=== PATIENT | female | born 1940 | race Caucasian/White ===

== ENCOUNTER → 2016-11-21 | Outpatient (CLI) | payer BC ==
[~2016-11-21] MED LIST: CALC600T9 PO; CHOL20009 PO; ESTR0.3T PO; GABA-1218 PO; HYDR25TA5 PO; LISI20TA3 PO; MIRT30TA PO; MISCCAP80 PO; SERT-234 PO
--- NOTE | 2016-11-21 12:17 | DIAGNOSTIC IMAGING REPORT ---
RIGHT HIP UNILATERAL 2 VIEWS CLINICAL HISTORY: Right hip pain. COMPARISON: Pelvis radiograph August 08, 2015. FINDINGS: Alignment of the right hip is anatomic. There is no fracture or suspicious lesion. Joint space is preserved. Irregularity of the greater trochanter is due to muscular insertion. IMPRESSION: 1. No acute fracture or dislocation right hip. 2. Minimal arthritis of the right hip. Electronically signed by: Armani Armstrong M.D. 11/21/2016 12:15 PM Dictated Date/Time: 11/21/2016 12:09 PM
== END | disposition home or self-care (01) ==
LOC: C.RAD1850 11:38
PROVIDERS: ATTEND Family Medicine
DX: M25.551 Pain in right hip (principal)

== ENCOUNTER → 2016-11-22 | Outpatient (CLI) | payer BC ==
--- NOTE | 2016-11-23 12:46 | MAMMOGRAPHY REPORT ---
BILATERAL DIGITAL SCREENING MAMMOGRAM WITH CAD: 11/22/2016 CLINICAL HISTORY: Routine screening examination. TECHNIQUE: Bilateral CC and MLO views were obtained. Current study was also evaluated with a Comput er Aided Detection (CAD) system. COMPARISON: Comparison is made to exams dated: 11/06/2015 mammogram, 10/29/2015 mammogram, 10/20/2015 m ammogram, 11/06/2013 mammogram, 06/11/2012 mammogram, and 06/09/2011 mammogram - [facility]. BREAST COMPOSITION: The tissue of both breasts is heterogeneously dense, which may obscure small ma sses. FINDINGS: There has been no reaccumulation of the previously aspirated cyst in the left breast. The re are scattered and grouped stable rounded punctate microcalcifications bilaterally. No new suspic ious mass, architectural distortion or cluster of microcalcifications is seen. IMPRESSION: ACR BI-RADS CATEGORY 1: NEGATIVE There is no mammographic evidence of malignancy. A 1 year screening mammogram is recommended. The p atient will receive written notification of the results. Approximately 10% of breast cancers are not detected with mammography. A negative mammographic repor t should not delay biopsy if a clinically suggestive mass is present. Ariana Rodríguez M.D. ay/:11/22/2016 16:31:01 Business Process Analyst: Sarah PAUL(Kimmie)(M), [facility] letter sent: Normal 1/2 BI-RADS Code: ACR BI-RADS Category 1: Negative
== END | disposition home or self-care (01) ==
LOC: C.MAMM 12:59
PROVIDERS: ATTEND Family Medicine
DX: Z12.31 Encounter for screening mammogram for malignant neoplasm of breast (principal)

== ENCOUNTER → 2016-12-02 | Day surgery (SDC) | payer BC ==
[2016-11-09 12:42] VITALS: BMI 29.0
[~2016-12-02] VITALS: Ht 160 cm; Wt 75.0 kg
[~2016-12-02] MED LIST changes: +ATROPINE SULFATE 0.1 MG/ML 5ML SYR IV PRN; +EpHEDrine SULFATE INJ 50 MG/ML AMP IV PRN; +LIDOCAINE HCL 2% 2 ML VIAL (20MG/ML) ONE; +PROPOFOL IV EMULSION 10 MG/ML 20 ML VIAL IV ONE
[2016-12-02 12:58] VITALS: Ht 160 cm; Wt 75.0 kg
--- NOTE | 2016-12-02 13:13 | Endo History and Physical ---
History & Physical Date of Service: Dec 02, 2016. Chief Complaint: anemia Referring Physician: Lencho History of Present Illness For colonoscopy Past Medical History Arthritis, Gastrointestinal Disorder, Anxiety, Hypertension, Depression Past Surgical History Hx Cardiac Surgery: No Hx Internal Defibrillator: No Hx Pacemaker: No Hx Abdominal Surgery: Yes (DUDLEY, APPY, INGUIAL HERNIA) Hx of Implantable Prosthesis: No Hx Post-Op Nausea and Vomiting: No Hx Cancer Surgery: No Hx Thoracic Surgery: No Hx Orthopedic: Yes (RT SHOULDER RCR) Hx Urinary Tract Surgery: No Family History None Social History Smoking Status: Never Smoker Hx Substance Use: No Hx Alcohol Use: No Allergies Coded Allergies: No Known Allergies (Verified , 11/09/16) Current Medications Reported Home Medications Medications Dose Route/Sig Max Daily Dose Days Date Category Zoloft (Sertraline HCl) 100 Mg Tab 200 Mg PO QPM 11/09/16 Reported Remeron (Mirtazapine) 30 Mg Tab 60 Mg PO HS 11/09/16 Reported Prinivil (Lisinopril) 20 Mg Tab 1.5 Tab PO QAM 11/09/16 Reported Hydrochlorothiazide 25 Mg Tab 1 Tab PO QAM 11/09/16 Reported Premarin (Estrogens Conjugated) 0.3 Mg Tab 0.3 Mg PO QAM 11/09/16 Reported Vitamin D (Cholecalciferol) 2,000 Unit Tab 1 Tab PO QAM 11/09/16 Reported Calcium + D (Calcium Carbonate-Vitamin D) 1 Tab Tab 1 Tab PO QAM 11/09/16 Reported Probiotic (Probiotic Product) 1 Cap Cap 1 Cap PO QAM 11/09/16 Reported Neurontin (Gabapentin) 300 Mg Cap 300 Mg PO QPM 07/31/15 Reported Vital Signs Weight (Kilograms): 75.00 Height (Feet): 5 Height (Inches): 3 Physical Exam General Appearance: + obese Respiratory/Chest: Respiratory effort: no dyspnea Cardiovascular: Heart Auscultation: RRR Abdomen: Inspection & Palpation: soft Assessment and Plan Anemia for colonoscopy
--- NOTE | 2016-12-02 13:47 | Discharge Instructions ---
Endoscopy Patient Instructions Date / Procedure(s) Performed Dec 02, 2016. Colonoscopy Allergy Information Coded Allergies: No Known Allergies (Verified , 11/09/16) Discharge Date / Findings Dec 02, 2016. Diverticulosis Medication Instructions Restart Stopped Medication(s): resume meds Reported Home Medications Medications Dose Route/Sig Max Daily Dose Days Date Category Zoloft (Sertraline HCl) 100 Mg Tab 200 Mg PO QPM 11/09/16 Reported Remeron (Mirtazapine) 30 Mg Tab 60 Mg PO HS 11/09/16 Reported Prinivil (Lisinopril) 20 Mg Tab 1.5 Tab PO QAM 11/09/16 Reported Hydrochlorothiazide 25 Mg Tab 1 Tab PO QAM 11/09/16 Reported Premarin (Estrogens Conjugated) 0.3 Mg Tab 0.3 Mg PO QAM 11/09/16 Reported Vitamin D (Cholecalciferol) 2,000 Unit Tab 1 Tab PO QAM 11/09/16 Reported Calcium + D (Calcium Carbonate-Vitamin D) 1 Tab Tab 1 Tab PO QAM 11/09/16 Reported Probiotic (Probiotic Product) 1 Cap Cap 1 Cap PO QAM 11/09/16 Reported Neurontin (Gabapentin) 300 Mg Cap 300 Mg PO QPM 07/31/15 Reported Provider Instructions Activity Restrictions - No exercising or heavy lifting for 24 hours. - Do not drink alcohol the day of the procedure. - Do not drive a car or operate machinery until the day after the procedure. - Do not make any important decisions or sign important papers in 24 hours after the procedure. Following Day: - Return to full activity which may include returning to work/school. Diet Start your diet with liquids and light foods (jello, soup, juice, toast). Then eat your usual diet if not nauseated. Treatment For Common After Affects For mild abdominal pain, bloating, or excessive gas: - Rest - Eat lightly - Lie on right side Follow-Up Information Follow-up with Dr. De La Torre as scheduled Anesthesia Information What You Should Know You have had a procedure that required some medicine to reduce anxiety and discomfort. This treatment is called moderate sedation. After receiving the treatment, you may be sleepy, but you will be able to breathe on your own. The effects of the treatment may last for several hours. Follow these instructions along with Activity/Diet recommendations noted above: * Do NOT do anything where dizziness or clumsiness would be dangerous. * Rest quietly at home today, then you can be up and about tomorrow. * Have a responsible person stay with you the rest of today. * You may have had an I.V. today. If so, you may take the dressing off later today. Recommendations Call your doctor if: * Trouble breathing * Continuous vomiting for more than 24 hours * Temperature above 101 degrees * Severe abdominal pain or bloating * Pain not relieved by pain medicine ordered * There is increased drainage or redness from any incision * A large amount of rectal bleeding greater than 2-3 tablespoons. (If you had a polyp/s removed or have hemorrhoids, a small amount of blood - from the rectum is to be expected.) * You have any unanswered questions or concerns. IN THE EVENT OF A SERIOUS EMERGENCY, GO TO THE NEAREST EMERGENCY ROOM Your discharge instructions were prepared by provider Oliver Barraza. Patient Instructions Signature Page Amie Vo Patient (or Guardian) Signature/Date: I have read and understand the instructions given to me by my caregivers. Caregiver/RN/Doctor Signature/Date: The above-named patient and/or guardian has received patient instructions on this date. + Original Patient Signature Page (only) stays with chart. Please make copy for patient.
--- NOTE | 2016-12-02 13:50 | GI REPORT ---
Procedure Date: 12/02/2016 1:18 PM Procedure: Colonoscopy Indications: Iron deficiency anemia Medicines: Propofol total dose 200 mg IV, Lidocaine 40 mg IV Complications: No immediate complications. Estimated Blood Loss: Estimated blood loss: none. Procedure: Pre-Anesthesia Assessment: - Prior to the procedure, a History and Physical was performed, and patient medications, allergies and sensitivities were reviewed. The patient's tolerance of previous anesthesia was reviewed. - The risks and benefits of the procedure and the sedation options and risks were discussed with the patient. All questions were answered and informed consent was obtained. After I obtained informed consent, the scope was passed under direct vision. Throughout the procedure, the patient's blood pressure, pulse, and oxygen saturations were monitored continuously. The Scope was introduced through the anus and advanced to the cecum, identified by appendiceal orifice and ileocecal valve. The colonoscopy was somewhat difficult due to poor bowel prep with stool present. Successful completion of the procedure was aided by lavage. The patient tolerated the procedure well. The quality of the bowel preparation was poor. Findings: Multiple diverticula were found in the sigmoid colon. Impression: - Preparation of the colon was poor. - Diverticulosis in the sigmoid colon. - No specimens collected. Recommendation: - Discharge patient to home (ambulatory). - Continue present medications. - Return to referring physician PRN. Oliver Barraza M.D. Oliver Barraza MD 12/02/2016 1:49:05 PM This report has been signed electronically. Note Initiated On: 12/02/2016 1:18 PM I attest to the content of the Intraoperative Record and orders documented therein, exceptions below
--- NOTE | 2016-12-02 13:58 | Anesthesiology Progress Note ---
Anesthesia Post Op Note Date & Time Dec 02, 2016 at 13:57 Vital Signs Pain Intensity: 0 Vital Signs Past 12 Hours Date Time Temp Pulse Resp B/P Pulse Ox O2 Delivery O2 Flow Rate FiO2 12/02/16 13:13 36.5 24 156/100 93 Room Air Notes Mental Status: alert / awake / arousable, participated in evaluation Pt Amnestic to Procedure: Yes Nausea / Vomiting: adequately controlled Pain: adequately controlled Airway Patency, RR, SpO2: stable & adequate BP & HR: stable & adequate Hydration State: stable & adequate Anesthetic Complications: no major complications apparent
[2016-12-02 14:19] VITALS: BP 145/79; PULSE 81; O2SAT 95
== END | disposition home or self-care (01) ==
LOC: C.GI 12:08
PROVIDERS: ATTEND Internal Medicine Gastroenterology
DX: K57.30 Diverticulosis of large intestine without perforation or abscess without bleeding (principal); D50.9 Iron deficiency anemia, unspecified; I10 Essential (primary) hypertension; K21.9 Gastro-esophageal reflux disease without esophagitis; F41.9 Anxiety disorder, unspecified; F32.9 Major depressive disorder, single episode, unspecified; M19.91 Primary osteoarthritis, unspecified site; Z79.899 Other long term (current) drug therapy

== ENCOUNTER → 2016-12-03 | Outpatient (CLI) | payer BC ==
[~2016-12-03] MED LIST changes: -ATROPINE SULFATE 0.1 MG/ML 5ML SYR IV PRN; -EpHEDrine SULFATE INJ 50 MG/ML AMP IV PRN; -LIDOCAINE HCL 2% 2 ML VIAL (20MG/ML) ONE; -PROPOFOL IV EMULSION 10 MG/ML 20 ML VIAL IV ONE
[2016-12-03 12:30] LABS: BASO % 0.1 %; BASO ABS # 0.02 K/uL (0-0.2); COMPLETE YES; EOS % 0.1 %; HEMATOCRIT 35.7 % (37-47); IG% 0.5 %; LYMPH % 7.3 %; LYMPH ABS # 1.07 K/uL (1.2-3.4); MEAN CELL VOLUME 91.8 fL (80-100); MEAN CORPUSCULAR HEMOGLOBIN 28.5 pg (25-34); MEAN CORPUSCULAR HGB CONC 31.1 g/dl (32-36); MEAN PLATELET VOLUME 9.5 fL (7.4-10.4); MONO % 7.5 %; NEUT % 84.5 %; PLATELET COUNT 410 K/uL (130-400); RED BLOOD COUNT 3.89 M/uL (4.2-5.4); WHITE BLOOD COUNT 14.62 K/uL (4.8-10.8)
[2016-12-03 12:57] LABS: ALT/SGPT 20 U/L (12-78)
[2016-12-03 12:59] LABS: ALKALINE PHOSPHATASE 80 U/L (45-117); AST/SGOT 14 U/L (15-37)
== END | disposition home or self-care (01) ==
LOC: C.LAB 11:35
PROVIDERS: ATTEND Internal Medicine Rheumatology
DX: R53.83 Other fatigue (principal); M05.9 Rheumatoid arthritis with rheumatoid factor, unspecified; R77.8 Other specified abnormalities of plasma proteins; M62.81 Muscle weakness (generalized); D47.2 Monoclonal gammopathy; R70.0 Elevated erythrocyte sedimentation rate

== ENCOUNTER → 2016-12-26 | Outpatient (CLI) | payer BC ==
--- NOTE | 2016-12-26 14:22 | DIAGNOSTIC IMAGING REPORT ---
LEFT HIP UNILATERAL MIN 2 VIEWS CLINICAL HISTORY: LEFT HIP PAIN pain COMPARISON: 08/08/2015 DISCUSSION: Mild degenerative change. Components of calcific trochanteric bursitis. No evidence for acetabular protrusion. There is no evidence for soft tissue swelling. IMPRESSION: Mild degenerative change. Calcific trochanteric bursitis. Electronically signed by: Romulo Baugh M.D. 12/26/2016 2:21 PM Dictated Date/Time: 12/26/2016 2:20 PM
== END | disposition home or self-care (01) ==
LOC: C.RDSM 13:35
PROVIDERS: ATTEND Physician Assistant
DX: M25.552 Pain in left hip (principal); M70.62 Trochanteric bursitis, left hip

== ENCOUNTER → 2017-01-13 | Outpatient (CLI) | payer BC ==
[2017-01-13 09:41] LABS: BASO % 0.2 %; BASO ABS # 0.03 K/uL (0-0.2); COMPLETE YES; EOS % 1.2 %; IG% 0.5 %; LYMPH % 12.1 %; LYMPH ABS # 1.73 K/uL (1.2-3.4); MEAN CELL VOLUME 97.3 fL (80-100); MEAN CORPUSCULAR HEMOGLOBIN 28.4 pg (25-34); MEAN CORPUSCULAR HGB CONC 29.2 g/dl (32-36); MEAN PLATELET VOLUME 10.1 fL (7.4-10.4); MONO % 9.1 %; NEUT % 76.9 %; PLATELET COUNT 284 K/uL (130-400); WHITE BLOOD COUNT 14.33 K/uL (4.8-10.8)
[2017-01-13 10:20] LABS: ALT/SGPT 18 U/L (12-78); AST/SGOT 14 U/L (15-37)
[2017-01-13 10:21] LABS: ALKALINE PHOSPHATASE 65 U/L (45-117)
== END | disposition home or self-care (01) ==
LOC: C.LAB1850 08:52
PROVIDERS: ATTEND Internal Medicine Rheumatology
DX: R70.0 Elevated erythrocyte sedimentation rate (principal); M05.9 Rheumatoid arthritis with rheumatoid factor, unspecified; Z79.899 Other long term (current) drug therapy

== ENCOUNTER → 2017-06-06 | Outpatient (CLI) | payer BC ==
[2017-06-06 12:26] LABS: BASO % 0.3 %; BASO ABS # 0.03 K/uL (0-0.2); COMPLETE YES; EOS % 2.4 %; HEMATOCRIT 38.7 % (37-47); IG% 0.5 %; LYMPH % 21.6 %; LYMPH ABS # 1.92 K/uL (1.2-3.4); MEAN CELL VOLUME 98.7 fL (80-100); MEAN CORPUSCULAR HEMOGLOBIN 31.6 pg (25-34); MEAN PLATELET VOLUME 10.6 fL (7.4-10.4); MONO % 7.9 %; NEUT % 67.3 %; PLATELET COUNT 241 K/uL (130-400); RED BLOOD COUNT 3.92 M/uL (4.2-5.4); WHITE BLOOD COUNT 8.87 K/uL (4.8-10.8)
[2017-06-06 13:16] LABS: ALT/SGPT 18 U/L (12-78); AST/SGOT 19 U/L (15-37); CREATININE 1.23 mg/dl (0.60-1.20)
== END | disposition home or self-care (01) ==
LOC: C.LAB1850 09:52
PROVIDERS: ATTEND Internal Medicine Rheumatology
DX: R70.0 Elevated erythrocyte sedimentation rate (principal); Z51.81 Encounter for therapeutic drug level monitoring; Z79.899 Other long term (current) drug therapy; M05.9 Rheumatoid arthritis with rheumatoid factor, unspecified

== ENCOUNTER → 2017-09-08 | Outpatient (CLI) | payer BC ==
[2017-09-08 10:58] LABS: BASO % 0.5 %; BASO ABS # 0.04 K/uL (0-0.2); EOS % 2.4 %; EOS ABS # 0.21 K/uL (0-0.5); HEMATOCRIT 41.5 % (37-47); HEMOGLOBIN 13.4 g/dL (12.0-16.0); IG# 0.04 K/uL (0.00-0.02); LYMPH % 20.6 %; LYMPH ABS # 1.81 K/uL (1.2-3.4); MEAN CORPUSCULAR HEMOGLOBIN 32.3 pg (25-34); MEAN CORPUSCULAR HGB CONC 32.3 g/dl (32-36); MEAN PLATELET VOLUME 10.7 fL (7.4-10.4); MONO % 6.4 %; MONO ABS # 0.56 K/uL (0.11-0.59); NEUT % 69.6 %; NEUT ABS # 6.11 K/uL (1.4-6.5); PLATELET COUNT 230 K/uL (130-400); RED CELL DISTRIBUTION WIDTH CV 14.5 % (11.5-14.5); RED CELL DISTRIBUTION WIDTH SD 52.1 fL (36.4-46.3); WHITE BLOOD COUNT 8.77 K/uL (4.8-10.8)
[2017-09-08 11:19] LABS: ALBUMIN 3.4 gm/dl (3.4-5.0); ALT/SGPT 23 U/L (12-78); CREATININE 1.42 mg/dl (0.60-1.20)
[2017-09-08 11:21] LABS: ALKALINE PHOSPHATASE 71 U/L (45-117); AST/SGOT 20 U/L (15-37); TOTAL PROTEIN 7.1 gm/dl (6.4-8.2)
== END | disposition home or self-care (01) ==
LOC: C.LAB1850 09:20
PROVIDERS: ATTEND Internal Medicine Rheumatology
DX: R70.0 Elevated erythrocyte sedimentation rate (principal); M05.9 Rheumatoid arthritis with rheumatoid factor, unspecified; Z79.899 Other long term (current) drug therapy

== ENCOUNTER → 2017-11-16 | Outpatient (CLI) | payer BC ==
--- NOTE | 2017-11-16 14:30 | DIAGNOSTIC IMAGING REPORT ---
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 FINDINGS: There is no fracture or dislocation. Calcifications at the distal insertion of the gluteus medius tendon. This remains unchanged. Cartilage spaces are maintained for age. There is a bones are intact. No radiopaque foreign bodies. Small marginal osteophytes at the left hip, unchanged. IMPRESSION: 1. No change compared to the prior study. 2. No fracture or dislocation within the left hip. 3. Chronic calcification at the gluteus medius tendon. Electronically signed by: Aden Pappas M.D. 11/16/2017 2:29 PM Dictated Date/Time: 11/16/2017 2:25 PM
== END | disposition home or self-care (01) ==
LOC: C.RAD1850 13:48
PROVIDERS: ATTEND Internal Medicine Rheumatology
DX: Z51.81 Encounter for therapeutic drug level monitoring (principal); M76.02 Gluteal tendinitis, left hip; M19.90 Unspecified osteoarthritis, unspecified site; Z79.52 Long term (current) use of systemic steroids

== ENCOUNTER → 2017-12-21 | Outpatient (CLI) | payer BC ==
[2017-12-21 12:11] LABS: BASO % 0.3 %; BASO ABS # 0.03 K/uL (0-0.2); EOS % 0.7 %; EOS ABS # 0.06 K/uL (0-0.5); HEMOGLOBIN 12.7 g/dL (12.0-16.0); IG# 0.04 K/uL (0.00-0.02); LYMPH % 14.6 %; LYMPH ABS # 1.33 K/uL (1.2-3.4); MEAN CELL VOLUME 100.3 fL (80-100); MEAN CORPUSCULAR HEMOGLOBIN 31.8 pg (25-34); MEAN CORPUSCULAR HGB CONC 31.8 g/dl (32-36); MEAN PLATELET VOLUME 10.3 fL (7.4-10.4); MONO % 6.7 %; MONO ABS # 0.61 K/uL (0.11-0.59); NEUT % 77.3 %; NEUT ABS # 7.03 K/uL (1.4-6.5); PLATELET COUNT 259 K/uL (130-400); RED CELL DISTRIBUTION WIDTH CV 14.4 % (11.5-14.5); RED CELL DISTRIBUTION WIDTH SD 51.7 fL (36.4-46.3)
[2017-12-21 12:19] LABS: ALBUMIN 3.6 gm/dl (3.4-5.0); ALT/SGPT 29 U/L (12-78); AST/SGOT 25 U/L (15-37); CREATININE 1.25 mg/dl (0.60-1.20)
[2017-12-21 12:22] LABS: ALKALINE PHOSPHATASE 56 U/L (45-117); TOTAL PROTEIN 7.1 gm/dl (6.4-8.2)
== END | disposition home or self-care (01) ==
LOC: C.LAB1850 09:31
PROVIDERS: ATTEND Internal Medicine Rheumatology
DX: Z51.81 Encounter for therapeutic drug level monitoring (principal); M05.9 Rheumatoid arthritis with rheumatoid factor, unspecified; Z79.899 Other long term (current) drug therapy; M70.61 Trochanteric bursitis, right hip

== ENCOUNTER → 2018-03-14 | Outpatient (CLI) | payer BC | END | disposition home or self-care (01) | LOC: C.RDSM 13:21 | PROVIDERS: ATTEND Family Medicine Sports Medicine | DX: M54.5 Low back pain (principal); M54.10 Radiculopathy, site unspecified ==

== ENCOUNTER 2019-09-03 18:28 | Observation (INO) ==
[2019-09-03] MEDS ORDERED: SODIUM CHLORIDE 0.9% 1000ML 1,000 ML IV ONE (20:00)
--- NOTE | 2019-09-03 20:21 | XRay Report ---
XR chest 1V portable CLINICAL HISTORY: SEPSIS dyspnea COMPARISON STUDY: 07/22/2019 FINDINGS: Mild cardiac enlargement. Fixed hiatal hernia. Lungs are clear. IMPRESSION: Mild cardiomegaly. The lungs are clear. ACT 112: Negative or not required by law. The above report was generated using voice recognition software. It may contain grammatical, syntax or spelling errors. Electronically signed by: Romulo Baugh M.D. 09/03/2019 8:20 PM
[2019-09-03 20:45] LABS: Basophils # (auto) 0.01 K/uL (0-0.2); Eosinophils # (auto) 0.01 K/uL (0-0.5); Hematocrit (blood only) 44.5 % (37-47); Hemoglobin 13.6 g/dL (12.0-16.0); Immature Granulocytes # (auto) 0.18 K/uL (0.00-0.02); Immature Granulocytes % (auto) 0.8 %; Lymphocytes # (auto) 1.59 K/uL (1.2-3.4); Lymphocytes % (auto) 7.5 %; Mean Corpuscular Hemoglobin 28.3 pg (25-34); Mean Corpuscular Hgb Conc 30.6 g/dL (32-36); Mean Corpuscular Volume 92.5 fL (80-100); Mean Platelet Volume 10.6 fL (7.4-10.4); Monocytes # (auto) 0.28 K/uL (0.11-0.59); Monocytes % (auto) 1.3 %; Neutrophils # (auto) 19.16 K/uL (1.4-6.5); Neutrophils % (auto) 90.4 %; Platelet Count 177 K/uL (130-400); RDW Coefficient of Variation 18.9 % (11.5-14.5); RDW Standard Deviation 64.6 fL (36.4-46.3); Red Blood Count 4.81 M/uL (4.2-5.4); White Blood Count 21.23 K/uL (4.8-10.8)
[2019-09-03 21:04] LABS: Albumin Level 3.4 gm/dl (3.4-5.0); BUN Creatinine Ratio 34.3 (10-20); Creatinine Clr Calc Pharmacy 23.6 ml/min; Est GFR (African American) 28.9; Magnesium 2.6 mg/dl (1.8-2.4); Potassium 4.7 mmol/L (3.5-5.1)
[2019-09-03 21:05] LABS: Partial Thromboplastin Ratio 0.8; Partial Thromboplastin Time 21.6 Seconds (21.0-31.0); Prothrombin Time 10.5 Seconds (9.0-12.0)
[2019-09-03 21:08] LABS: Bilirubin,Total 0.2 mg/dl (0.2-1); Globulin 3.3 gm/dl (2.5-4.0); Total Protein 6.7 gm/dl (6.4-8.2); Troponin I 0.035 ng/ml (0-0.045)
[2019-09-03 21:51] LABS: Influenza A virus by PCR Neg for Influ A (Neg); Influenza B virus by PCR Neg for Influ B (Neg)
[2019-09-03 22:16] LABS: Appearance Urine Clear (Clear); Bacteria Urine Automated Negative (Negative); Bilirubin Urine Negative (Negative); Blood Urine Negative (Negative); Color Urine Yellow; Epithelial Cell Urine Auto >30 /lpf (0-5); Glucose Urine UA Negative (Negative); Ketones Urine Negative (Negative); Leukocyte Esterase Urine Trace (Negative); Nitrite Urine Negative (Negative); Protein Urine Negative (Negative); RBC Urine Automated 0-4 /hpf (0-4); Specific Gravity Urine 1.021 (1.000-1.030); Urobilinogen Urine Negative (Negative)
[2019-09-03 22:32] LABS: POC Urine Bilirubin Negative (Negative); POC Urine Blood Negative (Negative); POC Urine Glucose Normal (Normal); POC Urine Ketones Negative (Negative); POC Urine Leukocytes Negative (Negative); POC Urine Nitrite Negative (Negative); POC Urine Protein Negative (Negative); POC Urine Urobilinogen Normal (Normal); POC Urine pH 7 (4.5-7.5)
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
--- NOTE | 2019-09-03 23:59 | History & Physical Report ---
Date of Service September 03, 2019 Assessment & Plan (1) Acute kidney injury superimposed on chronic kidney disease: Creatinine 1.89 upon admission, with range 1.22-1.42. Continue IV fluid rehydration begun in ED with normal saline at 100 mils per hour. Repeat laboratories in a.m. No suggestion of UTI, but follow urine culture sensitivity results. Present on Admission?: Yes (2) Elevated WBC count: Has been on prednisone for treatment of urticaria. Repeat laboratories in a.m. May be elevated in part also to dehydration. Present on Admission?: Yes (3) Chronic idiopathic urticaria: Being treated in the outpatient setting by allergy immunology. Continue current prednisone taper. Avoid stress dose steroids for now, as patient is anxious, and will titrate hydrate and get home tomorrow. Present on Admission?: Yes (4) Hyperlipidemia: Continue Zetia Present on Admission?: Yes (5) Hypertension: Hold lisinopril. Present on Admission?: Yes (6) Anxiety: Continue sertraline and mirtazapine. Present on Admission?: Yes History of Present Illness Chief Complaint: The patient presents to the emergency department as a referral from the outpatient office of allergy and immunology due to concerns regarding abnormal laboratories including elevated creatinine and elevated white blood cell count. Primary Care Provider: Phoenix Musa The patient is a 78-year-old female with a past medical history including chronic idiopathic urticaria, hypertension, hyperlipidemia, GERD, div erticulosis, and status post successful back surgery. She was sent to the ED after being referred from the outpatient allergy and immunology office due to elevated creatinine and elevated white blood cell count. Patient recently been on prednisone, which was thought to be part of the reason for elevated white cell count, but she had sustained a significant increase in creatinine as well. Allergies Allergy/AdvReac Type Severity Reaction Status Date / Time No Known Allergies Allergy Verified 09/03/19 21:28 Home Medications Home Medications Medication Instructions Recorded Confirmed Type Premarin 0.3 mg PO QAM 11/21/18 09/03/19 History ezetimibe [Zetia] 10 mg PO QAM 11/21/18 09/03/19 History gabapentin 400 mg PO HS 11/21/18 09/03/19 History mirtazapine [Remeron] 60 mg PO HS 11/21/18 09/03/19 History sertraline 200 mg PO QPM 11/21/18 09/03/19 History lisinopril 20 mg PO QAM 07/22/19 09/03/19 History coenzyme Q10 200 mg capsule 200 mg PO DAILY cap 07/29/19 09/03/19 History ferrous gluconate 240 mg (27 mg 240 mg PO DAILY 07/29/19 09/03/19 History iron) tablet ketoconazole 1 % shampoo 1 appln TOP DIRECTED PRN 07/30/19 09/03/19 History triamcinolone acetonide 0.1 % 1 appln TOP DAILY 07/30/19 09/03/19 History topical cream prednisone 20 mg tablet See Rx Instructions PO .COMPLEX 08/19/19 09/03/19 Rx #60 tab calcium carbonate-vitamin D3 1 tab PO DAILY 09/03/19 09/03/19 History [Calcium 600 + D(3)] hydroxyzine pamoate [Vistaril] 25 mg PO Q6H PRN 09/03/19 09/03/19 History Past Med/Surg History Medical History Cardiac murmur HX RF A CHILD Depression GERD (gastroesophageal reflux disease) Hyperlipidemia Hypertension MVP (mitral valve prolapse) HX-NO PREMED WITH DENTAL Rheumatoid arthritis SOB (shortness of breath) on exertion Spinal stenosis PAIN RIGHT LEG Surgical History History of appendectomy History of cataract surgery R/L History of colonoscopy History of herniorrhaphy History of hysterectomy TOTAL S/P epidural steroid injection Family History Mother Family history of diabetes mellitus Social History Preferred Language: Gambian Communication Ability: Effective [place] Required: No Beliefs That Will Affect Care: None Current Living Situation: Spouse Feels Safe at Home: Yes Smoking Status: Never smoker Second Hand Exposure: No ; Hx Alcohol Use: No Hx Substance Use: No Review of Systems Review of Systems: The patient denies chest pain, palpitations, shortness of breath, dyspnea on exertion, cough, lower extremity swelling, sore throat, fevers, chills, sweats, nausea, vomiting, diarrhea , constipation, abdominal pain, pelvic pain, blood in urine or stool, dysuria, urinary frequency or urgency, memory loss, loss of consciousness, abnormal bruising or bleeding, imbalance, focal or generalized weakness, numbness or tingling in arms or legs, generalized arthralgias or myalgias, back or neck pain, or night sweats. The review of systems is otherwise negative other than for that already noted above, and at least 10 systems have been reviewed. Physical Exam Physical Exam: The patient is awake, alert and oriented 3, normocephalic and atraumatic, sitting upright in bed and in no acute distress. HEENT--PERRL, EOMI, mucous membranes and oropharynx dry. Neck--supple. No JVD. No bruits. Thyroid normal, trachea midline, no adenopathy. Heart--normal S1 and S2. No murmurs, rubs or gallops. Lungs--clear bilaterally, no respiratory distress, no accessory muscle use. Abdomen--normal bowel sounds and soft. Nontender. Nondistended. Extremities--no cyanosis or clubbing. No edema. There are good distal pulses b/l. Dermatologic--rash as noted in outpatient setting. Neurologic--cranial nerves II through XII grossly intact. Rheumatologic--normal range of motion. Psychiatric--normal affect. Results & Data Vital Signs (Past 12 Hours) Vital Signs Temp Pulse Pulse Resp BP BP Pulse Ox 09/03/19 23:00 65 67 22 164/88 H 164/88 H 93 09/03/19 22:01 67 28 H 181/86 H 09/03/19 22:00 67 18 09/03/19 21:59 71 33 H 204/101 H 09/03/19 21:21 64 21 92 09/03/19 21:11 66 18 155/92 H 93 09/03/19 21:09 63 17 155/92 H 92 09/03/19 18:44 98.2 F 86 20 131/75 98 Laboratory Results Laboratory Results WBC 21.23 K/uL (4.8-10.8) H 09/03/19 20:33 RBC 4.81 M/uL (4.2-5.4) 09/03/19 20:33 Hgb 13.6 g/dL (12.0-16.0) 09/03/19 20:33 Hct 44.5 % (37-47) 09/03/19: MCV 92.5 fL (80-100) 09/03/19 20: MCH 28.3 pg (25-34) 09/03/19: MCHC 30.6 g/dL (32-36) L 09/03/19: RDW Std Deviation 64.6 fL (36.4-46.3) H 09/03/19: RDW Coeff of Shankar 18.9 % (11.5-14.5) H 09/03/19: Plt Count 177 K/uL (130-400) 09/03/19: MPV 10.6 fL (7.4-10.4) H 09/03/19 20: Immature Gran % (Auto) 0.8 % 09/03/19: Neut % (Auto) 90.4 % 09/03/19: Lymph % (Auto) 7.5 % 09/03/19: Wilkin % (Auto) 1.3 % 09/03/19: Eos % (Auto) 0.0 % 09/03/19: Baso % (Auto) 0.0 % 09/03/19: Immature Gran # (Auto) 0.18 K/uL (0.00-0.02) H 09/03/19 20: Neut # (Auto) 19.16 K/uL (1.4-6.5) H 09/03/19 20: Lymph # (Auto) 1.59 K/uL (1.2-3.4) 09/03/19 20: Wilkin # (Auto) 0.28 K/uL (0.11-0.59) 09/03/19: Eos # (Auto) 0.01 K/uL (0-0.5) 09/03/19: Baso # (Auto) 0.01 K/uL (0-0.2) 09/03/19: PT 10.5 Seconds (9.0-12.0) 09/03/19 20: INR 1.0 (0.9-1.1) 09/03/19: APTT 21.6 Seconds (21.0-31.0) 01/21/20 20:33 PTT Ratio 0.8 09/03/19 20:33 Sodium 141 mmol/L (136-145) 09/03/19 20:33 Potassium 4.7 mmol/L (3.5-5.1) 09/03/19 20:33 Chloride 112 mmol/L (98-107) H 09/03/19 20:33 Carbon Dioxide 23 mmol/L (21-32) 09/03/19 20:33 Anion Gap 7.0 (3-11) 09/03/19 20:33 BUN 65 mg/dl (7-18) H 09/03/19 20:33 Creatinine 1.89 mg/dl (0.6-1.2) H 09/03/19 20:33 Est Cr Clr Drug Dosing 23.6 ml/min 09/03/19 20:33 Est GFR ( Amer) 28.9 09/03/19 20:33 Est GFR (Non-Af Amer) 25.0 09/03/19 20:33 BUN/Creatinine Ratio 34.3 (10-20) H 09/03/19 20:33 Glucose 134 mg/dl (70-99) H 09/03/19 20:33 Lactate 1.2 mmol/L (0.4-2.0) 09/03/19 22:24 Calcium 9.0 mg/dl (8.5-10.1) 09/03/19 20:33 Magnesium 2.6 mg/dl (1.8-2.4) H 09/03/19 20:33 Total Bilirubin 0.2 mg/dl (0.2-1) 09/03/19 20:33 AST 24 U/L (15-37) 09/03/19 20:33 ALT 45 U/L (12-78) 09/03/19 20:33 Alkaline Phosphatase 62 U/L (45-117) 09/03/19 20:33 Troponin I 0.035 ng/ml (0-0.045) 09/03/19 20:33 Total Protein 6.7 gm/dl (6.4-8.2) 09/03/19 20:33 Albumin 3.4 gm/dl (3.4-5.0) 09/03/19 20:33 Globulin 3.3 gm/dl (2.5-4.0) 09/03/19 20:33 Albumin/Globulin Ratio 1.0 (0.9-2) 09/03/19 20:33 Procalcitonin < 0.05 ng/ml (0-0.5) 09/03/19 20:33 Urine Color Yellow 09/03/19 22:00 Urine Appearance Clear (Clear) 09/03/19 22:00 Urine pH 5.0 (4.5-7.5) 09/03/19 22:00 POC Urine pH 7 (4.5-7.5) 09/03/19 Unknown Ur Specific [place] 1.021 (1.000-1.030) 09/03/19 22:00 Urine Protein Negative (Negative) 09/03/19 22:00 POC Urine Protein Negative (Negative) 09/03/19 Unknown Urine Glucose (UA) Negative (Negative) 09/03/19 22:00 POC Ur Glucose (UA) Normal (Normal) 09/03/19 Unknown Urine Ketones Negative (Negative) 09/03/19 22:00 POC Urine Ketones Negative (Negative) 09/03/19 Unknown Urine Blood Negative (Negative) 09/03/19 22:00 POC Urine Blood Negative (Negative) 09/03/19 Unknown Urine Nitrite Negative (Negative) 09/03/19 22:00 POC Urine Nitrite Negative (Negative) 09/03/19 Unknown Urine Bilirubin Negative (Negative) 09/03/19 22:00 POC Urine Bilirubin Negative (Negative) 09/03/19 Unknown Urine Urobilinogen Negative (Negative) 09/03/19 22:00 POC Urine Urobilinogen Normal (Normal) 09/03/19 Unknown Ur Leukocyte Esterase Trace (Negative) H 09/03/19 22:00 POC U Leukocyte Esteras Negative (Negative) 09/03/19 Unknown Urine WBC (Auto) 1-5 /hpf (0-5) 09/03/19 22:00 Urine RBC (Auto) 0-4 /hpf (0-4) 09/03/19 22:00 U Hyaline Cast (Auto) 1-5 /lpf (0-5) 09/03/19 22:00 U Epithel Cells (Auto) >30 /lpf (0-5) H 09/03/19 22:00 Urine Bacteria (Auto) Negative (Negative) 09/03/19 22:00 Influenza Type A (PCR) Neg for Influ A (Neg) 09/03/19 21:06 Influenza Type B (PCR) Neg for Influ B (Neg) 09/03/19 21:06 Diagnostic Findings [facility] [place] [phone] XRay Report Patient: SUMI AQUINO AAdmit Date: 09/03/19 MR#: [id number] [address] Acct ID:[id number]: Date: 1City Zip: [place] [address] Age: 78Location: ED Sex: F Room/Bed: Att Phy:Diagnosis: DEHYDRATED, ABNORMAL LABS Cindi Phy: Phoenix Musa, MDService Date: 09/03/19 Fam Phy:Interpreting Phy: Romulo Baugh MD Admit Phy: Ordering Phy: Rigoberto Mayfield M.D. cc: ~ XR chest 1V portable CLINICAL HISTORY: SEPSIS dyspnea COMPARISON STUDY: 07/22/2019 FINDINGS: Mild cardiac enlargement. Fixed hiatal hernia. Lungs are clear. IMPRESSION: Mild cardiomegaly. The lungs are clear. ACT 112: Negative or not required by law. The above report was generated using voice recognition software. It may contain grammatical, syntax or spelling errors. Electronically signed by: Romulo Baugh M.D. 09/03/2019 8:20 PM Dictated: 09/03/192019 Transcribed: 09/03/192019 Code Status & VTE Plan Code Status Full code VTE Prophylaxis Plan VTE Prophylaxis will be ordered: Yes PG Care Time/CCT Total # of Minutes Spent Total Time Spent with Patient: Total time spent is greater than 50% in coordination of care (as documented) at patient's floor/unit and/or counseling patient: (1) Elevated WBC count Leukocytosis type: unspecified Qualified Code(s): D72.829 - Elevated white blood cell count, unspecified
[2019-09-04] MEDS ORDERED: ONDANSETRON INJ 2 MG/ML 2 ML VIAL IV PRN (01:16)
[2019-09-04] MEDS ORDERED: MAGNESIUM HYDROXIDE SUSP 30 ML UDC PO PRN (01:16)
[2019-09-04] MEDS ORDERED: ALUMINUM/MAGNESIUM SUSP 30 ML UDC PO PRN (01:16)
[2019-09-04] MEDS ORDERED: ACETAMINOPHEN 325 MG TAB PO PRN (01:16)
[2019-09-04] MEDS ORDERED: KETOCONAZOLE~ORDER AWAITING ACTION SCH (08:00)
[2019-09-04] MEDS: EZETIMIBE 10 MG TABLET PO SCH (08:02)
[2019-09-04] MEDS: ESTROGENS, CONJUGATED 0.3 MG TAB PO SCH (08:02)
[2019-09-04] MEDS: predniSONE 20 MG TAB PO SCH (08:03)
[2019-09-04] MEDS: FERROUS GLUCONATE 324 MG TAB PO SCH (08:04)
[2019-09-04] MEDS: CALCIUM 600MG + VIT D 400 IU TAB PO SCH (08:04)
[2019-09-04] MEDS: TRIAMCINOLONE ACET 0.1% CR 15 GM TUBE TOP SCH (08:05)
[2019-09-04] MEDS ORDERED: NON-FORMULARY MEDICATION (Coenzyme Q10 200 MG) PO SCH (09:00)
[2019-09-04] MEDS: SODIUM CHLORIDE 0.9% 1000ML 1,000 ML IV SCH ×2 (09:35→21:00)
[2019-09-04 12:00] LABS: Hematocrit (blood only) 42.6 % (37-47); Hemoglobin 12.9 g/dL (12.0-16.0); Mean Corpuscular Hemoglobin 28.2 pg (25-34); Mean Corpuscular Hgb Conc 30.3 g/dL (32-36); Mean Platelet Volume 9.9 fL (7.4-10.4); Platelet Count 140 K/uL (130-400); RDW Coefficient of Variation 18.9 % (11.5-14.5); Red Blood Count 4.58 M/uL (4.2-5.4); White Blood Count 17.05 K/uL (4.8-10.8)
[2019-09-04 12:48] LABS: BUN Creatinine Ratio 33.2 (10-20); Est GFR (African American) 48.2; Est GFR (Non-African American) 41.6; Potassium 4.7 mmol/L (3.5-5.1)
[2019-09-04] MEDS ORDERED: DOCUSATE SODIUM 100 MG CAP PO ONE (16:23)
--- NOTE | 2019-09-04 20:48 | Hospitalist Progress Note ---
Date of Service September 04, 2019 Assessment & Plan (1) Acute kidney injury superimposed on chronic kidney disease: - Cr at 2+ on initial labs but trending down - currently at baseline at 1.24 (baseline 1.22-1.42) -- Suspect this is prerenal in setting of dehydration - Continue gentle hydration of NSS at 80 mL/hr - reassess with AM labs - Hold Lisinopril - likely can resume on D/C (2) Elevated WBC count: - No identified sources of infection; BCx are pending but remains afebrile - This is likely steroid-induced - is trending down and currently at 17 so possibly a reactive component - Continue to monitor for signs of infection -- CXR unremarkable; UA neg; skin stable; remains afebrile (3) Chronic idiopathic urticaria: - Follows with Dr. Cronin - discussed with him on multiple occasions - Talking with patient and family the biggest concern is insomnia which is likely triggered by steroid use. Per records it looks like she should be taking a daily tapering dose. states she takes steroids twice a day in this tapering dose - may need to F/U as I am not sure if they are just splitting the dose for the day or actually taking the prescribed dose twice? -- Likely taking a steroid dose before bed can likely be contributing to her insomnia - steroids in general may be the underlying cause of her complaints - however her rash is improved - Discussed with allergy - plan to continue Prednisone taper but will reduce dose every 3 days instead of 5 days - BP is stable and no signs of adrenal insufficiency at current time - Given symptoms will check TSH in AM - last draw was in Dec and normal - In regards to insomnia: -- Discussion with patient and reveals she has Klonopin at home and this helped her sleep when dealing with the rash. She has used it before while on Remeron and Zoloft without adverse effect. It appears she may have some underlying anxiety as she has used this for situational circumstances in the past - which could be adding to the whole picture - Given using Klonopin in the past this may ultimately help her - will give a dose tonight as well as Remeron and Zoloft - did explain the hospital is tough to get adequate sleep but will re-assess -- states they have some of this medication at home as she does not use it frequently but her "nerve doctor" prescribes it. No issues in PDMP (4) Hyperlipidemia: - Continue Zetia (5) Hypertension: - Hold lisinopril - will expect higher readings do to situation/anxiety/poor sleep, as well with long standing steroids - would avoid overcorrecting given already unsteadiness from tremors/jitteriness to avoid hypotension or drastic swings in pressure unless symptomatic (6) Anxiety: - Continue sertraline and mirtazapine. (7) Constipation: - Long standing issue - likely worsened with dehydration. Will trial Colace BID and can prescribe/recommend OTC to help with bowel regularity. -- She is hesitant to use laxatives. But is moving her bowels so not necessary at this time -- She does have to sometimes manual disimpact herself - should increase fiber in the diet as well - She also was found to have a hiatal hernia on imaging - will add Protonix 40 mg daily while on Prednisone -- states she does have some issues with dry foods like crackers especially since being on steroids and likely this is all part of dehydration but may benefit from video swallow if ongoing issues Disposition: Will keep patient overnight. She appears rather anxious and mildly distraught due to these symptoms. Hopefully she can rest tonight and can be D/Cd tomorrow Subjective Reports overall she is doing okay. Very anxious and jittery. She reports she cannot sleep well. She denies symptoms to suspect infection. Updated Dr. Cronin on situation and plan Review of Systems Constitutional: + fatigue and + insomnia; no fever and no chills Eyes: no worsening vision Respiratory: no cough and no dyspnea Cardiovascular: no chest pain Gastrointestinal: + constipation; no abdominal pain, no nausea, no vomiting and no diarrhea/loose stools Genitourinary: no dysuria and no urinary frequency Musculoskeletal: no body aches Integumentary: no rash Neurologic: + tremor(s) and + confusion; no tingling and no numbness Psychiatric: + abnormal sleep pattern, + anxiety and + confusion Physical Exam Constitutional: + acute distress (anxiety-driven); not ill appearing Eyes: + anicteric sclerae ENMT: Ears: no hearing impairment Mouth: + dry oral mucous membranes Neck: trachea midline Respiratory: normal respiratory effort, lungs clear to auscultation Cardiovascular: Rate/Rhythm: regular rate and regular rhythm Heart Sounds: no murmur Vessels: no JVD Gastrointestinal (Abdomen): Inspection/Auscultation: normal bowel sounds Percussion/Palpation: abdomen soft; abdomen nontender Musculoskeletal: Head/Neck/Chest: normocephalic and head atraumatic Skin: no rashes, warm and dry Neurologic: moves all extremities Motor/Sensory: + tremor Psychiatric: Orientation: alert and oriented x 3 Eye Contact: good eye contact Motor Behavior: + tremor Affect: + anxious affect Mood: + anxious mood Results & Data Vital Signs (Past 12 Hours) Vital Signs Temp Pulse Resp BP Pulse Ox 09/04/19 15:29 36.7 C 83 20 129/72 94 PG Care Time/CCT Total # of Minutes Spent Total Time Spent with Patient: Total time spent is greater than 50% in coordination of care (as documented) at patient's floor/unit and/or counseling patient: (1) Elevated WBC count Leukocytosis type: unspecified Qualified Code(s): D72.829 - Elevated white blood cell count, unspecified
[2019-09-04] MEDS ORDERED: clonazePAM 0.5 MG TAB PO SCH (21:00)
[2019-09-04] MEDS ORDERED: GABAPENTIN 400 MG CAP PO SCH (21:00)
[2019-09-04] MEDS ORDERED: MIRTAZAPINE TAB 15 MG TAB PO SCH (21:00)
[2019-09-04] MEDS ORDERED: SERTRALINE HCL 100 MG TABLET PO SCH (21:00)
--- NOTE | 2019-09-04 23:05 | Electrocardiogram Report ---
Test Reason : Blood Pressure : / mmHG Vent. Rate : 073 BPM Atrial Rate : 073 BPM P-R Int : 134 ms QRS Dur : 094 ms QT Int : 394 ms P-R-T Axes : 033 015 015 degrees QTc Int : 434 ms Sinus rhythm with occasional Premature ventricular complexes Incomplete right bundle branch block Possible Left atrial enlargement When compared with ECG of 22-JUL-2019 11:24, No significant change was found Confirmed by Nathaniel Cannon ([id number]) on 09/04/2019 11:05:24 PM Referred By: REFERRED SELF Confirmed By:Nathaniel Cannon
[2019-09-05 06:24] LABS: Hematocrit (blood only) 40.2 % (37-47); Mean Corpuscular Hemoglobin 28.1 pg (25-34); Mean Corpuscular Hgb Conc 29.9 g/dL (32-36); Mean Corpuscular Volume 94.1 fL (80-100); Mean Platelet Volume 11.2 fL (7.4-10.4); Platelet Count 134 K/uL (130-400); RDW Coefficient of Variation 18.9 % (11.5-14.5); RDW Standard Deviation 65.3 fL (36.4-46.3); Red Blood Count 4.27 M/uL (4.2-5.4); White Blood Count 12.65 K/uL (4.8-10.8)
[2019-09-05 06:54] LABS: BUN Creatinine Ratio 27.2 (10-20); Calcium 8.2 mg/dl (8.5-10.1); Creatinine Clr Calc Pharmacy 37.5 ml/min; Est GFR (African American) 50.6; Est GFR (Non-African American) 43.7; Potassium 4.3 mmol/L (3.5-5.1)
[2019-09-05 07:04] LABS: Thyroid Stimulating Hormone 2.43 uIu/ml (0.300-4.500)
[2019-09-05] MEDS: FERROUS GLUCONATE 324 MG TAB PO SCH (08:15)
[2019-09-05] MEDS: predniSONE 20 MG TAB PO SCH (08:15)
[2019-09-05] MEDS: EZETIMIBE 10 MG TABLET PO SCH (08:15)
[2019-09-05] MEDS: CALCIUM 600MG + VIT D 400 IU TAB PO SCH (08:16)
[2019-09-05] MEDS: ESTROGENS, CONJUGATED 0.3 MG TAB PO SCH (08:16)
[2019-09-05] MEDS: TRIAMCINOLONE ACET 0.1% CR 15 GM TUBE TOP SCH (08:17)
[2019-09-05] MEDS: SODIUM CHLORIDE 0.9% 1000ML 1,000 ML IV SCH (08:21)
[2019-09-05] MEDS ORDERED: PANTOprazole 40 MG TAB PO SCH (09:00)
[2019-09-05] MEDS ORDERED: DOCUSATE SODIUM 100 MG CAP PO SCH (09:00)
--- NOTE | 2019-09-05 10:23 | Discharge Summary ---
Date of Service September 05, 2019 Admission HPI Per Admitting Provider The patient is a 78-year-old female with a past medical history including chronic idiopathic urticaria, hypertension, hyperlipidemia, GERD, diverticulosis, and status post successful back surgery. She was sent to the ED after being referred from the outpatient allergy and immunology office due to elevated creatinine and elevated white blood cell count. Patient recently been on prednisone, which was thought to be part of the reason for elevated white cell count, but she had sustained a significant increase in creatinine as well. Principal Diagnosis Acute kidney injury Discharge Exam Constitutional WD/WN, vitals as above Eyes PERRL, conjunctivae normal, anicteric sclerae ENMT external ear and nose normal, oropharynx normal Neck trachea midline, no thyromegaly Respiratory normal respiratory effort, lungs clear to auscultation Cardiovascular RRR, no murmur, no edema Gastrointestinal (Abdomen) normal bowel sounds, soft, nontender, no hepatosplenomegaly Musculoskeletal no cyanosis or clubbing, extremities motor strength 5/5 Skin no rashes, warm and dry Neurologic patellar DTR's 2+ bilat, sensation intact and PERRL, EOMI, accommodation nl, no face palsy, no dysarthria Psychiatric A+Ox3, euthymic affect Lymphatic no cervical or axillary lymphadenopathy Discharge Data Allergies Allergy/AdvReac Type Severity Reaction Status Date / Time No Known Allergies Allergy Verified 09/03/19 21:28 Consultations 09/03/19 22:22 ED Decision to Admit Stat Hospital Course (1) Acute kidney injury superimposed on chronic kidney disease: - Cr at 2+ on initial labs but trending down - currently at baseline at 1.24 -- Suspect this is prerenal in setting of dehydration - drinking well, no further IV fluids needed, examines euvolemic - resume Lisinopril on D/C (2) Elevated WBC count: - No identified sources of infection; BCx are negative - This is likely steroid-induced - is trending down -- CXR unremarkable; UA neg; skin stable; remains afebrile (3) Chronic idiopathic urticaria: - Follows with Dr. Cronin - discussed with him on multiple occasions - Talking with patient and family the biggest concern is insomnia which is likely triggered by steroid use. Per records it looks like she should be taking a daily tapering dose. states she takes steroids twice a day advised patient to only take Prednisone in the morning is it is contributing to insomnia - Discussed with allergy - plan to continue Prednisone taper but will reduce dose every 3 days instead of 5 days - BP is stable and no signs of adrenal insufficiency at current time d/c on Prednisone 30mg, taper quickly over next 8 days see discharge plan can follow up with PCP in a week (4) Hyperlipidemia: - Continue Zetia (5) Hypertension: - resume lisinopril (6) Anxiety: - Continue sertraline and mirtazapine use Klonopin as needed for sleep aide while on Prednisone (7) Constipation: - Long standing issue - likely worsened with dehydration recommend Colace and Laxative follow up with PCP Total Time Total Time Spent Total Time Spent (In Minutes): 36 minutes Total Time Includes: Examination of the Patient, Discharge Planning and Medication Reconciliation Discharge Plan Discharge Items Patient Disposition: Home - Self-Care Reason For Visit: LUNA ON CKD, DEHYDRATION Discharge Diagnosis: Acute kidney injury Dehydration Encephalopathy due to prednisone Condition on Discharge: Good Goals: complete taper of Prednisone follow up closely with Dr. Musa stay well hydrated Activity: Resume your previous activity Non-emergency contact: Primary Care Provider Call non-emergency contact if: you have any medication questions, your symptoms worsen and you have a fever Follow-up/Referrals: Phoenix Musa [Primary Care Provider] - 09/11/19 10:10 am (Please, follow up with Dr. Phoenix Musa on MondaySeptember 11 at 10:10 am. *If you need to change this appointment, call the office at [phone].) Diet: Regular Addtl Attending Provider Instructions: Medications: - PREDNISONE: complete rapid taper over next 8 days, see below - CLONAZEPAM: take 0.5mg at bedtime as needed for insomnia Acute kidney injury: completely resolved after IV fluids, likely caused by dehydration you are making adequate urine, electrolytes stable continue to make sure you drink plenty of water and other fluids during the day Agitation, confusion due to Prednisone, likely worsened by acute kidney injury improved/resolved will taper off of the Prednisone as follows... 30mg IN THE MORNING on Wednesday 09/06 and Thursday 09/07 20mg IN THE MORNING on Friday 09/08, Saturday 09/09 and Sunday 09/10 10mg IN THE MORNING on Monday 09/11, 09/12 and Wednesday 09/13 Chronic idiopathic urticaria discussed with rachel Pandya to quicken the taper off of Prednisone, see above recommend that you follow up initially with Dr. Musa if rash returns then you can follow up with Dr. Cronin and he can offer you alternative treatment FOLLOW UP - please call for appt with Dr. Musa in the next 5-7 days for a hospital follow up visit Pending Studies at Discharge: No Stand-Alone Forms: [facility], Smoking Cessation Medications and DC Order Prescriptions: New clonazepam 0.5 mg Tablet 0.5 mg PO HS 30 Days Qty: 30 RF: 0 prednisone 10 mg tablet 10 mg PO UD Qty: 14 RF: 0 Continued coenzyme Q10 200 mg capsule 200 mg PO DAILY RF: 0 ferrous gluconate 240 mg (27 mg iron) tablet 240 mg PO DAILY RF: 0 triamcinolone acetonide 0.1 % cream 1 appln TOP DAILY RF: 0 ketoconazole 1 % shampoo 1 appln TOP DIRECTED PRN (Reason: NEEDED) RF: 0 lisinopril 20 mg tablet 20 mg PO QAM RF: 0 calcium carbonate-vitamin D3 [Calcium 600 + D(3)] 600 mg(1,500mg) -200 unit Tablet 1 tab PO DAILY RF: 0 sertraline 100 mg Tablet 200 mg PO QPM RF: 0 mirtazapine [Remeron] 30 mg Tablet 60 mg PO HS RF: 0 gabapentin 300 mg Capsule 400 mg PO HS RF: 0 Premarin 0.3 mg Tablet 0.3 mg PO QAM RF: 0 ezetimibe [Zetia] 10 mg Tablet 10 mg PO QAM RF: 0 Discontinued prednisone 20 mg tablet See Rx Instructions PO .COMPLEX Qty: 60 RF: 0 hydroxyzine pamoate [Vistaril] 25 mg capsule 25 mg PO Q6H PRN (Reason: Sleep) RF: 0 Discharge Orders: Discharge Order (Routine); Ordered 09/05/19 Ordered By: Walter Angel Admission Data Admit Date/Time: 09/03/19 23:58 Attending Provider: Walter Angel Admit Provider: Hill Vega Primary Care Provider: Phoenix Musa Other Providers: Hill Vgea Other Interventions: Discharge Summary Assessment (RN) Last Done: 09/05/19 10:42 DC Date/Time DO NOT enter until pt leaves facility: 09/05/19 11:58 Coding Level of Care Code D/C Day Management >30 mins Diagnoses Acute kidney injury superimposed on chronic kidney disease N17.9; N18.9 Elevated WBC count D72.829 Leukocytosis type: unspecified Chronic idiopathic urticaria L50.1 Hyperlipidemia E78.5 Hypertension I10 Anxiety F41.9 Constipation K59.00
== END 2019-09-05 11:58 | disposition home or self-care (01) ==
LOC: 4W 18:28 → ED 18:28 → SUATTDRO 23:58 → 4W 09-04 00:57

== ENCOUNTER 2021-04-15 16:46 | Inpatient (IN) ==
[2021-04-15] MEDS ORDERED: SODIUM CHLORIDE 0.9% 1000ML 500 ML IV ONE (18:05)
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
[2021-04-15 18:59] LABS: Basophils # (auto) 0.02 K/uL (0-0.2); Basophils % (auto) 0.2 %; Hemoglobin 13.7 g/dL (12.0-16.0); Immature Granulocytes # (auto) 0.04 K/uL (0.00-0.02); Immature Granulocytes % (auto) 0.4 %; Lymphocytes # (auto) 1.34 K/uL (1.2-3.4); Lymphocytes % (auto) 13.1 %; Mean Corpuscular Hemoglobin 32.2 pg (25-34); Mean Corpuscular Hgb Conc 33.4 g/dL (32-36); Mean Corpuscular Volume 96.5 fL (80-100); Mean Platelet Volume 10.5 fL (7.4-10.4); Monocytes # (auto) 0.76 K/uL (0.11-0.59); Monocytes % (auto) 7.4 %; Neutrophils # (auto) 7.96 K/uL (1.4-6.5); Neutrophils % (auto) 77.9 %; Platelet Count 221 K/uL (130-400); RDW Standard Deviation 45.3 fL (36.4-46.3); Red Blood Count 4.25 M/uL (4.2-5.4); White Blood Count 10.22 K/uL (4.8-10.8)
--- NOTE | 2021-04-15 19:06 | XRay Report ---
XR pelvis 1-2V routine CLINICAL HISTORY: falls COMPARISON: None. DISCUSSION: No definite acute fracture or dislocation seen. Mild diffuse osteopenia limits evaluation. Degenerative changes of bilateral hip joints are seen. Orthopedic hardware is seen projecting to the lower lumbar spine. Few gas-filled loops of bowel are seen within lower abdomen. IMPRESSION: No definite acute fracture dislocation. Limited exam due to osteopenia. ACT 112: Negative or not required by law. The above report was generated using voice recognition software. It may contain grammatical, syntax o r spelling errors. Electronically signed by: Renata Sandhu DO 04/15/2021 7:05 PM
--- NOTE | 2021-04-15 19:08 | XRay Report ---
XR chest 1V portable CLINICAL HISTORY: weakness COMPARISON STUDY: September 03, 2019 FINDINGS: No pneumothorax. Partial silhouetting of the elevated left hemidiaphragm is seen and might represent small left pleura l effusion. Mild atelectasis/infiltrate is seen at the left base. Cardiac silhouette is within upper limits of normal. Aorta is calcified. No significant pulmonary vascular congestion.. Osseous structures: Degenerative changes of the spine and bilateral shoulders. IMPRESSION: 1. Small left pleural effusion associated with atelectasis/infiltrate. 2. Atherosclerosis. ACT 112: Negative or not required by law. The above report was generated using voice recognition software. It may contain grammatical, syntax o r spelling errors. Electronically signed by: Renata Sandhu DO 04/15/2021 7:06 PM
[2021-04-15 19:12] LABS: Prothrombin Time 10.2 Seconds (9.0-12.0)
[2021-04-15 19:39] LABS: Albumin Globulin Ratio 0.8 (0.9-2); BUN Creatinine Ratio 16.8 (10-20); Bilirubin,Total 0.3 mg/dl (0.2-1); Calcium 9.1 mg/dl (8.5-10.1); Creatinine Clr Calc Pharmacy 20.5 ml/min; Est GFR (Non-African American) 23.3 ml/min; Magnesium 2.2 mg/dl (1.8-2.4); Potassium 4.2 mmol/L (3.5-5.1); Thyroid Stimulating Hormone 4.05 uIu/ml (0.300-4.500)
--- NOTE | 2021-04-15 21:31 | CT Scan Report ---
CT head/brain wo con CLINICAL HISTORY: falls COMPARISON STUDY: March 31, 2011 TECHNIQUE: Axial CT of the brain is performed from the vertex to the skull base. IV contrast was not administered for this examination. A dose lowering technique was utilized adhering to the principles of ALARA. CT DOSE: FINDINGS: No intra or extra-axial mass lesions are visualized. There is no CT evidence of acute cortical infarc tion. There is no evidence of midline shift. There is no acute hemorrhage. No acute depressed calvar ial fractures are visualized. There are patchy white matter hypodensities likely on a small vessel basis. Atrophic changes of brain parenchyma are seen and associated with ex vacuo dilatation of ventricles. Above-mentioned findings are worsened since prior study performed 10 years ago. There is no evidence of acute sinusitis IMPRESSION: No acute intracranial findings ACT 112: Negative or not required by law. The above report was generated using voice recognition software. It may contain grammatical, syntax o r spelling errors. Electronically signed by: Renata Sandhu DO 04/15/2021 9:29 PM
--- NOTE | 2021-04-15 21:40 | CT Scan Report ---
CT OF THE CERVICAL SPINE CLINICAL HISTORY: falls COMPARISON STUDY: May 27, 2011 CT DOSE: 2351.45 mGy.cm TECHNIQUE: CT scan of the cervical spine was performed from the skull base to the thoracic inlet. Angela ges are reviewed in the axial, sagittal, and coronal planes. IV contrast was not administered for thi s examination. A dose lowering technique was utilized adhering to the principles of ALARA. FINDINGS: The visualized portions of the lung apices reveal no evidence of pneumothorax. The prevertebral soft tissues are normal. No fractures or subluxations are visualized. There is loss of normal cervical lordosis. Evaluation is limited due to severe diffuse osteopenia. Mu ltilevel intervertebral disc space narrowing with mild subchondral sclerosis and osteophytes are seen . Intervertebral disc space narrowing is seen at the C5-C6, C6-C7 levels. Osteophytes at the facet join ts are seen extending to the right and left neuroforamina within mid-lower cervical region and associ ated with bilateral neural foraminal narrowing. Incidental findings of slightly dilated and patulous proximal esophagus with possible thickening of i ts wall.. Evaluation is suboptimal on this nondedicated exam. IMPRESSION: No acute fracture or traumatic malalignment is seen. Suboptimal evaluation due to diffuse osteopenia Multilevel degenerative changes as detailed above. Slightly dilated proximal esophagus with possible thickening of its wall. Please correlate above-ment ioned findings with prior history.. ACT 112: Negative or not required by law. The above report was generated using voice recognition software. It may contain grammatical, syntax o r spelling errors. Electronically signed by: Renata Sandhu DO 04/15/2021 9:38 PM
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
--- NOTE | 2021-04-15 21:51 | CT Scan Report ---
CT lumbar spine wo con CT DOSE: CLINICAL HISTORY: fall TECHNIQUE: Helical images were acquired in transverse plane. Reformatted sagittal and coronal images were reviewed. A dose lowering technique was utilized adhering to the principles of ALARA. CONTRAST: No contrast was administered COMPARISON STUDY: None. FINDINGS: No acute fracture or traumatic malalignment is seen. Evaluation is limited due to diffuse severe osteopenia. Normal lumbar lordosis is exaggerated. Vertebral body heights are maintained. Intervertebral disc spa ce narrowing are seen at the T12-L1 and L1-L2 level. Laminectomy changes are seen at the L5 level. Transpedicular screws and metallic plates are seen with in L4-S1 level. No significant stenosis of the central canal is seen. Prominent hypertrophic changes of facet joints with osteophytes are seen. Osteophytes are extending to the neural neuroforamina and associated with its narrowing within lower lumbar spine, most severe within right L2-L3 neural foramina. Aortic calcifications are seen. IMPRESSION: No acute fracture or traumatic malalignment. Multilevel degenerative changes and postsurgical state as detailed above. Atherosclerosis. The rest of findings as above. ACT 112: Negative or not required by law. The above report was generated using voice recognition software. It may contain grammatical, syntax o r spelling errors. Electronically signed by: Rentaa Sandhu DO 04/15/2021 9:49 PM
--- NOTE | 2021-04-15 22:01 | CT Scan Report ---
CT thoracic spine wo con CT DOSE: CLINICAL HISTORY: fall TECHNIQUE: A dose lowering technique was utilized adhering to the principles of ALARA. COMPARISON STUDY: None. FINDINGS: Lucent line is seen within anterior inferior aspect of the T8 and could represent nondisplaced fractu re (600/28 and 6/219). No retropulsion is seen. No definite paravertebral hematoma is demonstrated. Decreased height of the T6 and T7 vertebral bodies likely representing compression fracture deformity which is probably chronic. No evidence of traumatic malalignment. Mild exaggeration of the normal thoracic kyphosis is seen. Evaluation is limited due to diffuse sever e osteopenia. Multilevel intervertebral disc space narrowing are seen with few areas of vacuum phenomenon. Multiple anterior osteophytes are seen. There is no definite retropulsion of fractured fragment toward central canal is seen. Hemangioma is seen within T10 vertebral body. No significant central canal stenosis is seen. Neural foraminal narrowing is seen on the right at the T7-T8 and T8-T9 levels. Mildly dilated proximal esophagus is seen. IMPRESSION: Fracture line is seen within the anterior aspect of T8 likely representing compression fracture defor mity. Report will be sent to emergency Department. Chronic/old compression fracture deformity of the T6 and T7 is seen. Osteopenia Multilevel degenerative changes as detailed above. ACT 112: Negative or not required by law. The above report was generated using voice recognition software. It may contain grammatical, syntax o r spelling errors. Electronically signed by: Renata Sandhu DO 04/15/2021 10:00 PM
[2021-04-15] MEDS ORDERED: ONDANSETRON INJ 2 MG/ML 2 ML VIAL IV PRN (22:55)
[2021-04-15] MEDS: MELATONIN 3 MG TAB PO PRN (23:19)
[2021-04-15] MEDS: clonazePAM 0.5 MG TAB PO PRN (23:19)
[2021-04-15] MEDS: LACTATED RINGER'S 1,000 ML IV SCH (23:22)
[2021-04-15] MEDS: FERROUS SULFATE 325 MG TAB PO SCH (23:49)
[2021-04-15] MEDS: busPIRone 5 MG TAB PO SCH (23:49)
[2021-04-15] MEDS: DONEPEZIL HCL 5 MG TAB PO SCH (23:49)
[2021-04-15] MEDS: rOPINIRole HCL 1 MG TABLET PO SCH (23:50)
[2021-04-16 05:27] LABS: Basophils # (auto) 0.01 K/uL (0-0.2); Basophils % (auto) 0.1 %; Eosinophils % (auto) 2.3 %; Hematocrit (blood only) 38.4 % (37-47); Hemoglobin 12.5 g/dL (12.0-16.0); Immature Granulocytes # (auto) 0.05 K/uL (0.00-0.02); Immature Granulocytes % (auto) 0.6 %; Lymphocytes # (auto) 1.42 K/uL (1.2-3.4); Lymphocytes % (auto) 16.5 %; Mean Corpuscular Hemoglobin 32.1 pg (25-34); Mean Corpuscular Hgb Conc 32.6 g/dL (32-36); Mean Corpuscular Volume 98.5 fL (80-100); Mean Platelet Volume 10.2 fL (7.4-10.4); Monocytes # (auto) 0.83 K/uL (0.11-0.59); Monocytes % (auto) 9.6 %; Neutrophils # (auto) 6.11 K/uL (1.4-6.5); Neutrophils % (auto) 70.9 %; Platelet Count 200 K/uL (130-400); RDW Coefficient of Variation 12.9 % (11.5-14.5); RDW Standard Deviation 46.1 fL (36.4-46.3); White Blood Count 8.62 K/uL (4.8-10.8)
[2021-04-16 05:44] LABS: Appearance Urine Cloudy (Clear); Bacteria Urine Automated Negative (Negative); Bilirubin Urine Negative (Negative); Blood Urine Negative (Negative); Color Urine Yellow; Epithelial Cell Urine Auto >30 /lpf (0-5); Glucose Urine UA Negative (Negative); Ketones Urine Negative (Negative); Leukocyte Esterase Urine 1+ (Negative); Nitrite Urine Negative (Negative); Protein Urine Negative (Negative); RBC Urine Automated 0-4 /hpf (0-4); Specific Gravity Urine 1.017 (1.000-1.030); Urobilinogen Urine Negative (Negative)
[2021-04-16 05:57] LABS: Albumin Level 2.7 gm/dl (3.4-5.0); BUN Creatinine Ratio 18.3 (10-20); Calcium 8.9 mg/dl (8.5-10.1); Creatinine Clr Calc Pharmacy 25.6 ml/min; Est GFR (African American) 35.7 ml/min; Est GFR (Non-African American) 30.8 ml/min; Potassium 3.9 mmol/L (3.5-5.1)
[2021-04-16 06:00] LABS: Albumin Globulin Ratio 0.8 (0.9-2); Bilirubin,Total 0.4 mg/dl (0.2-1); Globulin 3.3 gm/dl (2.5-4.0)
--- NOTE | 2021-04-16 06:44 | Hospitalist Progress Note ---
Date of Service April 16, 2021 Assessment & Plan (1) Falls frequently: Plan: 80yo female with MDD, GARIMA, rheumatoid arthritis, GERD, and mitral valve prolapse who presents with worsening LE weakness and falls at home. Severe anxiety, confusion Patient with MDD, GARIMA currently treated with polypharmacy in addition to TMS which was stopped after severe anxiety emerged Patient's symptoms (severe anxiety, clonus, HTN) consistent with mild serotonin syndrome in the setting of recent increase in bupropion dose Patient afebrile, CPK not elevated BP elevated but VSS otherwise stable Psychiatry consulted and recommends the following changes: Decrease bupropion to 300mg Discontinue buspar Halve doses of remeron, zoloft Continue klonopin at 0.25mg tid to prevent withdrawal Avoid additional benzos Address confusion with behavioral redirection Ambulatory dysfunction, fall CT revealed compression fracture of T8, diffuse osteopenic change Ambulatory dysfunction suspected to be secondary to polypharmacy, recent med changes, deconditioning Will be very cautious with benzos, any other sedative or Beers' criteria meds PT/OT ordered LUNA Baseline creatinine 1.0-1.3, creatinine on admission 1.98 Received 500mL bolus in ED Gentle hydration with LR@80mL/hr for a total of 2L, will reassess in AM Hold lisinopril, avoid nephrotoxins Trend daily BMP GARIMA, MDD Doses of remeron and zoloft cut in half Continue klonopin 0.25mg tid to prevent withdrawal Dementia Continue requip, aricept Difficulty swallowing Mentioned by patient on admission Speech evaluated; recommends regular diet, slippery thin liquids, aspiration and reflux precautions GERD Continue omeprazole, pantoprazole HLD Continue ezetimibe HTN BP elevated but anticipate improvement with reduction in serotonergic meds Holding lisinopril as above Dispo: med/surg FEN: LR@80mL/hr x 2 bags, regular diet with slippery thin liquids, aspiration and reflux precautions DVT: SCDs Code: DNR/DNI Admission and Anticipated Discharge Date Admission Date: April 15, 2021 Supervising Physician Co-Signing Physician Notes I personally examined the patient and verified all romano points of history and exam, discussed case, and agree with decision making with Dr Segura Anxious and restless. Would like to get up and walk. Psychiatry input greatly appreciated. Vitals noted, in general she is awake and alert seems overall oriented. Is very anxious and restless moving around in the bed almost nonstop on him in the room. Breathing unlabored no accessory muscle use good effort. No focal neuro deficits. Weakness, anxiety, restlessness, AKIall seems to relate to anxiety, polypharmacy, and dehydration. Work on trying to refine med list, hydrate, PT/OT eval and treat, supportive care. Otherwise as above. Subjective Patient seen and evaluated at bedside this morning. Patient endorses severe anxiety as well as tremulousness. Endorses a fear her anxiety will not improve. Endorses some recent memory issues. Patient denies CP, SOB, abdominal pain, nausea, vomiting, lightheadedness, dizziness, and diarrhea. Review of Systems Review of Systems: See HPI Physical Exam Physical Exam: Constitutional: well-appearing, no acute distress HEENT: NCAT, no conjunctival injection CV: regular rhythm, no murmur appreciated, extremities well-perfused, no LE edema Resp: CTABL, no wheezes/rales/rhonchi appreciated, no increased work of breathing Neuro: AOx4, no focal deficits appreciated, bilateral tremor of upper extremities Appearance: dressed in hospital gown Behavior: fidgety, restless, eye contact good Mood: "anxious" Affect: very anxious, affect congruent with mood Speech: appropriate rate/quantity/volume Thought process: tangential with occasional thought blocking Thought content: appropriate to topic of discussion Cognition: alert, poor focus, short-term memory fair Insight: poor Results & Data Results & Data ([facility]) Vital Signs (Past 12 Hours) Vital Signs Temp Pulse Pulse Resp BP BP Pulse Ox 04/15/21 22:55 37 C 69 20 160/75 H 93 04/15/21 22:14 72 20 163/71 H 94 04/15/21 22:00 22 135/75 94 04/15/21 21:00 18 132/70 94 04/15/21 20:00 72 21 134/62 92 04/15/21 19:00 93 H 17 126/96 94 Resident Activity Tracking Resident Involvement: Resident Care Provided Care Provided: Adult Hospital Medicine
[2021-04-16] MEDS: FOLIC ACID 1 MG TAB PO SCH (08:38)
[2021-04-16] MEDS: PANTOprazole 40 MG TAB PO SCH (08:38)
[2021-04-16] MEDS: busPIRone 5 MG TAB PO SCH (08:38)
[2021-04-16] MEDS: EZETIMIBE 10 MG TABLET PO SCH (08:39)
[2021-04-16] MEDS: FERROUS SULFATE 325 MG TAB PO SCH ×2 (08:39→19:59)
[2021-04-16] MEDS ORDERED: buPROPion XL 300 MG TABCR PO SCH (09:00)
[2021-04-16] MEDS ORDERED: buPROPion XL 150 MG TABCR PO SCH (09:00)
[2021-04-16] MEDS ORDERED: clonazePAM 0.5 MG TAB PO STA (09:43)
[2021-04-16] MEDS: LACTATED RINGER'S 1,000 ML IV SCH (11:55)
[2021-04-16] MEDS: clonazePAM 0.5 MG TAB PO PRN (15:50)
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
[2021-04-16] MEDS: clonazePAM 0.25 MG TAB PO SCH ×2 (16:33→19:57)
[2021-04-16] MEDS: rOPINIRole HCL 1 MG TABLET PO SCH ×2 (16:36→19:58)
--- NOTE | 2021-04-16 17:56 | Billing Data ---
Date of Service April 16, 2021 Coding Level of Care Code 59493 Subseq Obs Care Lvl 3
[2021-04-16] MEDS: DONEPEZIL HCL 5 MG TAB PO SCH (19:58)
[2021-04-16] MEDS: SERTRALINE HCL 100 MG TABLET PO SCH (19:58)
[2021-04-16] MEDS: MIRTAZAPINE TAB 15 MG TAB PO SCH (19:58)
[2021-04-16] MEDS: ACETAMINOPHEN 325 MG TAB PO PRN (20:36)
[2021-04-16] MEDS ORDERED: MIRTAZAPINE TAB 15 MG TAB PO SCH (21:00)
[2021-04-16] MEDS ORDERED: SERTRALINE HCL 100 MG TABLET PO SCH (21:00)
--- NOTE | 2021-04-17 02:44 | Billing Data ---
Date of Service April 17, 2021 Coding Level of Care Code INT OBSERVATION CARE 70M LVL 3
[2021-04-17 05:50] LABS: Basophils # (auto) 0.02 K/uL (0-0.2); Basophils % (auto) 0.3 %; Eosinophils # (auto) 0.19 K/uL (0-0.5); Eosinophils % (auto) 3.1 %; Hematocrit (blood only) 37.1 % (37-47); Hemoglobin 12.2 g/dL (12.0-16.0); Immature Granulocytes # (auto) 0.03 K/uL (0.00-0.02); Immature Granulocytes % (auto) 0.5 %; Lymphocytes # (auto) 1.08 K/uL (1.2-3.4); Lymphocytes % (auto) 17.4 %; Mean Corpuscular Hemoglobin 31.9 pg (25-34); Mean Corpuscular Hgb Conc 32.9 g/dL (32-36); Mean Corpuscular Volume 97.1 fL (80-100); Mean Platelet Volume 9.8 fL (7.4-10.4); Monocytes # (auto) 0.54 K/uL (0.11-0.59); Monocytes % (auto) 8.7 %; Neutrophils # (auto) 4.34 K/uL (1.4-6.5); Platelet Count 197 K/uL (130-400); RDW Coefficient of Variation 12.9 % (11.5-14.5); RDW Standard Deviation 45.5 fL (36.4-46.3); Red Blood Count 3.82 M/uL (4.2-5.4)
[2021-04-17 06:14] LABS: BUN Creatinine Ratio 16.9 (10-20); Calcium 8.6 mg/dl (8.5-10.1); Creatinine Clr Calc Pharmacy 28.7 ml/min; Est GFR (Non-African American) 35.4 ml/min; Potassium 4.1 mmol/L (3.5-5.1)
--- NOTE | 2021-04-17 06:25 | Electrocardiogram Report ---
Test Reason : Blood Pressure : / mmHG Vent. Rate : 076 BPM Atrial Rate : 076 BPM P-R Int : 146 ms QRS Dur : 100 ms QT Int : 400 ms P-R-T Axes : -01 026 006 degrees QTc Int : 450 ms Normal sinus rhythm Normal ECG When compared with ECG of 03-SEP-2019 20:12, Premature ventricular complexes are no longer Present Confirmed by Nathaniel Cannon ([id number]) on 04/17/2021 6:24:59 AM Referred By: REFERRED SELF Confirmed By:Nathaniel Cannon
--- NOTE | 2021-04-17 06:47 | Hospitalist Progress Note ---
Date of Service April 17, 2021 Assessment & Plan (1) Falls frequently: Plan: 80yo female with MDD, GARIMA, rheumatoid arthritis, GERD, and mitral valve prolapse who presents with worsening LE weakness and falls at home. Severe anxiety, confusion Patient with MDD, GARIMA currently treated with polypharmacy in addition to TMS which was stopped after severe anxiety emerged Patient's symptoms (severe anxiety, clonus, HTN) consistent with mild serotonin syndrome in the setting of recent increase in bupropion dose Patient afebrile, CPK not elevated BP elevated but VSS otherwise stable Psychiatry consulted and recommends the following changes: Decrease bupropion to 300mg Discontinue buspar Halve doses of remeron, zoloft Continue klonopin at 0.25mg tid to prevent withdrawal Avoid additional benzos Address confusion with behavioral redirection Ambulatory dysfunction, fall CT revealed compression fracture of T8, diffuse osteopenic change Ambulatory dysfunction suspected to be secondary to polypharmacy, recent med changes, deconditioning Will be very cautious with benzos, any other sedative or Beers' criteria meds PT/OT ordered LUNA Baseline creatinine 1.0-1.3, creatinine on admission 1.98; improved to 1.4 (04/17) Hold lisinopril, avoid nephrotoxins IVF discontinued, encourage PO intake Trend daily BMP GARIMA, MDD Doses of remeron and zoloft cut in half Continue klonopin 0.25mg tid to prevent withdrawal Dementia Continue requip, aricept Difficulty swallowing Mentioned by patient on admission Speech evaluated; recommends regular diet, slippery thin liquids, aspiration and reflux precautions GERD Continue omeprazole, pantoprazole HLD Continue ezetimibe HTN BP elevated but anticipate improvement with reduction in serotonergic meds Holding lisinopril as above Dispo: med/surg FEN: IVF discontinued, regular diet with slippery thin liquids, aspiration and reflux precautions DVT: SCDs Code: DNR/DNI Admission and Anticipated Discharge Date Admission Date: April 15, 2021 Supervising Physician Co-Signing Physician Notes I personally examined the patient and verified all romano points of history and exam, discussed case, and agree with decision making with Dr Segura Less restless when I see her. Main concern is trying to dial her . They helped her dial the phone. Vitals noted, in general she is awake and alert seems overall oriented. Still quite anxious, but less so, and less restless purposeless movement. HEENT normocephalic atraumatic mucous membranes moist. Breathing unlabored no accessory muscle use good effort. No focal neuro deficits. Weakness, anxiety, restlessness, AKIall seems to relate to anxiety, polypharmacy, and dehydration. Meds being reduced, hydrated, PT/OT eval and ronnie at, supportive care. Otherwise as above. Probably physical rehab at discharge, versus home given that she is doing surprisingly well with therapy. Ongoing psychiatric input greatly appreciated. Subjective Patient seen and evaluated at bedside this morning. Patient is feeling quite a bit better than yesterday. Endorses a bit of confusion but notes her anxiety and tremulousness have improved. Has not had a BM in three days and requesting a laxative. Patient denies CP, SOB, abdominal pain, nausea, vomiting, lightheadedness, dizziness, and diarrhea. Review of Systems Review of Systems: See HPI Physical Exam Physical Exam: Constitutional: well-appearing, no acute distress HEENT: NCAT, no conjunctival injection CV: regular rhythm, no murmur appreciated, extremities well-perfused, no LE edema Resp: CTABL, no wheezes/rales/rhonchi appreciated, no increased work of samuel thing Neuro: AOx4, no focal deficits appreciated, bilateral tremor of upper extremities improved since yesterday Appearance: dressed in hospital gown Behavior: slightly fidgety, eye contact good Mood: "okay" Affect: mildly anxious, affect congruent with mood Speech: appropriate rate/quantity/volume Thought process: mostly linear, occasionally tangiential Thought content: appropriate to topic of discussion Cognition: alert, focus fair, short-term memory fair Insight: fair Results & Data Results & Data ([facility]) Vital Signs (Past 12 Hours) Vital Signs Temp Pulse Resp BP Pulse Ox 04/16/21 22:39 36.7 C 72 16 130/75 94 Resident Activity Tracking Resident Involvement: Resident Care Provided Care Provided: Adult Hospital Medicine
[2021-04-17] MEDS: PANTOprazole 40 MG TAB PO SCH (09:13)
[2021-04-17] MEDS: FERROUS SULFATE 325 MG TAB PO SCH ×2 (09:13→20:39)
[2021-04-17] MEDS: FOLIC ACID 1 MG TAB PO SCH (09:13)
[2021-04-17] MEDS: buPROPion XL 300 MG TABCR PO SCH (09:14)
[2021-04-17] MEDS: EZETIMIBE 10 MG TABLET PO SCH (09:14)
[2021-04-17] MEDS: clonazePAM 0.25 MG TAB PO SCH ×3 (09:16→20:38)
[2021-04-17] MEDS: ACETAMINOPHEN 325 MG TAB PO PRN ×2 (11:30→20:38)
[2021-04-17] MEDS ORDERED: POLYETHYLENE (MIRALAX) 17 GM PACK PO PRN (14:19)
--- NOTE | 2021-04-17 16:05 | Communication Note ---
Date of Service: April 17, 2021 Patient evaluated at bedside today. She is less confused and less tremulous than previously. Seems to be benefiting from the proposed psychiatric medi cation changes that were made yesterday. Psychiatry will continue to follow case and make sure patient has resolution of symptoms. Plan: No changes at this time, psychiatry will continue to follow and assess.
--- NOTE | 2021-04-17 16:35 | Billing Data ---
Date of Service April 17, 2021 Coding Level of Care Code 50537 Subseq Obs Care Lvl 2
[2021-04-17] MEDS: rOPINIRole HCL 1 MG TABLET PO SCH ×2 (17:43→20:39)
[2021-04-17] MEDS: SERTRALINE HCL 100 MG TABLET PO SCH (20:39)
[2021-04-17] MEDS: DONEPEZIL HCL 5 MG TAB PO SCH (20:39)
[2021-04-17] MEDS: MIRTAZAPINE TAB 15 MG TAB PO SCH (20:40)
[2021-04-17] MEDS: MELATONIN 3 MG TAB PO PRN (21:33)
[2021-04-18 05:25] LABS: Basophils # (auto) 0.02 K/uL (0-0.2); Basophils % (auto) 0.3 %; Eosinophils # (auto) 0.16 K/uL (0-0.5); Eosinophils % (auto) 2.3 %; Hematocrit (blood only) 37.5 % (37-47); Hemoglobin 12.3 g/dL (12.0-16.0); Immature Granulocytes # (auto) 0.05 K/uL (0.00-0.02); Immature Granulocytes % (auto) 0.7 %; Lymphocytes # (auto) 1.33 K/uL (1.2-3.4); Lymphocytes % (auto) 19.2 %; Mean Corpuscular Hemoglobin 32.1 pg (25-34); Mean Corpuscular Hgb Conc 32.8 g/dL (32-36); Mean Corpuscular Volume 97.9 fL (80-100); Mean Platelet Volume 9.9 fL (7.4-10.4); Monocytes # (auto) 0.74 K/uL (0.11-0.59); Monocytes % (auto) 10.7 %; Neutrophils # (auto) 4.63 K/uL (1.4-6.5); Neutrophils % (auto) 66.8 %; Platelet Count 204 K/uL (130-400); RDW Standard Deviation 46.1 fL (36.4-46.3); Red Blood Count 3.83 M/uL (4.2-5.4); White Blood Count 6.93 K/uL (4.8-10.8)
[2021-04-18 05:49] LABS: BUN Creatinine Ratio 15.9 (10-20); Calcium 8.6 mg/dl (8.5-10.1); Creatinine Clr Calc Pharmacy 32.9 ml/min; Est GFR (African American) 48.5 ml/min; Est GFR (Non-African American) 41.8 ml/min; Potassium 3.8 mmol/L (3.5-5.1)
--- NOTE | 2021-04-18 07:55 | Hospitalist Progress Note ---
Date of Service April 18, 2021 Assessment & Plan (1) Falls frequently: Plan: 80yo female with MDD, GARIMA, rheumatoid arthritis, GERD, and mitral valve prolapse who presents with worsening LE weakness and falls at home. Severe anxiety, confusion Patient with MDD, GARIMA currently treated with polypharmacy in addition to TMS which was stopped after severe anxiety emerged Patient's symptoms (severe anxiety, clonus, HTN) consistent with mild serotonin syndrome in the setting of recent increase in bupropion dose Patient afebrile, CPK not elevated, BP elevated but VSS otherwise stable Psychiatry consulted and recommends the following changes: Decrease bupropion to 300mg Discontinue buspar Halve doses of remeron, zoloft Continue klonopin at 0.25mg tid to prevent withdrawal Avoid additional benzos Address confusion with behavioral redirection Symptoms gradually improving day to day Ambulatory dysfunction, fall CT revealed compression fracture of T8, diffuse osteopenic change Ambulatory dysfunction suspected to be secondary to polypharmacy, recent med changes, deconditioning Will be very cautious with benzos, any other sedative or Beers' criteria meds PT/OT following; dispo plan pending PT/OT assessment LUNA (resolved) Baseline creatinine 1.0-1.3, creatinine on admission 1.98; LUNA resolved as of 04/18 Hold lisinopril, avoid nephrotoxins IVF discontinued, encourage PO intake Trend daily BMP GARIMA, MDD Doses of remeron and zoloft cut in half Continue klonopin 0.25mg tid to prevent withdrawal Excoriation Patient's left middle finger without signs of infection, bandage in place, no need for antibiotics at this time If patient has dermatillomania at baseline, can consider N-acetylcysteine on an outpatient basis Dementia Continue requip, aricept Difficulty swallowing Mentioned by patient on admission Speech evaluated; recommends regular diet, slippery thin liquids, aspiration and reflux precautions GERD Continue omeprazole, pantoprazole HLD Continue ezetimibe HTN BP elevated but anticipate improvement with reduction in serotonergic meds Holding lisinopril as above Dispo: med/surg FEN: IVF discontinued, regular diet with slippery thin liquids, aspiration and reflux precautions DVT: SCDs Code: DNR/DNI Admission and Anticipated Discharge Date Admission Date: April 15, 2021 Supervising Physician Co-Signing Physician Notes I personally examined the patient and verified all romano points of history and exam, discussed case, and agree with decision making with Dr Segura Again today mostly worried about phone numbers. No other new physical complaints. Vitals noted, in general she is awake and alert seems overall oriented. Still quite anxious, may be a little less than yesterday, definitely far better than 2 days agoover the last 2 days really has had a dramatic improvement in her constant movement. HEENT normocephalic atraumatic mucous membranes moist. Breathing unlabored no accessory muscle use good effort. No focal neuro deficits. Weakness, anxiety, restlessness, AKIall seems to relate to anxiety, polypharmacy, and dehydration. Meds being reduced, hydrated, PT/OT eval and treat, supportive care. Otherwise as above. Probably physical rehab at discharge, need to follow until it seems that we are in a new point of stability with her meds, and able to have ongoing titration as an outpatient. Subjective Patient seen and evaluated at bedside this morning. Patient pulled out her left middle fingernail yesterday. Patient's anxiety, restlessness, and tremor continue to improve, though patient endorses continued confusion. Patient gets fixated on her family member's phone numbers, and is re-writing them over and over. Patient's main concern today is "I'm very confused about these (phone) numbers". Patient denies CP, SOB, abdominal pain, nausea, vomiting, lightheadedness, dizziness, and diarrhea. Review of Systems Review of Systems: See HPI Physical Exam Physical Exam: Constitutional: well-appearing, no acute distress HEENT: NCAT, no conjunctival injection CV: regular rhythm, no murmur appreciated, extremities well-perfused, no LE edema Resp: CTABL, no wheezes/rales/rhonchi appreciated, no increased work of breathi ng Skin: patient's left middle fingernail absent, area bandaged, mild tenderness but no surrounding erythema, warmth, or exudate Neuro: AOx4, no focal deficits appreciated, minimal bilateral tremor of upper extremities Appearance: dressed in hospital gown Behavior: mild restlessness Mood: "confused" Affect: mildly anxious Speech: appropriate rate/quantity/volume Thought process: perseverative and tangential Thought content: fixated on family member's phone numbers Cognition: alert but with significant confusion Insight: poor Results & Data Results & Data ([facility]) Vital Signs (Past 12 Hours) Vital Signs Temp Pulse Resp BP Pulse Ox 04/17/21 21:38 36.6 C 74 16 142/72 H 92 Resident Activity Tracking Resident Involvement: Resident Care Provided Care Provided: Adult Hospital Medicine
[2021-04-18] MEDS: EZETIMIBE 10 MG TABLET PO SCH (09:02)
[2021-04-18] MEDS: buPROPion XL 300 MG TABCR PO SCH (09:02)
[2021-04-18] MEDS: FERROUS SULFATE 325 MG TAB PO SCH ×2 (09:02→20:11)
[2021-04-18] MEDS: PANTOprazole 40 MG TAB PO SCH (09:03)
[2021-04-18] MEDS: FOLIC ACID 1 MG TAB PO SCH (09:03)
[2021-04-18] MEDS: clonazePAM 0.25 MG TAB PO SCH ×3 (09:05→20:11)
[2021-04-18] MEDS: rOPINIRole HCL 1 MG TABLET PO SCH ×2 (16:30→20:11)
--- NOTE | 2021-04-18 19:04 | Billing Data ---
Date of Service April 18, 2021 Coding Level of Care Code 69166 Subseq Obs Care Lvl 2
[2021-04-18] MEDS: DONEPEZIL HCL 5 MG TAB PO SCH (20:10)
[2021-04-18] MEDS: MIRTAZAPINE TAB 15 MG TAB PO SCH (20:10)
[2021-04-18] MEDS: SERTRALINE HCL 100 MG TABLET PO SCH (20:11)
[2021-04-18] MEDS: MELATONIN 3 MG TAB PO PRN (20:11)
[2021-04-18] MEDS: ACETAMINOPHEN 325 MG TAB PO PRN (20:12)
[2021-04-19 05:36] LABS: Basophils # (auto) 0.03 K/uL (0-0.2); Basophils % (auto) 0.4 %; Eosinophils # (auto) 0.17 K/uL (0-0.5); Eosinophils % (auto) 2.4 %; Hematocrit (blood only) 39.4 % (37-47); Immature Granulocytes # (auto) 0.05 K/uL (0.00-0.02); Immature Granulocytes % (auto) 0.7 %; Lymphocytes # (auto) 1.42 K/uL (1.2-3.4); Mean Corpuscular Hemoglobin 31.9 pg (25-34); Mean Corpuscular Volume 96.8 fL (80-100); Mean Platelet Volume 9.8 fL (7.4-10.4); Monocytes # (auto) 0.57 K/uL (0.11-0.59); Neutrophils # (auto) 4.87 K/uL (1.4-6.5); Neutrophils % (auto) 68.5 %; Platelet Count 209 K/uL (130-400); RDW Standard Deviation 45.1 fL (36.4-46.3); Red Blood Count 4.07 M/uL (4.2-5.4); White Blood Count 7.11 K/uL (4.8-10.8)
[2021-04-19 06:27] LABS: BUN Creatinine Ratio 13.5 (10-20); Calcium 8.8 mg/dl (8.5-10.1); Creatinine Clr Calc Pharmacy 30.6 ml/min; Est GFR (African American) 44.5 ml/min; Est GFR (Non-African American) 38.4 ml/min; Potassium 3.8 mmol/L (3.5-5.1)
--- NOTE | 2021-04-19 06:28 | Hospitalist Progress Note ---
Date of Service April 19, 2021 Assessment & Plan (1) Falls frequently: Plan: 80yo female with MDD, GARIMA, rheumatoid arthritis, GERD, and mitral valve prolapse who presents with worsening LE weakness and falls at home. Severe anxiety, confusion -- in setting of suspected mild serotonin syndrome Patient with MDD, GARIMA currently treated with polypharmacy in addition to TMS which was stopped after severe anxiety emerged Patient's symptoms (severe anxiety, clonus, HTN) consistent with mild serotonin syndrome in the setting of recent increase in bupropion dose Patient afebrile, CPK not elevated, BP elevated but VSS otherwise stable Psychiatry consulted and recommends the following changes: Decreased bupropion to 300mg Discontinued buspar Halve doses of remeron, zoloft Continue klonopin at 0.25mg tid to prevent withdrawal Avoid additional BZDs Address confusion with behavioral redirection Symptoms gradually improving -- today a little bit of a set-back, but suspect hospital delirium is contributing --> Delirium precautions. Avoid naps. Keep blinds open during day. Simulate sleep/wake cycle as much as possible. --> Moved to room with sunlight. Ambulatory dysfunction, fall CT revealed compression fracture of T8, diffuse osteopenic change Ambulatory dysfunction suspected to be secondary to polypharmacy, recent med changes, deconditioning Will be very cautious with benzos, any other sedative or Beers' criteria meds PT/OT following; dispo plan pending PT/OT assessment Recommend patient be assessed as outpatient to ensure DEXA, screenings are UTD LUNA (resolved) Baseline creatinine 1.0-1.3, creatinine on admission 1.98; LUNA resolved as of 04/18 Hold lisinopril, avoid nephrotoxins IVF discontinued, encourage PO intake Trend daily BMP GARIMA, MDD Doses of remeron and zoloft cut in half Continue klonopin 0.25mg tid to prevent withdrawal Excoriation Patient's left middle finger without signs of infection, bandage in place, no need for antibiotics at this time If patient has dermatillomania at baseline, can consider N-acetylcysteine on an outpatient basis Dementia Continue requip, aricept Difficulty swallowing Mentioned by patient on admission Speech evaluated; recommends regular diet, slippery thin liquids, aspiration and reflux precautions GERD Continue omeprazole, pantoprazole HLD Continue ezetimibe HTN BP elevated but anticipate improvement with reduction in serotonergic meds Holding lisinopril as above Dispo: med/surg FEN: Regular diet with slippery thin liquids, aspiration and reflux precautions DVT: SCDs Code: DNR/DNI Admission and Anticipated Discharge Date Admission Date: April 15, 2021 Supervising Physician Co-Signing Physician Notes I personally examined the patient and verified all romano points of history and exam, discussed case, and agree with decision making with Dr Scott. On examination, the patient is anxious; similar to previous days, she is worried about use of a phone. Her hands are mildly tremulous. Exam 154/76, 80, 16, 36.7, 95% on room air She is alert and oriented to time, date, place, and president. She is fixated on use of the in-house telephone. Heart rate is regular rate and rhythm. Respirations are nonlabored Data CBC unremarkable Creatinine 1.31, BUN 18 Assessment and Plan Depression, recurrent Anxiety with acute delirium Mental status change, suspect secondary to polypharmacy Dementia LUNA, resolved HTN For acute confusion/delirium today could be from a number of factors, including medication withdrawal and acute delirium secondary to underlying dementia Continued reassurance and redirection Could consider increasing Klonopin 0.25 mg to 4 times daily if needed Consider decreasing Wellbutrin, or for reduction of sertraline Appreciate psychiatry consultation. Restart home dose lisinopril Subjective NAEO. Reports feeling very anxious this AM. She is hyperfixated on the phone and calling her relatives - continuously asks what the red button does. She is redirectable and is fully A+O on objective examination. Denies pain. No SOB. Tremor evident. No chest discomfort. Appetite good. No n/v. Review of Systems Review of Systems: as per HPI Physical Exam Physical Exam: General: 80-year-old female who is lying back in her hospital bed, anxious appearing, upon my arrival. She is fully cooperative and A+O, though occasionally moves conversation back to the phone. Mild distress 2/2 anxiety. HEENT: NCAT. Eyes - Sclera are white, anicteric, and without injection. Cardiac: Normal rate and regular rhythm; S1 and S2 present with no murmurs, rubs, or gallops. Pulmonary: Good respiratory effort with symmetric expansion of the chest. No use of accessory muscles. Lungs were clear to auscultation bilaterally with no crackles or wheezes. Abdominal: Normoactive bowel sounds. Abdomen was soft, nondistended, and non- tender to palpation. Extremities: Upper and lower extremities are warm and well perfused. Radial and dorsalis pedis pulses were 2+ b/l. Psych: Mental status exam as follows: - Appearance: Patient is mildly disheveled and tremulous in her hospital bed. - Behavior: Intermittently engaged with our conversation, then goes back to becoming fixated on phone and numbers - Speech: Talkative and speaking spontaneously with variable latency. Voice mildly tremulous. - Mood: Patient describes their mood as " very anxious ". - Affect: Patient's affect is best described as c/w mood, mildly labile - Thought process: Tangential occasionally with variability. - Thought/Speech Content: Fixated on phone, numbers on the phone Results & Data Results & Data ([facility]) Vital Signs (Past 12 Hours) Vital Signs Temp Pulse Resp BP Pulse Ox 04/18/21 22:02 37.1 C 80 16 170/77 H 93 Resident Activity Tracking Resident Involvement: Resident Care Provided Care Provided: Adult Hospital Medicine
[2021-04-19] MEDS: FERROUS SULFATE 325 MG TAB PO SCH ×2 (08:23→20:50)
[2021-04-19] MEDS: FOLIC ACID 1 MG TAB PO SCH (08:23)
[2021-04-19] MEDS: EZETIMIBE 10 MG TABLET PO SCH (08:23)
[2021-04-19] MEDS: buPROPion XL 300 MG TABCR PO SCH (08:23)
[2021-04-19] MEDS: PANTOprazole 40 MG TAB PO SCH (08:24)
[2021-04-19] MEDS: clonazePAM 0.25 MG TAB PO SCH ×3 (08:26→20:51)
[2021-04-19] MEDS: rOPINIRole HCL 1 MG TABLET PO SCH ×2 (17:08→20:51)
[2021-04-19] MEDS: DONEPEZIL HCL 5 MG TAB PO SCH (20:50)
[2021-04-19] MEDS: MELATONIN 3 MG TAB PO PRN (20:50)
[2021-04-19] MEDS: SERTRALINE HCL 100 MG TABLET PO SCH (20:50)
[2021-04-19] MEDS: MIRTAZAPINE TAB 15 MG TAB PO SCH (20:51)
[2021-04-20] MEDS: ACETAMINOPHEN 325 MG TAB PO PRN (03:46)
--- NOTE | 2021-04-20 06:33 | Discharge Summary ---
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 Patient notes that she has recently been undergoing magnetic therapy for her depression and as a result has been reducing her wellbutrin. Unfortunately, although patient has undergone 17 treatments she has not noticed significant improvement and in addition has had worsening anxiety as noted by her increased fidgeting and picking at her skin. The magnetic treatments have been stopped nad patient has been titrating back up to her original dose of Wellbutrin 450mg, however, has required significantly more Klonopin in the meantime to keep her anxiety at bay. Her who is present in the room notes that because of the increased Klonopin they are concerned that this is partially the reason for her weakness and increased falls. They had presented to the patient's PCP to discuss inpatient rehab earlier today .[facility] as called at the PCPs office while the patient was present, and they noted an outpatient PT/OT was required. The family felt unsafe in regards to the patients falls about keeping her at home until those evaluations could be completed and brought the patient to the ED for further evaluation and possible placement after the visit. Med Hx:Anxiety, Depression, LD, GERD, Mitral valve prolapse secondary to rheumatic fever, Rheumatoid arthritis Surg Hx: Appendectomy, Cataract surgery b/l, total hysterectomy Soc Hx: Denies tobacco, alcohol, illicit drug use. Admission Exam Per Admitting Provider Constitutional: well developed, well nourished and cooperative; no acute distress Eyes: PERRL, conjunctivae normal, anicteric sclerae ENMT: external ear and nose normal, oropharynx normal Neck: trachea midline, no thyromegaly Respiratory: normal respiratory effort; no cough Auscultation: lungs clear to auscultation bilaterally; no diminished lung sounds, no crackles, no rales and no wheezes Cardiovascular: Rate/Rhythm: regular rate and regular rhythm Heart Sounds: normal S1, normal S2 and + murmur (3/6 late systolic murmur at the L 5th intercostal space ); no cardiac rub Vessels: no JVD Extremities: no calf tenderness and no edema Gastrointestinal (Abdomen): Inspection/Auscultation: abdomen normal to inspection and normal bowel sounds; abdomen not distended Percussion/Palpation: abdomen soft; abdomen nontender, no guarding and abdomen not rigid Musculoskeletal: no cyanosis or clubbing, extremities motor strength 5/5 Head/Neck/Chest: normocephalic and head atraumatic Skin: Multiple small excoriations noted on patient's hands, arms, and legs. Legs worse on the L mid medial thigh Neurologic: PERRL, EOMI, accommodation nl, no face palsy, no dysarthria Psychiatric: Orientation: alert, oriented to person, oriented to place and cooperative; + not oriented to time Affect: + anxious affect Mood: + anxious mood Thought Content: + preoccupation (concerned about cellulitis and her heart ) Principal Diagnosis Severe Anxiety, Depression Ambulatory Dysfunction T8 Fracture LUNA Dementia Discharge Exam General: 80-year-old female who is lying back in her hospital bed, less agitated and more upbeat than yesterday, upon my arrival. She is fully cooperative and A+O, though occasionally moves conversation back to the phone. HEENT: NCAT. Eyes - Sclera are white, anicteric, and without injection. Cardiac: Normal rate and regular rhythm; S1 and S2 present with no murmurs, rubs, or gallops. Pulmonary: Good respiratory effort with symmetric expansion of the chest. No use of accessory muscles. Lungs were clear to auscultation bilaterally with no crackles or wheezes. Abdominal: Normoactive bowel sounds. Abdomen was soft, nondistended, and non- tender to palpation. Extremities: Upper and lower extremities are warm and well perfused. Radial and dorsalis pedis pulses were 2+ b/l. Psych: Mental status exam as follows: - Appearance: Patient is objective more groomed this AM - Behavior: Intermittently engaged with our conversation, does get stuck on some words - Speech: Talkative and speaking spontaneously with variable latency. Voice mildly tremulous. - Mood: Patient describes their mood as " pretty good ". - Affect: Patient's affect is best described as c/w mood, mildly labile - Thought process: More linear today, still intermittently variable - Thought/Speech Content: Answers questions appropriately, more directable Discharge Data Allergies Allergy/AdvReac Type Severity Reaction Status Date / Time doxepin AdvReac Mental Verified 02/19/21 15:49 status change Consultations 04/15/21 20:50 ED Decision to Admit Stat 04/16/21 09:59 Consult Psychiatry Routine Ordered Studies CT head/brain wo con (04/15) CLINICAL HISTORY: falls COMPARISON STUDY: March 31, 2011 TECHNIQUE: Axial CT of the brain is performed from the vertex to the skull base. IV contrast was not administered for this examination. A dose lowering gerardo hnique was utilized adhering to the principles of ALARA. CT DOSE: FINDINGS: No intra or extra-axial mass lesions are visualized. There is no CT evidence of acute cortical infarction. There is no evidence of midline shift. There is no acute hemorrhage. No acute depressed calvarial fractures are visualized. There are patchy white matter hypodensities likely on a small vessel basis. Atrophic changes of brain parenchyma are seen and associated with ex vacuo dilatation of ventricles. Above-mentioned findings are worsened since prior study performed 10 years ago. There is no evidence of acute sinusitis IMPRESSION: No acute intracranial findings ---- CT lumbar spine wo con (04/15) CT DOSE: CLINICAL HISTORY: fall TECHNIQUE: Helical images were acquired in transverse plane. Reformatted s agittal and coronal images were reviewed. A dose lowering technique was utilized adhering to the principles of ALARA. CONTRAST: No contrast was administered COMPARISON STUDY: None. FINDINGS: No acute fracture or traumatic malalignment is seen. Evaluation is limited due to diffuse severe osteopenia. Normal lumbar lordosis is exaggerated. Vertebral body heights are maintained. Intervertebral disc space narrowing are seen at the T12-L1 and L1-L2 level. Laminectomy changes are seen at the L5 level. Transpedicular screws and metallic plates are seen within L4-S1 level. No significant stenosis of the central canal is seen. Prominent hypertrophic changes of facet joints with osteophytes are seen. Osteophytes are extending to the neural neuroforamina and associated with its narrowing within lower lumbar spine, most severe within right L2-L3 neural foramina. Aortic calcifications are seen. IMPRESSION: No acute fracture or traumatic malalignment. Multilevel degenerative changes and postsurgical state as detailed above. Atherosclerosis. The rest of findings as above. --- XR pelvis 1-2V routine (04/15) CLINICAL HISTORY: falls COMPARISON: None. DISCUSSION: No definite acute fracture or dislocation seen. Mild diffuse osteopenia limits evaluation. Degenerative changes of bilateral hip joints are seen. Orthopedic hardware is seen projecting to the lower lumbar spine. Few gas-filled loops of bowel are seen within lower abdomen. IMPRESSION: No definite acute fracture dislocation. Limited exam due to osteopenia. --- CT thoracic spine wo con (04/15) CT DOSE: CLINICAL HISTORY: fall TECHNIQUE: A dose lowering technique was utilized adhering to the principles of ALARA. COMPARISON STUDY: None. FINDINGS: Lucent line is seen within anterior inferior aspect of the T8 and could represent nondisplaced fracture (600/28 and 6/219). No retropulsion is seen. No definite paravertebral hematoma is demonstrated. Decreased height of the T6 and T7 vertebral bodies likely representing compression fracture deformity which is probably chronic. No evidence of traumatic malalignment. Mild exaggeration of the normal thoracic kyphosis is seen. Evaluation is limited due to diffuse severe osteopenia. Multilevel intervertebral disc space narrowing are seen with few areas of vacuum phenomenon. Multiple anterior osteophytes are seen. There is no definite retropulsion of fractured fragment toward central canal is seen. Hemangioma is seen within T10 vertebral body. No significant central canal stenosis is seen. Neural foraminal narrowing is seen on the right at the T7-T8 and T8-T9 levels. Mildly dilated proximal esophagus is seen. IMPRESSION: Fracture line is seen within the anterior aspect of T8 likely representing compression fracture deformity. Report will be sent to emergency Department. Chronic/old compression fracture deformity of the T6 and T7 is seen. Osteopenia Multilevel degenerative changes as detailed above. Hospital Course (1) Falls frequently: 80yo female with MDD, GARIMA, rheumatoid arthritis, GERD, and mitral valve prolapse who presents with worsening LE weakness and falls at home. Severe anxiety, confusion -- in setting of suspected mild serotonin syndrome Patient with MDD, GARIMA currently treated with polypharmacy in addition to TMS which was stopped after severe anxiety emerged Patient's symptoms (severe anxiety, clonus, HTN) consistent with mild serotonin syndrome in the setting of recent increase in bupropion dose Patient afebrile, CPK not elevated, BP elevated but VSS otherwise stable Psychiatry consulted and recommends the following changes: Decreased bupropion to 300mg Discontinued buspar Halve doses of remeron, zoloft Continue (decreased) Klonapin at 0.25mg tid to prevent withdrawal Avoid additional BZDs Address confusion with behavioral redirection Suspect component of confusion during hospital stay was also secondary to delirium -- engaged delirium precautions, including: avoiding naps, recreating sleep/wake cycle, behavioral redirection, OOB to chair Ambulatory dysfunction, fall -- with T8 compression fracture CT revealed compression fracture of T8, diffuse osteopenic change Ambulatory dysfunction suspected to be secondary to polypharmacy, fracture, recent med changes, deconditioning Will be very cautious with benzos, any other sedative or Beers' criteria meds PT/OT following -- continue on discharge Recommend patient be assessed as outpatient to ensure DEXA, possible need for bisphosphonates screenings are UTD LUNA (resolved) Baseline creatinine 1.0-1.3, creatinine on admission 1.98; LUNA resolved as of 04/18 Encourage PO intake Recommend checking BMP 10-14 days following discharge GARIMA, MDD Doses of Remeron and Zoloft cut in half (as above) Continue Klonopin 0.25mg tid to prevent withdrawal Excoriation Patient's left middle finger without signs of infection, bandage in place, no need for antibiotics at this time If patient has dermatillomania at baseline, can consider N-acetylcysteine on an outpatient basis Dementia Continue Requip, Aricept Difficulty swallowing Mentioned by patient on admission Speech evaluated; recommends regular diet, slippery thin liquids, aspiration and reflux precautions GERD Continue omeprazole, pantoprazole HLD Continue ezetimibe HTN BP elevated but anticipate improvement with reduction in serotonergic meds Code: DNR/DNI Total Time Total Time Spent Total Time Spent (In Minutes): 20 min Discharge Plan Discharge Items Patient Disposition: Transfer Halfway Fac Reason For Visit: LUNA, AMBULATORY DYSFUNCTION Discharge Diagnosis: Severe Anxiety, Depression Ambulatory Dysfunction T8 Fracture LUNA Dementia Condition on Discharge: Fair Activity: Per Instructions section Non-emergency contact: Primary Care Provider and Psychiatrist Call non-emergency contact if: you have any medication questions, your pain is worsening and your temperature is above 101 Follow-up/Referrals: Ger Escalona MD [Primary Care Provider] - Diet: Regular Addtl Attending Provider Instructions: 80yo female with MDD, GARIMA, rheumatoid arthritis, GERD, and mitral valve prolapse who presents with worsening LE weakness and falls at home. Severe anxiety, confusion -- in setting of suspected mild serotonin syndrome Patient with MDD, GARIMA currently treated with polypharmacy in addition to TMS which was stopped after severe anxiety emerged Patient's symptoms (severe anxiety, clonus, HTN) consistent with mild serotonin syndrome in the setting of recent increase in bupropion dose Patient afebrile, CPK not elevated, BP elevated but VSS otherwise stable Psychiatry consulted and recommends the following changes: Decreased bupropion to 300mg Discontinued BuSpar Halve doses of Remeron, Zoloft Continue (decreased) Klonopin at 0.25mg tid to prevent withdrawal Avoid additional BZDs Address confusion with behavioral redirection Suspect component of confusion during hospital stay was also secondary to delirium -- engaged delirium precautions, including: avoiding naps, recreating sleep/wake cycle, behavioral redirection, OOB to chair Ambulatory dysfunction, fall -- with T8 compression fracture CT revealed compression fracture of T8, diffuse osteopenic change Ambulatory dysfunction suspected to be secondary to polypharmacy, fracture, recent med changes, deconditioning Will be very cautious with benzos, any other sedative or Beers' criteria meds PT/OT following -- continue on discharge Recommend patient be assessed as outpatient to ensure DEXA, possible need for bisphosphonates screenings are UTD LUNA (resolved) Baseline creatinine 1.0-1.3, creatinine on admission 1.98; LUNA resolved as of 04/18 Encourage PO intake Recommend checking BMP 10-14 days following discharge GARIMA, MDD Doses of Remeron and Zoloft cut in half (as above) Continue Klonopin 0.25mg tid to prevent withdrawal Excoriation Patient's left middle finger without signs of infection, bandage in place, no need for antibiotics at this time If patient has dermatillomania at baseline, can consider N-acetylcysteine on an outpatient basis Dementia Continue Requip, Aricept Difficulty swallowing Mentioned by patient on admission Speech evaluated; recommends regular diet, slippery thin liquids, aspiration and reflux precautions GERD Continue omeprazole, pantoprazole HLD Continue ezetimibe HTN BP elevated but anticipate improvement with reduction in serotonergic meds Code: DNR/DNI Pending Studies at Discharge: No Stand-Alone Forms: My [facility] Skilled Items Patient informed of condition?: Yes DNR: Yes Discharge Level of Care: Skilled Communicable Disease: No Discharge Prognosis: Stable Lines: None Urinary Catheter: No Medications and DC Order Prescriptions: No Action donepezil 5 mg tablet 5 mg PO HS Qty: 30 RF: 5 lisinopril 20 mg tablet 20 mg PO QAM RF: 0 sertraline 100 mg Tablet 200 mg PO QPM RF: 0 mirtazapine [Remeron] 30 mg Tablet 60 mg PO HS RF: 0 Premarin 0.3 mg Tablet 0.3 mg PO QAM RF: 0 ezetimibe [Zetia] 10 mg Tablet 10 mg PO QAM RF: 0 buspirone 5 mg Tablet 5 mg PO BID RF: 0 ropinirole 1 mg Tablet 3 mg PO BID RF: 0 clonazepam 0.5 mg Tablet 0.5 mg PO QID PRN (Reason: Anxiety) RF: 0 omeprazole 40 mg Capsule,Delayed Release(Dr/Ec) 40 mg PO DAILY RF: 0 triamcinolone acetonide 0.1 % Cream 1 applic TOPICAL BID RF: 0 ferrous sulfate [FeroSul] 325 mg (65 mg iron) Tablet 325 mg PO BID RF: 0 folic acid 1 mg Tablet 1 mg PO DAILY RF: 0 bupropion HCl [Wellbutrin XL] 300 mg Tablet Extended Release 24 Hr 300 mg PO QAM RF: 0 bupropion HCl [Wellbutrin XL] 150 mg Tablet Extended Release 24 Hr 150 mg PO QAM RF: 0 Admission Data Admit Date/Time: 04/15/21 21:58 Attending Provider: David Eli Admit Provider: Stanley Garrido Primary Care Provider: Ger Escalona Other Providers: Hill Vega ; Dr Fermin ; Radha Ulloa ; Mac Allison ; [facility] ; Gregg Holland [facility] Resident Activity Tracking Resident Involvement: Resident Care Provided Care Provided: Adult Hospital Medicine
[2021-04-20] MEDS: FERROUS SULFATE 325 MG TAB PO SCH ×2 (07:43→20:22)
[2021-04-20] MEDS: FOLIC ACID 1 MG TAB PO SCH (07:43)
[2021-04-20] MEDS: PANTOprazole 40 MG TAB PO SCH (07:43)
[2021-04-20] MEDS: lisinopril 20 MG TAB PO SCH (07:43)
[2021-04-20] MEDS: EZETIMIBE 10 MG TABLET PO SCH (07:44)
[2021-04-20] MEDS: clonazePAM 0.25 MG TAB PO SCH ×3 (07:46→20:20)
[2021-04-20] MEDS: buPROPion XL 300 MG TABCR PO SCH (08:02)
--- NOTE | 2021-04-20 10:39 | Hospitalist Progress Note ---
Date of Service April 20, 2021 Assessment & Plan (1) Falls frequently: Plan: 80yo female with MDD, GARIMA, rheumatoid arthritis, GERD, and mitral valve prolapse who presents with worsening LE weakness and falls at home. She has required intensive management of her anxiety while here, and thankfully showed much improvement. There may have been a component of mild serotonin syndrome that contributed to her symptoms Severe anxiety, confusion -- in setting of suspected mild serotonin syndrome Patient with MDD, GARIMA currently treated with polypharmacy in addition to TMS which was stopped after severe anxiety emerged Patient's symptoms (severe anxiety, clonus, HTN) consistent with mild serotonin syndrome in the setting of recent increase in bupropion dose Patient afebrile, CPK not elevated, BP elevated but VSS otherwise stable Psychiatry consulted and recommends the following changes: Decreased bupropion to 300mg Discontinued buspar Halve doses of remeron, zoloft Continue (decreased) Klonapin at 0.25mg tid to prevent withdrawal Avoid additional BZDs Address confusion with behavioral redirection Suspect component of confusion during hospital stay was also secondary to delirium -- engaged delirium precautions, including: avoiding naps, recreating sleep/wake cycle, behavioral redirection, OOB to chair Ambulatory dysfunction, fall -- with T8 compression fracture CT revealed compression fracture of T8, diffuse osteopenic change Ambulatory dysfunction suspected to be secondary to polypharmacy, fracture, recent med changes, deconditioning Will be very cautious with benzos, any other sedative or Beers' criteria meds PT/OT following -- continue on discharge Recommend patient be assessed as outpatient to ensure DEXA, possible need for bisphosphonates screenings are UTD LUNA (resolved) Baseline creatinine 1.0-1.3, creatinine on admission 1.98; LUNA resolved as of 04/18 Encourage PO intake Recommend checking BMP 10-14 days following discharge GARIMA, MDD Doses of Remeron and Zoloft cut in half (as above) Continue Klonopin 0.25mg tid to prevent withdrawal Excoriation Patient's left middle finger without signs of infection, bandage in place, no need for antibiotics at this time If patient has dermatillomania at baseline, can consider N-acetylcysteine on an outpatient basis Dementia Continue Requip, Aricept Difficulty swallowing Mentioned by patient on admission Speech evaluated; recommends regular diet, slippery thin liquids, aspiration and reflux precautions GERD Continue omeprazole, pantoprazole HLD Continue ezetimibe HTN BP elevated but anticipate improvement with reduction in serotonergic meds Dispo: med/surg FEN: Regular diet with slippery thin liquids, aspiration and reflux precautions DVT: SCDs Code: DNR/DNI Admission and Anticipated Discharge Date Admission Date: April 15, 2021 Supervising Physician Co-Signing Physician Notes I personally examined the patient and verified all romano points of history and exa m, discussed case, and agree with decision making with Dr Scott. On examination midmorning, the patient is markedly improved. She is seated in the bedside chair. She is alert and oriented. She does not seem nearly as anxious as she did yesterday. Exam 159/72, 75, 17, 36.9, 94% on room air Heart rate is regular rate and rhythm. Respirations are nonlabored Assessment and Plan Depression, recurrent Anxiety, Improved Mental status change, suspect secondary to polypharmacy, improved Dementia LUNA, resolved HTN She looks much better overall today. We will continue current medications Lisinopril was restarted today for her elevated blood pressure; this should improve over the next few days. Subjective Feeling much better this morning. Does endorse some anxiety, but much improved compared to yesterday. She is eager to leave the hospital and asked frequently when she will be ready. She denies any pain, nausea, vomiting. No chest pain or shortness of breath. Appetite good. Had a bowel movement today. Review of Systems 2 Review of Systems: as per HPI Physical Exam Physical Exam: General: 80-year-old female who is lying back in her hospital bed, less agitated and more upbeat than yesterday, upon my arrival. She is fully cooperative and A+O, though occasionally moves conversation back to the phone. HEENT: NCAT. Eyes - Sclera are white, anicteric, and without injection. Cardiac: Normal rate and regular rhythm; S1 and S2 present with no murmurs, rubs, or gallops. Pulmonary: Good respiratory effort with symmetric expansion of the chest. No use of accessory muscles. Lungs were clear to auscultation bilaterally with no crackles or wheezes. Abdominal: Normoactive bowel sounds. Abdomen was soft, nondistended, and non- tender to palpation. Extremities: Upper and lower extremities are warm and well perfused. Radial and dorsalis pedis pulses were 2+ b/l. Psych: Mental status exam as follows: - Appearance: Patient is objective more groomed this AM - Behavior: Intermittently engaged with our conversation, does get stuck on some words - Speech: Talkative and speaking spontaneously with variable latency. Voice mildly tremulous. - Mood: Patient describes their mood as " pretty good ". - Affect: Patient's affect is best described as c/w mood, mildly labile - Thought process: More linear today, still intermittently variable - Thought/Speech Content: Answers questions appropriately, more directable Results & Data Results & Data ([facility]) Vital Signs (Past 12 Hours) Vital Signs Temp Pulse Resp BP Pulse Ox 04/20/21 07:15 36.5 C 72 17 185/88 H 96 Resident Activity Tracking Resident Involvement: Resident Care Provided Care Provided: Adult [facility]
[2021-04-20] MEDS: rOPINIRole HCL 1 MG TABLET PO SCH ×2 (17:22→20:22)
[2021-04-20] MEDS: MIRTAZAPINE TAB 15 MG TAB PO SCH (20:22)
[2021-04-20] MEDS: DONEPEZIL HCL 5 MG TAB PO SCH (20:22)
[2021-04-20] MEDS: SERTRALINE HCL 100 MG TABLET PO SCH (20:23)
[2021-04-21] MEDS: FERROUS SULFATE 325 MG TAB PO SCH ×2 (08:09→21:21)
[2021-04-21] MEDS: lisinopril 20 MG TAB PO SCH (08:09)
[2021-04-21] MEDS: clonazePAM 0.25 MG TAB PO SCH ×3 (08:09→21:21)
[2021-04-21] MEDS: buPROPion XL 300 MG TABCR PO SCH (08:10)
[2021-04-21] MEDS: PANTOprazole 40 MG TAB PO SCH (08:10)
[2021-04-21] MEDS: EZETIMIBE 10 MG TABLET PO SCH (08:11)
[2021-04-21] MEDS: FOLIC ACID 1 MG TAB PO SCH (08:11)
--- NOTE | 2021-04-21 15:30 | Communication Note ---
Date of Service: April 21, 2021 Stop by to see patient today, who looks much improved from days prior. She is more alert and oriented and is displaying less tremors. She is eager to continue on to physical rehab at this time. Denies issues with mood or anxiety. Her current regimen still consist of serotonergic agents, but it is thought that in best interest of the patient in order to not suffer from severe withdrawal from all of these abrupt medication changes at the same time, that her current regimen is appropriate for treating her psychiatric symptoms and can then be adjusted on an outpatient basis as necessary.
[2021-04-21] MEDS: rOPINIRole HCL 1 MG TABLET PO SCH ×2 (17:27→21:22)
--- NOTE | 2021-04-21 17:31 | Hospitalist Progress Note ---
Date of Service April 21, 2021 Assessment & Plan (1) Falls frequently: Plan: 80yo female with MDD, GARIMA, rheumatoid arthritis, GERD, and mitral valve prolapse who presents with worsening LE weakness and falls at home. She has required intensive management of her anxiety while here, and thankfully showed much improvement. There may have been a component of mild serotonin syndrome that contributed to her symptoms Severe anxiety, confusion -- in setting of suspected mild serotonin syndrome Patient with MDD, GARIMA currently treated with polypharmacy in addition to TMS which was stopped after severe anxiety emerged Patient's symptoms (severe anxiety, clonus, HTN) consistent with mild serotonin syndrome in the setting of recent increase in bupropion dose Patient afebrile, CPK not elevated, BP elevated but VSS otherwise stable Psychiatry consulted and recommends the following changes: Decreased bupropion to 300mg Discontinued buspar Halve doses of remeron, zoloft Continue (decreased) Klonapin at 0.25mg tid to prevent withdrawal Avoid additional BZDs Address confusion with behavioral redirection; continues to wax and wane day to day Suspect component of confusion during hospital stay was also secondary to delirium -- engaged delirium precautions, including: avoiding naps, recreating sleep/wake cycle, behavioral redirection, OOB to chair Ambulatory dysfunction, fall -- with T8 compression fracture CT revealed compression fracture of T8, diffuse osteopenic change Ambulatory dysfunction suspected to be secondary to polypharmacy, fracture, recent med changes, deconditioning Will be very cautious with benzos, any other sedative or Beers' criteria meds PT/OT following -- continue on discharge Recommend patient be assessed as outpatient to ensure DEXA, possible need for bisphosphonates screenings are UTD LUNA (resolved) Baseline creatinine 1.0-1.3, creatinine on admission 1.98; LUNA resolved as of 04/18 Encourage PO intake Recommend checking BMP 10-14 days following discharge GARIMA, MDD Doses of Remeron and Zoloft cut in half (as above) Continue Klonopin 0.25mg tid to prevent withdrawal Excoriation Patient's left middle finger without signs of infection, bandage in place, no need for antibiotics at this time If patient has dermatillomania at baseline, can consider N-acetylcysteine on an outpatient basis Dementia Continue Requip, Aricept Difficulty swallowing Mentioned by patient on admission Speech evaluated; recommends regular diet, slippery thin liquids, aspiration and reflux precautions GERD Continue omeprazole, pantoprazole HLD Continue ezetimibe HTN BP elevated but anticipate improvement with reduction in serotonergic meds Dispo: med/surg, awaiting placement FEN: Regular diet with slippery thin liquids, aspiration and reflux precautions DVT: SCDs Code: DNR/DNI Admission and Anticipated Discharge Date Admission Date: April 20, 2021 Supervising Physician Co-Signing Physician Notes I personally examined the patient and verified all romano points of history and exam, discussed case, and agree with decision making with Dr Leblanc. On examination midmorning, the patient is seated in the bedside chair. She is mildly agitated today, hyper focused on a handwritten note that she made herself about calling home. This is similar to her hyperfocus two days previously on the phone itself. Exam 132/74, 81, 20, 36.6, 95% on room air Heart rate is regular rate and rhythm. Respirations are nonlabored Assessment and Plan Depression, recurrent Anxiety, Improved Mental status change, suspect secondary to polypharmacy, improved Dementia LUNA, resolved HTN I think her presentation today as is the waxing/waning of her underlying dementia. She is slightly more agitated today and is having difficult with conversations due to her thought process; however, she does not have the tremors that she did on Monday. Thus, I think she is doing better from a serotonergic standpoint with her current medications, and they can be further adjusted as an outpatient. Her lisinopril was restarted yesterday and her blood pressure looks improved today. Subjective No acute events overnight. Patient reports feeling confused today - she repetitiously tries to read a sideways hand-written note to communicate a message from her family. Review of Systems Review of Systems: All systems reviewed & are unremarkable except as noted in HPI & below Physical Exam Constitutional: WD/WN, vitals as above cooperative Eyes: PERRL, conjunctivae normal, anicteric sclerae ENMT: external ear and nose normal, oropharynx normal Neck: normal visual inspection and trachea midline Respiratory: normal respiratory effort, lungs clear to auscultation Cardiovascular: RRR, no murmur, no edema Musculoskeletal: Head/Neck/Chest: normocephalic and head atraumatic Skin: no rashes, warm and dry Neurologic: moves all extremities Motor/Sensory: + tremor Psychiatric: Orientation: alert; + not oriented x 3 Results & Data Results & Data ([facility]) Vital Signs (Past 12 Hours) Vital Signs Temp Pulse Resp BP Pulse Ox 04/21/21 15:00 36.6 C 81 20 132/74 04/21/21 07:44 36.6 C 76 18 166/77 H 95 Resident Activity Tracking Resident Involvement: Resident Care Provided Care Provided: Adult Hospital Medicine
[2021-04-21] MEDS: MELATONIN 3 MG TAB PO PRN (21:21)
[2021-04-21] MEDS: DONEPEZIL HCL 5 MG TAB PO SCH (21:21)
[2021-04-21] MEDS: MIRTAZAPINE TAB 15 MG TAB PO SCH (21:22)
[2021-04-21] MEDS: SERTRALINE HCL 100 MG TABLET PO SCH (21:22)
[2021-04-22] MEDS: FERROUS SULFATE 325 MG TAB PO SCH ×2 (08:31→21:08)
[2021-04-22] MEDS: EZETIMIBE 10 MG TABLET PO SCH (08:31)
[2021-04-22] MEDS: buPROPion XL 300 MG TABCR PO SCH (08:32)
[2021-04-22] MEDS: FOLIC ACID 1 MG TAB PO SCH (08:32)
[2021-04-22] MEDS: PANTOprazole 40 MG TAB PO SCH (08:32)
[2021-04-22] MEDS: lisinopril 20 MG TAB PO SCH (08:32)
[2021-04-22] MEDS: clonazePAM 0.25 MG TAB PO SCH ×3 (08:34→21:09)
--- NOTE | 2021-04-22 11:41 | Hospitalist Progress Note ---
Date of Service April 22, 2021 Assessment & Plan (1) Falls frequently: Plan: 80yo female with MDD, GARIMA, rheumatoid arthritis, GERD, and mitral valve prolapse who presents with worsening LE weakness and falls at home. She has required intensive management of her anxiety while here, and thankfully showed much improvement. There may have been a component of mild serotonin syndrome that contributed to her symptoms Severe anxiety, confusion -- in setting of suspected mild serotonin syndrome Patient with MDD, GARIMA currently treated with polypharmacy in addition to TMS which was stopped after severe anxiety emerged Patient's previous symptoms (severe anxiety, clonus, HTN) consistent with mild serotonin syndrome in the setting of recent increase in bupropion dose Patient afebrile, CPK not elevated, BP elevated but VSS otherwise stable Psychiatry consulted and recommends the following changes: Decreased bupropion to 300mg Discontinued BuSpar Halve doses of Remeron, Zoloft Continue (decreased) Klonopin at 0.25mg tid to prevent withdrawal Avoid additional BZDs Address confusion with behavioral redirection; continues to wax and wane day to day Suspect component of confusion during hospital stay was also secondary to delirium -- engaged delirium precautions, including: avoiding naps, recreating sleep/wake cycle, behavioral redirection, OOB to chair Ambulatory dysfunction, fall -- with T8 compression fracture CT revealed compression fracture of T8, diffuse osteopenic change Ambulatory dysfunction suspected to be secondary to polypharmacy, fracture, recent med changes, deconditioning Will be very cautious with benzos, any other sedative or Beers' criteria meds PT/OT following -- continue on discharge Recommend patient be assessed as outpatient to ensure DEXA, possible need for bisphosphonates screenings are UTD LUNA (resolved) Baseline creatinine 1.0-1.3, creatinine on admission 1.98; LUNA resolved as of 04/18 Encourage PO intake Recommend checking BMP 10-14 days following discharge GARIMA, MDD Doses of Remeron and Zoloft cut in half (as above) Continue Klonopin 0.25mg tid to prevent withdrawal Excoriation Patient's left middle finger without signs of infection, bandage in place, no need for antibiotics at this time If patient has dermatillomania at baseline, can consider N-acetylcysteine on an outpatient basis Dementia Continue Requip, Aricept Difficulty swallowing Mentioned by patient on admission Speech evaluated; recommends regular diet, slippery thin liquids, aspiration and reflux precautions GERD Continue omeprazole, pantoprazole HLD Continue ezetimibe HTN BP elevated but anticipate improvement with reduction in serotonergic meds Dispo: med/surg, awaiting placement vs. home w/ therapy. Appreciate CM input. FEN: Regular diet with slippery thin liquids, aspiration and reflux precautions DVT: SCDs Code: DNR/DNI Admission and Anticipated Discharge Date Admission Date: April 20, 2021 Supervising Physician Co-Signing Physician Notes I personally examined the patient and verified all romano points of history and exam, discussed case, and agree with decision making with Dr Scott. On examination midmorning, the patient is seated in the bedside chair. She is more relaxed today when compared to yesterday. She has no complaints. Exam 138/81, 76, 18, 37.1, 95% on room air Heart rate is regular rate and rhythm. Respirations are nonlabored Assessment and Plan Depression, recurrent Anxiety, Improved Mental status change, suspect secondary to polypharmacy, improved Dementia LUNA, resolved HTN She denies a presentation of waxing/waning secondary to underlying dementia. This morning seems slightly better than yesterday. Also seem to be some variability between morning and afternoon. Blood pressure continues to look better back on her lisinopril Awaiting insurance approval for placement. Subjective No acute events overnight. Resting upon my arrival. Awakens easily and is fully alert throughout her discussion. Denies any pain. Appetite is good. Eager for a new day. Says mood is good. Anxiety is better than previous days. No shortness of breath. No chest pain or palpitations. Review of Systems Review of Systems: as per HPI Physical Exam Physical Exam: General: 80-year-old female who is lying back in her hospital bed, less agitated and more upbeat earlier in the week, upon my arrival. She is fully cooperative and A+O. HEENT: NCAT. Eyes - Sclera are white, anicteric, and without injection. Cardiac: Normal rate and regular rhythm; S1 and S2 present with no murmurs, rubs, or gallops. Pulmonary: Good respiratory effort with symmetric expansion of the chest. No use of accessory muscles. Lungs were clear to auscultation bilaterally with no crackles or wheezes. Abdominal: Normoactive bowel sounds. Abdomen was soft, nondistended, and non- tender to palpation. Extremities: Upper and lower extremities are warm and well perfused. Radial and dorsalis pedis pulses were 2+ b/l. Psych: Mental status exam as follows: - Appearance: Appropriate. - Behavior: Intermittently engaged with our conversation, does get stuck on some words - Speech: Talkative and speaking spontaneously with variable latency. Voice mildly tremulous. - Mood: Patient describes their mood as " pretty good ". - Affect: Patient's affect is best described as c/w mood, less anxious - Thought process: More linear than earlier in the week - Thought/Speech Content: Answers questions appropriately, more directable Results & Data Results & Data ([facility]) Vital Signs (Past 12 Hours) Vital Signs Temp Pulse Resp BP Pulse Ox 04/22/21 07:00 36.6 C 63 18 173/71 H 93 Resident Activity Tracking Resident Involvement: Resident Care Provided Care Provided: Adult Hospital Medicine
[2021-04-22] MEDS: rOPINIRole HCL 1 MG TABLET PO SCH ×2 (16:35→21:09)
[2021-04-22] MEDS: MELATONIN 3 MG TAB PO PRN (21:08)
[2021-04-22] MEDS: ACETAMINOPHEN 325 MG TAB PO PRN (21:08)
[2021-04-22] MEDS: SERTRALINE HCL 100 MG TABLET PO SCH (21:08)
[2021-04-22] MEDS: MIRTAZAPINE TAB 15 MG TAB PO SCH (21:09)
[2021-04-22] MEDS: DONEPEZIL HCL 5 MG TAB PO SCH (21:09)
[2021-04-23] MEDS: PANTOprazole 40 MG TAB PO SCH (08:32)
[2021-04-23] MEDS: FOLIC ACID 1 MG TAB PO SCH (08:32)
[2021-04-23] MEDS: lisinopril 20 MG TAB PO SCH (08:32)
[2021-04-23] MEDS: clonazePAM 0.25 MG TAB PO SCH ×3 (08:32→20:35)
[2021-04-23] MEDS: EZETIMIBE 10 MG TABLET PO SCH (08:32)
[2021-04-23] MEDS: FERROUS SULFATE 325 MG TAB PO SCH ×2 (08:49→20:35)
[2021-04-23] MEDS: buPROPion XL 300 MG TABCR PO SCH (08:49)
--- NOTE | 2021-04-23 09:39 | Hospitalist Progress Note ---
Date of Service April 23, 2021 Assessment & Plan (1) Falls frequently: Plan: 80 yo female with depression, anxiety, RA, GERD, and mitral valve prolapse admitted for worsening LE weakness and falls at home, with possible mild serotonin syndrome earlier this admission. Severe anxiety, confusion: Patient with MDD, GARIMA on several medications for such. Patient's previous symptoms (severe anxiety, clonus, HTN) consistent with mild serotonin syndrome in the setting of recent increase in bupropion dose. Patient afebrile, CPK not elevated, BP elevated but VSS otherwise stable. Psychiatry consulted and recommends the following changes: Decreased bupropion to 300mg Discontinued buspirone. Halve doses of Remeron and Zoloft. Continue decreased Klonopin at 0.25mg TID to prevent withdrawal with avoidance of any additional benzodiazepines. Suspect component of confusion during hospital stay was also secondary to delirium -- engaged delirium precautions, including: avoiding naps, recreating sleep/wake cycle, behavioral redirection, OOB to chair. Ambulatory dysfunction, fall -- with T8 compression fracture CT revealed compression fracture of T8, diffuse osteopenic change. Ambulatory dysfunction suspected to be secondary to polypharmacy, fracture, recent medication changes, deconditioning. Will be very cautious with benzos, any other sedative or Beers' criteria meds. PT/OT following -- continue on discharge. Recommend patient be receive DEXA outpatient and likely needs bisphosphonate. LUNA (resolved): Baseline creatinine 1.0-1.3, creatinine on admission 1.98; LUNA resolved as of 04/18. Encourage PO intake. Recommend checking BMP 10-14 days following discharge. GARIMA, MDD: Doses of Remeron and Zoloft cut in half (as above). Continue Klonopin 0.25mg TID to prevent withdrawal. Dementia Continue Requip, Aricept. Difficulty swallowing: Mentioned by patient on admission. Speech evaluated; recommends regular diet, slippery thin liquids, aspiration and reflux precautions. GERD: Continue omeprazole, pantoprazole. HLD: Continue ezetimibe. HTN: BP elevated to 160s systolic, recommend follow up outpatient with medication adjustment. Dispo: Med/Surg, awaiting placement to SNF facility. Appreciate CM input. FEN: Regular diet with slippery thin liquids, aspiration and reflux precautions DVT: SCDs Code: DNR/DNI Admission and Anticipated Discharge Date Admission Date: April 20, 2021 Supervising Physician Co-Signing Physician Notes Patient seen and examined independently of PGY-3 Dr. Lezama. Agree with history, exam findings, assessment and plan of care. In brief, Ms. Vo is an 80 year old female with history of GARIMA, RA, GERD, and MVP admitted with worsening lower extremity weakness and falls. Feels ok. Still shaky and tremulous, but does not feel that this is worse today compared to the past. vital signs and nursing notes reviewed Heart with regular rate and rhythm. Lungs are clear to auscultation. Tremulous hands. Labs and imaging reviewed. 1. anxiety and confusion. Secondary to mild serotonin syndrome. Decreased buproprion to 300mg, decreased zoloft and remeron doses. Decreased klonopin to 0.25mg TID. 2. Delirium secondary to hospital environment. Verbal redirection. Avoiding anticholinergics and benzos. 3. Ambulatory dysfunction, fall. Possibly secondary to polypharmacy. PT/OT. Plans to go to [facility]. 4. T8 compression fracture from fall. Needs repeat DEXA now that she has a new osteoporotic fracture. Can start bisphosphonate as an outpatient, may need secondary osteoporosis work up that can be done as an outpatient. 5. Dementia. COntinue requip and aricept. Medically stable for discharge. Awaiting available bed at [facility]--hopeful for tomorrow. Subjective Patient without somatic complaints this morning, but does admit she feels a little "turned around" and confused. She knows her name and and that she is at a medical facility, but is otherwise disoriented. Can answer yes/no questions. Review of Systems Review of Systems: All systems reviewed & are unremarkable except as noted in HPI & below Constitutional: no fever, no chills and no malaise Respiratory: no cough and no dyspnea Cardiovascular: no chest pain, no palpitations and no edema Gastrointestinal: no abdominal pain, no constipation and no diarrhea/loose stools Genitourinary: no dysuria and no hematuria Physical Exam Physical Exam: General: awake, alert, no acute distress. Cardiac: Normal rate and regular rhythm; No murmurs, rubs, or gallops. Pulmonary: Clear to auscultation bilaterally Abdominal: Normoactive bowel sounds. Abdomen was soft, nondistended, and non- tender to palpation. Neuro: patient is tremulous at baseline without worsening with movement; handwriting is small. Appropriate vocal tone, no focal motor deficits noted. Psych: anxious but redirectable affect. Results & Data Results & Data ([facility]) Vital Signs (Past 12 Hours) Vital Signs Temp Pulse Pulse Resp BP BP Pulse Ox 04/23/21 07:24 36.8 C 74 16 167/80 H 94 04/22/21 22:17 36.8 C 73 14 145/68 H 92 Resident Activity Tracking Resident Involvement: Resident Care Provided Care Provided: Adult Hospital Medicine
[2021-04-23] MEDS: rOPINIRole HCL 1 MG TABLET PO SCH ×2 (18:26→20:35)
[2021-04-23] MEDS: MELATONIN 3 MG TAB PO PRN (20:35)
[2021-04-23] MEDS: MIRTAZAPINE TAB 15 MG TAB PO SCH (20:35)
[2021-04-23] MEDS: SERTRALINE HCL 100 MG TABLET PO SCH (20:36)
[2021-04-23] MEDS: DONEPEZIL HCL 5 MG TAB PO SCH (20:36)
[2021-04-24] MEDS: clonazePAM 0.25 MG TAB PO SCH (07:31)
[2021-04-24] MEDS: EZETIMIBE 10 MG TABLET PO SCH (07:32)
[2021-04-24] MEDS: FERROUS SULFATE 325 MG TAB PO SCH (07:32)
[2021-04-24] MEDS: buPROPion XL 300 MG TABCR PO SCH (07:33)
[2021-04-24] MEDS: lisinopril 20 MG TAB PO SCH (07:33)
[2021-04-24] MEDS: FOLIC ACID 1 MG TAB PO SCH (07:34)
[2021-04-24] MEDS: PANTOprazole 40 MG TAB PO SCH (07:34)
--- NOTE | 2021-04-24 11:28 | Discharge Summary ---
Date of Service April 24, 2021 Admission HPI Per Admitting Provider Patient is an 80 year old female with PMHx Anxiety, Depression, LD, GERD, Mitral valve prolapse secondary to rheumatic fever, and Rheumatoid arthritis who presents with worsening LE weakness and falls at home. Patient notes that she has recently been undergoing magnetic therapy for her depression and as a result has been reducing her wellbutrin. Unfortunately, although patient has undergone 17 treatments she has not noticed significant improvement and in addition has had worsening anxiety as noted by her increased fidgeting and picking at her skin. The magnetic treatments have been stopped nad patient has been titrating back up to her original dose of Wellbutrin 450mg, however, has required significantly more Klonopin in the meantime to keep her anxiety at bay. Her who is present in the room notes that because of the increased Klonopin they are concerned that this is partially the reason for her weakness and increased falls. They had presented to the patient's PCP to discuss inpatient rehab earlier today .[facility] as called at the PCPs office while the patient was present, and they noted an outpatient PT/OT was required. The family felt unsafe in regards to the patients falls about keeping her at home until those evaluations could be completed and brought the patient to the ED for further evaluation and possible placement after the visit. Med Hx:Anxiety, Depression, LD, GERD, Mitral valve prolapse secondary to rheumatic fever, Rheumatoid arthritis Surg Hx: Appendectomy, Cataract surgery b/l, total hysterectomy Soc Hx: Denies tobacco, alcohol, illicit drug use. Principal Diagnosis Severe anxiety, confusion Discharge Exam General: awake, alert, no acute distress. Cardiac: Normal rate and regular rhythm; No murmurs, rubs, or gallops. Pulmonary: Clear to auscultation bilaterally Abdominal: Normoactive bowel sounds. Abdomen was soft, nondistended, and non- tender to palpation. Neuro: patient is tremulous at baseline without worsening with movement. Appropriate vocal tone, no focal motor deficits noted. Psych: anxious but redirectable affect Discharge Data Allergies Allergy/AdvReac Type Severity Reaction Status Date / Time doxepin AdvReac Mental Verified 02/19/21 15:49 status change Consultations 04/15/21 20:50 ED Decision to Admit Stat 04/16/21 09:59 Consult Psychiatry Routine Ordered Studies 04/15/21 18:03 CT cervical spine wo con Stat CT head/brain wo con Stat CT lumbar spine wo con Stat CT thoracic spine wo con Stat Hospital Course (1) Falls frequently: 80yo female with MDD, GARIMA, rheumatoid arthritis, GERD, and mitral valve prolapse who presents with worsening LE weakness and falls at home. Severe anxiety, confusion -- in setting of suspected mild serotonin syndrome Patient with MDD, GARIMA currently treated with polypharmacy in addition to TMS which was stopped after severe anxiety emerged Patient's symptoms (severe anxiety, clonus, HTN) consistent with mild serotonin syndrome in the setting of recent increase in bupropion dose Patient afebrile, CPK not elevated, BP elevated but VSS otherwise stable Psychiatry consulted and recommends the following changes: Decreased bupropion to 300mg Discontinued BuSpar Halve doses of Remeron, Zoloft Continue (decreased) Klonopin at 0.25mg tid to prevent withdrawal -- plan to continue tapering Avoid additional BZDs Address confusion with behavioral redirection Suspect component of confusion during hospital stay was also secondary to delirium -- engaged delirium precautions, including: avoiding naps, recreating sleep/wake cycle, behavioral redirection, OOB to chair Ambulatory dysfunction, fall -- with T8 compression fracture CT revealed compression fracture of T8, diffuse osteopenic change Ambulatory dysfunction suspected to be secondary to polypharmacy, fracture, recent med changes, deconditioning Will be very cautious with benzos, any other sedative or Beers' criteria meds PT/OT following -- continue on discharge Recommend patient be assessed as outpatient to ensure DEXA, possible need for bisphosphonates screenings are UTD LUNA (resolved) Baseline creatinine 1.0-1.3, creatinine on admission 1.98; LUNA resolved as of 04/18 Encourage PO intake Recommend checking BMP 10-14 days following discharge GARIMA, MDD Doses of Remeron and Zoloft cut in half (as above) Continue Klonopin 0.25mg tid to prevent withdrawal Excoriation Patient's left middle finger without signs of infection, bandage in place, no need for antibiotics at this time If patient has dermatillomania at baseline, can consider N-acetylcysteine on an outpatient basis Dementia Continue Requip, Aricept Difficulty swallowing Mentioned by patient on admission Speech evaluated; recommends regular diet, slippery thin liquids, aspiration and reflux precautions GERD Continue omeprazole, pantoprazole HLD Continue ezetimibe HTN BP elevated but anticipate improvement with reduction in serotonergic meds Code: DNR/DNI Diet: Regular diet with slippery thin liquids, aspiration and reflux precautions Total Time Total Time Spent Total Time Spent (In Minutes): see attending attestation Discharge Plan Discharge Items Patient Disposition: Transfer [facility] Reason For Visit: LUNA, AMBULATORY DYSFUNCTION Discharge Diagnosis: Severe Anxiety, Depression Ambulatory Dysfunction T8 Fracture LUNA Dementia Condition on Discharge: Fair Activity: Per Instructions section Non-emergency contact: Primary Care Provider and Psychiatrist Call non-emergency contact if: you have any medication questions, your pain is worsening and your temperature is above 101 Follow-up/Referrals: Ger Escalona MD [Primary Care Provider] - Diet: Regular Diet Comment: Regular diet with slippery thin liquids, aspiration and reflux precautions Addtl Attending Provider Instructions: 80yo female with MDD, GARIMA, rheumatoid arthritis, GERD, and mitral valve prolapse who presents with worsening LE weakness and falls at home. Severe anxiety, confusion -- in setting of suspected mild serotonin syndrome Patient with MDD, GARIMA currently treated with polypharmacy in addition to TMS which was stopped after severe anxiety emerged Patient's symptoms (severe anxiety, clonus, HTN) consistent with mild serotonin syndrome in the setting of recent increase in bupropion dose Patient afebrile, CPK not elevated, BP elevated but VSS otherwise stable Psychiatry consulted and recommends the following changes: Decreased bupropion to 300mg Discontinued BuSpar Halve doses of Remeron, Zoloft Continue (decreased) Klonopin at 0.25mg tid to prevent withdrawal -- plan to continue tapering Avoid additional BZDs Address confusion with behavioral redirection Suspect component of confusion during hospital stay was also secondary to delirium -- engaged delirium precautions, including: avoiding naps, recreating sleep/wake cycle, behavioral redirection, OOB to chair Ambulatory dysfunction, fall -- with T8 compression fracture CT revealed compression fracture of T8, diffuse osteopenic change Ambulatory dysfunction suspected to be secondary to polypharmacy, fracture, recent med changes, deconditioning Will be very cautious with benzos, any other sedative or Beers' criteria meds PT/OT following -- continue on discharge Recommend patient be assessed as outpatient to ensure DEXA, possible need for bisphosphonates screenings are UTD LUNA (resolved) Baseline creatinine 1.0-1.3, creatinine on admission 1.98; LUNA resolved as of 04/18 Encourage PO intake Recommend checking BMP 10-14 days following discharge GARIMA, MDD Doses of Remeron and Zoloft cut in half (as above) Continue Klonopin 0.25mg tid to prevent withdrawal Excoriation Patient's left middle finger without signs of infection, bandage in place, no need for antibiotics at this time If patient has dermatillomania at baseline, can consider N-acetylcysteine on an outpatient basis Dementia Continue Requip, Aricept Difficulty swallowing Mentioned by patient on admission Speech evaluated; recommends regular diet, slippery thin liquids, aspiration and reflux precautions GERD Continue omeprazole, pantoprazole HLD Continue ezetimibe HTN BP elevated but anticipate improvement with reduction in serotonergic meds Code: DNR/DNI Diet: Regular diet with slippery thin liquids, aspiration and reflux precautions Pending Studies at Discharge: No Stand-Alone Forms: My [facility] Skilled Items Patient informed of condition?: Yes DNR: Yes Discharge Level of Care: Skilled Communicable Disease: No Discharge Prognosis: Stable Lines: None Urinary Catheter: No Medications and DC Order Prescriptions: New clonazepam 0.5 mg Tablet 0.25 mg PO TID 30 Days Qty: 45 RF: 0 sertraline 100 mg Tablet 100 mg PO QPM 30 Days Qty: 30 RF: 0 mirtazapine 15 mg Tablet 30 mg PO HS 30 Days Qty: 60 RF: 0 bupropion HCl 300 mg Tablet Extended Release 24 Hr 300 mg PO QAM 30 Days Qty: 30 RF: 0 clonazepam [Klonopin] 0.5 mg tablet 0.25 mg PO TID Qty: 12 RF: 0 Continued donepezil 5 mg tablet 5 mg PO HS Qty: 30 RF: 5 lisinopril 20 mg tablet 20 mg PO QAM RF: 0 Premarin 0.3 mg Tablet 0.3 mg PO QAM RF: 0 ezetimibe [Zetia] 10 mg Tablet 10 mg PO QAM RF: 0 ropinirole 1 mg Tablet 3 mg PO BID RF: 0 omeprazole 40 mg Capsule,Delayed Release(Dr/Ec) 40 mg PO DAILY RF: 0 triamcinolone acetonide 0.1 % Cream 1 applic TOPICAL BID RF: 0 ferrous sulfate [FeroSul] 325 mg (65 mg iron) Tablet 325 mg PO BID RF: 0 folic acid 1 mg Tablet 1 mg PO DAILY RF: 0 bupropion HCl [Wellbutrin XL] 300 mg Tablet Extended Release 24 Hr 300 mg PO QAM RF: 0 Discontinued sertraline 100 mg Tablet 200 mg PO QPM RF: 0 mirtazapine [Remeron] 30 mg Tablet 60 mg PO HS RF: 0 buspirone 5 mg Tablet 5 mg PO BID RF: 0 clonazepam 0.5 mg Tablet 0.5 mg PO QID PRN (Reason: Anxiety) RF: 0 bupropion HCl [Wellbutrin XL] 150 mg Tablet Extended Release 24 Hr 150 mg PO QAM RF: 0 Discharge Orders: Discharge Order (Routine); Ordered 04/24/21 [facility] Data Admit Date/Time: 04/20/21 16:03 Attending Provider: Viry Mcpherson Admit Provider: Stanley Garrido Primary Care Provider: Ger Escalona Other Providers: Hill Vega ; Dr Fermin ; Radha Ulloa ; [facility] ; [facility] ; Obdulia Cardoso Other Interventions: Discharge Summary Assessment (RN) Last Done: 04/24/21 10:18 Supervising Physician Co-Signing Physician Notes Patient seen and examined independently of PGY-2 Dr. Moore. Agree with history, exam findings, assessment and plan of care. In brief, Ms. Vo is an 80 year old female with history of GARIMA, RA, GERD, and MVP admitted with worsening lower extremity weakness and falls. This morning, feeling well. No complaints or issues overnight. vital signs and nursing notes reviewed Heart with regular rate and rhythm. Lungs are clear to auscultation. Tremulous hands. Labs and imaging reviewed. 1. anxiety and confusion. Secondary to mild serotonin syndrome. Decreased buproprion to 300mg, decreased zoloft and remeron doses. Decreased klonopin to 0.25mg TID. Can consider continued taper to decrease polypharmacy. 2. Delirium secondary to hospital environment. Verbal redirection. Avoiding anticholinergics and benzos. 3. Ambulatory dysfunction, fall. Possibly secondary to polypharmacy. PT/OT. Plans to go to [facility]. 4. T8 compression fracture from fall. Needs repeat DEXA now that she has a new osteoporotic fracture. Can start bisphosphonate as an outpatient, may need secondary osteoporosis work up that can be done as an outpatient. 5. Dementia. COntinue requip and aricept. Dispo: to [facility] today at 11am. I personally spent 35 minutes discharge planning for this patient. Resident Activity Tracking Resident Involvement: Resident Care Provided Care Provided: Adult [facility]
== END 2021-04-24 11:28 | DRG 57 ==
LOC: ED 16:46 → 3E 16:46 → SUATTDRO 21:58 → 3E 22:25 → SUATTDRO 04-20 16:03

== ENCOUNTER 2021-07-14 11:01 | Inpatient (IN) ==
[2021-07-14] MEDS ORDERED: ONDANSETRON INJ 2 MG/ML 2 ML VIAL IV STA (11:22)
[2021-07-14] MEDS ORDERED: ACETAMINOPHEN 1,000 MG/100 ML VIAL IV STA (11:22)
[2021-07-14] MEDS ORDERED: SODIUM CHLORIDE 0.9% 1000ML 1,000 ML IV ONE (11:22)
[2021-07-14] MEDS ORDERED: FAMOTIDINE 20MG IV PUSH 20 MG/5 ML SYR IV STA (11:22)
[2021-07-14 11:58] LABS: Basophils # (auto) 0.01 K/uL (0-0.2); Basophils % (auto) 0.1 %; Hematocrit (blood only) 43.5 % (37-47); Hemoglobin 14.4 g/dL (12.0-16.0); Immature Granulocytes # (auto) 0.03 K/uL (0.00-0.02); Immature Granulocytes % (auto) 0.2 %; Lymphocytes # (auto) 0.41 K/uL (1.2-3.4); Lymphocytes % (auto) 3.3 %; Mean Corpuscular Hemoglobin 31.6 pg (25-34); Mean Corpuscular Hgb Conc 33.1 g/dL (32-36); Mean Corpuscular Volume 95.4 fL (80-100); Mean Platelet Volume 10.3 fL (7.4-10.4); Monocytes # (auto) 1.07 K/uL (0.11-0.59); Monocytes % (auto) 8.6 %; Neutrophils # (auto) 10.89 K/uL (1.4-6.5); Neutrophils % (auto) 87.8 %; Platelet Count 180 K/uL (130-400); RDW Coefficient of Variation 12.7 % (11.5-14.5); RDW Standard Deviation 44.1 fL (36.4-46.3); Red Blood Count 4.56 M/uL (4.2-5.4); White Blood Count 12.41 K/uL (4.8-10.8)
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
--- NOTE | 2021-07-14 12:22 | XRay Report ---
XR chest 1V portable HISTORY: Generalized abdominal pain. COMPARISON: Chest 04/15/2021. FINDINGS: Elevated left hemidiaphragm. Left basilar linear densities favor subsegmental atelectasis. The heart is normal in size. No pleural fusions. No pneumothorax. There are low lung volumes. No evid ence for pulmonary edema. Calcifications within the aortic knob. IMPRESSION: 1. Elevated left hemidiaphragm with left basilar densities suggesting subsegmental atelectasis. 2. Left subdiaphragmatic lucency favors the gas-filled stomach or colon. ACT 112: Negative or not required by law. Electronically signed by: Aden Pappas M.D. 07/14/2021 12:21 PM
[2021-07-14 12:42] LABS: Alanine Aminotransferase 1551 U/L (12-78); Albumin Globulin Ratio 0.7 (0.9-2); Albumin Level 3.3 gm/dl (3.4-5.0); Alkaline Phosphatase 177 U/L (45-117); Aspartate Aminotransferase 2078 U/L (15-37); BUN Creatinine Ratio 22.3 (10-20); Bilirubin,Total 2.7 mg/dl (0.2-1); Blood Urea Nitrogen 28 mg/dl (7-18); Calcium 9.5 mg/dl (8.5-10.1); Carbon Dioxide 26 mmol/L (21-32); Chloride 107 mmol/L (98-107); Creatinine Clr Calc Pharmacy 29.5 ml/min; Est GFR (African American) 46.6 ml/min; Est GFR (Non-African American) 40.2 ml/min; Globulin 4.4 gm/dl (2.5-4.0); Glucose 161 mg/dl (70-99); Lipase 3159 U/L (73-393); Potassium 4.4 mmol/L (3.5-5.1); Sodium 137 mmol/L (136-145); Total Protein 7.7 gm/dl (6.4-8.2); Troponin I < 0.015 ng/ml (0-0.045)
[2021-07-14] MEDS ORDERED: OPTIRAY 320 100ml IV ONE (13:20)
--- NOTE | 2021-07-14 13:57 | CT Scan Report ---
CT abd pelvis IV con only CLINICAL HISTORY: Abd pain, diarrhea COMPARISON STUDY: No previous studies for comparison. CT DOSE: 346.57 mGy.cm TECHNIQUE: Standard CT of the Abdomen and Pelvis was performed with IV contrast. A dose lowering gerardo hnique was utilized adhering to the principles of ALARA. Contrast Volume: Optiray 320, 94 ml. The patient did not receive oral contrast. FINDINGS: Lung base: There is a left diaphragmatic hernia with a large paraesophageal hernia of the majority of the stomach and also herniation of colonic loops into the lower chest. There is edematous enhancemen t of the wall of the stomach and the loop of transverse colon and splenic flexure. No mucosal thumbpr inting is present with no definite evidence for ischemic bowel. However if the patient's pain is more localized left upper quadrant, this hernia could be the etiology. There is associated crowding of the bronchovascular markings at the left lung base. There is also lef t basilar atelectasis. The heart is mildly enlarged with coronary artery calcification. The right zachary g base is clear. Abdominal cavity: There is no evidence for abdominal mass, adenopathy or ascites. Liver: There is homogeneous attenuation of the liver parenchyma. There is no evidence for enhancing m ass lesion. Spleen: There is homogeneous attenuation of the splenic parenchyma. There is no enhancing mass lesion . Pancreas: There is homogeneous attenuation of the pancreatic parenchyma. There is no evidence for mas s lesion or peripancreatic fluid collection. Gall Bladder: The gallbladder is grossly distended with no evidence for intraluminal calculi, wall th ickening or pericholecystic edema. There is also dilatation of the common bile duct which is most lik иван physiologic related to the patient's age. Correlation with bilirubin is recommended. Adrenal glands: The adrenal glands are normal in size and attenuation. There is no evidence for enhan cing mass lesion. Kidneys: There is homogeneous attenuation of the renal parenchyma bilaterally. There is no evidence f or renal calculus or hydronephrosis. There is no evidence for enhancing mass. Sharply defined simple cysts are present bilaterally with no further follow-up necessary. There are also bilateral extrarena l pelvises. Bowel: The remaining bowel loops are normally placed within the abdomen and pelvis without evidence f or dilatation or obstruction. There is diverticulosis of the descending and sigmoid colon without flavia dence for diverticulitis. There is fluid seen within the ascending and transverse colon which correla kym with the patient's additional history of diarrhea. There are no inflammatory changes present. The re is no evidence for free air. The appendix is absent. Bladder: The bladder is distended with no evidence for focal mass, calculus or diverticulum. : There is no evidence for pelvic mass or adenopathy. There is evidence for small amount of free fl uid within the cul-de-sac. The patient is status post hysterectomy. Vasculature: There is no evidence for aneurysmal dilatation of the abdominal aorta. Atherosclerotic c alcification is present. Osseous structures: There is no acute osseous pathology. Previous internal fixation with extensive de generative changes are seen within the spine. IMPRESSION: 1. Left diaphragmatic hernia with large paraesophageal hiatal hernia and herniation of distal transve rse colon and splenic flexure into the left chest. There is enhancement and edema of the wall of the stomach and colon within the hernia. However, there is no thumbprinting or evidence for ischemia. Cor relation to the exact site of patient's pain is necessary. 2. Associated atelectasis at the left lung base. 3. Gross distention of the gallbladder and dilatation of the common bile duct. No mass is seen in the head of the pancreas. Correlation with bilirubin is recommended. 4. Diverticulosis without evidence of diverticulitis. 5. Distention of urinary bladder. 6. Additional nonacute findings are delineated above. ACT 112: Negative or not required by law. Electronically signed by: Jean-Paul Barreto M.D. 07/14/2021 1:55 PM
--- NOTE | 2021-07-14 14:19 | Electrocardiogram Report ---
Test Reason : Blood Pressure : / mmHG Vent. Rate : 076 BPM Atrial Rate : 076 BPM P-R Int : 170 ms QRS Dur : 106 ms QT Int : 404 ms P-R-T Axes : 048 020 000 degrees QTc Int : 454 ms Poor data quality, interpretation may be adversely affected Sinus rhythm with frequent Premature ventricular complexes Possible Left atrial enlargement Nonspecific ST abnormality Abnormal ECG When compared with ECG of 15-APR-2021 18:36, Premature ventricular complexes are now Present Confirmed by Nakul Orozco ([id number]) on 07/14/2021 2:19:05 PM Referred By: REFERRED SELF Confirmed By:Lonnie Orozco
[2021-07-14] MEDS ORDERED: PIPERACILL/TAZOBAC CONSULT ACTIVE PRN ×2 (14:29→18:01)
[2021-07-14] MEDS ORDERED: PIPERACILLIN/TAZOBACTAM 4.5 GM/120 ML BAG IV ONE (14:29)
[2021-07-14] MEDS ORDERED: LACTATED RINGER'S 1,000 ML IV SCH (14:30)
[2021-07-14] MEDS ORDERED: MoRPHine SULFATE 2 MG/ML CARP IV PRN (14:31)
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
[2021-07-14] MEDS ORDERED: ONDANSETRON INJ 2 MG/ML 2 ML VIAL IV PRN (18:01)
[2021-07-14 18:06] LABS: Hepatitis B Surf Ag Rflx Conf Neg (Neg); Hepatitis C IgG 13Yrs+Old_Rflx Neg (Neg)
--- NOTE | 2021-07-14 18:10 | Magnetic Resonance Report ---
MR MRCP CLINICAL HISTORY: elevated LFTs, abdominal pain. Dilated gallbladder on CT. Evaluate for CBD stones TECHNIQUE: Multiplanar multisequence MR images of the abdomen were obtained, as per MRCP protocol. is protocol consists of 3 plane localizer images, axial T1, axial T2, axial T2 fat saturated, coronal T2, MRCP single and MRCP volume sequences of the abdomen were obtained, without intravenous contrast .. COMPARISON: CT of the abdomen and pelvis from 07/14/2021 FINDINGS: Liver: There is homogeneous signal intensity seen within the liver. No mass lesions are seen. There i s no evidence for intrahepatic or duct dilatation. Gallbladder: The gallbladder is distended with small intraluminal calculi present. There is no eviden ce for wall thickening. However, there is breathing motion artifact giving the appearance of perichol ecystic edema. Gallbladder ultrasound could be obtained for further evaluation. Spleen: There is homogeneous signal throughout the splenic parenchyma. No mass lesions are seen. Pancreas: The pancreas is homogeneous in signal There is no evidence for a mass lesion. Kidneys: There is homogeneous signal throughout the renal parenchyma bilaterally. The right kidney is rotated in its axis. Adrenal glands: There is homogeneous signal demonstrated with no gross mass seen. Abdominal cavity: There is again evidence for a left diaphragmatic hernia. There is no gross bowel di latation. There is no evidence for ascites or adenopathy. The aorta is normal in caliber. The visualized osseous structures, demonstrate no evidence of abnormal signal intensity. MRCP: The common bile duct is normal in course and caliber. There is no evidence for dilatation. Ther e is no intraluminal filling defects or evidence for choledocholithiasis. There is no intrahepatic or duct dilatation. IMPRESSION: 1. Negative MRCP with no evidence of biliary obstruction. 2. However, MR demonstrates cholelithiasis and suspicion of pericholecystic edema as described above. Follow-up gallbladder ultrasound is recommended for further evaluation. ACT 112: Negative or not required by law. Electronically signed by: Jean-Paul Barreto M.D. 07/14/2021 6:08 PM
[2021-07-14] MEDS: LACTATED RINGER'S 1,000 ML IV SCH (19:15)
--- NOTE | 2021-07-14 21:07 | Ultrasound Report ---
US gallbladder CLINICAL HISTORY: Abnormal MRCP. Evaluate for cholecystitis.. COMPARISON: MRCP from 07/14/[address] abdomen and pelvis from 07/14/2021 TECHNIQUE: Multiple grayscale and color images of the right upper quadrant of the abdomen. FINDINGS: The study is limited by overlying bowel gas. Pancreas: The pancreas cannot be visualized but was well seen on CT. Liver: The liver is homogeneous in echogenicity There is no evidence for a focal mass. There is no in trahepatic biliary duct dilatation. Gallbladder: The gallbladder is again distended with cholelithiasis. There is thickening of the gall bladder wall with pericholecystic fluid and edema. While there was reportedly a negative sonographic Reyes's sign, the findings are still characteristic of early acute cholecystitis. Common Bile Duct: (CBD): It is normal in size measuring 4 mm Inferior Vena Cava (IVC): The imaged IVC is patent. Right kidney: There is no evidence for hydronephrosis, calculus or gross renal mass. The kidney is n ormal in size. IMPRESSION: Ultrasound confirms cholelithiasis with thick-walled gallbladder with pericholecystic ed lonnie and fluid. While there was reportedly a negative sonographic Reyes's sign, the findings are stil l characteristic of early cholecystitis. ACT 112: Negative or not required by law. Electronically signed by: Jean-Paul Barreto M.D. 07/14/2021 9:06 PM
[2021-07-14] MEDS: DONEPEZIL HCL 5 MG TAB PO SCH (21:57)
[2021-07-14] MEDS: rOPINIRole HCL 1 MG TABLET PO SCH (21:58)
[2021-07-14] MEDS: PIPERACILLIN/TAZOBACTAM 3.375 GM in DEXTROSE 5% 100 ML IV SCH (22:00)
[2021-07-14] MEDS: clonazePAM 0.25 MG TAB PO SCH (22:00)
[2021-07-14] MEDS: FERROUS SULFATE 325 MG TAB PO SCH (22:01)
[2021-07-15] MEDS: LACTATED RINGER'S 1,000 ML IV SCH ×2 (06:03→17:40)
[2021-07-15] MEDS: PIPERACILLIN/TAZOBACTAM 3.375 GM in DEXTROSE 5% 100 ML IV SCH ×3 (06:04→22:18)
[2021-07-15 06:37] LABS: Appearance Urine Clear (Clear); Bacteria Urine Automated Negative (Negative); Blood Urine Negative (Negative); Color Urine Dark Yellow; Epithelial Cell Urine Auto >30 /lpf (0-5); Glucose Urine UA Negative (Negative); Ketones Urine Negative (Negative); Leukocyte Esterase Urine Negative (Negative); Nitrite Urine Negative (Negative); Protein Urine Trace (Negative); Specific Gravity Urine 1.041 (1.000-1.030); Urobilinogen Urine Negative (Negative); pH Urine 5.5 (4.5-7.5)
[2021-07-15 06:59] LABS: Basophils # (auto) 0.02 K/uL (0-0.2); Basophils % (auto) 0.2 %; Eosinophils # (auto) 0.09 K/uL (0-0.5); Eosinophils % (auto) 1.1 %; Hematocrit (blood only) 38.3 % (37-47); Hemoglobin 12.3 g/dL (12.0-16.0); Immature Granulocytes # (auto) 0.02 K/uL (0.00-0.02); Immature Granulocytes % (auto) 0.2 %; Lymphocytes # (auto) 0.95 K/uL (1.2-3.4); Lymphocytes % (auto) 11.8 %; Mean Corpuscular Hemoglobin 31.2 pg (25-34); Mean Corpuscular Hgb Conc 32.1 g/dL (32-36); Mean Corpuscular Volume 97.2 fL (80-100); Mean Platelet Volume 10.3 fL (7.4-10.4); Monocytes # (auto) 0.62 K/uL (0.11-0.59); Monocytes % (auto) 7.7 %; Neutrophils # (auto) 6.32 K/uL (1.4-6.5); Platelet Count 170 K/uL (130-400); RDW Coefficient of Variation 12.9 % (11.5-14.5); RDW Standard Deviation 46.2 fL (36.4-46.3); Red Blood Count 3.94 M/uL (4.2-5.4); White Blood Count 8.02 K/uL (4.8-10.8)
[2021-07-15 07:01] LABS: Bilirubin Urine 1+ (Negative)
[2021-07-15 08:13] LABS: Albumin Level 2.6 gm/dl (3.4-5.0); BUN Creatinine Ratio 15.5 (10-20); Bilirubin Direct 1.2 mg/dl (0-0.2); Bilirubin,Total 1.9 mg/dl (0.2-1); Est GFR (African American) 51.5 ml/min; Est GFR (Non-African American) 44.4 ml/min; Potassium 3.5 mmol/L (3.5-5.1); Total Protein 6.1 gm/dl (6.4-8.2)
[2021-07-15] MEDS: lisinopril 20 MG TAB PO SCH (09:40)
[2021-07-15] MEDS: PANTOprazole 40 MG TAB PO SCH (09:40)
[2021-07-15] MEDS: EZETIMIBE 10 MG TABLET PO SCH (09:40)
[2021-07-15] MEDS: clonazePAM 0.25 MG TAB PO SCH ×3 (09:40→21:04)
[2021-07-15] MEDS: HEPARIN SOD 5,000 UNIT/0.5 ML VIAL SQ SCH ×2 (09:41→21:02)
[2021-07-15] MEDS: buPROPion XL 300 MG TABCR PO SCH (09:41)
[2021-07-15] MEDS: FERROUS SULFATE 325 MG TAB PO SCH ×2 (09:41→21:02)
[2021-07-15] MEDS: ESTROGENS, CONJUGATED 0.3 MG TAB PO SCH (09:41)
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
[2021-07-15] MEDS: FOLIC ACID 1 MG TAB PO SCH (10:01)
--- NOTE | 2021-07-15 10:33 | Surgery Consultation ---
Date of Consultation July 15, 2021 Assessment & Plan (1) Gallstone pancreatitis: This is an 80y F with a PMH of anxiety, MGUS, HTN, GERD who presented to the [facility] on 07/14/21 with complaints of abdominal pain. Patient reports pain started about 2 nights ago after eating some spoonfuls of peanut butter. Workup in the ER revealed findings concerning for acute pancreatitis and acute cholecystitis with + gallstones. MRCP revealed no evidence of ductal dilation. GI consulted and not planning on performing ERCP based on negative MRI. It is possible she has passed a stone. Today LFTs are elevated but downtrending, Tb: 1.9 (2.7), Db: 1.2(2.3), AST: 633 (2077), ALT: 933(1551), Lipase: 152 (3159). She presently feels better than admission and is denying abdominal pain. She has been NPO since midnight. Based on history, imaging, and examination we will plan to take patient to the OR for laparoscopic cholecystectomy with intraop cholangiogram. Will discuss with OR scheduling of surgery, possibly as early as today. Patient is covid -. Pt discussed with Dr. Garcia. Supervising Physician Co-Signing Physician Notes As per Tila Osei physician shipping and receiving assistant Patient apparently ate some peanut butter the mid before she started playing some pain bilaterally subcostally She normally has no trouble eating at but she states sometimes cabbage or sauerkraut to give her some diarrhea I talk with her Luis and she said lately that have been some trouble for her moving her bowels She has had colonoscopy within the last 5 years Presently her abdomen is benign she does have a small umbilical hernia A CAT scan was reviewed which showed large paraesophageal hernia with part of the colon and the chest Evidence of acute cholecystitis likely secondary to choledocholithiasis that she passed the stone At this point will proceed with laparoscopic cholecystectomy cholangiogram possible open risk and complication were explained to the patient including bleeding infection injury to other organs I did mention to her that I would not do anything with the paraesophageal hernia at this time unless we saw something that needed immediate attention most likely she will need better repaired in the future and certainly with the colon in the area she may need to be in preoperative bowel prep All question answered SCD ordered Permit signed History of Present Illness Attending Physician: Brenda Fitzgerald MD History of Present Illness This is an 80y F with a PMH of anxiety, MGUS, HTN, GERD who presented to the [facility] on 07/14/21 with complaints of abdominal pain. Patient reports pain started about 2 nights ago after eating some spoonfuls of peanut butter. The pain progressively worsened rating it a 10/10 and she presented to the ER for further evaluation. In the ER patient found to have elevated lipase and LFTs. She underwent a CT scan showing distention of the gallbladder and dilation of the CBD. RUQ showed + stones, edema, pericholecystic fluid and a thickened GB wall. MRCP thereafter revealed + cholelithiasis without evidence of biliary ductal dilation. Patient denies any history of pain like this before. She denies any history of pain/issues with fatty/greasy foods. Denies fevers/chills, nausea/vomiting. Reports a history of diarrhea that has been present for years and not new for her. No borwn colored stool or tea colored urine. No history of alcohol or tobacco use. History of appendectomy, R inguinal hernia repair, and hysterectomy. She does have a known hiatal hernia that she reports is not bothersome to her. Allergies Allergy/AdvReac Type Severity Reaction Status Date / Time doxepin AdvReac Mental Verified 07/14/21 12:29 status change Home Medications Medication Instructions Recorded Confirmed Type conjugated estrogens 0.3 mg tablet 0.3 mg PO QAM 11/21/18 07/14/21 History (Premarin) ezetimibe 10 mg tablet (Zetia) 10 mg PO QAM 11/21/18 07/14/21 History lisinopril 20 mg tablet 20 mg PO QAM 07/22/19 07/14/21 History bupropion HCl 300 mg 24 hr tablet, 300 mg PO QAM 04/15/21 07/14/21 History extended release (Wellbutrin XL) ferrous sulfate 325 mg (65 mg 325 mg PO BID 04/15/21 07/14/21 History iron) tablet (FeroSul) folic acid 1 mg tablet 1 mg PO DAILY 04/15/21 07/14/21 History omeprazole 40 mg capsule,delayed 40 mg PO DAILY 04/15/21 07/14/21 History release ropinirole 1 mg tablet 3 mg PO BID 04/15/21 07/14/21 History clonazepam 0.5 mg tablet (Klonopin) 0.25 mg PO TID #12 tab 04/24/21 07/14/21 Rx donepezil 5 mg tablet 5 mg PO HS #30 tab 04/26/21 07/14/21 Rx Patient History Medical History Anxiety Cardiac murmur HX RF A CHILD Depression Diaphragmatic hernia GERD (gastroesophageal reflux disease) Hyperlipidemia Hypertension MVP (mitral valve prolapse) HX-NO PREMED WITH DENTAL Rheumatoid arthritis SOB (shortness of breath) on exertion Spinal stenosis PAIN RIGHT LEG Surgical History History of appendectomy History of cataract surgery R/L History of colonoscopy History of herniorrhaphy History of hysterectomy TOTAL S/P epidural steroid injection Family History Mother Family history of diabetes mellitus Dementia Hypertension Father Stroke Coronary heart disease Family/Other Hyperlipidemia Brother Parkinson disease Social History Smoking Status: Never smoker Second Hand Exposure: No; Do You Dip or Chew Tobacco: No; Tobacco Cessation Education Requested by Patient: No Hx Alcohol Use: No Hx Substance Use: No Preferred Language: Slovak Communication Ability: Effective Ict Managers Required: No Beliefs That Will Affect Care: None marital status: Current Living Situation: Spouse Other Information That Helps Us Care for You: No Feels Safe at Home: Yes Safety Concerns: Feels Safe At This Time Assistive Devices: None Review of Systems Constitutional: no fever and no chills Respiratory: no dyspnea Cardiovascular: no chest pain Gastrointestinal: + abdominal pain (upper abdominal pain), + diarrhea/loose stools and + problem reported (no brown colored stools); no nausea and no vomiting Genitourinary: no tea colored urine Musculoskeletal: no back pain Physical Exam Physical Exam: awake/alert, tearful Respiratory: normal respiratory effort Gastrointestinal (Abdomen): Inspection/Auscultation: + abdominal surgical scar (open appy and r inguinal hernia) Percussion/Palpation: + abdomen tender (minimal discomfort in RUQ) and abdomen soft Results & Data ([facility]) Vital Signs (Past 12 Hours) Vital Signs Temp Pulse Resp BP Pulse Ox 07/15/21 07:40 36.7 C 54 L 16 158/71 H 93 Diagnostic Findings US gallbladder CLINICAL HISTORY: Abnormal MRCP. Evaluate for cholecystitis.. COMPARISON: MRCP from 07/14/[address] abdomen and pelvis from 07/14/2021 TECHNIQUE: Multiple grayscale and color images of the right upper quadrant of the abdomen. FINDINGS: The study is limited by overlying bowel gas. Pancreas: The pancreas cannot be visualized but was well seen on CT. Liver: The liver is homogeneous in echogenicity There is no evidence for a focal mass. There is no intrahepatic biliary duct dilatation. Gallbladder: The gallbladder is again distended with cholelithiasis. There is thickening of the gallbladder wall with pericholecystic fluid and edema. While there was reportedly a negative sonographic Reyes's sign, the findings are still characteristic of early acute cholecystitis. Common Bile Duct: (CBD): It is normal in size measuring 4 mm Inferior Vena Cava (IVC): The imaged IVC is patent. Right kidney: There is no evidence for hydronephrosis, calculus or gross renal mass. The kidney is normal in size. IMPRESSION: Ultrasound confirms cholelithiasis with thick-walled gallbladder with pericholecystic edema and fluid. While there was reportedly a negative sonographic Reyes's sign, the findings are still characteristic of early cholecystitis. MR MRCP CLINICAL HISTORY: elevated LFTs, abdominal pain. Dilated gallbladder on CT. Evaluate for CBD stones TECHNIQUE: Multiplanar multisequence MR images of the abdomen were obtained, as per MRCP protocol. This protocol consists of 3 plane localizer images, axial T1, axial T2, axial T2 fat saturated, coronal T2, MRCP single and MRCP volume sequences of the abdomen were obtained, without intravenous contrast.. COMPARISON: CT of the abdomen and pelvis from 07/14/2021 FINDINGS: Liver: There is homogeneous signal intensity seen within the liver. No mass lesions are seen. There is no evidence for intrahepatic or duct dilatation. Gallbladder: The gallbladder is distended with small intraluminal calculi present. There is no evidence for wall thickening. However, there is breathing motion artifact giving the appearance of pericholecystic edema. Gallbladder ultrasound could be obtained for further evaluation. Spleen: There is homogeneous signal throughout the splenic parenchyma. No mass lesions are seen. Pancreas: The pancreas is homogeneous in signal There is no evidence for a mass lesion. Kidneys: There is homogeneous signal throughout the renal parenchyma bilaterally. The right kidney is rotated in its axis. Adrenal glands: There is homogeneous signal demonstrated with no gross mass seen. Abdominal cavity: There is again evidence for a left diaphragmatic hernia. There is no gross bowel dilatation. There is no evidence for ascites or adenopathy. The aorta is normal in caliber. The visualized osseous structures, demonstrate no evidence of abnormal signal intensity. MRCP: The common bile duct is normal in course and caliber. There is no evidence for dilatation. There is no intraluminal filling defects or evidence for choledocholithiasis. There is no intrahepatic or duct dilatation. IMPRESSION: 1. Negative MRCP with no evidence of biliary obstruction. 2. However, MR demonstrates cholelithiasis and suspicion of pericholecystic edema as described above. Follow-up gallbladder ultrasound is recommended for further evaluation. CT abd pelvis IV con only CLINICAL HISTORY: Abd pain, diarrhea COMPARISON STUDY: No previous studies for comparison. CT DOSE: 346.57 mGy.cm TECHNIQUE: Standard CT of the Abdomen and Pelvis was performed with IV contrast. A dose lowering technique was utilized adhering to the principles of ALARA. Contrast Volume: Optiray 320, 94 ml. The patient did not receive oral contrast. FINDINGS: Lung base: There is a left diaphragmatic hernia with a large paraesophageal hernia of the majority of the stomach and also herniation of colonic loops into the lower chest. There is edematous enhancement of the wall of the stomach and the loop of transverse colon and splenic flexure. No mucosal thumbprinting is present with no definite evidence for ischemic bowel. However if the patient's pain is more localized left upper quadrant, this hernia could be the etiology. There is associated crowding of the bronchovascular markings at the left lung base. There is also left basilar atelectasis. The heart is mildly enlarged with coronary artery calcification. The right lung base is clear. Abdominal cavity: There is no evidence for abdominal mass, adenopathy or ascites. Liver: There is homogeneous attenuation of the liver parenchyma. There is no evidence for enhancing mass lesion. Spleen: There is homogeneous attenuation of the splenic parenchyma. There is no enhancing mass lesion. Pancreas: There is homogeneous attenuation of the pancreatic parenchyma. There is no evidence for mass lesion or peripancreatic fluid collection. Gall Bladder: The gallbladder is grossly distended with no evidence for intraluminal calculi, wall thickening or pericholecystic edema. There is also dilatation of the common bile duct which is most likely physiologic related to the patient's age. Correlation with bilirubin is recommended. Adrenal glands: The adrenal glands are normal in size and attenuation. There is no evidence for enhancing mass lesion. Kidneys: There is homogeneous attenuation of the renal parenchyma bilaterally. There is no evidence for renal calculus or hydronephrosis. There is no evidence for enhancing mass. Sharply defined simple cysts are present bilaterally with no further follow-up necessary. There are also bilateral extrarenal pelvises. Bowel: The remaining bowel loops are normally placed within the abdomen and pelvis without evidence for dilatation or obstruction. There is diverticulosis of the descending and sigmoid colon without evidence for diverticulitis. There is fluid seen within the ascending and transverse colon which correlates with the patient's additional history of diarrhea. There are no inflammatory changes present. There is no evidence for free air. The appendix is absent. Bladder: The bladder is distended with no evidence for focal mass, calculus or diverticulum. : There is no evidence for pelvic mass or adenopathy. There is evidence for small amount of free fluid within the cul-de-sac. The patient is status post hysterectomy. Vasculature: There is no evidence for aneurysmal dilatation of the abdominal aorta. Atherosclerotic calcification is present. Osseous structures: There is no acute osseous pathology. Previous internal fix ation with extensive degenerative changes are seen within the spine. IMPRESSION: 1. Left diaphragmatic hernia with large paraesophageal hiatal hernia and herniation of distal transverse colon and splenic flexure into the left chest. There is enhancement and edema of the wall of the stomach and colon within the hernia. However, there is no thumbprinting or evidence for ischemia. Correlation to the exact site of patient's pain is necessary. 2. Associated atelectasis at the left lung base. 3. Gross distention of the gallbladder and dilatation of the common bile duct. No mass is seen in the head of the pancreas. Correlation with bilirubin is recommended. 4. Diverticulosis without evidence of diverticulitis. 5. Distention of urinary bladder. 6. Additional nonacute findings are delineated above. PG Care Time/CCT Total # of Minutes Spent Total Time Spent with Patient: Total time spent is greater than 50% in coordination of care (as documented) at patient's floor/unit and/or counseling patient: Coding Level of Care Code 83294 Initial Inpt Care Lvl 1 Diagnoses Gallstone pancreatitis K85.10
[2021-07-15] MEDS ORDERED: fentaNYL citrate 100 MCG/2 ML VIAL ONE (13:08)
[2021-07-15] MEDS ORDERED: LIDOCAINE/EPINEPHRINE 1% 20 ML VIAL ONE (13:11)
--- NOTE | 2021-07-15 13:18 | Anesthesiology Consultation ---
Date of Service July 15, 2021 Assessment & Plan Chart Review Chart Review: Acceptable Risk for Surgery (necessary surgery) and Patient NOT seen in Pre Admission Testing Consults Requested none History Surgery Operation Date: 07/15/21 09:00 Proposed Procedures p Laparoscopic Cholecystectomy with interoperative Cholangiogram - Augusto Garcia MD, FACS Height/Weight Height: 5 ft 3 in Weight: 61.2 kg Allergies Allergy/AdvReac Type Severity Reaction Status Date / Time doxepin AdvReac Mental Verified 07/14/21 12:29 status change Medications Home Medications Medication Instructions Recorded Confirmed Last Taken conjugated estrogens 0.3 mg tablet 0.3 mg PO QAM 11/21/18 07/14/21 07/14/21 (Premarin) ezetimibe 10 mg tablet (Zetia) 10 mg PO QAM 11/21/18 07/14/21 07/14/21 lisinopril 20 mg tablet 20 mg PO QAM 07/22/19 07/14/21 07/14/21 bupropion HCl 300 mg 24 hr tablet, 300 mg PO QAM 04/15/21 07/14/21 07/14/21 extended release (Wellbutrin XL) ferrous sulfate 325 mg (65 mg 325 mg PO BID 04/15/21 07/14/21 07/14/21 08:00 iron) tablet (FeroSul) folic acid 1 mg tablet 1 mg PO DAILY 04/15/21 07/14/21 07/14/21 omeprazole 40 mg capsule,delayed 40 mg PO DAILY 04/15/21 07/14/21 07/14/21 release ropinirole 1 mg tablet 3 mg PO BID 04/15/21 07/14/21 07/13/21 clonazepam 0.5 mg tablet (Klonopin) 0.25 mg PO TID #12 tab 04/24/21 07/14/21 07/14/21 08:00 donepezil 5 mg tablet 5 mg PO HS #30 tab 04/26/21 07/14/21 07/13/21 Active Medications Generic Name Dose Route Start Last Admin Trade Name Freq PRN Reason Stop Dose Admin Bupropion HCl 300 mg 07/15/21 09:00 07/15/21 09:41 Bupropion Xl 300 Mg Tabcr PO 08/14/21 08:59 300 mg QAM ELDER Administration Clonazepam 0.25 mg 07/14/21 21:00 07/15/21 09:40 Clonazepam 0.25 Mg Tab PO 08/13/21 20:59 0.25 mg TID ELDER Administration Donepezil HCl 5 mg 07/14/21 21:00 07/14/21 21:57 Donepezil Hcl 5 Mg Tab PO 08/13/21 20:59 5 mg HS ELDER Administration Ezetimibe 10 mg 07/15/21 09:00 07/15/21 09:40 Ezetimibe 10 Mg Tablet PO 08/14/21 08:59 10 mg QAM ELDER Administration Estrogens Conjugated 0.3 mg 07/15/21 09:00 07/15/21 09:41 Estrogens, Conjugated 0.3 Mg Tab PO 08/14/21 08:59 0.3 mg QAM ELDER Administration Ferrous Sulfate 325 mg 07/14/21 21:00 07/15/21 09:41 Ferrous Sulfate 325 Mg Tab PO 08/13/21 20:59 325 mg BID ELDER Administration Folic Acid 1 mg 07/15/21 09:00 07/15/21 10:01 Folic Acid 1 Mg Tab PO 08/14/21 08:59 1 mg DAILY ELDER Administration Heparin Sodium (Porcine) 5,000 units 07/15/21 09:00 07/15/21 09:41 Heparin Sod 5,000 Unit/0.5 Ml Vial SQ 08/14/21 08:59 5,000 units Q12 ELDER Administration Piperacillin Sod/Tazobactam 115 mls @ 28.75 mls/hr 07/14/21 22:00 07/15/21 10:01 Sod 3.375 gm/ Dextrose IV 07/24/21 18:00 Infused Q8H ELDER Infusion Protocol Lactated Ringer's 1,000 mls @ 80 mls/hr 07/14/21 18:01 07/15/21 06:03 Lr IV 08/13/21 18:00 80 mls/hr .[id number] ELDER Administration Lisinopril 20 mg 07/15/21 09:00 07/15/21 09:40 Lisinopril 20 Mg Tab PO 08/14/21 08:59 20 mg QAM ELDER Administration Pantoprazole Sodium 40 mg 07/15/21 09:00 07/15/21 09:40 Pantoprazole 40 Mg Tab PO 08/14/21 08:59 40 mg DAILY ELDER Administration Ropinirole HCl 2 mg 07/14/21 21:00 07/14/21 21:58 Ropinirole Hcl 1 Mg Tablet PO 08/13/21 20:59 2 mg HS ELDER Administration Past Medical History Medical History (Updated 07/15/21 @ 13:23 by dAen Orellana MD) Anxiety Cardiac murmur HX RF A CHILD Depression Diaphragmatic hernia GERD (gastroesophageal reflux disease) Hiatal hernia Hyperlipidemia Hypertension MGUS (monoclonal gammopathy of unknown significance) MVP (mitral valve prolapse) HX-NO PREMED WITH DENTAL Rheumatoid arthritis SOB (shortness of breath) on exertion Spinal stenosis PAIN RIGHT LEG Past Family History Family History Mother Family history of diabetes mellitus Dementia Hypertension Father Stroke Coronary heart disease Family/Other Hyperlipidemia Brother Parkinson disease Past Surgical History Surgical History History of appendectomy History of cataract surgery R/L History of colonoscopy History of herniorrhaphy History of hysterectomy TOTAL S/P epidural steroid injection Social History Smoking Status: Never smoker Do You Dip or Chew Tobacco: No Hx Alcohol Use: No Hx Substance Use: No Physical Exam Vital Signs Last Vital Signs Temp 36.7 C 07/15/21 07:40 Pulse 54 L 07/15/21 07:40 Resp 16 07/15/21 07:40 BP 158/71 H 07/15/21 07:40 Pulse Ox 93 07/15/21 07:40 Testing Laboratory Results 07/15/21 06:10 07/15/21 06:10 Urine Color Dark Yellow 07/15/21 06:10 Urine Appearance Clear (Clear) 07/15/21 06:10 Urine pH 5.5 (4.5-7.5) 07/15/21 06:10 Ur Specific [place] 1.041 (1.000-1.030) H 07/15/21 06:10 Urine Protein Trace (Negative) H 07/15/21 06:10 Urine Glucose (UA) Negative (Negative) 07/15/21 06:10 Urine Ketones Negative (Negative) 07/15/21 06:10 Urine Nitrite Negative (Negative) 07/15/21 06:10 Ur Leukocyte Esterase Negative (Negative) 07/15/21 06:10 Urine WBC (Auto) 1-5 /hpf (0-5) 07/15/21 06:10 Urine RBC (Auto) 5-10 /hpf (0-4) H 07/15/21 06:10 U Hyaline Cast (Auto) 1-5 /lpf (0-5) 07/15/21 06:10 U Epithel Cells (Auto) >30 /lpf (0-5) H 07/15/21 06:10 Urine Bacteria (Auto) Negative (Negative) 07/15/21 06:10 Electrocardiogram Date: 07/14/21 Findings: + NSST changes SR with PVCs, rate 76, possible left atrial enlargement Chest X-Ray Date: 07/14/21 XR chest 1V portable HISTORY: Generalized abdominal pain. COMPARISON: Chest 04/15/2021. FINDINGS: Elevated left hemidiaphragm. Left basilar linear densities favor subsegmental atelectasis. The heart is normal in size. No pleural fusions. No pneumothorax. There are low lung volumes. No evidence for pulmonary edema. Calcifications within the aortic knob. IMPRESSION: 1. Elevated left hemidiaphragm with left basilar densities suggesting subsegmental atelectasis. 2. Left subdiaphragmatic lucency favors the gas-filled stomach or colon. ACT 112: Negative or not required by law. Electronically signed by: Aden Pappas M.D. 07/14/2021 12:21 PM
[2021-07-15] MEDS ORDERED: LABETALOL HCL IV 5 MG/ML 20ML IV PRN (13:31)
[2021-07-15] MEDS ORDERED: PHENYLEPHRINE 100MCG/ML 5ML SYR IV PRN (13:31)
[2021-07-15] MEDS ORDERED: ONDANSETRON INJ 2 MG/ML 2 ML VIAL IV PRN (13:31)
[2021-07-15] MEDS ORDERED: HYDROmorphone INJ 1 MG/ML SYRINGE IV PRN (13:31)
[2021-07-15] MEDS ORDERED: ePHEDrine sulfate 50 MG/ML AMP IV PRN (13:31)
[2021-07-15] MEDS ORDERED: ATROPINE SULFATE 0.1 MG/ML 10ML SYR IV PRN (13:31)
[2021-07-15] MEDS ORDERED: LABETALOL HCL IV 5 MG/ML 20ML IV ONE (14:04)
[2021-07-15] MEDS ORDERED: hydrALAZINE HCL 20 MG/ML VIAL ONE ×2 (14:04→14:58)
[2021-07-15] MEDS ORDERED: ONDANSETRON INJ 2 MG/ML 2 ML VIAL ONE (14:23)
[2021-07-15] MEDS ORDERED: PHENYLEPHRINE HCL 10 MG/ML VIAL ONE (14:23)
[2021-07-15] MEDS ORDERED: PROPOFOL IV EMULSION 10 MG/ML 20 ML VIAL IV ONE (14:23)
[2021-07-15] MEDS ORDERED: SUCCINYLCHOLINE CHLORIDE 20 MG/ML 10 ML VIAL IV ONE (14:23)
[2021-07-15] MEDS ORDERED: LARYING-O-JET KIT (LTA) ONE (14:23)
[2021-07-15] MEDS ORDERED: ROCURONIUM BROMIDE 10 MG/ML 5 ML VIAL IV ONE (14:23)
[2021-07-15] MEDS ORDERED: LIDOCAINE 2% 2 ML VIAL/AMP(20MG/ML) INFIL ONE (14:23)
--- NOTE | 2021-07-15 14:44 | Post Operative Brief Note ---
PG Immediate Post Op with CF Date of Surgery July 15, 2021 Pre & Post Diagnosis Operation Date: 07/15/21 09:00 Pre-Op Diagnosis: Gallstone pancreatitis Post-Op Diagnosis: Gallstone pancreatitis I identified the patient and participated in the time-out.: Yes Procedure Operation Date: 07/15/21 09:00 Actual Procedures p Laparoscopic Cholecystectomy with Intraoperative Cholangiogram(Not Applicable) - Augusto Garcia MD, FACS Surgeon Augusto Garcia MD, FACS Real Estate Broker Associate b [email or web address] Estimated Blood Loss 100 Findings Consistent with Post-Op Diagnosis Specimens Specimen Description: A. Gallbladder
[2021-07-15] MEDS ORDERED: OPTIRAY 300 INJ PRN (14:46)
--- NOTE | 2021-07-15 14:58 | Operative Report ---
Post Operative Report Pre & Post Diagnosis Operation Date: 07/15/21 09:00 Pre-Op Diagnosis: Gallstone pancreatitis Post-Op Diagnosis: Gallstone pancreatitis I identified the patient and participated in the time-out.: Yes Procedure Operation Date: 07/15/21 09:00 Actual Procedures p Laparoscopic Cholecystectomy with Intraoperative Cholangiogram(Not Applicable) - Augusto Garcia MD, FACS The patient was brought into the operating theater supine position general endotracheal anesthesia systemic antibiotics on board the abdomen was prepped Betadine solution properly draped timeout was had patient identified made a small incision supraumbilically above the small umbilical hernia that she has had using Veress needle into the abdomen at a pressure of 9 actually kept intra- abdominal pressure about 12 throughout the whole case once he establish enough pneumoperitoneum with place a 5 mm trocar followed by a scope point of entry spectrin no injury identified increasingly appreciated there is really abnormal liver with evidence of chronic failure the edges were sharp edge did not see any significant macro nodularity some micronodularity the left lobe of the liver was actually encompassing and closing over the gallbladder fossa we at this point place a 5 mm epigastric port with preemptive local analgesic and 2 5 mm subcostal ports exposure was little bit difficult because left lobe of the liver and the falciform ligament were made a difficulty elevate the left lobe to expose the area but we will see the gallbladder and appear to be edematous and distended just grabbing a hold of the gallbladder and its base was very friable with some bowel easily drained we at this point we choked on her gallbladder try to elevate the left lobe of the liver out of the way but it was very hard to get a plane of dissection from this aspect therefore I actually went to the right side of the table and were able then to dissect out the towards the neck of the gallbladder where we can see and dissected bluntly the takeoff of the cystic duct we will then circumferentially get around that with a right angle clamp small able to clip at its takeoff with a 5 mm clip we followed the cystic down actually was going towards the common bile duct which was not that far away probably 3 cm we made a small opening in the cystic duct #4 ureteral catheter tr ansversing abdominal wall and Angiocath was placed in the cystic duct we took serial x-rays and identified a very distended common bile duct throughout its course going to the duodenum very easily but I did not see any filling defect we took about 3 different pictures. At this point the Cholangiocath was then removed the cystic duct was doubly secured with 5 mm clips the artery similarly identified doubly clipped proximally once distally and divided the gallbladder was taken out in antegrade fashion using electrocautery we did have some bleeding from this generalized pathological liver right in the gallbladder fossa but nothing significant once the gallbladder was removed we placed in an Endopouch and took it out intact through the epigastric port cultures will be taken when he initially went in the gallbladder was very friable we 3 stones are dropped into were reasonably retrievable the other 1 possibly could have fallen down into the Morison's pouch but it was not retrievable. Our initial entry to the abdomen with the umbilical trocar lie it looked at the left upper quadrant did not see anything abnormal we note the patient has an intrathoracic stomach along with it: The left chest cavity there was no evidence of proximal small bowel or colonic obstruction which grossly. We kept the intra-abdominal pressures low as stated and then 1 to put extra pressure on this latest. I elected to drain the subhepatic area and suprahepatic area after suctioning out with a 19 round Rosendo drain which was brought out through the epigastric port taken out lateral subcostal port attaching skin edges with 2-0 silk suture the area was again checked hemostasis appear satisfactory place prior to put the drain in we placed the camera right upper trocar right upper quadrant trocar site to visualize the umbilical opening as we went in we can see the small umbilical hernia no trocar was about 2 cm above it. Individual trochars were taken out on the requisition last umbilical trocar wounds was closed with 4-0 Monocryl Steri-Strips applied procedure was tolerated well by the patient blood loss 100 cc Addendumb Bernabe shipley was present throughout the procedure and helped the retraction exposure and wound closure Addendum called the Luis at [phone] and left word on recorder Surgeon Augusto Garcia MD, FACS Loom Operator georgina shipley Estimated Blood Loss 100 Findings Consistent with Post-Op Diagnosis Acute and chronic cholecystitis cholelithiasis Specimens gall bladder and contents Drains 19 round Rosendo subhepatic Indications Pancreatitis cholecystitis Description of Procedure merda I attest to the content of the Intraoperative Record and any orders documented therein. Any exceptions are noted below.
--- NOTE | 2021-07-15 15:04 | Fluoroscopy Report ---
[place] cholangiogram OR CLINICAL HISTORY: Intraoperative cholangiogram. COMPARISON STUDY: CT of the abdomen and pelvis, MRCP and right upper quadrant ultrasound July 14, 2021. FLUOROSCOPY TIME: 4.4 seconds. FLUOROSCOPIC IMAGES: 2 FINDINGS: No intraluminal filling defects within the common bile duct are identified. Contrast within the duodenum is noted. No aberrant biliary anatomy is identified. Intrahepatic bile ducts are partia lly opacified. IMPRESSION: No evidence for choledocholithiasis. ACT 112: Negative or not required by law. Electronically signed by: Armani Armstrong M.D. 07/15/2021 3:02 PM
[2021-07-15] MEDS: fentaNYL citrate 100 MCG/2 ML VIAL IV PRN ×6 (15:23→16:41)
[2021-07-15] MEDS ORDERED: ALBUT/IPRATROP 3MG/0.5MG NEB 3 ML VIAL INH PRN (15:37)
[2021-07-15] MEDS ORDERED: ALBUT/IPRATROP 3MG/0.5MG NEB 3 ML VIAL ONE (15:38)
[2021-07-15] MEDS ORDERED: LORazepam 2 MG/4 ML VIAL ONE (15:44)
[2021-07-15] MEDS ORDERED: LORazepam 0.5 MG/1 ML VIAL IV STA (15:55)
[2021-07-15] MEDS ORDERED: MoRPHine SULFATE 4 MG/ML 1 ML CARP\\VIAL IV PRN (17:13)
--- NOTE | 2021-07-15 17:55 | Hospitalist Progress Note ---
Date of Service July 15, 2021 Assessment & Plan (1) Abdominal pain: Plan: With epigastric abd pain, and elevated TBili with mostly direct bilirubin, and significantly elevated AST and ALT, mildly elevated alkaline phosphatase as well as lipase With distended gallbladder on CT abdomen/pelvis as well as dilated CBD, pancreas appears normal She is afebrile, but with leukocytosis. Initially suspected choledocholithiasis and acute gallstone pancreatitis, however subsequent MRCP negative for CBD stones. GI recommended no ERCP RUQ US confirmed acute cholecystitis, intraop cholangiogram showed dilated CBD but no filling defect Consulted SUrgery-now s/p cholecystectomy 07/15, with ALEX drain in place Having LUQ post-op pain--> discussed with Dr. Garcia-suspects from pneumoperitoneum from surgery. -Continue maintenance IV fluids -cont IV Zosyn -Follow blood cultures -Follow LFTs and lipase in the morning-trending downward -IV morphine as needed for pain -Zofran as needed for nausea -check KUB abdomen but would expect pneumoperitoneum, check for obstruction -if develops nausea or vomiting or tachycardia, would contact Surgery (2) Elevated LFTs: Plan: As above (3) Pancreatitis: Plan: As above (4) Hypertension: Plan: Hypertensive on arrival secondary to pain, now improved Continue home lisinopril Follow blood pressures -Pain control (5) Diaphragmatic hernia: Plan: Margin contains transverse colon as well as majority of stomach Doubtful that this is contributing to her acute presentation Should have consultation with thoracic surgery as an outpatient (6) Hyperlipidemia: Plan: Continue Zetia (7) GERD (gastroesophageal reflux disease): Plan: Continue Protonix (8) Anxiety: Plan: Continue bupropion Continue clonazepam 3 times daily (9) Dementia: Plan: Mild cognitive impairment Continue donepezil, ropinirole Plan: SCDs for prophylaxis for DVT Disposition-continued stay on medical/surgical floor Admission and Anticipated Discharge Date Admission Date: July 14, 2021 Subjective Pt see aftr return from the PACU from cholecystectomy. She was c/o severe left upper abdominal pain.She apparently has had this pain since post-op recovery and received ativan and fentanyl in PACU, ECG was done and was reportedly normal although I do not see it in the chart. She denies CP to me, denies nausea. Received 2 mg of IV morphine before I saw her and does drift off to sleep but when I ask her if pain is improving, she tells me "no." Review of Systems Review of Systems: All systems reviewed & are unremarkable except as noted in HPI & below Physical Exam Constitutional: WD/WN, vitals as above Eyes: + anicteric sclerae ENMT: external ear and nose normal, oropharynx normal Neck: trachea midline, no thyromegaly Respiratory: normal respiratory effort, lungs clear to auscultation Cardiovascular: RRR, no murmur, no edema Chest (Breasts): Chest: normal inspection of chest Gastrointestinal (Abdomen): Inspection/Auscultation: + hypoactive bowel sounds; + abdomen abnormal to inspection (ALEX drain coming from right side,incisions c/d/i) and abdomen not distended Percussion/Palpation: + abdomen tender (LUQ with voluntary guarding) and abdomen soft Musculoskeletal: Extremities: extremities normal to inspection; no cyanosis and no clubbing Skin: no rashes, warm and dry Neurologic: moves all extremities and awake; no focal motor deficits Psychiatric: Orientation: alert, oriented to person, oriented to place and cooperative Lymphatic: no lymphedema Results & Data Results & Data ([facility]) Vital Signs (Past 12 Hours) Vital Signs Temp Pulse Pulse Resp BP Pulse Ox 07/15/21 17:35 67 18 127/61 95 07/15/21 16:50 68 26 H 138/64 92 07/15/21 16:35 69 24 141/66 H 92 07/15/21 16:25 79 20 144/100 H 92 07/15/21 16:15 36.5 C 69 20 138/67 92 07/15/21 16:05 67 14 137/65 93 07/15/21 15:55 69 27 H 146/69 H 94 07/15/21 15:45 68 26 H 157/82 H 96 07/15/21 15:35 66 28 H 167/81 H 95 07/15/21 15:25 69 30 H 141/118 H 96 07/15/21 15:15 64 22 132/86 95 07/15/21 15:05 64 19 135/55 L 95 07/15/21 14:58 36.3 C L 64 20 127/83 95 07/15/21 12:59 36.9 C 56 L 20 172/80 H 96 07/15/21 07:40 36.7 C 54 L 16 158/71 H 93 Laboratory Results 07/15/21 07/15/21 07/15/21 Range/Units 06:10 06:10 06:10 WBC 8.02 (4.8-10.8) K/uL RBC 3.94 L (4.2-5.4) M/uL Hgb 12.3 (12.0-16.0) g/dL Hct 38.3 (37-47) % MCV 97.2 (80-100) fL MCH 31.2 (25-34) pg MCHC 32.1 (32-36) g/dL RDW Std Deviation 46.2 (36.4-46.3) fL RDW Coeff of Shankar 12.9 (11.5-14.5) % Plt Count 170 (130-400) K/uL MPV 10.3 (7.4-10.4) fL Immature Gran % (Auto) 0.2 % Neut % (Auto) 79.0 % Lymph % (Auto) 11.8 % [place] % (Auto) 7.7 % Eos % (Auto) 1.1 % Baso % (Auto) 0.2 % Neut # (Auto) 6.32 (1.4-6.5) K/uL Lymph # (Auto) 0.95 L (1.2-3.4) K/uL [place] # (Auto) 0.62 H (0.11-0.59) K/uL Eos # (Auto) 0.09 (0-0.5) K/uL Baso # (Auto) 0.02 (0-0.2) K/uL Immature Gran # (Auto) 0.02 (0.00-0.02) K/uL Sodium 141 (136-145) mmol/L Potassium 3.5 D (3.5-5.1) mmol/L Chloride 111 H (98-107) mmol/L Carbon Dioxide 24 (21-32) mmol/L Anion Gap 6.0 (3-11) BUN 18 (7-18) mg/dl Creatinine 1.16 (0.6-1.2) mg/dl Est Cr Clr Drug Dosing 32.0 ml/min Est GFR ( Amer) 51.5 ml/min Est GFR (Non-Af Amer) 44.4 ml/min BUN/Creatinine Ratio 15.5 (10-20) Glucose 90 (70-99) mg/dl Calcium 9.0 (8.5-10.1) mg/dl Total Bilirubin 1.9 H (0.2-1) mg/dl Direct Bilirubin 1.2 H (0-0.2) mg/dl AST 633 H (15-37) U/L ALT 933 H (12-78) U/L Alkaline Phosphatase 182 H (45-117) U/L Total Protein 6.1 L D (6.4-8.2) gm/dl Albumin 2.6 L (3.4-5.0) gm/dl Lipase 152 (73-393) U/L Urine Color Dark Yellow Urine Appearance Clear (Clear) Urine pH 5.5 (4.5-7.5) Ur Specific [place] 1.041 H (1.000-1.030) Urine Protein Trace H (Negative) Urine Glucose (UA) Negative (Negative) Urine Ketones Negative (Negative) Urine Blood Negative (Negative) Urine Nitrite Negative (Negative) Urine Bilirubin 1+ H (Negative) Urine Urobilinogen Negative (Negative) Ur Leukocyte Esterase Negative (Negative) Urine WBC (Auto) 1-5 (0-5) /hpf Urine RBC (Auto) 5-10 H (0-4) /hpf U Hyaline Cast (Auto) 1-5 (0-5) /lpf U Epithel Cells (Auto) >30 H (0-5) /lpf Urine Bacteria (Auto) Negative (Negative) PG Care Time/CCT Total # of Minutes Spent Total Time Spent with Patient: Total time spent is greater than 50% in coordination of care (as documented) at patient's floor/unit and/or counseling patient: Coding Level of Care Code 52627 Subseq Hosp Care Lvl 3 Diagnoses Abdominal pain R10.13 Abdominal location: epigastric Elevated LFTs R79.89 Pancreatitis K85.90 Acute pancreatitis complication: unspecified Chronicity: acute Pancreatitis type: unspecified pancreatitis type Hypertension I10 Diaphragmatic hernia K44.9 Hyperlipidemia E78.5 GERD (gastroesophageal reflux disease) K21.9 Anxiety F41.9 Dementia F03.90 (1) Abdominal pain Abdominal location: epigastric Qualified Code(s): R10.13 - Epigastric pain (2) Pancreatitis Acute pancreatitis complication: unspecified Chronicity: acute Pancreatitis type: unspecified pancreatitis type Qualified Code(s): K85.90 - Acute pancreatitis without necrosis or infection, unspecified
[2021-07-15] MEDS: MoRPHine SULFATE 4 MG/ML 1 ML CARP\\VIAL IV PRN (17:58)
[2021-07-15] MEDS ORDERED: MoRPHine SULFATE 2 MG/ML CARP IV STA (18:06)
[2021-07-15] MEDS: rOPINIRole HCL 1 MG TABLET PO SCH ×2 (18:24→21:02)
--- NOTE | 2021-07-15 19:27 | Anesthesiology Progress Note ---
Date of Service July 15, 2021 Anesthesia Post Procedure Vital Signs Vital Signs: Temp Pulse Pulse Resp BP Pulse Ox 07/15/21 18:09 72 18 133/60 93 07/15/21 17:35 67 18 127/61 95 07/15/21 17:05 36.5 C 70 22 144/61 H 93 07/15/21 16:50 68 26 H 138/64 92 07/15/21 16:35 69 24 141/66 H 92 07/15/21 16:25 79 20 144/100 H 92 07/15/21 16:15 36.5 C 69 20 138/67 92 07/15/21 16:05 67 14 137/65 93 07/15/21 15:55 69 27 H 146/69 H 94 07/15/21 15:45 68 26 H 157/82 H 96 07/15/21 15:35 66 28 H 167/81 H 95 07/15/21 15:25 69 30 H 141/118 H 96 07/15/21 15:15 64 22 132/86 95 07/15/21 15:05 64 19 135/55 L 95 07/15/21 14:58 36.3 C L 64 20 127/83 95 07/15/21 12:59 36.9 C 56 L 20 172/80 H 96 07/15/21 07:40 36.7 C 54 L 16 158/71 H 93 07/14/21 22:01 36.7 C 65 16 145/65 H 94 Pain Intensity Upper Abdomen: Pain Intensity: 10 Transfer of Care Handoff Completed per policy Notes Mental Status: alert / awake / arousable and participated in evaluation Patient Amnestic to Procedure: Yes Nausea / Vomiting: adequately controlled Pain: adequately controlled Airway Patency, RR, SpO2: stable & adequate BP & HR: stable & adequate Hydration State: stable & adequate Anesthetic Complications: no major complications apparent and Pt Satisfied with anesthetic care Notes: Patient c/o left upper abdominal pain post surgery. 12 lead ECG showed NSR without any evidence of ischemia. She has a known elevated left hemidiaphragm and hiatal hernia. She was treated for pain and also received a duoneb as she stated she had trouble taking a deep breath. Gradually improved throughout PACU stay and she was transferred back to her room with continuous pulse oximetry.
[2021-07-15] MEDS: oxyCODONE/ACETAMINOPHEN 5mg/325mg TAB PO PRN (19:59)
--- NOTE | 2021-07-15 20:34 | XRay Report ---
KUB CLINICAL HISTORY: Abdominal pain. COMPARISON STUDY: CT of the abdomen and pelvis July 14, 2021. FINDINGS: Postoperative findings within the lumbosacral spine are incidentally noted. There are tatyana cystectomy clips. Contrast within the cecum is from recent intraoperative cholangiogram. There may al so be a small amount of contrast within a small bowel loop within the right lower quadrant. The bowel gas pattern is normal. Hiatal hernia is incidentally noted. IMPRESSION: 1. No evidence for a bowel obstruction. 2. Contrast within the cecum from recent intraoperative cholangiogram. ACT 112: Negative or not required by law. Electronically signed by: Armani Armstrong M.D. 07/15/2021 8:33 PM
[2021-07-15] MEDS: DONEPEZIL HCL 5 MG TAB PO SCH (21:03)
[2021-07-16] MEDS: oxyCODONE/ACETAMINOPHEN 5mg/325mg TAB PO PRN ×4 (00:07→13:41)
[2021-07-16 01:41] LABS: Hepatitis A Antibody IgM NON-REACTIVE (NON-REACTIVE); Hepatitis B Core Antibody IgM NON-REACTIVE (NON-REACTIVE)
[2021-07-16] MEDS: PIPERACILLIN/TAZOBACTAM 3.375 GM in DEXTROSE 5% 100 ML IV SCH ×3 (05:22→21:20)
[2021-07-16 07:08] LABS: Basophils # (auto) 0.01 K/uL (0-0.2); Basophils % (auto) 0.1 %; Eosinophils # (auto) 0.02 K/uL (0-0.5); Eosinophils % (auto) 0.2 %; Hematocrit (blood only) 35.1 % (37-47); Hemoglobin 11.2 g/dL (12.0-16.0); Immature Granulocytes # (auto) 0.02 K/uL (0.00-0.02); Immature Granulocytes % (auto) 0.2 %; Lymphocytes # (auto) 0.98 K/uL (1.2-3.4); Lymphocytes % (auto) 11.7 %; Mean Corpuscular Hemoglobin 31.3 pg (25-34); Mean Corpuscular Hgb Conc 31.9 g/dL (32-36); Mean Platelet Volume 10.2 fL (7.4-10.4); Monocytes # (auto) 0.63 K/uL (0.11-0.59); Monocytes % (auto) 7.5 %; Neutrophils # (auto) 6.74 K/uL (1.4-6.5); Neutrophils % (auto) 80.3 %; Platelet Count 149 K/uL (130-400); RDW Standard Deviation 46.6 fL (36.4-46.3); Red Blood Count 3.58 M/uL (4.2-5.4)
--- NOTE | 2021-07-16 07:14 | Surgery Progress Note ---
Date of Service July 16, 2021 Assessment & Plan (1) Gallstone pancreatitis: Plan: POd #1 operative findings were discussed with the patient This point the patient could be discharged once okay with the medical service We will remove the drain prior to her discharge Follow-up with our office in approximately a week or so She may shower No restriction or diet or activities Tylenol should be sufficient for postoperative pain This is an 80y F with a PMH of anxiety, MGUS, HTN, GERD who presented to the [facility] ED on 07/14/21 with complaints of abdominal pain. Patient reports pain started about 2 nights ago after eating some spoonfuls of peanut butter. Workup in the ER revealed findings concerning for acute pancreatitis and acute cholecystitis with + gallstones. MRCP revealed no evidence of ductal dilation. GI consulted and not planning on performing ERCP based on negative MRI. It is possible she has passed a stone. Today LFTs are elevated but downtrending, Tb: 1.9 (2.7), Db: 1.2(2.3), AST: 633 (2077), ALT: 933(1551), Lipase: 152 (3159). She presently feels better than admission and is denying abdominal pain. She has been NPO since midnight. Based on history, imaging, and examination we will plan to take patient to the OR for laparoscopic cholecystectomy with intraop cholangiogram. Will discuss with OR scheduling of surgery, possibly as early as today. Patient is covid -. Pt discussed with Dr. Garcia. Admission and Anticipated Discharge Date Admission Date: July 15, 2021 Subjective Sleeping when I first walked in but easily awoken she appeared a little confused She denied any abdominal pain Physical Exam Physical Exam: Abdomen completely benign Rosendo drainage serous slightly sanguinous moderate amount of drainage on the dressing that has not been changed since surgery Results & Data ([facility]) Vital Signs (Past 12 Hours) Vital Signs Temp Pulse Resp BP Pulse Ox 07/16/21 03:38 36.7 C 73 16 146/74 H 95 07/15/21 23:00 36.6 C 67 16 107/51 L 96 07/15/21 20:40 36.6 C 78 16 123/68 93 PG Care Time/CCT Total # of Minutes Spent Total Time Spent with Patient: Total time spent is greater than 50% in coordination of care (as documented) at patient's floor/unit and/or counseling patient: Coding Level of Care Code None Diagnoses Gallstone pancreatitis K85.10
[2021-07-16 07:42] LABS: Albumin Level 2.3 gm/dl (3.4-5.0); Bilirubin Direct 0.4 mg/dl (0-0.2); Bilirubin,Total 0.8 mg/dl (0.2-1); Calcium 8.4 mg/dl (8.5-10.1); Creatinine Clr Calc Pharmacy 35.3 ml/min; Est GFR (African American) 58.1 ml/min; Est GFR (Non-African American) 50.1 ml/min; Potassium 3.3 mmol/L (3.5-5.1); Total Protein 5.5 gm/dl (6.4-8.2)
[2021-07-16] MEDS: LACTATED RINGER'S 1,000 ML IV SCH ×2 (08:12→16:14)
[2021-07-16] MEDS: clonazePAM 0.25 MG TAB PO SCH ×3 (08:34→21:16)
[2021-07-16] MEDS: buPROPion XL 300 MG TABCR PO SCH (08:34)
[2021-07-16] MEDS: lisinopril 20 MG TAB PO SCH (08:34)
[2021-07-16] MEDS: ESTROGENS, CONJUGATED 0.3 MG TAB PO SCH (08:34)
[2021-07-16] MEDS: FERROUS SULFATE 325 MG TAB PO SCH ×2 (08:34→21:16)
[2021-07-16] MEDS: EZETIMIBE 10 MG TABLET PO SCH (08:34)
[2021-07-16] MEDS: FOLIC ACID 1 MG TAB PO SCH (08:34)
[2021-07-16] MEDS: PANTOprazole 40 MG TAB PO SCH (08:34)
[2021-07-16] MEDS: HEPARIN SOD 5,000 UNIT/0.5 ML VIAL SQ SCH ×2 (08:44→21:17)
--- NOTE | 2021-07-16 10:28 | Electrocardiogram Report ---
Test Reason : Blood Pressure : / mmHG Vent. Rate : 071 BPM Atrial Rate : 071 BPM P-R Int : 170 ms QRS Dur : 080 ms QT Int : 408 ms P-R-T Axes : 044 006 021 degrees QTc Int : 443 ms Normal sinus rhythm Possible Left atrial enlargement Borderline ECG When compared with ECG of 14-JUL-2021 11:34, Premature ventricular complexes are no longer Present QRS duration has decreased ST elevation now present in Inferior leads Confirmed by Nakul Orozco ([id number]) on 07/16/2021 10:28:00 AM Referred By: REFERRED SELF Confirmed By:Lonnie Orozco
[2021-07-16] MEDS ORDERED: OPTIRAY 320 100ml IV ONE (13:03)
--- NOTE | 2021-07-16 13:35 | CT Scan Report ---
CT SCAN OF THE CHEST WITH IV CONTRAST CLINICAL HISTORY: Atypical chest pain. Diaphragmatic hernia. COMPARISON STUDY: Chest CT dated 04/02/2016. Chest x-ray dated 07/14/2021. Abdominal CT dated . TECHNIQUE: Following the IV administration of 95 cc of Optiray 320, CT scan of the thorax was perform ed from the thoracic inlet to the upper abdomen. Images are reviewed in the axial, sagittal, and aurelia nal planes. IV contrast was administered without complication. A dose lowering technique was utilize d adhering to the principles of ALARA. CT DOSE: 429.89 mGy.cm FINDINGS: Thyroid: Imaged portions of the thyroid gland are normal in size and attenuation. Thoracic aorta: There is atherosclerotic calcification of the thoracic aorta, which is normal in michael serina and demonstrates standard 3-vessel arch anatomy. No dissection is seen. Pulmonary vasculature: The pulmonary trunk is dilated, measuring 3.4 cm in transverse diameter. This suggests pulmonary artery hypertension. There are no filling defects identified in the central pulmon ila vessels to indicate pulmonary embolus. Note that this examination was not protocoled for evaluati on of the pulmonary arteries. Heart: The heart is enlarged and without pericardial effusion. The coronary arteries are densely calc ified. Lungs and pleural spaces: Emphysematous change is noted. The trachea and central airways are clear Th ere are small pleural effusions with dependent consolidation. This likely represents atelectasis. Ate lectasis is also seen along both major fissures. There is significant atelectasis of the left lower l obe. Mediastinum: There is no mediastinal lymphadenopathy. Precious: Clear. Axillae: There is no axillary lymphadenopathy. Upper abdomen: An indeterminant catheter is noted in the upper abdomen. There is a large hiatal herni a, with the majority of the stomach located in the thoracic cavity. The gastroesophageal junction is located above the diaphragm. The left hemidiaphragm is indistinct, and a concordant diaphragmatic her cody is not excluded. No additional abdominal viscera are located within the thoracic cavity. Skeletal structures: The skeletal structures are osteopenic. There are chronic appearing compression deformities of T6, T7, and T8. Degenerative change and hyperkyphosis are noted throughout the thoraci c spine. No lytic or blastic bony lesions are seen. IMPRESSION: 1. There is a large hiatal hernia, with the majority of the stomach located in the left hemithorax. T he gastroesophageal junction is located above the diaphragm and there is no paraesophageal hernia. 2. The left hemidiaphragm is elevated and not well-visualized, with associated atelectasis of the lef t lower lobe. A concordant diaphragmatic hernia is not excluded. No additional abdominal viscera are located within the thorax. 3. Cardiomegaly. 4. There are small pleural effusions with significant dependent consolidation. This likely represents atelectasis and clinical correlation will be required. 5. An indeterminant catheter in the upper abdomen is new from previous. Clinical correlation will be required. 6. Additional findings as above. ACT 112: Negative or not required by law. Electronically signed by: Nick Mason M.D. 07/16/2021 1:34 PM
[2021-07-16] MEDS: rOPINIRole HCL 1 MG TABLET PO SCH ×2 (16:16→21:17)
[2021-07-16] MEDS ORDERED: POTASSIUM CHLORIDE CRTAB 20 MEQ TABCR PO STA (17:33)
--- NOTE | 2021-07-16 17:35 | Hospitalist Progress Note ---
Date of Service July 16, 2021 Assessment & Plan (1) Abdominal pain: Plan: With epigastric abd pain, and elevated TBili with mostly direct bilirubin, and significantly elevated AST and ALT, mildly elevated alkaline phosphatase as well as lipase With distended gallbladder on CT abdomen/pelvis as well as dilated CBD, pancreas appears normal She is afebrile, but with leukocytosis. Initially suspected choledocholithiasis and acute gallstone pancreatitis, however subsequent MRCP negative for CBD stones. GI recommended no ERCP RUQ US confirmed acute cholecystitis, intraop cholangiogram showed dilated CBD but no filling defect Consulted SUrgery-now s/p cholecystectomy 07/15, with ALEX drain now removed Having ongoing intermittent LUQ post-op pain as below From surgery standpoint, she is stable for discharge to home with follow-up as an outpatient -Continue maintenance IV fluids and she is not really taking much by mouth -cont IV Zosyn more for bacteremia as below -Follow blood cultures-with gram-positive cocci in chains -Follow LFTs in the morning-continue to be trending downward -IV morphine and oxycodone as needed for pain -Zofran as needed for nausea -Follow-up with general surgery in the outpatient office as directed (2) Elevated LFTs: Plan: As above, improving Hepatitis panel negative (3) Left upper quadrant abdominal pain: Plan: Had this both immediately postoperatively and again after eating on the evening of 07/16 Pain was completely resolved between meals Initially thought to be secondary to pneumoperitoneum from laparoscopic surgery, however that should be resolved at this point and she is still having intermittent pain especially after eating CT chest negative for acute issues except large hernia with intrathoracic stomach and associated left lower lobe atelectasis LUQ pain is most likely secondary to intrathoracic stomach -Give Maalox now Continue Protonix IV morphine and oxycodone as needed for pain No need for further imaging at this time Reduce diet back to full for now (4) Pancreatitis: Plan: As above (5) Hypokalemia: Plan: Mild, secondary to poor p.o. intake Replaced with 20 mEq potassium chloride Follow BMP in the morning (6) Hypertension: Plan: Hypertensive on arrival secondary to pain, now improved Continue home lisinopril Follow blood pressures -Pain control (7) Diaphragmatic hernia: Plan: Margin contains transverse colon as well as majority of stomach Doubtful that this is contributing to her acute presentation Should have consultation with thoracic surgery as an outpatient With some LUQ pain as above (8) Hyperlipidemia: Plan: Continue Zetia (9) GERD (gastroesophageal reflux disease): Plan: Continue Protonix (10) Anxiety: Plan: Continue bupropion Continue clonazepam 3 times daily (11) Dementia: Plan: Mild cognitive impairment Continue donepezil, ropinirole Plan: SCDs for prophylaxis for DVT Disposition-continued stay on medical/surgical floor Admission and Anticipated Discharge Date Admission Date: July 15, 2021 Subjective Patient apparently was having the same left upper quadrant abdominal pain this morning and had a CT of the chest ordered by the surgeon which did not show anything acute. She received several doses of oxycodone and morphine today. I saw her in the evening and she reported feeling much improved and had almost no pain in the abdomen at that time. She still does not have much of an appetite and is only eating liquids. She denies chest pains or shortness of breath. Later after I left the floor, the nurse reported that the patient ate some dinner and again had severe left upper quadrant pain and I ordered an extra dose of IV morphine. Review of Systems Review of Systems: All systems reviewed & are unremarkable except as noted in HPI & below Physical Exam Constitutional: WD/WN, vitals as above Eyes: + anicteric sclerae Neck: trachea midline, no thyromegaly Respiratory: normal respiratory effort, lungs clear to auscultation Cardiovascular: RRR, no murmur, no edema Chest (Breasts): Chest: normal inspection of chest Gastrointestinal (Abdomen): Inspection/Auscultation: normal bowel sounds; + abdomen abnormal to inspection (incisions c/d/i) and abdomen not distended Percussion/Palpation: abdomen soft; abdomen nontender Musculoskeletal: Extremities: extremities normal to inspection; no cyanosis and no clubbing Skin: no rashes, warm and dry Neurologic: moves all extremities and awake; no focal motor deficits Psychiatric: Orientation: alert, oriented to person, oriented to place and cooperative Lymphatic: no lymphedema Results & Data Results & Data ([facility]) Vital Signs (Past 12 Hours) Vital Signs Temp Pulse Resp BP Pulse Ox 07/16/21 14:45 36.6 C 66 17 138/74 93 07/16/21 13:42 99 07/16/21 07:20 36.6 C 68 18 179/78 H 100 Laboratory Results 07/16/21 07/16/21 07/14/21 Range/Units 06:36 06:36 11:44 WBC 8.40 (4.8-10.8) K/uL RBC 3.58 L (4.2-5.4) M/uL Hgb 11.2 L (12.0-16.0) g/dL Hct 35.1 L (37-47) % MCV 98.0 (80-100) fL MCH 31.3 (25-34) pg MCHC 31.9 L (32-36) g/dL RDW Std Deviation 46.6 H (36.4-46.3) fL RDW Coeff of Shankar 13.0 (11.5-14.5) % Plt Count 149 (130-400) K/uL MPV 10.2 (7.4-10.4) fL Immature Gran % (Auto) 0.2 % Neut % (Auto) 80.3 % Lymph % (Auto) 11.7 % [place] % (Auto) 7.5 % Eos % (Auto) 0.2 % Baso % (Auto) 0.1 % Neut # (Auto) 6.74 H (1.4-6.5) K/uL Lymph # (Auto) 0.98 L (1.2-3.4) K/uL [place] # (Auto) 0.63 H (0.11-0.59) K/uL Eos # (Auto) 0.02 (0-0.5) K/uL Baso # (Auto) 0.01 (0-0.2) K/uL Immature Gran # (Auto) 0.02 (0.00-0.02) K/uL Sodium 138 (136-145) mmol/L Potassium 3.3 L (3.5-5.1) mmol/L Chloride 108 H (98-107) mmol/L Carbon Dioxide 25 (21-32) mmol/L Anion Gap 5.0 (3-11) BUN 16 (7-18) mg/dl Creatinine 1.05 (0.6-1.2) mg/dl Est Cr Clr Drug Dosing 35.3 ml/min Est GFR ( Amer) 58.1 ml/min Est GFR (Non-Af Amer) 50.1 ml/min BUN/Creatinine Ratio 15.0 (10-20) Glucose 99 (70-99) mg/dl Calcium 8.4 L (8.5-10.1) mg/dl Total Bilirubin 0.8 D (0.2-1) mg/dl Direct Bilirubin 0.4 H D (0-0.2) mg/dl AST 205 H (15-37) U/L ALT 508 H (12-78) U/L Alkaline Phosphatase 127 H (45-117) U/L Total Protein 5.5 L (6.4-8.2) gm/dl Albumin 2.3 L (3.4-5.0) gm/dl Hepatitis A IgM Ab NON-REACTIVE (NON-REACTIVE) Hep B Core IgM Ab NON-REACTIVE (NON-REACTIVE) Diagnostic Findings Chest CT 07/16/21 11:56 CT SCAN OF THE CHEST WITH IV CONTRAST CLINICAL HISTORY: Atypical chest pain. Diaphragmatic hernia. COMPARISON STUDY: Chest CT dated 04/02/2016. Chest x-ray dated 07/14/2021. Abdominal CT dated 07/14/2021. TECHNIQUE: Following the IV administration of 95 cc of Optiray 320, CT scan of the thorax was performed from the thoracic inlet to the upper abdomen. Images are reviewed in the axial, sagittal, and coronal planes. IV contrast was administered without complication. A dose lowering technique was utilized adhering to the principles of ALARA. CT DOSE: 429.89 mGy.cm FINDINGS: Thyroid: Imaged portions of the thyroid gland are normal in size and attenuation. Thoracic aorta: There is atherosclerotic calcification of the thoracic aorta, which is normal in caliber and demonstrates standard 3-vessel arch anatomy. No dissection is seen. Pulmonary vasculature: The pulmonary trunk is dilated, measuring 3.4 cm in transverse diameter. This suggests pulmonary artery hypertension. There are no filling defects identified in the central pulmonary vessels to indicate pulmonary embolus. Note that this examination was not protocoled for evaluation of the pulmonary arteries. Heart: The heart is enlarged and without pericardial effusion. The coronary arteries are densely calcified. Lungs and pleural spaces: Emphysematous change is noted. The trachea and central airways are clear There are small pleural effusions with dependent consolidation. This likely represents atelectasis. Atelectasis is also seen along both major fissures. There is significant atelectasis of the left lower lobe. Mediastinum: There is no mediastinal lymphadenopathy. Precious: Clear. Axillae: There is no axillary lymphadenopathy. Upper abdomen: An indeterminant catheter is noted in the upper abdomen. There is a large hiatal hernia, with the majority of the stomach located in the thoracic cavity. The gastroesophageal junction is located above the diaphragm. The left hemidiaphragm is indistinct, and a concordant diaphragmatic hernia is not excluded. No additional abdominal viscera are located within the thoracic cavity. Skeletal structures: The skeletal structures are osteopenic. There are chronic appearing compression deformities of T6, T7, and T8. Degenerative change and hyperkyphosis are noted throughout the thoracic spine. No lytic or blastic bony lesions are seen. IMPRESSION: 1. There is a large hiatal hernia, with the majority of the stomach located in the left hemithorax. The gastroesophageal junction is located above the diaphragm and there is no paraesophageal hernia. 2. The left hemidiaphragm is elevated and not well-visualized, with associated atelectasis of the left lower lobe. A concordant diaphragmatic hernia is not excluded. No additional abdominal viscera are located within the thorax. 3. Cardiomegaly. 4. There are small pleural effusions with significant dependent consolidation. This likely represents atelectasis and clinical correlation will be required. 5. An indeterminant catheter in the upper abdomen is new from previous. Clinical correlation will be required. 6. Additional findings as above. ACT 112: Negative or not required by law. Electronically signed by: Nick Mason M.D. 07/16/2021 1:34 PM PG Care Time/CCT Total # of Minutes Spent Total Time Spent with Patient: Total time spent is greater than 50% in coordination of care (as documented) at patient's floor/unit and/or counseling patient: Coding Level of Care Code 98213 Subseq Hosp Care Lvl 3 Diagnoses Abdominal pain R10.13 Abdominal location: epigastric Elevated LFTs R79.89 Pancreatitis K85.90 Acute pancreatitis complication: unspecified Chronicity: acute Pancreatitis type: unspecified pancreatitis type Hypertension I10 Diaphragmatic hernia K44.9 Hyperlipidemia E78.5 GERD (gastroesophageal reflux disease) K21.9 Anxiety F41.9 Dementia F03.90 Hypokalemia E87.6 Left upper quadrant abdominal pain R10.12 (1) Pancreatitis Acute pancreatitis complication: unspecified Chronicity: acute Pancreatitis type: unspecified pancreatitis type Qualified Code(s): K85.90 - Acute pancreatitis without necrosis or infection, unspecified (2) Abdominal pain Abdominal location: epigastric Qualified Code(s): R10.13 - Epigastric pain
[2021-07-16] MEDS: MoRPHine SULFATE 4 MG/ML 1 ML CARP\\VIAL IV PRN (18:16)
[2021-07-16] MEDS ORDERED: ALUMINUM/MAGNESIUM SUSP 30 ML UDC PO STA (18:26)
[2021-07-16] MEDS ORDERED: Nursing to Pharmacy Communication SCH (18:30)
[2021-07-16] MEDS ORDERED: MoRPHine SULFATE 2 MG/ML CARP IV STA (18:55)
[2021-07-16] MEDS: DONEPEZIL HCL 5 MG TAB PO SCH (21:17)
[2021-07-17] MEDS: oxyCODONE/ACETAMINOPHEN 5mg/325mg TAB PO PRN (02:57)
[2021-07-17] MEDS: LACTATED RINGER'S 1,000 ML IV SCH ×2 (05:26→19:45)
[2021-07-17] MEDS: PIPERACILLIN/TAZOBACTAM 3.375 GM in DEXTROSE 5% 100 ML IV SCH ×3 (05:26→21:36)
[2021-07-17 06:39] LABS: Basophils # (auto) 0.03 K/uL (0-0.2); Basophils % (auto) 0.4 %; Eosinophils # (auto) 0.23 K/uL (0-0.5); Hematocrit (blood only) 34.6 % (37-47); Hemoglobin 10.8 g/dL (12.0-16.0); Immature Granulocytes # (auto) 0.03 K/uL (0.00-0.02); Immature Granulocytes % (auto) 0.4 %; Lymphocytes # (auto) 0.96 K/uL (1.2-3.4); Lymphocytes % (auto) 12.7 %; Mean Corpuscular Hemoglobin 30.9 pg (25-34); Mean Corpuscular Hgb Conc 31.2 g/dL (32-36); Mean Corpuscular Volume 98.9 fL (80-100); Mean Platelet Volume 10.2 fL (7.4-10.4); Monocytes % (auto) 7.9 %; Neutrophils # (auto) 5.73 K/uL (1.4-6.5); Neutrophils % (auto) 75.6 %; Platelet Count 151 K/uL (130-400); RDW Standard Deviation 46.6 fL (36.4-46.3); White Blood Count 7.58 K/uL (4.8-10.8)
[2021-07-17 07:23] LABS: Albumin Globulin Ratio 0.7 (0.9-2); Albumin Level 2.2 gm/dl (3.4-5.0); BUN Creatinine Ratio 11.4 (10-20); Bilirubin,Total 0.6 mg/dl (0.2-1); Calcium 8.5 mg/dl (8.5-10.1); Creatinine Clr Calc Pharmacy 35.7 ml/min; Est GFR (African American) 58.8 ml/min; Est GFR (Non-African American) 50.7 ml/min; Globulin 3.2 gm/dl (2.5-4.0); Potassium 4.1 mmol/L (3.5-5.1); Total Protein 5.4 gm/dl (6.4-8.2)
[2021-07-17] MEDS: FERROUS SULFATE 325 MG TAB PO SCH ×2 (09:25→21:36)
[2021-07-17] MEDS: FOLIC ACID 1 MG TAB PO SCH (09:25)
[2021-07-17] MEDS: EZETIMIBE 10 MG TABLET PO SCH (09:25)
[2021-07-17] MEDS: ESTROGENS, CONJUGATED 0.3 MG TAB PO SCH (09:25)
[2021-07-17] MEDS: PANTOprazole 40 MG TAB PO SCH (09:25)
[2021-07-17] MEDS: lisinopril 20 MG TAB PO SCH (09:26)
[2021-07-17] MEDS: buPROPion XL 300 MG TABCR PO SCH (09:26)
[2021-07-17] MEDS: HEPARIN SOD 5,000 UNIT/0.5 ML VIAL SQ SCH ×2 (09:27→21:35)
[2021-07-17] MEDS: clonazePAM 0.25 MG TAB PO SCH ×3 (09:27→21:35)
--- NOTE | 2021-07-17 10:02 | XCELERA ---
[id number]
[2021-07-17] MEDS ORDERED: bisacodyL 10 MG SUPP PR STA (10:11)
--- NOTE | 2021-07-17 10:14 | Hospitalist Progress Note ---
Date of Service July 17, 2021 Assessment & Plan (1) Abdominal pain: Plan: - Multifactorial, s/p lap tatyana, additional pain with thoracic hernia as noted below and postop constipation - With epigastric abd pain, and elevated TBili with mostly direct bilirubin, and significantly elevated AST and ALT, mildly elevated alkaline phosphatase as well as lipase - With distended gallbladder on CT abdomen/pelvis as well as dilated CBD, pancreas appears normal She is afebrile, but with leukocytosis. - Initially suspected choledocholithiasis and acute gallstone pancreatitis, however subsequent MRCP negative for CBD stones. GI recommended no ERCP. RUQ US confirmed acute cholecystitis, intraop cholangiogram showed dilated CBD but no filling defect -s/p cholecystectomy 07/15, with ALEX drain now removed -Having ongoing intermittent LUQ post-op pain -Continue maintenance IV fluids and she is not really taking much by mouth -cont IV Zosyn for bacteremia as below -Follow blood cultures-with gram-positive cocci in chains -Follow LFTs in the morning. Downtrending -IV morphine and oxycodone as needed for pain -Zofran as needed for nausea -Follow-up with general surgery in the outpatient office as directed (2) Elevated LFTs: Plan: As above, improving Hepatitis panel negative (3) Left upper quadrant abdominal pain: Plan: - Had this both immediately postoperatively and again after eating on the evening of 07/16 - Pain was completely resolved between meals - Initially thought to be secondary to pneumoperitoneum from laparoscopic surgery - CT chest negative for acute issues except large hernia with intrathoracic stomach and associated left lower lobe atelectasis - LUQ pain is most likely secondary to intrathoracic stomach versus constipation -Seen by GI. Recommend + UT bisacodyl,+ p.o. MiraLAX. Patient counseled MiraLAX may make some of gaseous distention worse -No need for further imaging at this time - Reduce diet back to full for now (4) Pancreatitis: Plan: As above (5) Hypokalemia: Plan: Mild, secondary to poor p.o. intake Normalized following oral repletion BMP daily (6) Hypertension: Plan: -Intermittently hypertensive with pain Normotensive when pain adequately controlled Continue lisinopril Continue pain control, management as above (7) Diaphragmatic hernia: Plan: - Margin contains transverse colon as well as majority of stomach - Doubtful that this is contributing to her acute presentation - Should have consultation with thoracic surgery as an outpatient - With some LUQ pain as above (8) Hyperlipidemia: Plan: Continue Zetia (9) GERD (gastroesophageal reflux disease): Plan: Continue Protonix (10) Anxiety: Plan: Continue bupropion Continue clonazepam 3 times daily (11) Dementia: Plan: Mild cognitive impairment Continue donepezil, ropinirole Plan: SCDs for prophylaxis for DVT Disposition-continued stay on medical/surgical floor Admission and Anticipated Discharge Date Admission Date: July 15, 2021 Subjective + gas pain and epigastric/RUQ bloating and pain with pressure that gives her some shortness of breath. No BM today. OK with suppository. Got meat stuck in her teeth yesterday, tolerating clears today OK but with +gas and RUQ discomfort. No emesis Review of Systems Review of Systems: 6 10 point review systems negative except as previously noted and as noted in subjective Physical Exam Physical Exam: General: A&Ox3. NAD. Cooperative. HEENT: Atraumatic, normocephalic. Hearing and vision grossly intact. Pulm: CTAB A&P. -wheezes, -rales, -rhonchi. Symmetrical chest rise. No increase work of breathing. No respiratory distress. Cardiac: RRR, -mrg. Radial pulses intact and symmetrical. Abdominal: Softly distended, no rebound, nonrigid/no guarding. Mildly tender to palpation. Extremities: Warm, dry. Results & Data Results & Data ([facility]) Vital Signs (Past 12 Hours) Vital Signs Temp Pulse Resp BP Pulse Ox 07/17/21 08:00 36.7 C 74 22 168/79 H 94 07/16/21 23:22 36.8 C 60 18 164/72 H 97 PG Care Time/CCT Total # of Minutes Spent Total Time Spent with Patient: Total time spent is greater than 50% in coordination of care (as documented) at patient's floor/unit and/or counseling patient: Coding Level of Care Code 31895 Subseq Hosp Care Lvl 2 Diagnoses Abdominal pain R10.13 Abdominal location: epigastric Elevated LFTs R79.89 Left upper quadrant abdominal pain R10.12 Pancreatitis K85.90 Acute pancreatitis complication: unspecified Chronicity: acute Pancreatitis type: unspecified pancreatitis type Hypokalemia E87.6 Hypertension I10 Diaphragmatic hernia K44.9 Hyperlipidemia E78.5 GERD (gastroesophageal reflux disease) K21.9 Anxiety F41.9 Dementia F03.90 (1) Pancreatitis Acute pancreatitis complication: unspecified Chronicity: acute Pancreatitis type: unspecified pancreatitis type Qualified Code(s): K85.90 - Acute pancreatitis without necrosis or infection, unspecified (2) Abdominal pain Abdominal location: epigastric Qualified Code(s): R10.13 - Epigastric pain
--- NOTE | 2021-07-17 10:26 | Surgery Progress Note ---
Date of Service July 17, 2021 Assessment & Plan (1) Gallstone pancreatitis: Plan: s/p lap tatyana - POD#2. Overall doing well but is constipated with gas cramps. Miralax has worked for her in the past. Will try dulcolax supp and miralax today. On full liquids and tolerating well. Will increase activity and wean oxygen as tolerated. Admission and Anticipated Discharge Date Admission Date: July 15, 2021 Subjective Pt complaining of crampy abdominal pain. No nausea. Pain is in the left upper abdomen. No bowel movement. Got some meat stuck in her teeth yesterday but was able to tolerate mashed potatoes. Feels short of breath at times. Review of Systems Respiratory: short of breath, no pain with deep breathing Cardiovascular: no problem reported Physical Exam Constitutional: frail, vitals as above Respiratory: on NC oxygen, no use of accessory muscle, clear bilaterally Gastrointestinal (Abdomen): soft, distended, pos bowel tones, incisions clean, dressing at prior ALEX site, appropriately tender at incisions Musculoskeletal: no edema LE Neurologic: awake, alert, slow cognition (no confusion but somewhat repetitive and takes a long time to answer questions) Results & Data ([facility]) Vital Signs (Past 12 Hours) Vital Signs Temp Pulse Resp BP Pulse Ox 07/17/21 08:00 36.7 C 74 22 168/79 H 94 07/16/21 23:22 36.8 C 60 18 164/72 H 97 Laboratory Results Abnormal lab results 07/17/21 07/17/21 Range/Units 06:15 06:15 RBC 3.50 L (4.2-5.4) M/uL Hgb 10.8 L (12.0-16.0) g/dL Hct 34.6 L (37-47) % MCHC 31.2 L (32-36) g/dL RDW Std Deviation 46.6 H (36.4-46.3) fL Lymph # (Auto) 0.96 L (1.2-3.4) K/uL [place] # (Auto) 0.60 H (0.11-0.59) K/uL Immature Gran # (Auto) 0.03 H (0.00-0.02) K/uL Chloride 108 H (98-107) mmol/L Glucose 103 H (70-99) mg/dl AST 87 H (15-37) U/L ALT 333 H (12-78) Total Protein 5.4 L (6.4-8.2) gm/dl Albumin 2.2 L (3.4-5.0) gm/dl Albumin/Globulin Ratio 0.7 L (0.9-2)
[2021-07-17] MEDS: POLYETHYLENE (MIRALAX) 17 GM PACK PO SCH (10:53)
--- NOTE | 2021-07-17 12:32 | Electrocardiogram Report ---
Test Reason : Blood Pressure : / mmHG Vent. Rate : 068 BPM Atrial Rate : 068 BPM P-R Int : 158 ms QRS Dur : 092 ms QT Int : 424 ms P-R-T Axes : 037 015 018 degrees QTc Int : 450 ms Normal sinus rhythm Low voltage QRS Borderline ECG When compared with ECG of 15-JUL-2021 16:40, Nonspecific T wave abnormality no longer evident in Anterior leads Confirmed by Eugenio Banks ([id number]) on 07/17/2021 12:31:47 PM Referred By: REFERRED SELF Confirmed By:Eugenio Banks
[2021-07-17] MEDS: MoRPHine SULFATE 2 MG/ML CARP IV PRN ×2 (12:57→21:44)
[2021-07-17] MEDS: rOPINIRole HCL 1 MG TABLET PO SCH ×2 (16:45→21:35)
[2021-07-17] MEDS: DONEPEZIL HCL 5 MG TAB PO SCH (21:36)
[2021-07-18] MEDS: PIPERACILLIN/TAZOBACTAM 3.375 GM in DEXTROSE 5% 100 ML IV SCH (05:29)
--- NOTE | 2021-07-18 08:05 | Hospitalist Progress Note ---
Date of Service July 18, 2021 Assessment & Plan (1) Abdominal pain: Plan: - Multifactorial, s/p lap tatyana, additional pain with thoracic hernia as noted below and postop constipation - On admit With epigastric abd pain, and elevated TBili with mostly direct bilirubin, and significantly elevated AST and ALT, mildly elevated alkaline phosphatase as well as lipase - With distended gallbladder on CT abdomen/pelvis as well as dilated CBD, pancreas appears normal - She is afebrile, leukocytosis resolved - Initially suspected choledocholithiasis and acute gallstone pancreatitis, however subsequent MRCP negative for CBD stones. GI recommended no ERCP. RUQ US confirmed acute cholecystitis, intraop cholangiogram showed dilated CBD but no filling defect -s/p cholecystectomy 07/15, with ALEX drain now removed -Having ongoing intermittent LUQ post-op pain -Continue maintenance IV fluids and she is not really taking much by mouth -cont IV Zosyn for bacteremia as below -Follow blood cultures-with gram-positive cocci in chains -Follow LFTs in the morning. Continue to downtrend -IV morphine and oxycodone as needed for pain -Zofran as needed for nausea -Follow-up with general surgery in the outpatient office as directed - Increased bloating/discomfort today, slightly worse with meals. KUB pending - Disposition-continued stay on medical/surgical floor. PT/OT recommend SNF vs 24 hour care (2) Elevated LFTs: Plan: As above, improving Hepatitis panel negative (3) Left upper quadrant abdominal pain: Plan: - Had this both immediately postoperatively and again after eating on the evening of 07/16 - Pain was completely resolved between meals - Initially thought to be secondary to pneumoperitoneum from laparoscopic surgery - CT chest negative for acute issues except large hernia with intrathoracic stomach and associated left lower lobe atelectasis - LUQ pain is most likely secondary to intrathoracic stomach versus constipation -Seen by GI. Recommend + [place] bisacodyl,+ p.o. MiraLAX. Patient counseled MiraLAX may make some of gaseous distention worse. Clinically improved yesterday with BMs -No need for further imaging at this time - Reduce diet back to full for now (4) Pancreatitis: Plan: As above (5) Bacteremia: Plan: - 1/2 BC+ for non-enterococcus strep - Pt at increased risk 2/2 hx of rheumatic fever w/ valve prolapse - No veg on TTE - Zosyn narrowed to rocephin. PCN also highly active, but multiple dosing - ? Contaminant vs real. Given increased risk ID consulted for additional recommendations, consult pending (6) Hypokalemia: Plan: Mild, secondary to poor p.o. intake Normalized following oral repletion BMP daily (7) Hypertension: Plan: -Intermittently hypertensive with pain Normotensive when pain adequately controlled Continue lisinopril Continue pain control, management as above (8) Diaphragmatic hernia: Plan: - Margin contains transverse colon as well as majority of stomach - Doubtful that this is contributing to her acute presentation - Should have consultation with thoracic surgery as an outpatient - With some LUQ pain as above (9) Hyperlipidemia: Plan: Continue Zetia (10) GERD (gastroesophageal reflux disease): Plan: Continue Protonix (11) Anxiety: Plan: Continue bupropion Continue clonazepam 3 times daily (12) Dementia: Plan: Mild cognitive impairment Continue donepezil, ropinirole Plan: SCDs for prophylaxis for DVT Disposition-continued stay on medical/surgical floor. PT/OT recommend SNF vs 24 hour care Admission and Anticipated Discharge Date Admission Date: July 15, 2021 Subjective Continues to have some gaseous distention, felt initially better yesterday following suppository but with increased bloating again today which sometimes makes her breathing feel a little bit more difficult/with pressure. Mildly tender at right upper quadrant without rebound. Small bowel movement yesterday, none yet this morning. Otherwise no change, continues to feel very fatigued and weak. Denies fever/chills/sweats. Review of Systems Review of Systems: Endorses abdominal distention, bloating, constipation, and some right upper quadrant discomfort as previously noted. 10 point review systems otherwise negative except as previously noted and in subjective. Physical Exam Physical Exam: General: A&Ox3. NAD. Cooperative. HEENT: Atraumatic, normocephalic. Hearing and vision grossly intact. Pulm: CTAB A&P. -wheezes, -rales, -rhonchi. Symmetrical chest rise. No increase work of breathing. No respiratory distress. Cardiac: RRR, -mrg. Radial pulses intact and symmetrical. Abdominal: Softly distended, no rebound, nonrigid/no guarding. Mildly tympanic on percussion. Mildly tender to palpation. Extremities: Warm, dry. Results & Data Results & Data ([facility]) Vital Signs (Past 12 Hours) Vital Signs Temp Pulse Resp BP BP Pulse Ox 07/18/21 07:00 36.3 C L 57 L 18 175/76 H 96 07/17/21 22:26 36.4 C L 66 20 157/81 H 96 PG Care Time/CCT Total # of Minutes Spent Total Time Spent with Patient: Total time spent is greater than 50% in coordination of care (as documented) at patient's floor/unit and/or counseling patient: Coding Level of Care Code 89863 Subseq Hosp Care Lvl 2 Diagnoses Abdominal pain R10.13 Abdominal location: epigastric Elevated LFTs R79.89 Left upper quadrant abdominal pain R10.12 Pancreatitis K85.90 Acute pancreatitis complication: unspecified Chronicity: acute Pancreatitis type: unspecified pancreatitis type Hypokalemia E87.6 Hypertension I10 Diaphragmatic hernia K44.9 Hyperlipidemia E78.5 GERD (gastroesophageal reflux disease) K21.9 Anxiety F41.9 Dementia F03.90 Bacteremia R78.81 (1) Pancreatitis Acute pancreatitis complication: unspecified Chronicity: acute Pancreatitis type: unspecified pancreatitis type Qualified Code(s): K85.90 - Acute pancreatitis without necrosis or infection, unspecified (2) Abdominal pain Abdominal location: epigastric Qualified Code(s): R10.13 - Epigastric pain
[2021-07-18] MEDS: FERROUS SULFATE 325 MG TAB PO SCH ×2 (09:02→20:14)
[2021-07-18] MEDS: ESTROGENS, CONJUGATED 0.3 MG TAB PO SCH (09:02)
[2021-07-18] MEDS: buPROPion XL 300 MG TABCR PO SCH (09:02)
[2021-07-18] MEDS: HEPARIN SOD 5,000 UNIT/0.5 ML VIAL SQ SCH ×2 (09:03→20:15)
[2021-07-18] MEDS: FOLIC ACID 1 MG TAB PO SCH (09:03)
[2021-07-18] MEDS: POLYETHYLENE (MIRALAX) 17 GM PACK PO SCH (09:04)
[2021-07-18] MEDS: EZETIMIBE 10 MG TABLET PO SCH (09:04)
[2021-07-18] MEDS: PANTOprazole 40 MG TAB PO SCH (09:04)
[2021-07-18] MEDS: lisinopril 20 MG TAB PO SCH (09:04)
[2021-07-18] MEDS: clonazePAM 0.25 MG TAB PO SCH ×3 (09:07→20:16)
[2021-07-18] MEDS: cefTRIAXone SODIUM 2,000 MG in DEXTROSE 5% 50 ML IV SCH (10:08)
[2021-07-18] MEDS ORDERED: bisacodyL 10 MG SUPP PR PRN (10:11)
[2021-07-18 10:50] LABS: Basophils # (auto) 0.02 K/uL (0-0.2); Basophils % (auto) 0.3 %; Eosinophils # (auto) 0.17 K/uL (0-0.5); Eosinophils % (auto) 2.4 %; Hematocrit (blood only) 36.8 % (37-47); Hemoglobin 11.7 g/dL (12.0-16.0); Immature Granulocytes # (auto) 0.04 K/uL (0.00-0.02); Immature Granulocytes % (auto) 0.6 %; Lymphocytes % (auto) 11.2 %; Mean Corpuscular Hemoglobin 31.3 pg (25-34); Mean Corpuscular Hgb Conc 31.8 g/dL (32-36); Mean Corpuscular Volume 98.4 fL (80-100); Monocytes # (auto) 0.53 K/uL (0.11-0.59); Monocytes % (auto) 7.4 %; Neutrophils # (auto) 5.57 K/uL (1.4-6.5); Neutrophils % (auto) 78.1 %; Platelet Count 174 K/uL (130-400); RDW Coefficient of Variation 12.8 % (11.5-14.5); Red Blood Count 3.74 M/uL (4.2-5.4); White Blood Count 7.13 K/uL (4.8-10.8)
[2021-07-18] MEDS: oxyCODONE/ACETAMINOPHEN 5mg/325mg TAB PO PRN (11:07)
--- NOTE | 2021-07-18 11:15 | Surgery Progress Note ---
Date of Service July 18, 2021 Assessment & Plan (1) Gallstone pancreatitis: Plan: s/p lap tatyana - POD#3. Overall doing well, bowels are now functioning. OK to advance diet as tolerated. Increase activity as tolerated. No new recommendations. Admission and Anticipated Discharge Date Admission Date: July 15, 2021 Subjective Sitting in chair. Had two bowel movements. Tolerating diet. Still feels pain in the abdomen, more so on the right upper quadrant today. Still feels weak. No nausea. Results & Data ([facility]) Vital Signs (Past 12 Hours) Vital Signs Temp Pulse Resp BP Pulse Ox 07/18/21 07:00 36.3 C L 57 L 18 175/76 H 96 Laboratory Results Abnormal lab results 07/18/21 Range/Units 10:38 RBC 3.74 L (4.2-5.4) M/uL Hgb 11.7 L (12.0-16.0) g/dL Hct 36.8 L (37-47) % MCHC 31.8 L (32-36) g/dL Lymph # (Auto) 0.80 L (1.2-3.4) K/uL Immature Gran # (Auto) 0.04 H (0.00-0.02) K/uL
[2021-07-18 11:27] LABS: Albumin Level 2.3 gm/dl (3.4-5.0); BUN Creatinine Ratio 9.7 (10-20); Calcium 8.8 mg/dl (8.5-10.1); Creatinine Clr Calc Pharmacy 39.1 ml/min; Est GFR (African American) 65.6 ml/min; Est GFR (Non-African American) 56.6 ml/min; Potassium 3.7 mmol/L (3.5-5.1)
[2021-07-18 11:30] LABS: Albumin Globulin Ratio 0.6 (0.9-2); Bilirubin,Total 0.5 mg/dl (0.2-1); Globulin 3.7 gm/dl (2.5-4.0)
--- NOTE | 2021-07-18 15:43 | XRay Report ---
KUB HISTORY: Abdominal distention. COMPARISON: KUB 07/15/2021. FINDINGS: There is residual contrast seen within the distal colon. No dilated loops of bowel to sugge st an obstruction. Moderate well-formed stool within the colon. Colonic diverticulosis. L4-S1 posteri or fusion hardware is again noted. No renal calculi. No ureteral calculi. Calcifications in the deep pelvis likely represent phleboliths. Dextroscoliosis of the lumbar spine. Prior cholecystectomy. No pneumoperitoneum or pneumatosis. IMPRESSION: 1. No evidence for bowel obstruction. 2. Moderate well-formed stool within the colon. 3. Colonic diverticulosis. 4. Cholecystectomy. ACT 112: Negative or not required by law. Electronically signed by: Aden Pappas M.D. 07/18/2021 3:42 PM
[2021-07-18] MEDS: rOPINIRole HCL 1 MG TABLET PO SCH ×2 (16:22→20:15)
[2021-07-18] MEDS: DONEPEZIL HCL 5 MG TAB PO SCH (20:14)
[2021-07-19] MEDS: MoRPHine SULFATE 2 MG/ML CARP IV PRN (03:54)
[2021-07-19] MEDS: oxyCODONE/ACETAMINOPHEN 5mg/325mg TAB PO PRN ×2 (07:34→20:37)
--- NOTE | 2021-07-19 07:52 | Surgery Progress Note ---
Date of Service July 19, 2021 Assessment & Plan (1) Gallstone pancreatitis: Plan: POD#4 lap tatyana LFT's downtrending as of yesterday continue diet as tolerates. + bowel function wounds look good, c/d/i. ALEX was removed on Monday pt can be discharged from our standpoint when cleared by medicine f/u in clinic with us in 1 wk Pt seen/examined with Dr. Garcia Admission and Anticipated Discharge Date Admission Date: July 15, 2021 Supervising Physician Co-Signing Physician Notes As per Tila Osei physician ambulance assistant The patient is coherent complaining of some discomfort in left lower abdomen The abdomen is benign trocar sites are healed well I discussed the patient that from surgical point of view she would probably do better leaving the hospital and being at home especially given the present Covid situation in the hospital She understands Subjective Patient seen. Complaints of some mild lower abdominal discomfort. She otherwise is tolerating a diet and says she is having + bowel function. Eager for discharge. Physical Exam Physical Exam: awake Respiratory: normal respiratory effort Gastrointestinal (Abdomen): Inspection/Auscultation: + abdominal surgical incision (c/d/i steri-strips over top. some mild ecchymosis of mid abdominal incision) Percussion/Palpation: abdomen soft Results & Data ([facility]) Vital Signs (Past 12 Hours) Vital Signs Temp Pulse Resp BP Pulse Ox 07/19/21 07:21 36.5 C 64 17 169/76 H 93 07/18/21 22:47 36.6 C 60 18 147/70 H 92 PG Care Time/CCT Total # of Minutes Spent Total Time Spent with Patient: Total time spent is greater than 50% in coordination of care (as documented) at patient's floor/unit and/or counseling patient: Coding Level of Care Code None Diagnoses Gallstone pancreatitis K85.10
[2021-07-19] MEDS: EZETIMIBE 10 MG TABLET PO SCH (07:57)
[2021-07-19] MEDS: ESTROGENS, CONJUGATED 0.3 MG TAB PO SCH (07:57)
[2021-07-19] MEDS: PANTOprazole 40 MG TAB PO SCH (07:58)
[2021-07-19] MEDS: buPROPion XL 300 MG TABCR PO SCH (07:58)
[2021-07-19] MEDS: HEPARIN SOD 5,000 UNIT/0.5 ML VIAL SQ SCH ×2 (07:58→20:34)
[2021-07-19] MEDS: POLYETHYLENE (MIRALAX) 17 GM PACK PO SCH (07:58)
[2021-07-19] MEDS: clonazePAM 0.25 MG TAB PO SCH ×3 (07:58→20:37)
[2021-07-19] MEDS: FOLIC ACID 1 MG TAB PO SCH (07:58)
[2021-07-19] MEDS: FERROUS SULFATE 325 MG TAB PO SCH ×2 (07:58→20:34)
[2021-07-19] MEDS: lisinopril 20 MG TAB PO SCH (07:58)
[2021-07-19] MEDS: cefTRIAXone SODIUM 2,000 MG in DEXTROSE 5% 50 ML IV SCH (07:59)
[2021-07-19 08:09] LABS: Basophils # (auto) 0.02 K/uL (0-0.2); Basophils % (auto) 0.3 %; Eosinophils # (auto) 0.16 K/uL (0-0.5); Eosinophils % (auto) 2.7 %; Hematocrit (blood only) 35.7 % (37-47); Hemoglobin 11.1 g/dL (12.0-16.0); Immature Granulocytes # (auto) 0.05 K/uL (0.00-0.02); Immature Granulocytes % (auto) 0.8 %; Lymphocytes # (auto) 0.85 K/uL (1.2-3.4); Lymphocytes % (auto) 14.2 %; Mean Corpuscular Hemoglobin 30.5 pg (25-34); Mean Corpuscular Hgb Conc 31.1 g/dL (32-36); Mean Corpuscular Volume 98.1 fL (80-100); Mean Platelet Volume 10.1 fL (7.4-10.4); Monocytes # (auto) 0.56 K/uL (0.11-0.59); Monocytes % (auto) 9.4 %; Neutrophils # (auto) 4.33 K/uL (1.4-6.5); Neutrophils % (auto) 72.6 %; Platelet Count 174 K/uL (130-400); RDW Coefficient of Variation 12.9 % (11.5-14.5); RDW Standard Deviation 46.2 fL (36.4-46.3); Red Blood Count 3.64 M/uL (4.2-5.4); White Blood Count 5.97 K/uL (4.8-10.8)
[2021-07-19 08:52] LABS: BUN Creatinine Ratio 10.5 (10-20); Calcium 8.5 mg/dl (8.5-10.1); Creatinine Clr Calc Pharmacy 50.2 ml/min; Est GFR (African American) 88.7 ml/min; Est GFR (Non-African American) 76.5 ml/min; Potassium 3.7 mmol/L (3.5-5.1)
[2021-07-19 08:55] LABS: Albumin Globulin Ratio 0.6 (0.9-2); Bilirubin,Total 0.9 mg/dl (0.2-1); Globulin 3.2 gm/dl (2.5-4.0); Total Protein 5.2 gm/dl (6.4-8.2)
--- NOTE | 2021-07-19 14:06 | Hospitalist Progress Note ---
Date of Service July 19, 2021 Assessment & Plan (1) Abdominal pain: Plan: - Multifactorial, s/p lap tatayna, additional pain with thoracic hernia as noted below and postop constipation - On admit With epigastric abd pain, and elevated TBili with mostly direct bilirubin, and significantly elevated AST and ALT, mildly elevated alkaline phosphatase as well as lipase - With distended gallbladder on CT abdomen/pelvis as well as dilated CBD, pancreas appears normal - She is afebrile, leukocytosis resolved - Initially suspected choledocholithiasis and acute gallstone pancreatitis, however subsequent MRCP negative for CBD stones. GI recommended no ERCP. RUQ US confirmed acute cholecystitis, intraop cholangiogram showed dilated CBD but no filling defect -s/p cholecystectomy 07/15, with ALEX drain now removed -Having ongoing intermittent LUQ post-op pain -Continue maintenance IV fluids and she is not really taking much by mouth -cont IV Zosyn for bacteremia as below -Follow blood cultures-with gram-positive cocci in chains -Follow LFTs in the morning. Continue to downtrend -IV morphine and oxycodone as needed for pain -Zofran as needed for nausea -Follow-up with general surgery in the outpatient office in 1 week -Bloating/carlos discomfort improved with bowel regimen and BMs. KUB with moderate stool burden, no free air. Patient stable for discharge from a surgical perspective. Medically she is doing well, and stable for discharge but requires a definitive plan for her bacteremia as noted below. Recommended based on her presentation to have 2 weeks of IV antibiotics from surveillance cultures 07/16 () for gram- positive bacteremia in the setting of history of rheumatic fever with mitral data/prolapse. This is only present on 2 blood culture bottles, ID was consulted for recommendations of whether this could be considered contaminant however since that time gallbladder cultures have speciated for the same organism and suggest that she likely experienced true bacteremia in the setting of acute cholecystitis. Will proceed with 14 days of IV antibiotic treatment. While penicillin every 4 hours is typically recommended, third-generation cephalosporins also highly active and Rocephin 2 g IV every 24 hours is reasonable alternative with the benefit of daily dosing. Ultrasound-guided IV ordered. Disposition to home with 24-hour care/home health versus SNF discussed with patient. PT recommending 24-hour care/SNF. Per patient and have had a good experience with [facility], and would prefer discharge to SNF if possible with goal to return home. Discussed with case management. (2) Elevated LFTs: Plan: As above, improving Hepatitis panel negative (3) Left upper quadrant abdominal pain: Plan: - Had this both immediately postoperatively and again after eating on the evening of 07/16 - Pain was completely resolved between meals - Initially thought to be secondary to pneumoperitoneum from laparoscopic surgery - CT chest negative for acute issues except large hernia with intrathoracic stomach and associated left lower lobe atelectasis - LUQ pain is most likely secondary to intrathoracic stomach versus constipation -Seen by GI. Recommend + [place] bisacodyl,+ p.o. MiraLAX. Patient counseled MiraLAX may make some of gaseous distention worse. Clinically improved yesterday with BMs -No need for further imaging at this time - Reduce diet back to full for now (4) Pancreatitis: Plan: As above (5) Bacteremia: Plan: - 1/2 BC+ for non-enterococcus strep - Pt at increased risk 2/2 hx of rheumatic fever w/ valve prolapse - No veg on TTE - Zosyn narrowed to rocephin. PCN also highly active, but multiple dosing -Suspect real bacteremia, see above (6) Hypokalemia: Plan: Mild, secondary to poor p.o. intake Normalized following oral repletion BMP daily (7) Hypertension: Plan: -Intermittently hypertensive with pain Normotensive when pain adequately controlled Continue lisinopril Continue pain control, management as above (8) Diaphragmatic hernia: Plan: - Margin contains transverse colon as well as majority of stomach - Doubtful that this is contributing to her acute presentation - Should have consultation with thoracic surgery as an outpatient - With some LUQ pain as above (9) Hyperlipidemia: Plan: Continue Zetia (10) GERD (gastroesophageal reflux disease): Plan: Continue Protonix (11) Anxiety: Plan: Continue bupropion Continue clonazepam 3 times daily (12) Dementia: Plan: Mild cognitive impairment Continue donepezil, ropinirole Plan: SCDs for prophylaxis for DVT Disposition-continued stay on medical/surgical floor. PT/OT recommend SNF vs 24 hour care Admission and Anticipated Discharge Date Admission Date: July 15, 2021 Subjective Pain improved. Bowel regimen helping, patient with minimal discomfort today. Tolerating meals okay. Some postsurgical site tenderness, improved from prior. No fever/chills/sweats/diarrhea overnight. No chest pain, shortness of breath Review of Systems Review of Systems: Endorses abdominal distention, bloating, constipation, and some right upper quadrant discomfort as previously noted. 10 point review systems otherwise negative except as previously noted and in subjective. Physical Exam Physical Exam: General: A&Ox3. NAD. Cooperative. HEENT: Atraumatic, normocephalic. Hearing and vision grossly intact. Pulm: CTAB A&P. -wheezes, -rales, -rhonchi. Symmetrical chest rise. No increase work of breathing. No respiratory distress. Cardiac: RRR, -mrg. Radial pulses intact and symmetrical. Abdominal: Softly distended, no rebound, nonrigid/no guarding. Mildly tympanic on percussion. Mildly tender to palpation. Extremities: Warm, dry. Results & Data Results & Data ([facility]) Vital Signs (Past 12 Hours) Vital Signs Temp Pulse Resp BP Pulse Ox 07/19/21 07:21 36.5 C 64 17 169/76 H 93 PG Care Time/CCT Total # of Minutes Spent Total Time Spent with Patient: Total time spent is greater than 50% in coordination of care (as documented) at patient's floor/unit and/or counseling patient: Coding Level of Care Code 61463 Subseq Hosp Care Lvl 3 Diagnoses Abdominal pain R10.13 Abdominal location: epigastric Elevated LFTs R79.89 Left upper quadrant abdominal pain R10.12 Pancreatitis K85.90 Acute pancreatitis complication: unspecified Chronicity: acute Pancreatitis type: unspecified pancreatitis type Bacteremia R78.81 Hypokalemia E87.6 Hypertension I10 Diaphragmatic hernia K44.9 Hyperlipidemia E78.5 GERD (gastroesophageal reflux disease) K21.9 Anxiety F41.9 Dementia F03.90 (1) Abdominal pain Abdominal location: epigastric Qualified Code(s): R10.13 - Epigastric pain (2) Pancreatitis Acute pancreatitis complication: unspecified Chronicity: acute Pancreatitis type: unspecified pancreatitis type Qualified Code(s): K85.90 - Acute pancreatitis without necrosis or infection, unspecified
[2021-07-19] MEDS: rOPINIRole HCL 1 MG TABLET PO SCH ×2 (15:37→20:34)
[2021-07-19] MEDS: DONEPEZIL HCL 5 MG TAB PO SCH (20:33)
--- NOTE | 2021-07-20 07:38 | Surgery Progress Note ---
Date of Service July 20, 2021 Assessment & Plan (1) Gallstone pancreatitis: Plan: POD#5 lap tatyana Pain controlled. Tolerating diet. + bowel function On IV abx for + blood cultures, ID consulted & recommending a total course of 14 days abx & transition to IV Rocephin upon dispo Okay for dispo from our standpoint. F/U with Dr. Garcia in 1 week Admission and Anticipated Discharge Date Admission Date: July 15, 2021 Subjective Patient seen resting in bed. Says her pain is controlled. She is tolerating a diet. Having + bowel function. Offers no complaints this AM. Physical Exam Physical Exam: awake in bed Respiratory: normal respiratory effort Gastrointestinal (Abdomen): Inspection/Auscultation: + abdominal surgical incision (c/d/i with steri-strips over top) Percussion/Palpation: abdomen soft; abdomen nontender Results & Data ([facility]) Vital Signs (Past 12 Hours) Vital Signs Temp Pulse Resp BP Pulse Ox 07/20/21 03:57 36.4 C L 62 20 179/79 H 91 07/19/21 22:39 36.6 C 56 L 16 159/62 H 91 07/19/21 22:15 36.4 C L 70 18 186/79 H 94 PG Care Time/CCT Total # of Minutes Spent Total Time Spent with Patient: Total time spent is greater than 50% in coordination of care (as documented) at patient's floor/unit and/or counseling patient: Coding Level of Care Code None Diagnoses Gallstone pancreatitis K85.10
[2021-07-20] MEDS: POLYETHYLENE (MIRALAX) 17 GM PACK PO SCH (09:42)
[2021-07-20] MEDS: clonazePAM 0.25 MG TAB PO SCH ×3 (09:46→21:47)
[2021-07-20] MEDS: buPROPion XL 300 MG TABCR PO SCH (09:46)
[2021-07-20] MEDS: ESTROGENS, CONJUGATED 0.3 MG TAB PO SCH (09:47)
[2021-07-20] MEDS: EZETIMIBE 10 MG TABLET PO SCH (09:47)
[2021-07-20] MEDS: lisinopril 20 MG TAB PO SCH (09:48)
[2021-07-20] MEDS: FERROUS SULFATE 325 MG TAB PO SCH ×2 (09:48→21:43)
[2021-07-20] MEDS: FOLIC ACID 1 MG TAB PO SCH (09:48)
[2021-07-20] MEDS: HEPARIN SOD 5,000 UNIT/0.5 ML VIAL SQ SCH ×2 (09:49→21:42)
[2021-07-20] MEDS: PANTOprazole 40 MG TAB PO SCH (09:49)
[2021-07-20] MEDS: cefTRIAXone SODIUM 2,000 MG in DEXTROSE 5% 50 ML IV SCH (09:57)
[2021-07-20] MEDS: rOPINIRole HCL 1 MG TABLET PO SCH ×2 (17:54→21:43)
--- NOTE | 2021-07-20 18:32 | Hospitalist Progress Note ---
Date of Service July 20, 2021 Assessment & Plan (1) Abdominal pain: Plan: - Multifactorial, s/p lap tatyana, additional pain with thoracic hernia as noted below and postop constipation - On admit With epigastric abd pain, and elevated TBili with mostly direct bilirubin, and significantly elevated AST and ALT, mildly elevated alkaline phosphatase as well as lipase - With distended gallbladder on CT abdomen/pelvis as well as dilated CBD, pancreas appears normal - She is afebrile, leukocytosis resolved - Initially suspected choledocholithiasis and acute gallstone pancreatitis, however subsequent MRCP negative for CBD stones. GI recommended no ERCP. RUQ US confirmed acute cholecystitis, intraop cholangiogram showed dilated CBD but no filling defect -s/p cholecystectomy 07/15, with ALEX drain now removed -Having ongoing intermittent LUQ post-op pain -Continue maintenance IV fluids and she is not really taking much by mouth -cont IV Zosyn for bacteremia as below -Follow blood cultures-with gram-positive cocci in chains -IV morphine and oxycodone as needed for pain -Zofran as needed for nausea -Follow-up with general surgery in the outpatient office in 1 week -Prior bloating and abdominal discomfort improved with BMs bowel regimen Patient stable for discharge from a surgical perspective. Medically she is doing well, and stable for discharge but requires a definitive plan for her bacteremia as noted below. Recommended based on her presentation to have 2 weeks of IV antibiotics from surveillance cultures 07/16 () for gram- positive bacteremia in the setting of history of rheumatic fever with mitral data/prolapse. This is only present on 08/15 blood culture bottles, ID was consulted for recommendations of whether this could be considered contaminant however since that time gallbladder cultures have speciated for the same orga nism and suggest that she likely experienced true bacteremia in the setting of acute cholecystitis. Will proceed with 14 days of IV antibiotic treatment. While penicillin every 4 hours is typically recommended, third-generation cephalosporins also highly active and Rocephin 2 g IV every 24 hours is reasonable alternative with the benefit of daily dosing. Ultrasound-guided IV placed 07/20: Referral to [facility], pending placement. Following with case management. Medically stable for discharge at this time. (2) Elevated LFTs: Plan: As above, improving Hepatitis panel negative (3) Left upper quadrant abdominal pain: Plan: - Had this both immediately postoperatively and again after eating on the evening of 07/16 - Pain was completely resolved between meals - Initially thought to be secondary to pneumoperitoneum from laparoscopic reddy rgery - CT chest negative for acute issues except large hernia with intrathoracic stomach and associated left lower lobe atelectasis - LUQ pain is most likely secondary to intrathoracic stomach versus constipation -Seen by GI. Recommend + [place] bisacodyl,+ p.o. MiraLAX. Patient counseled MiraLAX may make some of gaseous distention worse. Clinically improved with BMs -No need for further imaging at this time (4) Pancreatitis: Plan: As above (5) Bacteremia: Plan: - 1/2 BC+ for non-enterococcus strep - Pt at increased risk 2/2 hx of rheumatic fever w/ valve prolapse - No veg on TTE - Zosyn narrowed to rocephin. PCN also highly active, but multiple dosing -Suspect real bacteremia, see above (6) Hypokalemia: Plan: Mild, secondary to poor p.o. intake Normalized following oral repletion BMP daily (7) Hypertension: Plan: -Intermittently hypertensive with pain Normotensive when pain adequately controlled Continue lisinopril Continue pain control, management as above (8) Diaphragmatic hernia: Plan: - Margin contains transverse colon as well as majority of stomach - Doubtful that this is contributing to her acute presentation - Should have consultation with thoracic surgery as an outpatient (9) Hyperlipidemia: Plan: Continue Zetia (10) GERD (gastroesophageal reflux disease): Plan: Continue Protonix (11) Anxiety: Plan: Continue bupropion Continue clonazepam 3 times daily (12) Dementia: Plan: Mild cognitive impairment Continue donepezil, ropinirole Plan: SCDs for prophylaxis for DVT Disposition-continued stay on medical/surgical floor. PT/OT recommend SNF vs 24 hour care. Referrals placed, pending placement Admission and Anticipated Discharge Date Admission Date: July 15, 2021 Subjective No clinical change today, feels well. No fevers or chills. Having bowel movements. Aware waiting placement Review of Systems Review of Systems: All systems reviewed & are unremarkable except as noted in Subjective Physical Exam Physical Exam: General: A&Ox3. NAD. Cooperative. HEENT: Atraumatic, normocephalic. Hearing and vision grossly intact. Pulm: CTAB A&P. -wheezes, -rales, -rhonchi. Symmetrical chest rise. No increase work of breathing. No respiratory distress. Cardiac: RRR, -mrg. Radial pulses intact and symmetrical. Abdominal: Softly distended, no rebound, nonrigid/no guarding. Mildly tympanic on percussion. Mildly tender to palpation. Extremities: Warm, dry. Results & Data Results & Data ([facility]) Vital Signs (Past 12 Hours) Vital Signs Temp Pulse Resp BP Pulse Ox 07/20/21 15:56 36.5 C 72 18 157/82 H 92 07/20/21 09:45 163/80 H 07/20/21 08:35 36.3 C L 61 18 183/84 H 91 PG Care Time/CCT Total # of Minutes Spent Total Time Spent with Patient: Total time spent is greater than 50% in coordination of care (as documented) at patient's floor/unit and/or counseling patient: Coding Level of Care Code 38357 Subseq Hosp Care Lvl 1 Diagnoses Abdominal pain R10.13 Abdominal location: epigastric Elevated LFTs R79.89 Left upper quadrant abdominal pain R10.12 Pancreatitis K85.90 Acute pancreatitis complication: unspecified Chronicity: acute Pancreatitis type: unspecified pancreatitis type Bacteremia R78.81 Hypokalemia E87.6 Hypertension I10 Diaphragmatic hernia K44.9 Hyperlipidemia E78.5 GERD (gastroesophageal reflux disease) K21.9 Anxiety F41.9 Dementia F03.90 (1) Abdominal pain Abdominal location: epigastric Qualified Code(s): R10.13 - Epigastric pain (2) Pancreatitis Acute pancreatitis complication: unspecified Chronicity: acute Pancreatitis type: unspecified pancreatitis type Qualified Code(s): K85.90 - Acute pancreatitis without necrosis or infection, unspecified
[2021-07-20] MEDS: DONEPEZIL HCL 5 MG TAB PO SCH (21:43)
[2021-07-21] MEDS: cefTRIAXone SODIUM 2,000 MG in DEXTROSE 5% 50 ML IV SCH (08:04)
[2021-07-21] MEDS: EZETIMIBE 10 MG TABLET PO SCH (08:07)
[2021-07-21] MEDS: clonazePAM 0.25 MG TAB PO SCH ×3 (08:07→20:06)
[2021-07-21] MEDS: FOLIC ACID 1 MG TAB PO SCH (08:07)
[2021-07-21] MEDS: ESTROGENS, CONJUGATED 0.3 MG TAB PO SCH (08:07)
[2021-07-21] MEDS: lisinopril 20 MG TAB PO SCH (08:07)
[2021-07-21] MEDS: PANTOprazole 40 MG TAB PO SCH (08:07)
[2021-07-21] MEDS: FERROUS SULFATE 325 MG TAB PO SCH ×2 (08:07→20:08)
[2021-07-21] MEDS: buPROPion XL 300 MG TABCR PO SCH (08:07)
[2021-07-21] MEDS: POLYETHYLENE (MIRALAX) 17 GM PACK PO SCH (08:08)
[2021-07-21] MEDS: HEPARIN SOD 5,000 UNIT/0.5 ML VIAL SQ SCH ×2 (08:08→20:07)
--- NOTE | 2021-07-21 14:01 | Hospitalist Progress Note ---
Date of Service July 21, 2021 Assessment & Plan (1) Abdominal pain: Plan: - Multifactorial, s/p lap tatyana, additional pain with thoracic hernia as noted below and postop constipation - On admit With epigastric abd pain, and elevated TBili with mostly direct bilirubin, and significantly elevated AST and ALT, mildly elevated alkaline phosphatase as well as lipase - With distended gallbladder on CT abdomen/pelvis as well as dilated CBD, pancreas appears normal - She is afebrile, leukocytosis resolved - Initially suspected choledocholithiasis and acute gallstone pancreatitis, however subsequent MRCP negative for CBD stones. GI recommended no ERCP. RUQ US confirmed acute cholecystitis, intraop cholangiogram showed dilated CBD but no filling defect -s/p cholecystectomy 07/15, with ALEX drain now removed -Having ongoing intermittent LUQ post-op pain -Continue maintenance IV fluids and she is not really taking much by mouth -cont IV Zosyn for bacteremia as below -Follow blood cultures-with gram-positive cocci in chains -IV morphine and oxycodone as needed for pain -Zofran as needed for nausea -Follow-up with general surgery in the outpatient office in 1 week -Prior bloating and abdominal discomfort improved with BMs bowel regimen Patient stable for discharge. Medically she is doing well, Recommended based on her presentation to have 2 weeks of IV antibiotics from surveillance cultures 07/16 () for gram-positive bacteremia in the setting of history of rheumatic fever with mitral data/prolapse. This was only present on 08/15 blood culture bottles, ID was consulted for recommendations of whether this could be considered contaminant however since that time gallbladder cultures have speciated for the same organism and suggest that she likely experienced true bacteremia in the setting of acute cholecystitis. Will proceed with 14 days of IV antibiotic treatment. While penicillin every 4 hours is typically recommended, third-generation cephalosporins also highly active and Rocephin 2 g IV every 24 hours is reasonable alternative with the benefit of daily dosing. Ultrasound-guided IV placed 07/20: Referral to [facility], pending placement. Following with case management. Medically stable for discharge at this time. - 07/21: [facility] available 07/22, auth placed. Pending placement. BP elevated today, recheck with AM meds pending. Patient somewhat distressed as her is unable to visit today and upset, but review of blood pressure she has has been consistently above 160s including prior. Will trial low-dose of HCTZ. (2) Elevated LFTs: Plan: As above, improving Hepatitis panel negative (3) Left upper quadrant abdominal pain: Plan: - Had this both immediately postoperatively and again after eating on the evening of 07/16 - Pain was completely resolved between meals - Initially thought to be secondary to pneumoperitoneum from laparoscopic reddy rgery - CT chest negative for acute issues except large hernia with intrathoracic stomach and associated left lower lobe atelectasis - LUQ pain is most likely secondary to intrathoracic stomach versus constipation -Seen by GI. Recommend + [place] bisacodyl,+ p.o. MiraLAX. Patient counseled MiraLAX may make some of gaseous distention worse. Clinically improved with BMs -No need for further imaging at this time (4) Pancreatitis: Plan: As above (5) Bacteremia: Plan: - 1/2 BC+ for non-enterococcus strep - Pt at increased risk 2/2 hx of rheumatic fever w/ valve prolapse - No veg on TTE - Zosyn narrowed to rocephin. PCN also highly active, but multiple dosing -Suspect real bacteremia, see above (6) Hypokalemia: Plan: Mild, secondary to poor p.o. intake Normalized following oral repletion BMP daily (7) Hypertension: Plan: -Was normotensive with pain control, gradually up trended. Pressure somewhat elevated 07/21 as patient was upset after a phone argument with her but has also been consistently slightly high around this. HCTZ added. Continue lisinopril Continue pain control, management as above (8) Diaphragmatic hernia: Plan: - Margin contains transverse colon as well as majority of stomach - Doubtful that this is contributing to her acute presentation - Should have consultation with thoracic surgery as an outpatient (9) Hyperlipidemia: Plan: Continue Zetia (10) GERD (gastroesophageal reflux disease): Plan: Continue Protonix (11) Anxiety: Plan: Continue bupropion Continue clonazepam 3 times daily (12) Dementia: Plan: Mild cognitive impairment Continue donepezil, ropinirole Plan: SCDs for prophylaxis for DVT Disposition-continued stay on medical/surgical floor. PT/OT recommend SNF vs 24 hour care. Referrals placed, pending placement as above Admission and Anticipated Discharge Date Admission Date: July 15, 2021 Subjective Patient is upset and somewhat distressed on visit this morning. Patient is crying on initial exam. Reports she is upset because her has vertigo and is unable to visit her in the hospital today. She denies pain, abdominal discomfort, or other change in symptoms. Reports her blood pressure is high, denies headache or other symptoms at this time. Review of Systems Review of Systems: All systems reviewed & are unremarkable except as noted in Subjective Physical Exam Physical Exam: General: A&Ox3. NAD. Cooperative. Tearful on exam initially as noted above HEENT: Atraumatic, normocephalic. Hearing and vision grossly intact. Pulm: CTAB A&P. -wheezes, -rales, -rhonchi. Symmetrical chest rise. No increased work of breathing. No respiratory distress. Cardiac: RRR, -mrg. Radial pulses intact and symmetrical. Abdominal: Softly distended, nontender, no rebound, nonrigid/no guarding. Extremities: Warm, dry. Results & Data Results & Data ([facility]) Vital Signs (Past 12 Hours) Vital Signs Temp Pulse Resp BP Pulse Ox 07/21/21 07:58 192/72 H 07/21/21 07:55 36.5 C 73 18 93 PG Care Time/CCT Total # of Minutes Spent Total Time Spent with Patient: Total time spent is greater than 50% in coordination of care (as documented) at patient's floor/unit and/or counseling patient: Coding Level of Care Code 91954 Subseq Hosp Care Lvl 1 Diagnoses Abdominal pain R10.13 Abdominal location: epigastric Elevated LFTs R79.89 Left upper quadrant abdominal pain R10.12 Pancreatitis K85.90 Acute pancreatitis complication: unspecified Chronicity: acute Pancreatitis type: unspecified pancreatitis type Bacteremia R78.81 Hypokalemia E87.6 Hypertension I10 Diaphragmatic hernia K44.9 Hyperlipidemia E78.5 GERD (gastroesophageal reflux disease) K21.9 Anxiety F41.9 Dementia F03.90 (1) Pancreatitis Acute pancreatitis complication: unspecified Chronicity: acute Pancreatitis type: unspecified pancreatitis type Qualified Code(s): K85.90 - Acute pancreatitis without necrosis or infection, unspecified (2) Abdominal pain Abdominal location: epigastric Qualified Code(s): R10.13 - Epigastric pain
[2021-07-21] MEDS ORDERED: hydroCHLOROthiazide 25 MG TAB PO STA (14:12)
[2021-07-21] MEDS: rOPINIRole HCL 1 MG TABLET PO SCH ×2 (17:29→20:07)
[2021-07-21] MEDS: DONEPEZIL HCL 5 MG TAB PO SCH (20:08)
[2021-07-22] MEDS: oxyCODONE/ACETAMINOPHEN 5mg/325mg TAB PO PRN ×2 (01:13→13:16)
[2021-07-22 07:14] LABS: Basophils # (auto) 0.02 K/uL (0-0.2); Basophils % (auto) 0.3 %; Hematocrit (blood only) 36.4 % (37-47); Hemoglobin 11.5 g/dL (12.0-16.0); Immature Granulocytes % (auto) 1.5 %; Lymphocytes # (auto) 1.49 K/uL (1.2-3.4); Lymphocytes % (auto) 22.5 %; Mean Corpuscular Hemoglobin 31.4 pg (25-34); Mean Corpuscular Hgb Conc 31.6 g/dL (32-36); Mean Corpuscular Volume 99.5 fL (80-100); Mean Platelet Volume 9.9 fL (7.4-10.4); Monocytes % (auto) 9.1 %; Neutrophils % (auto) 63.6 %; Platelet Count 223 K/uL (130-400); RDW Coefficient of Variation 13.3 % (11.5-14.5); RDW Standard Deviation 47.2 fL (36.4-46.3); Red Blood Count 3.66 M/uL (4.2-5.4); White Blood Count 6.61 K/uL (4.8-10.8)
[2021-07-22] MEDS: HEPARIN SOD 5,000 UNIT/0.5 ML VIAL SQ SCH (07:35)
[2021-07-22] MEDS: EZETIMIBE 10 MG TABLET PO SCH (07:35)
[2021-07-22] MEDS: FERROUS SULFATE 325 MG TAB PO SCH (07:35)
[2021-07-22] MEDS: ESTROGENS, CONJUGATED 0.3 MG TAB PO SCH (07:36)
[2021-07-22] MEDS: PANTOprazole 40 MG TAB PO SCH (07:36)
[2021-07-22] MEDS: lisinopril 20 MG TAB PO SCH (07:36)
[2021-07-22] MEDS: POLYETHYLENE (MIRALAX) 17 GM PACK PO SCH (07:36)
[2021-07-22] MEDS: buPROPion XL 300 MG TABCR PO SCH (07:36)
[2021-07-22] MEDS: FOLIC ACID 1 MG TAB PO SCH (07:37)
[2021-07-22] MEDS: cefTRIAXone SODIUM 2,000 MG in DEXTROSE 5% 50 ML IV SCH (07:45)
[2021-07-22] MEDS: clonazePAM 0.25 MG TAB PO SCH ×2 (07:45→13:16)
[2021-07-22 07:55] LABS: BUN Creatinine Ratio 7.3 (10-20); Calcium 9.2 mg/dl (8.5-10.1); Creatinine Clr Calc Pharmacy 41.7 ml/min; Est GFR (African American) 70.9 ml/min; Est GFR (Non-African American) 61.2 ml/min; Potassium 3.7 mmol/L (3.5-5.1)
[2021-07-22] MEDS ORDERED: hydroCHLOROthiazide 25 MG TAB PO SCH (09:00)
[2021-07-22] MEDS: rOPINIRole HCL 1 MG TABLET PO SCH (16:45)
--- NOTE | 2021-07-22 18:32 | Discharge Summary ---
Date of Service July 22, 2021 Admission HPI Per Admitting Provider This patient is an 80-year-old female with a history of anxiety disorder, GERD, HTN, hyperlipidemia, chronic idiopathic urticaria, acquired hypogammaglobulinemia, MGUS, dementia who presents to the ER with abdominal pain and diarrhea that began last night and continued to today. The abdominal pain is located in the epigastric region and radiates up the center of her chest and to her right shoulder. She denies any fever/chills. In the ER, she was found to have significantly elevated LFTs and an obstructive pattern with elevated total bilirubin that is mostly of direct bilirubin, and AST 2000s and ALT in the 1500 range. Troponin was negative, lipase was also elevated at 3159. A CT of the abdomen/pelvis did show a distended gallbladder and dilated CBD, but also a very large paraesophageal hiatal hernia that contained distal transverse colon and splenic flexure into the left chest as well as the majority of the stomach, but no evidence for ischemia. She was hypertensive but otherwise was afebrile and had normal vital signs. In the ER, she was given IV Tylenol, IV Pepcid, IV fluids, IV morphine, and IV Zofran. She will be admitted for abdominal pain and elevated LFTs most likely secondary to choledocholithiasis with associated acute gallstone pancreatitis. Admission Exam Per Admitting Provider Constitutional: WD/WN, vitals as above Eyes: PERRL, conjunctivae normal, anicteric sclerae ENMT: external ear and nose normal, oropharynx normal Neck: trachea midline, no thyromegaly Respiratory: normal respiratory effort, lungs clear to auscultation Cardiovascular: RRR, no murmur, no edema Chest (Breasts): Chest: normal inspection of chest Gastrointestinal (Abdomen): Inspection/Auscultation: abdomen normal to inspection and normal bowel sounds Percussion/Palpation: + abdomen tender (in RUQ and epigastric region without guarding or rebound) and abdomen soft B Musculoskeletal: Extremities: extremities normal to inspection; no cyanosis and no clubbing Skin: no rashes, warm and dry Neurologic: moves all extremities and awake; no focal motor deficits Psychiatric: A+Ox3, euthymic affect Lymphatic: no lymphedema Principal Diagnosis Acute cholecystitis Discharge Exam General: A&Ox3. NAD. Cooperative. Tearful on exam initially as noted above HEENT: Atraumatic, normocephalic. Hearing and vision grossly intact. Pulm: CTAB A&P. -wheezes, -rales, -rhonchi. Symmetrical chest rise. No increased work of breathing. No respiratory distress. Cardiac: RRR, -mrg. Radial pulses intact and symmetrical. Abdominal: Softly distended, nontender, no rebound, nonrigid/no guarding. Extremities: Warm, dry. Discharge Data Allergies Allergy/AdvReac Type Severity Reaction Status Date / Time doxepin AdvReac Mental Verified 07/14/21 12:29 status change Consultations 07/14/21 13:52 ED Decision to Admit Stat 07/14/21 18:01 Consult Gastroenterology Routine 07/15/21 10:21 Consult General Surgery Routine Procedures Performed Operation Date: 07/15/21 09:00 Actual Procedures p Laparoscopic Cholecystectomy with Intraoperative Cholangiogram(Not Applicable) - Augusto Garcia MD, FACS Ordered Studies 07/14/21 11:24 CT abd pelvis IV con only Stat 07/14/21 15:26 MR MRCP Urgent 07/14/21 20:00 US gallbladder Urgent 07/15/21 [place] cholangiogram OR Routine 07/16/21 11:56 CT chest with contrast [CT chest diagnostic w con] Urgent Hospital Course (1) Abdominal pain: Amie Esquivel is an 80-year-old female who was admitted with abdominal pain and who underwent laparoscopic cholecystectomy, and who was found to be bacteremic during admission. To do as outpatient: 1. Complete 2 weeks of IV antibiotics with Rocephin 2 g daily for nonenterococcal strep bacteremia. Patient at increased risk due to mitral valve 2. Routine follow-up with surgery post cholecystectomy 3. Routine PCP follow-up 4. Patient with increased anxiety/stress during hospitalization, labile blood pressure which worsened when anxious but improved after medications and when calm. Given prior pressures in 120s/130s concern for overtreatment once out of hospital setting, but will require close follow-up 5. Follow-up with thoracic surgery for diaphragmatic hernia, margin contains stomach and transverse colon, no surgical intervention was recommended at time of admission. - Multifactorial, s/p lap tatyana, additional pain with thoracic hernia as noted below and postop constipation - On admit With epigastric abd pain, and elevated TBili with mostly direct bilirubin, and significantly elevated AST and ALT, mildly elevated alkaline phosphatase as well as lipase - With distended gallbladder on CT abdomen/pelvis as well as dilated CBD, pancreas appears normal - She is afebrile, leukocytosis resolved - Initially suspected choledocholithiasis and acute gallstone pancreatitis, however subsequent MRCP negative for CBD stones. GI recommended no ERCP. RUQ US confirmed acute cholecystitis, intraop cholangiogram showed dilated CBD but no filling defect -s/p cholecystectomy 07/15, with ALEX drain now removed -Having ongoing intermittent LUQ post-op pain -Continue maintenance IV fluids and she is not really taking much by mouth -cont IV Zosyn for bacteremia as below -Follow blood cultures-with gram-positive cocci in chains -IV morphine and oxycodone as needed for pain -Zofran as needed for nausea -Follow-up with general surgery in the outpatient office in 1 week -Prior bloating and abdominal discomfort improved with BMs bowel regimen Patient stable for discharge. Medically she is doing well, Recommended based on her presentation to have 2 weeks of IV antibiotics from surveillance cultures 07/16 () for gram-positive bacteremia in the setting of history of rheumatic fever with mitral data/prolapse. This was only present on 08/15 blood culture bottles, ID was consulted for recommendations of whether this could be considered contaminant however since that time gallbladder cultures have speciated for the same organism and suggest that she likely experienced true bacteremia in the setting of acute cholecystitis. Will proceed with 14 days of IV antibiotic treatment. While penicillin every 4 hours is typically recommended, third-generation cephalosporins also highly active and Rocephin 2 g IV every 24 hours is reasonable alternative with the benefit of daily dosing. Ultrasound-guided IV placed (2) Elevated LFTs: As above, improving Hepatitis panel negative (3) Left upper quadrant abdominal pain: - Had this both immediately postoperatively and again after eating on the evening of 07/16 - Pain was completely resolved between meals - Initially thought to be secondary to pneumoperitoneum from laparoscopic surgery - CT chest negative for acute issues except large hernia with intrathoracic s tomach and associated left lower lobe atelectasis - LUQ pain is most likely secondary to intrathoracic stomach versus constipation -Seen by GI. Recommend + NE bisacodyl,+ p.o. MiraLAX. Patient counseled MiraLAX may make some of gaseous distention worse. Clinically improved with BMs on discharge -No need for further imaging at this time (4) Pancreatitis: As above (5) Bacteremia: - 1/2 BC+ for non-enterococcus strep - Pt at increased risk 2/2 hx of rheumatic fever w/ valve prolapse - No veg on TTE - Zosyn narrowed to rocephin. PCN also highly active, but multiple dosing -Suspect real bacteremia, see above (6) Hypokalemia: Mild, secondary to poor p.o. intake Normalized following oral repletion BMP daily (7) Hypertension: -Was normotensive with pain control, gradually up trended. Pressure somewhat elevated 07/21 as patient was upset after a phone argument with her but has also been consistently slightly high around this. HCTZ added. Continue lisinopril Continue pain control, management as above (8) Diaphragmatic hernia: - Margin contains transverse colon as well as majority of stomach - Doubtful that this is contributing to her acute presentation - Should have consultation with thoracic surgery as an outpatient (9) Hyperlipidemia: Continue Zetia (10) GERD (gastroesophageal reflux disease): Continue Protonix (11) Anxiety: Continue bupropion Continue clonazepam 3 times daily (12) Dementia: Mild cognitive impairment Continue donepezil, ropinirole SCDs for prophylaxis for DVT Disposition-continued stay on medical/surgical floor. PT/OT recommend SNF vs 24 hour care. Referrals placed, pending placement as above Total Time Total Time Spent Total Time Spent (In Minutes): Total time spent day of discharge 35 minutes including direct patient care, coordination of care, review of labs and images, and discussion with family. Discharge Plan Discharge Items Patient Disposition: Transfer Alf Fac Reason For Visit: CHOLEDOCHOLITHIASIS, ABDOMINAL PAIN Discharge Diagnosis: laparoscopic cholecystectomy Activity: Per Instructions section Lifting: No more than 10 pounds Bathing Comment: may shower; no soaking in tubs/pools Exercise/Sports: Wait until after follow-up appointment Driving/Machine Use: Resume 3 days after discharge Non-emergency contact: Primary Care Provider and Surgeon Call non-emergency contact if: you have any medication questions, your symptoms worsen, your pain is not controlled, your pain is worsening, you have a fever, your temperature is above 101.5, your wound has increased redness, your wound has increased drainage and your wound pain has increased Follow-up/Referrals: Augusto Garcia MD, FACS [Surgeon] - (Please call to schedule follow up in clinic within 1 week) Ger Escalona MD [Primary Care Provider] - Diet: Other - See Diet Comment Diet Comment: SLIPPERY DIET, heart healthy Valerie Attending Provider Instructions: You were admitted to the hospital and required removal of your gallbladder. This was successfully performed, and he received antibiotics during admission. You had positive blood cultures for the same bacteria that were cultured from your gallbladder, because of this you have been discharged on an extended course of antibiotics. You will require 2 weeks of IV antibiotics. An ultrasound-guided IV which can remain in place for up to a month has been placed to that you may receive these antibiotics after discharge from the hospital. Please take ceftriaxone 2000 mg by IV once daily until 07/30/2021 to complete 2 weeks of treatment. You will require additional follow-up blood work while on the antibiotics above. In addition some blood levels including liver enzymes, and bilirubin were elevated due to your gallbladder and while these were improving they were not yet normal at time of discharge. Please have a complete metabolic panel (CMP) and complete blood count (CBC) performed weekly by your outpatient provider. Your pain improved following removal of your gallbladder. You continue to have some constipation. Please continue to take MiraLAX daily as needed, and follow-up with your primary care doctor if you experience constipation symptoms in the future. You were noted to have a diaphragmatic hernia. Intervention for this was not recommended at time of admission, however you should have outpatient consultation for management of this. Please have a thoracic surgery outpatient referral placed by your PCP at your follow-up appointment. Follow-up appointment with your primary care provider is being scheduled as above. A follow-up appointment with the general surgeon who removed your gallbladder is being scheduled as above. If you develop any new or worsening symptoms including fever, chills, sweats, chest pain, chest pressure, difficulty breathing, uncontrolled nausea/vomiting, rash, wheezing, passing out or nearly passing out, bleeding, black/bloody bowel movements, or other new or concerning symptoms please call your primary care physician, or call 911 for re-evaluation in the emergency department if you are very concerned. Valerie Reinsurance Clerk Provider Instructions: You have small white bandages over your incisions called steri-strips. You may shower with these on. They will tend to fall off on their own within 7-10 days. You may change the dressing where your drain was daily and as needed until healed with dry 4x4 gauze and medical tape. Pending Studies at Discharge: Yes Studies:: surgical pathology Stand-Alone Forms: My [facility] Skilled Items Patient informed of condition?: Yes DNR: No Discharge Level of Care: Skilled Communicable Disease: No Discharge Prognosis: Stable Lines: US Guided Peripheral IV Urinary Catheter: No Medications and DC Order Prescriptions: New polyethylene glycol 3350 [Miralax] 17 gram Powder In Packet 17 g PO DAILY 30 Days Qty: 30 RF: 0 ceftriaxone 2 gram recon soln 2 g IV DAILY Qty: 8 RF: 0 Continued donepezil 5 mg tablet 5 mg PO HS Qty: 30 RF: 5 lisinopril 20 mg tablet 20 mg PO QAM RF: 0 Premarin 0.3 mg Tablet 0.3 mg PO QAM RF: 0 ezetimibe [Zetia] 10 mg Tablet 10 mg PO QAM RF: 0 ropinirole 1 mg Tablet 3 mg PO BID RF: 0 omeprazole 40 mg Capsule,Delayed Release(Dr/Ec) 40 mg PO DAILY RF: 0 ferrous sulfate [FeroSul] 325 mg (65 mg iron) Tablet 325 mg PO BID RF: 0 folic acid 1 mg Tablet 1 mg PO DAILY RF: 0 bupropion HCl [Wellbutrin XL] 300 mg Tablet Extended Release 24 Hr 300 mg PO QAM RF: 0 clonazepam [Klonopin] 0.5 mg tablet 0.25 mg PO TID Qty: 12 RF: 0 Discharge Orders: Discharge Order (Routine); Ordered 07/22/21 Ordered By: Mac Hernandez Admission Data Admit Date/Time: 07/15/21 18:16 Attending Provider: Mac Hernandez Admit Provider: Brenda Fitzgerald Primary Care Provider: Ger Escalona Other Providers: Brenda Fitzgerald ; Iban Vergara ; Augusto Garcia ; Gregg Holland [facility] ; [place] Other Interventions: Discharge Summary Assessment (RN) Last Done: 07/22/21 17:26 Coding Level of Care Code D/C DAY MANAGEMENT >30 MINS Diagnoses Abdominal pain R10.13 Abdominal location: epigastric Elevated LFTs R79.89 Left upper quadrant abdominal pain R10.12 Pancreatitis K85.90 Acute pancreatitis complication: unspecified Chronicity: acute Pancreatitis type: unspecified pancreatitis type Bacteremia R78.81 Hypokalemia E87.6 Hypertension I10 Diaphragmatic hernia K44.9 Hyperlipidemia E78.5 GERD (gastroesophageal reflux disease) K21.9 Anxiety F41.9 Dementia F03.90
--- NOTE | 2021-07-23 14:50 | Electrocardiogram Report ---
Test Reason : Blood Pressure : / mmHG Vent. Rate : 074 BPM Atrial Rate : 074 BPM P-R Int : 146 ms QRS Dur : 084 ms QT Int : 416 ms P-R-T Axes : 016 013 015 degrees QTc Int : 461 ms Normal sinus rhythm Left atrial enlargement RSR' or QR pattern in V1 suggests right ventricular conduction delay Nonspecific ST abnormality Abnormal ECG When compared with ECG of 17-JUL-2021 10:48, No significant change was found Confirmed by Eugenio Banks ([id number]) on 07/23/2021 2:50:29 PM Referred By: REFERRED SELF Confirmed By:Eugenio Banks
== END 2021-07-22 18:29 | DRG 418 ==
LOC: ED 11:01 → 3N 11:01 → SUATTDRO 07-15 18:16

== ENCOUNTER 2023-06-05 20:50 | Inpatient (IN) ==
[2023-06-05 22:16] LABS: Basophils # (auto) 0.06 K/uL (0.00-0.20); Basophils % (auto) 0.6 %; Eosinophils # (auto) 0.28 K/uL (0.00-0.50); Hemoglobin 12.6 g/dl (12.0-16.0); Immature Granulocytes # (auto) 0.11 K/uL (0.01-0.20); Immature Granulocytes % (auto) 1.2 %; Lymphocytes # (auto) 1.48 K/uL (1.20-3.40); Lymphocytes % (auto) 15.7 %; Mean Corpuscular Hemoglobin 31.7 pg (25.0-34.0); Mean Corpuscular Hgb Conc 33.2 g/dL (32.0-36.0); Mean Corpuscular Volume 95.7 fL (80.0-100.0); Mean Platelet Volume 9.8 fL (9.4-12.4); Monocytes # (auto) 0.68 K/uL (0.11-0.59); Monocytes % (auto) 7.2 %; Neutrophils # (auto) 6.82 K/uL (1.40-6.50); Neutrophils % (auto) 72.3 %; Platelet Count 218 K/uL (130-400); RDW Coefficient of Variation 13.1 % (11.5-14.5); RDW Standard Deviation 46.1 fL (36.4-46.3); Red Blood Count 3.97 M/uL (4.20-5.40); White Blood Count 9.43 K/ul (4.8-10.8)
[2023-06-05 22:41] LABS: Alanine Aminotransferase 22 U/L (7-52); Albumin Globulin Ratio 1.2 (0.9-2); Albumin Level 3.9 gm/dl (3.4-5.0); Alkaline Phosphatase 81 U/L (34-104); Anion Gap 7 (3-11); BUN Creatinine Ratio 22.9 (10-20); Bilirubin,Total 0.4 mg/dl (0.2-1.0); Blood Urea Nitrogen 24 mg/dl (6-23); Calcium 9.5 mg/dl (8.6-10.3); Carbon Dioxide 23 mmol/L (21-32); Chloride 111 mmol/L (98-107); Est GFR (African American) 57.3 ml/min; Est GFR (Non-African American) 49.4 ml/min; Globulin 3.3 gm/dl (2.5-4.0); Glucose 94 mg/dl (70-99(Fasting)); Sodium 141 mmol/L (136-145); Total Protein 7.2 gm/dl (6.0-8.3); Troponin I High Sensitivity 18.9 pg/ml (0-14)
[2023-06-06 00:11] LABS: Influenza A virus by PCR Negative (Neg); Influenza B virus by PCR Negative (Neg); RSV by PCR Negative (Neg); SARS CoV2 RNA(COVID-19) Ceph NEGATIVE (Negative)
[2023-06-06 00:57] LABS: Potassium 3.4 mmol/L (3.5-5.1)
[2023-06-06] MEDS ORDERED: OPTIRAY 320 500ml IV ONE (01:40)
[2023-06-06] MEDS ORDERED: CEFEPIME 2,000 MG/20 ML VIAL IV STA (01:48)
[2023-06-06] MEDS ORDERED: DOXYCYCLINE HYCLATE 100 MG in DEXTROSE 5% MINI-B 100 ML IV STA (01:48)
[2023-06-06] MEDS ORDERED: ACETAMINOPHEN 500 MG TAB PO STA (02:05)
--- NOTE | 2023-06-06 02:33 | Emergency Department Note ---
Impression & Plan Multifocal pneumonia, Pleural effusion, Acute right flank pain ED Provider Note NAME: SUMI AQUINO AGE: 82 SEX: Female INFORMANT: Patient and ED PROVIDER(S): Leodan Laughlin MD CHIEF COMPLAINT: Flank pain, possible pneumonia PLAN: Disposition: Admitted Outpatient prescription management: none Referral: None MEDICAL DECISION MAKING: patient presented from urgent care due to concerns about possible pneumonia. Patient was also noting right-sided back and flank pain. Patient had blood work obtained. Blood cultures obtained as well. Patient's chest x-ray was concerning for right upper lobe infiltrate. She had inferior T wave inversions on ECG but these were old. Patient had a normal white blood cell count but left shift on differential. Her chemistry panel was unremarkable. Cardiac troponin was mildly elevated but record review indicates that she has had this before. COVID testing was negative but bio fire testing was added. She had a productive cough. CT imaging was ordered. Patient does have multifocal infiltrate present. I did note that she had bilateral pleural effusions and it appeared that she had some ascites/fluid in the left upper quadrant. CT imaging of the abdomen pelvis was ordered. Patient was given Tylenol. She was ordered IV cefepime and doxycycline for empiric coverage. Patient will need further evaluation and management in the hospital. Consultation was made with Dr. Hill Vega of the [facility] service. Case discussed and diagnostics were reviewed. Patient was evaluated in the ER for further management. Care/management discussed with: Discussed with manager proposal Level of care consideration(s): After review of the information above and other included data, I feel the patient requires further management in the hospital Triage Nursing notes: reviewed and agree them. Vital Signs: reviewed and remarkable for hypertension Additional History obtained from: Patient's . He did note that she has had increased work of breathing recently. Chronic Medical/Social Conditions affecting care: Hypertension, CAD Prior/ Outside/ External records reviewed: none Differential Diagnosis: Reactive airway disease, pneumonia, pneumothorax, COPD, CHF, infections, cardiac ischemia, pulmonary embolism, musculoskeletal, gastrointestinal, kidney stone, UTI, as well as other pathologies. Diagnostics, independently interpreted by me: ECG: Twelve-lead ECG reveals normal sinus rhythm at 63 bpm inferior T wave inversions present. Incomplete right bundle branch block. When compared to May 05, 2023 there is no significant change Cardiac Monitoring: Cardiac monitoring ordered by me: The patient was placed on continuous cardiac monitoring and observed. It revealed a normal sinus rhythm at 60 beats per minute without ectopy or evidence of dysrhythmia. Medical decision rules: none Imaging studies: CT scan of the chest and chest x-ray as above. Multifocal pneumonia. I refer you to the EMR for further details. HPI: 82 year old Female arrives for evaluation of right flank pain and concerns for pneumonia. Patient was seen at urgent care due to complaints of pain in the right side. is present and helps with history. He states that they were concerned about pneumonia and referred her to the emergency department. Patient has had a productive cough in the morning. She denies any fever or chills. Patient also notes some right flank pain and some mild epigastric pain. Patient states she has been having problems with constipation but after seeing her chiropractor has been moving her bowels regularly. She does use Metamucil for that. Patient rates her flank pain as an 8/10. She did not take anything for the pain today. Pt denies LOC, headache, fevers, chills, diaphoresis, visual changes, neck pain,nausea, vomiting, left abdominal pain, left back pain, melena, hematochezia, urinary symptoms, numbness, weakness, lymphadenopathy, rash, or other complaints. PAST MEDICAL HISTORY: See Below, hypertension PAST SURGICAL HISTORY: See Below, SOCIAL HISTORY: See Below, HOME MEDICATIONS: See Below ALLERGIES: See Below VITALS: See Below PHYSICAL EXAMINATION: GENERAL: Awake, alert, mildly uncomfortable-appearing, in no distress HENT: Normocephalic, atraumatic. Oropharynx unremarkable. EYES: Normal conjunctiva. Sclera non-icteric. NECK: Inspection normal. Non-tender. Supple. No nuchal rigidity. FROM. No masses. RESPIRATORY: Right upper lobe and left lower lobe rales. Mildly increased respiratory effort. CARDIAC: Normal rate. Normal rhythm. No murmurs. No rubs. Extremities warm and well perfused. Pulses equal. No JVD. GI: Soft, non-distended. Right upper quadrant and epigastric tenderness to palpation. No rebound or guarding. No masses. RECTAL: Deferred. MUSCULOSKELETAL: Atraumatic. Chest examination reveals no tenderness. The back is symmetrical on inspection without obvious abnormality. There is right CVA tenderness to palpation. No joint edema. LOWER EXTREMITIES: Calves are equal size bilaterally and non-tender. No edema. No discoloration. NEURO: Normal sensorium. No sensory or motor deficits noted. SKIN: No rash or jaundice noted. PROCEDURES: none CRITICAL CARE: none OBSERVATION NOTE: none Past Med/Surg History Medical History Anxiety and depression Arthritis Cardiac murmur Dysphagia Hiatal hernia History of COVID-19 Hyperlipidemia Hypertension Memory problem MVP (mitral valve prolapse) Restless leg syndrome SOB (shortness of breath) on exertion Spinal stenosis Urinary frequency Surgical History History of appendectomy History of cataract surgery History of colonoscopy History of herniorrhaphy History of hysterectomy History of tooth extraction Hx laparoscopic cholecystectomy (07/15/21) S/P epidural steroid injection Family History Mother Family history of diabetes mellitus Dementia Hypertension Father Coronary heart disease Stroke Family/Other Hyperlipidemia Brother Parkinson disease Other No family history of adverse response to anesthesia Social History Smoking Status: Never smoker Second Hand Exposure: No; Do You Dip or Chew Tobacco: No; Hx Alcohol Use: No Hx Substance Use: No Preferred Language: Mohawk Communication Ability: Effective Map Compiler Required: No Beliefs That Will Affect Care: None marital status: Current Living Situation: Spouse Feels Safe at Home: Yes Assistive Devices: Walker Allergies Allergies Allergy/AdvReac Type Severity Reaction Status Date / Time No Known Allergies Allergy Verified 05/05/23 18:21 Home Meds Home Medications Medication Instructions Recorded Confirmed ezetimibe 10 mg tablet (Zetia) 10 mg PO QAM 11/21/18 05/23/23 ferrous sulfate 325 mg (65 mg 325 mg PO QAM 04/15/21 05/23/23 iron) tablet (FeroSul) clonazepam 0.5 mg tablet 0.5 mg PO 09/02/21 05/23/23 folic acid 800 mcg tablet 0.8 mg PO QAM 09/02/21 05/23/23 mirtazapine 30 mg tablet 30 mg PO 09/02/21 05/23/23 sertraline 100 mg tablet 100 mg PO 09/02/21 05/23/23 melatonin 10 mg tablet 10 mg PO HS 06/16/22 05/23/23 aspirin 81 mg tablet,delayed 81 mg PO QAM 12/14/22 05/23/23 release bupropion HCl 150 mg 24 hr tablet, 150 mg PO QAM 12/14/22 05/23/23 extended release vitamin B complex 1 cap PO QAM 12/14/22 05/23/23 esomeprazole magnesium 20 mg 20 mg PO DAILY 05/05/23 05/23/23 capsule,delayed release gabapentin 100 mg capsule 100 mg PO TID 05/05/23 05/23/23 ropinirole 2 mg tablet See Rx Instructions .Route .COMPLEX 05/05/23 05/23/23 Previous Rx's Medication Instructions Recorded donepezil 10 mg tablet (Aricept) 10 mg PO HS 90 days #90 tabs 05/09/23 memantine 10 mg tablet 10 mg PO BID 90 days #180 tabs 05/09/23 amlodipine 5 mg tablet (Norvasc) 5 mg PO QAM #30 tabs 05/12/23 Results & Data (ED) Vital Signs Vital Signs - 24 hr 06/05/23 20:55 06/06/23 00:46 06/06/23 01:00 Temperature 36.6 C Temperature Source Temporal Artery Scan Pulse Rate 68 66 59 L Pulse Rate from SpO2 Sensor 59 L Pulse Rhythm Regular Pulse Strength Normal Respiratory Rate 20 21 Respiratory Effort / Characteristics Non-Labored Spontaneous Respiratory Depth Normal Respiratory Pattern Regular Blood Pressure 204/73 H 181/86 H Blood Pressure Mean 116 117 Blood Pressure Position Sitting Pulse Oximetry 93 95 Oxygen Delivery Method Room Air Sepsis Recent Fever Within 48 Hours No Sepsis New/Unexplained Change in Mental Status N/A Sepsis Action Taken by Nursing No Action Required Laboratory Data 06/05/23 21:52 06/06/23 00:10 Lab Results 06/05/23 06/05/23 06/05/23 Range/Units 21:52 21:52 21:55 WBC 9.43 (4.8-10.8) K/ul RBC 3.97 L (4.20-5.40) M/uL Hgb 12.6 (12.0-16.0) g/dl Hct 38.0 (37.0-47.0) % MCV 95.7 (80.0-100.0) fL MCH 31.7 (25.0-34.0) pg MCHC 33.2 (32.0-36.0) g/dL RDW Std Deviation 46.1 (36.4-46.3) fL RDW Coeff of Shankar 13.1 (11.5-14.5) % Plt Count 218 (130-400) K/uL MPV 9.8 (9.4-12.4) fL Immature Gran % (Auto) 1.2 % Neut % (Auto) 72.3 % Lymph % (Auto) 15.7 % Upton % (Auto) 7.2 % Eos % (Auto) 3.0 % Baso % (Auto) 0.6 % Neut # (Auto) 6.82 H (1.40-6.50) K/uL Lymph # (Auto) 1.48 (1.20-3.40) K/uL Upton # (Auto) 0.68 H (0.11-0.59) K/uL Eos # (Auto) 0.28 (0.00-0.50) K/uL Baso # (Auto) 0.06 (0.00-0.20) K/uL Immature Gran # (Auto) 0.11 (0.01-0.20) K/uL Sodium 141 (136-145) mmol/L Potassium TNP Chloride 111 H (98-107) mmol/L Carbon Dioxide 23 (21-32) mmol/L Anion Gap 7 (3-11) BUN 24 H (6-23) mg/dl Creatinine 1.05 (0.6-1.2) mg/dl Est Cr Clr Drug Dosing Not Reportable Est GFR ( Amer) 57.3 ml/min Est GFR (Non-Af Amer) 49.4 ml/min BUN/Creatinine Ratio 22.9 H (10-20) Glucose 94 (70-99(Fasting)) mg/dl Calcium 9.5 (8.6-10.3) mg/dl Total Bilirubin 0.4 (0.2-1.0) mg/dl AST TNP ALT 22 (7-52) U/L Alkaline Phosphatase 81 (34-104) U/L Troponin I High Sens 18.9 H (0-14) pg/ml Total Protein 7.2 (6.0-8.3) gm/dl Albumin 3.9 (3.4-5.0) gm/dl Globulin 3.3 (2.5-4.0) gm/dl Albumin/Globulin Ratio 1.2 (0.9-2) Adenovirus (PCR) (NotDetected) B. pertussis DNA (PCR) (NotDetected) B.parapertussis DNA PCR (NotDetected) C. pneumoniae DNA (PCR) (NotDetected) Coronavirus OC43 (PCR) (NotDetected) Coronavirus HKU1 (PCR) (NotDetected) Coronavirus 229E (PCR) (NotDetected) SARS-CoV-2 (PCR) NEGATIVE (Negative) Coronavirus NL63 (PCR) (NotDetected) Human Metapneumovir PCR (NotDetected) Influenza Type A (PCR) Negative (Neg) Influenza Type B (PCR) Negative (Neg) M. pneumoniae (PCR) (NotDetected) Parainfluenza 1 (PCR) (NotDetected) Parainfluenza 2 (PCR) (NotDetected) Parainfluenza 3 (PCR) (NotDetected) Parainfluenza 4 (PCR) (NotDetected) RSV (RT-PCR) Negative (Neg) RSV (PCR) (NotDetected) Entero/Rhino (PCR) (NotDetected) 06/06/23 06/06/23 Range/Units 00:10 02:02 WBC (4.8-10.8) K/ul RBC (4.20-5.40) M/uL Hgb (12.0-16.0) g/dl Hct (37.0-47.0) % MCV (80.0-100.0) fL MCH (25.0-34.0) pg MCHC (32.0-36.0) g/dL RDW Std Deviation (36.4-46.3) fL RDW Coeff of Shankar (11.5-14.5) % Plt Count (130-400) K/uL MPV (9.4-12.4) fL Immature Gran % (Auto) % Neut % (Auto) % Lymph % (Auto) % Upton % (Auto) % Eos % (Auto) % Baso % (Auto) % Neut # (Auto) (1.40-6.50) K/uL Lymph # (Auto) (1.20-3.40) K/uL Upton # (Auto) (0.11-0.59) K/uL Eos # (Auto) (0.00-0.50) K/uL Baso # (Auto) (0.00-0.20) K/uL Immature Gran # (Auto) (0.01-0.20) K/uL Sodium (136-145) mmol/L Potassium 3.4 L Chloride (98-107) mmol/L Carbon Dioxide (21-32) mmol/L Anion Gap (3-11) BUN (6-23) mg/dl Creatinine (0.6-1.2) mg/dl Est Cr Clr Drug Dosing Est GFR ( Amer) ml/min Est GFR (Non-Af Amer) ml/min BUN/Creatinine Ratio (10-20) Glucose (70-99(Fasting)) mg/dl Calcium (8.6-10.3) mg/dl Total Bilirubin (0.2-1.0) mg/dl AST 25 ALT (7-52) U/L Alkaline Phosphatase (34-104) U/L Troponin I High Sens (0-14) pg/ml Total Protein (6.0-8.3) gm/dl Albumin (3.4-5.0) gm/dl Globulin (2.5-4.0) gm/dl Albumin/Globulin Ratio (0.9-2) Adenovirus (PCR) Not Detected (NotDetected) B. pertussis DNA (PCR) Not Detected (NotDetected) B.parapertussis DNA PCR Not Detected (NotDetected) C. pneumoniae DNA (PCR) Not Detected (NotDetected) Coronavirus OC43 (PCR) Not Detected (NotDetected) Coronavirus HKU1 (PCR) Not Detected (NotDetected) Coronavirus 229E (PCR) Not Detected (NotDetected) SARS-CoV-2 (PCR) Not Detected (Negative) Coronavirus NL63 (PCR) Not Detected (NotDetected) Human Metapneumovir PCR Not Detected (NotDetected) Influenza Type A (PCR) Not Detected (Neg) Influenza Type B (PCR) Not Detected (Neg) M. pneumoniae (PCR) Not Detected (NotDetected) Parainfluenza 1 (PCR) Not Detected (NotDetected) Parainfluenza 2 (PCR) Not Detected (NotDetected) Parainfluenza 3 (PCR) Not Detected (NotDetected) Parainfluenza 4 (PCR) Not Detected (NotDetected) RSV (RT-PCR) (Neg) RSV (PCR) Not Detected (NotDetected) Entero/Rhino (PCR) Not Detected (NotDetected) Administered Medications Discontinued Medications Acetaminophen (Acetaminophen 500 Mg Tab) 1,000 mg PO NOW STA Stop: 06/06/23 02:06 Last Admin: 06/06/23 03:10 Dose: 1,000 mg Documented By: ALON Cefepime HCl (Maxipime) 2,000 mg in 20 mls @ 5 mls/min IV NOW STA; Protocol Stop: 06/06/23 01:51 Last Admin: 06/06/23 03:10 Dose: 5 mls/min Documented By: ALON Ioversol (Optiray 320 500ml) 125 ml IV ONCE ONE Stop: 06/06/23 01:41 Last Admin: 06/06/23 01:41 Dose: 109 ml Documented By: JASON Imaging Data Radiologist's Impression: Chest CTA 06/06/23 00:59 Exam(s): CTA CHEST IV Amt: 109 ML OPTIRAY 320 EXAM: CT Angiography Chest With Intravenous Contrast CLINICAL HISTORY: right chest pain, infiltrate on CXR. TECHNIQUE: Axial computed tomographic angiography images of the chest with intravenous contrast. CTDI is 16.62 mGy and DLP is 464.83 mGy-cm. Automated exposure control was utilized for the study. A dose lowering technique was utilized adhering to the principles of ALARA. MIP reconstructed images were created and reviewed. COMPARISON: No relevant prior studies available. FINDINGS: Pulmonary arteries: There is no evidence for pulmonary embolism. Aorta: The thoracic aorta is normal in caliber with mild atherosclerotic calcification. No thoracic aortic aneurysm. Lungs: Patchy areas of ground-glass opacity noted most prominently in the right upper lobe, but also identified in the posterior medial right lower lobe, posterior right middle lobe and left lower lobe. Pleural space: Small volume right pleural effusion layering posteriorly, measuring approximately 1.5 cm in thickness. No loculation. No pneumothorax. Heart: The cardiac chambers are enlarged. Trace pericardial effusion noted in the superior pericardial recess. There is minimal reflux of contrast into the intrahepatic IVC. Mediastinum: A hiatal hernia is identified containing the stomach in the posterior mediastinum. No evidence for esophageal obstruction. Bones/joints: No acute fracture. No dislocation. Soft tissues: Unremarkable. Lymph nodes: Pericarinal lymph nodes measuring up to 7 mm. Subcarinal lymph node measuring up to 10 mm in short axis diameter. IMPRESSION: 1. There is no evidence for pulmonary embolism. 2. Patchy areas of ground-glass opacity noted most prominently in the right upper lobe, but also identified in the posterior medial right lower lobe, posterior right middle lobe and left lower lobe. Findings are most consistent with multifocal pneumonia, to include atypical bacterial and viral processes. 3. A hiatal hernia is identified containing the stomach in the posterior mediastinum. No evidence for esophageal obstruction. Electronically signed by: Ty Verdin MD 06/06/23 03:15 AM Discharge Plan Visit Data Chief Complaint: Infection Stated Complaint: INFECTION ED Provider: Leodan Laughlin Discharge Problem: Multifocal pneumonia, Pleural effusion, Acute right flank pain Forms Stand Alone Forms: My [facility] Prescriptions Prescriptions: No Action donepezil [Aricept] 10 mg tablet 10 mg PO HS 90 Days Qty: 90 1RF memantine 10 mg tablet 10 mg PO BID 90 Days Qty: 180 3RF clonazepam 0.5 mg tablet 0.5 mg PO HS sertraline 100 mg tablet 100 mg PO HS mirtazapine 30 mg tablet 30 mg PO HS folic acid 800 mcg tablet 0.8 mg PO QAM ezetimibe [Zetia] 10 mg Tablet 10 mg PO QAM Patient Comments: Patient did not know her meds/ daughter was in the room, said her had the list in the waiting room, got the list from [employer], List is from [employer]. ferrous sulfate [FeroSul] 325 mg (65 mg iron) Tablet 325 mg PO QAM Patient Comments: Patient did not know her meds/ daughter was in the room, said her had the list in the waiting room, got the list from [employer], List is from [employer]. melatonin 10 mg Tablet 10 mg PO HS aspirin 81 mg Tablet,Delayed Release (Dr/Ec) 81 mg PO QAM vitamin B complex Capsule 1 cap PO QAM bupropion HCl 150 mg Tablet Extended Release 24 Hr 150 mg PO QAM ropinirole 2 mg tablet See Rx Instructions .ROUTE .COMPLEX Rx Instructions: TAKE 2MG BY MOUTH AT DINNER AND 2MG AT BEDTIME gabapentin 100 mg capsule 100 mg PO TID esomeprazole magnesium 20 mg capsule,delayed release(DR/EC) 20 mg PO DAILY amlodipine [Norvasc] 5 mg Tablet 5 mg PO QAM Qty: 30 2RF Referrals Referrals: aKri Mendez MD [Primary Care Provider] -
[2023-06-06 03:07] LABS: Adenovirus PCR Not Detected (NotDetected); Bordetella parapertussis PCR Not Detected (NotDetected); Bordetella pertussis PCR Not Detected (NotDetected); Chlamydia pneumoniae PCR Not Detected (NotDetected); Coronavirus 229E PCR Not Detected (NotDetected); Coronavirus CoV-2 (COVID19)PCR Not Detected (NotDetected); Coronavirus HKU1 PCR Not Detected (NotDetected); Coronavirus NL63 PCR Not Detected (NotDetected); Coronavirus OC43PCR Not Detected (NotDetected); Human Metapneumovirus PCR Not Detected (NotDetected); Influenza A PCR Not Detected (NotDetected); Influenza B PCR Not Detected (NotDetected); Mycoplasma pneumoniae PCR Not Detected (NotDetected); Parainfluenza Virus 1 PCR Not Detected (NotDetected); Parainfluenza Virus 2 PCR Not Detected (NotDetected); Parainfluenza Virus 3 PCR Not Detected (NotDetected); Parainfluenza Virus 4 PCR Not Detected (NotDetected); Respiratory Syncytial VirusPCR Not Detected (NotDetected); Rhinovirus/Enterovirus PCR Not Detected (NotDetected)
--- NOTE | 2023-06-06 03:16 | CT Scan Report ---
Exam(s): CTA CHEST IV Amt: 109 ML OPTIRAY 320 EXAM: CT Angiography Chest With Intravenous Contrast CLINICAL HISTORY: right chest pain, infiltrate on CXR. TECHNIQUE: Axial computed tomographic angiography images of the chest with intravenous contrast. CTDI is 16.62 mGy and DLP is 464.83 mGy-cm. Automated exposure control was utilized for the study. A dose lowering technique was utilized adhering to the principles of ALARA. MIP reconstructed images were created and reviewed. COMPARISON: No relevant prior studies available. FINDINGS: Pulmonary arteries: There is no evidence for pulmonary embolism. Aorta: The thoracic aorta is normal in caliber with mild atherosclerotic calcification. No thoracic aortic aneurysm. Lungs: Patchy areas of ground-glass opacity noted most prominently in the right upper lobe, but also identified in the posterior medial right lower lobe, posterior right middle lobe and left lower lobe. Pleural space: Small volume right pleural effusion layering posteriorly, measuring approximately 1.5 cm in thickness. No loculation. No pneumothorax. Heart: The cardiac chambers are enlarged. Trace pericardial effusion noted in the superior pericardial recess. There is minimal reflux of contrast into the intrahepatic IVC. Mediastinum: A hiatal hernia is identified containing the stomach in the posterior mediastinum. No evidence for esophageal obstruction. Bones/joints: No acute fracture. No dislocation. Soft tissues: Unremarkable. Lymph nodes: Pericarinal lymph nodes measuring up to 7 mm. Subcarinal lymph node measuring up to 10 mm in short axis diameter. IMPRESSION: 1. There is no evidence for pulmonary embolism. 2. Patchy areas of ground-glass opacity noted most prominently in the right upper lobe, but also identified in the posterior medial right lower lobe, posterior right middle lobe and left lower lobe. Findings are most consistent with multifocal pneumonia, to include atypical bacterial and viral processes. 3. A hiatal hernia is identified containing the stomach in the posterior mediastinum. No evidence for esophageal obstruction. Electronically signed by: Ty Verdin MD 06/06/23 03:15 AM
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
--- NOTE | 2023-06-06 04:52 | CT Scan Report ---
Exam(s): CT ABDOMEN + PELVIS Without Contrast EXAM: CT Abdomen and Pelvis Without Intravenous Contrast CLINICAL HISTORY: epigastric and right flank pain, eff. and infilt. TECHNIQUE: Axial computed tomography images of the abdomen and pelvis without intravenous contrast. CTDI is 22.98 mGy and DLP is 1154.57 mGy-cm. Automated exposure control was utilized for the study. A dose lowering technique was utilized adhering to the principles of ALARA. COMPARISON: CT abdomen and pelvis with contrast dated 12/09/2022 FINDINGS: Lung bases: Scattered nodular subcentimeter opacities at the lung bases, left greater than right, new from the previous examination. Mediastinum: A hiatal hernia is noted containing the majority of the stomach in the posterior mediastinum, stable. No gastric obstruction. ABDOMEN: Liver: Unremarkable. Gallbladder and bile ducts: Cholecystectomy. No biliary dilatation. Pancreas: Unremarkable. No ductal dilation. Spleen: Unremarkable. No splenomegaly. Adrenals: Unremarkable. No mass. Kidneys and ureters: There is excreted contrast in the renal collecting systems and ureters. The unenhanced kidneys demonstrate stable contours with a similar cortical cyst involving the posterior aspect of the right kidney, not appreciably altered in size measuring 2.4 cm. No hydronephrosis or obstructing nephrolithiasis suspected. Stomach and bowel: No evidence for bowel obstruction. Nonspecific fluid and gas distended, but nondilated small bowel loops in the inferior abdomen and pelvis. Scattered diverticulosis without obvious diverticulitis. PELVIS: Appendix: Not clearly delineated. No secondary findings to suggest acute appendicitis. Bladder: Contrast is noted in the bladder. Small diverticula are identified. No bladder wall thickening or obvious bladder stones. Reproductive: Unremarkable as visualized. ABDOMEN and PELVIS: Intraperitoneal space: Unremarkable. No free air. No significant fluid collection. Bones/joints: Posterior fusion from L4-S1 levels. Multilevel degenerative changes of the lumbar spine. No acute osseous abnormality. No dislocation. Soft tissues: Unremarkable. Vasculature: Atherosclerotic calcification of the normal caliber aorta. No abdominal aortic aneurysm. Lymph nodes: Unremarkable. No enlarged lymph nodes. IMPRESSION: 1. Cholecystectomy. No biliary dilatation. 2. No evidence for bowel obstruction. Nonspecific fluid and gas distended, but nondilated small bowel loops in the inferior abdomen and pelvis and represent normal variation or enteritis. Scattered diverticulosis without obvious diverticulitis. No free intraperitoneal fluid or pneumoperitoneum. 3. Scattered nodular subcentimeter opacities at the lung bases, left greater than right, new from the previous examination. Suspect bibasilar infection. 4. Excreted contrast in the renal collecting systems and ureters. No hydronephrosis or acute perinephric abnormality. Contrast in the bladder with incidental diverticula. Electronically signed by: Ty Verdin MD 06/06/23 04:51 AM
[2023-06-06] MEDS ORDERED: ONDANSETRON INJ 2 MG/ML 2 ML VIAL IV PRN (05:43)
[2023-06-06] MEDS ORDERED: ACETAMINOPHEN 325 MG TAB PO PRN (05:43)
[2023-06-06] MEDS ORDERED: ALBUT/IPRATROP 3MG/0.5MG NEB 3 ML VIAL NEB PRN (05:43)
[2023-06-06] MEDS: NSS + 20MEQ KCL 20 MEQ/1,000 ML BAG IV SCH ×2 (07:25→20:33)
--- NOTE | 2023-06-06 07:28 | XRay Report ---
XR chest 1V not portable CLINICAL HISTORY: Right rib pain. COMPARISON STUDY: Chest CT July 16, 2021. Chest radiograph May 05, 2023. FINDINGS: There is no pneumothorax. There is a trace right pleural effusion. Cardiomegaly is unchange d. No evidence for pulmonary edema. Moderate right upper lobe airspace opacity is present. IMPRESSION: 1. Moderate upper lobe airspace opacity suggestive of pneumonia. Asymmetric alveolar pulmonary edema could appear similar although is considered less likely. Radiographic follow-up to ensure resolution is recommended. 2. Trace right pleural effusion. 3. Cardiomegaly. ACT 112: Negative or not required by law. Electronically signed by: Armani Armstrong M.D. 06/06/2023 7:26 AM
[2023-06-06] MEDS ORDERED: VITAMIN B COMPLEX TAB PO SCH (09:00)
[2023-06-06] MEDS ORDERED: FOLIC ACID 400 MCG TAB PO SCH (09:00)
[2023-06-06] MEDS: ASPIRIN 81 MG ECTAB PO SCH (10:07)
[2023-06-06] MEDS: amLODIPine BESYLATE 5 MG TAB PO SCH (10:07)
[2023-06-06] MEDS: GABAPENTIN 100 MG CAP PO SCH ×3 (10:08→21:44)
[2023-06-06] MEDS: EZETIMIBE 10 MG TAB PO SCH (10:08)
[2023-06-06] MEDS: PANTOprazole 40 MG TAB PO SCH (10:08)
[2023-06-06] MEDS: MEMANTINE HCL 10 MG TAB PO SCH ×2 (10:08→21:43)
[2023-06-06] MEDS: buPROPion XL 150 MG TABCR PO SCH (10:08)
[2023-06-06] MEDS: rOPINIRole HCL 2 MG TABLET PO SCH ×2 (10:09→21:43)
[2023-06-06] MEDS ORDERED: CEFEPIME 2,000 MG in SYRINGE 0 ML IV SCH (11:00)
[2023-06-06 13:33] LABS: Appearance Urine Clear (Clear); Bilirubin Urine Negative (Negative); Blood Urine Negative (Negative); Color Urine Yellow; Glucose Urine UA Negative (Negative); Ketones Urine Negative (Negative); Leukocyte Esterase Urine Negative (Negative); Nitrite Urine Negative (Negative); Protein Urine Negative (Negative); Specific Gravity Urine 1.021 (1.000-1.030); Urobilinogen Urine Negative (Negative); pH Urine 5.5 (4.5-7.5)
[2023-06-06] MEDS: Patient's HEIGHT &/or WEIGHT Needed SCH ×2 (13:52→16:26)
--- NOTE | 2023-06-06 15:58 | Gastrointestinal Consultation ---
Date of Consultation June 06, 2023 Assessment & Plan (1) Dysphagia: Her dysphagia is likely a motility issue with her esophageal tortuousity contributing to the problem. Another possible contributing factor could be the large hiatal hernia with most of her stomach being in her chest. This can give the feeling of food being stuck as well as contribute to regurgitation because of loss of the diaphragmatic input into the EG junction. I don't really get the idea that dilatation helped her much the last time I did her procedure as they aren't certain. is interested in trying repeat EGD if there is a "slight chance it will help" but the patient herself isn't too enthusiastic about it. I certainly would wait until her pneumonia isn't an issue and she gets stronger since I am not enthusiastic dilatation will help. In the interim would stick with pureed diet using gravity and water to help things go down. History of Present Illness Reason for Consultation: dysphagia, aspiration Attending Physician: Brenda Fitzgerald MD History of Present Illness 82 year old female who is admitted with aspiration pneumonia. I saw her in the past and did EGD and found she had a "tortuous esophagus". I did empiric dilatation with a 54 Fr dilator to see if it would help. She does not remember the procedure or if she got benefit from it. says she may have gotten a little benefit but it didn't last long. She has episodes where food will get stuck and she will vomit it out. Allergies Allergy/AdvReac Type Severity Reaction Status Date / Time No Known Allergies Allergy Verified 06/06/23 08:18 Home Medications Medication Instructions Recorded Confirmed Type ezetimibe 10 mg tablet (Zetia) 10 mg PO [facility] 11/21/18 06/06/23 History ferrous sulfate 325 mg (65 mg 325 mg PO QA 04/15/21 06/06/23 History iron) tablet (FeroSul) clonazepam 0.5 mg tablet 0.5 mg PO HS 09/02/21 06/06/23 History folic acid 800 mcg tablet 0.8 mg PO QAM 09/02/21 06/06/23 History mirtazapine 30 mg tablet 30 mg PO HS 09/02/21 06/06/23 History sertraline 100 mg tablet 100 mg PO HS 09/02/21 06/06/23 History melatonin 10 mg tablet 5 mg PO HS 06/16/22 06/06/23 History aspirin 81 mg tablet,delayed 81 mg PO QAM 12/14/22 06/06/23 History release bupropion HCl 150 mg 24 hr tablet, 150 mg PO QAM 12/14/22 06/06/23 History extended release vitamin B complex 1 cap PO QAM 12/14/22 06/06/23 History esomeprazole magnesium 20 mg 20 mg PO QAM 05/05/23 06/06/23 History capsule,delayed release gabapentin 100 mg capsule 100 mg PO TID 05/05/23 06/06/23 History ropinirole 2 mg tablet See Rx Instructions .Route .COMPLEX 05/05/23 06/06/23 History donepezil 10 mg tablet (Aricept) 10 mg PO HS 90 days #90 tabs 05/09/23 06/06/23 Rx memantine 10 mg tablet 10 mg PO BID 90 days #180 tabs 05/09/23 06/06/23 Rx amlodipine 5 mg tablet (Norvasc) 5 mg PO QAM #30 tabs 05/12/23 06/06/23 Rx cephalexin 500 mg capsule 500 mg PO TID PRN INFECTION 06/06/23 06/06/23 History lisinopril 20 mg tablet 20 mg PO QAM 06/06/23 06/06/23 History sertraline 50 mg tablet See Rx Instructions .Route .COMPLEX 06/06/23 06/06/23 History Patient History Medical History (Updated 06/06/23 @ 15:55 by Rubens Montgomery Jr, MD) Anxiety and depression Arthritis Cardiac murmur FOLLOWED BY DR. PERSAUD Dysphagia SWALLOWING PROBLEMS Hiatal hernia History of COVID-2020>RESOLVED Hyperlipidemia Hypertension Memory problem MVP (mitral valve prolapse) FOLLOWED BY DR. PERSAUD Restless leg syndrome SOB (shortness of breath) on exertion Spinal stenosis Urinary frequency Surgical History History of appendectomy History of cataract surgery RT/LEFT History of colonoscopy History of herniorrhaphy History of hysterectomy TOTAL History of tooth extraction Hx laparoscopic cholecystectomy (07/15/21) Laparoscopic Cholecystectomy with Intraoperative Cholangiogram Dr. 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 Beliefs That Will Affect Care: None marital status: Current Living Situation: Spouse Feels Safe at Home: Yes Assistive Devices: Walker Review of Systems Review of Systems: All systems reviewed & are unremarkable except as noted in HPI & below Physical Exam Constitutional: well nourished and + ill appearing Neck: trachea midline, no thyromegaly Respiratory: normal respiratory effort, lungs clear to auscultation Cardiovascular: RRR, no murmur, no edema Gastrointestinal (Abdomen): normal bowel sounds, soft, nontender, no hepatosplenomegaly Results & Data Vital Signs (Past 12 Hours) Vital Signs Pulse Pulse Resp BP BP Pulse Ox Pulse Ox 06/06/23 15:09 68 06/06/23 07:30 96 06/06/23 07:00 94 06/06/23 07:00 68 22 135/89 95 06/06/23 05:30 60 28 H 95 06/06/23 05:30 181/82 H 06/06/23 05:00 60 23 93 06/06/23 05:00 164/93 H 06/06/23 04:30 62 26 H 93 06/06/23 04:30 166/89 H 06/06/23 04:00 63 26 H 92 06/06/23 04:00 170/80 H 06/06/23 04:46 62 O2 Del Method O2 Del Method 06/06/23 15:09 06/06/23 07:30 Room Air 06/06/23 07:00 Room Air 06/06/23 07:00 Room Air 06/06/23 05:30 06/06/23 05:30 06/06/23 05:00 06/06/23 05:00 06/06/23 04:30 06/06/23 04:30 06/06/23 04:00 06/06/23 04:00 06/06/23 04:46 Laboratory Results 06/06/23 06/06/23 06/06/23 Range/Units Unknown 09:54 06:05 WBC (4.8-10.8) K/ul RBC (4.20-5.40) M/uL Hgb (12.0-16.0) g/dl Hct (37.0-47.0) % MCV (80.0-100.0) fL MCH (25.0-34.0) pg MCHC (32.0-36.0) g/dL RDW Std Deviation (36.4-46.3) fL RDW Coeff of Shankar (11.5-14.5) % Plt Count (130-400) K/uL MPV (9.4-12.4) fL Immature Gran % (Auto) % Neut % (Auto) % Lymph % (Auto) % [place] % (Auto) % Eos % (Auto) % Baso % (Auto) % Neut # (Auto) (1.40-6.50) K/uL Lymph # (Auto) (1.20-3.40) K/uL [place] # (Auto) (0.11-0.59) K/uL Eos # (Auto) (0.00-0.50) K/uL Baso # (Auto) (0.00-0.20) K/uL Immature Gran # (Auto) (0.01-0.20) K/uL Sodium (136-145) mmol/L Potassium Chloride (98-107) mmol/L Carbon Dioxide (21-32) mmol/L Anion Gap (3-11) BUN (6-23) mg/dl Creatinine (0.6-1.2) mg/dl Est Cr Clr Drug Dosing Est GFR ( Amer) ml/min Est GFR (Non-Af Amer) ml/min BUN/Creatinine Ratio (10-20) Glucose (70-99(Fasting)) mg/dl Calcium (8.6-10.3) mg/dl Total Bilirubin (0.2-1.0) mg/dl AST ALT (7-52) U/L Alkaline Phosphatase (34-104) U/L Troponin I High Sens 16.4 H 16.9 H (0-14) pg/ml Total Protein (6.0-8.3) gm/dl Albumin (3.4-5.0) gm/dl Globulin (2.5-4.0) gm/dl Albumin/Globulin Ratio (0.9-2) Urine Color Yellow Urine Appearance Clear (Clear) Urine pH 5.5 (4.5-7.5) Ur Specific [place] 1.021 (1.000-1.030) Urine Protein Negative (Negative) Urine Glucose (UA) Negative (Negative) Urine Ketones Negative (Negative) Urine Blood Negative (Negative) Urine Nitrite Negative (Negative) Urine Bilirubin Negative (Negative) Urine Urobilinogen Negative (Negative) Ur Leukocyte Esterase Negative (Negative) Adenovirus (PCR) (NotDetected) B. pertussis DNA (PCR) (NotDetected) B.parapertussis DNA PCR (NotDetected) C. pneumoniae DNA (PCR) (NotDetected) Coronavirus OC43 (PCR) (NotDetected) Coronavirus HKU1 (PCR) (NotDetected) Coronavirus 229E (PCR) (NotDetected) SARS-CoV-2 (PCR) (Negative) Coronavirus NL63 (PCR) (NotDetected) Human Metapneumovir PCR (NotDetected) Influenza Type A (PCR) (Neg) Influenza Type B (PCR) (Neg) M. pneumoniae (PCR) (NotDetected) Parainfluenza 1 (PCR) (NotDetected) Parainfluenza 2 (PCR) (NotDetected) Parainfluenza 3 (PCR) (NotDetected) Parainfluenza 4 (PCR) (NotDetected) RSV (RT-PCR) (Neg) RSV (PCR) (NotDetected) Entero/Rhino (PCR) (NotDetected) 06/06/23 06/06/23 06/05/23 Range/Units 02:02 00:10 21:55 WBC (4.8-10.8) K/ul RBC (4.20-5.40) M/uL Hgb (12.0-16.0) g/dl Hct (37.0-47.0) % MCV (80.0-100.0) fL MCH (25.0-34.0) pg MCHC (32.0-36.0) g/dL RDW Std Deviation (36.4-46.3) fL RDW Coeff of Shankar (11.5-14.5) % Plt Count (130-400) K/uL MPV (9.4-12.4) fL Immature Gran % (Auto) % Neut % (Auto) % Lymph % (Auto) % [place] % (Auto) % Eos % (Auto) % Baso % (Auto) % Neut # (Auto) (1.40-6.50) K/uL Lymph # (Auto) (1.20-3.40) K/uL [place] # (Auto) (0.11-0.59) K/uL Eos # (Auto) (0.00-0.50) K/uL Baso # (Auto) (0.00-0.20) K/uL Immature Gran # (Auto) (0.01-0.20) K/uL Sodium (136-145) mmol/L Potassium 3.4 L Chloride (98-107) mmol/L Carbon Dioxide (21-32) mmol/L Anion Gap (3-11) BUN (6-23) mg/dl Creatinine (0.6-1.2) mg/dl Est Cr Clr Drug Dosing Est GFR ( Amer) ml/min Est GFR (Non-Af Amer) ml/min BUN/Creatinine Ratio (10-20) Glucose (70-99(Fasting)) mg/dl Calcium (8.6-10.3) mg/dl Total Bilirubin (0.2-1.0) mg/dl AST 25 ALT (7-52) U/L Alkaline Phosphatase (34-104) U/L Troponin I High Sens (0-14) pg/ml Total Protein (6.0-8.3) gm/dl Albumin (3.4-5.0) gm/dl Globulin (2.5-4.0) gm/dl Albumin/Globulin Ratio (0.9-2) Urine Color Urine Appearance (Clear) Urine pH (4.5-7.5) Ur Specific [place] (1.000-1.030) Urine Protein (Negative) Urine Glucose (UA) (Negative) Urine Ketones (Negative) Urine Blood (Negative) Urine Nitrite (Negative) Urine Bilirubin (Negative) Urine Urobilinogen (Negative) Ur Leukocyte Esterase (Negative) Adenovirus (PCR) Not Detected (NotDetected) B. pertussis DNA (PCR) Not Detected (NotDetected) B.parapertussis DNA PCR Not Detected (NotDetected) C. pneumoniae DNA (PCR) Not Detected (NotDetected) Coronavirus OC43 (PCR) Not Detected (NotDetected) Coronavirus HKU1 (PCR) Not Detected (NotDetected) Coronavirus 229E (PCR) Not Detected (NotDetected) SARS-CoV-2 (PCR) Not Detected NEGATIVE (Negative) Coronavirus NL63 (PCR) Not Detected (NotDetected) Human Metapneumovir PCR Not Detected (NotDetected) Influenza Type A (PCR) Not Detected Negative (Neg) Influenza Type B (PCR) Not Detected Negative (Neg) M. pneumoniae (PCR) Not Detected (NotDetected) Parainfluenza 1 (PCR) Not Detected (NotDetected) Parainfluenza 2 (PCR) Not Detected (NotDetected) Parainfluenza 3 (PCR) Not Detected (NotDetected) Parainfluenza 4 (PCR) Not Detected (NotDetected) RSV (RT-PCR) Negative (Neg) RSV (PCR) Not Detected (NotDetected) Entero/Rhino (PCR) Not Detected (NotDetected) 06/05/23 06/05/23 Range/Units 21:52 21:52 WBC 9.43 (4.8-10.8) K/ul RBC 3.97 L (4.20-5.40) M/uL Hgb 12.6 (12.0-16.0) g/dl Hct 38.0 (37.0-47.0) % MCV 95.7 (80.0-100.0) fL MCH 31.7 (25.0-34.0) pg MCHC 33.2 (32.0-36.0) g/dL RDW Std Deviation 46.1 (36.4-46.3) fL RDW Coeff of Shankar 13.1 (11.5-14.5) % Plt Count 218 (130-400) K/uL MPV 9.8 (9.4-12.4) fL Immature Gran % (Auto) 1.2 % Neut % (Auto) 72.3 % Lymph % (Auto) 15.7 % [place] % (Auto) 7.2 % Eos % (Auto) 3.0 % Baso % (Auto) 0.6 % Neut # (Auto) 6.82 H (1.40-6.50) K/uL Lymph # (Auto) 1.48 (1.20-3.40) K/uL [place] # (Auto) 0.68 H (0.11-0.59) K/uL Eos # (Auto) 0.28 (0.00-0.50) K/uL Baso # (Auto) 0.06 (0.00-0.20) K/uL Immature Gran # (Auto) 0.11 (0.01-0.20) K/uL Sodium 141 (136-145) mmol/L Potassium TNP Chloride 111 H (98-107) mmol/L Carbon Dioxide 23 (21-32) mmol/L Anion Gap 7 (3-11) BUN 24 H (6-23) mg/dl Creatinine 1.05 (0.6-1.2) mg/dl Est Cr Clr Drug Dosing Not Reportable Est GFR ( Amer) 57.3 ml/min Est GFR (Non-Af Amer) 49.4 ml/min BUN/Creatinine Ratio 22.9 H (10-20) Glucose 94 (70-99(Fasting)) mg/dl Calcium 9.5 (8.6-10.3) mg/dl Total Bilirubin 0.4 (0.2-1.0) mg/dl AST TNP ALT 22 (7-52) U/L Alkaline Phosphatase 81 (34-104) U/L Troponin I High Sens 18.9 H (0-14) pg/ml Total Protein 7.2 (6.0-8.3) gm/dl Albumin 3.9 (3.4-5.0) gm/dl Globulin 3.3 (2.5-4.0) gm/dl Albumin/Globulin Ratio 1.2 (0.9-2) Urine Color Urine Appearance (Clear) Urine pH (4.5-7.5) Ur Specific [place] (1.000-1.030) Urine Protein (Negative) Urine Glucose (UA) (Negative) Urine Ketones (Negative) Urine Blood (Negative) Urine Nitrite (Negative) Urine Bilirubin (Negative) Urine Urobilinogen (Negative) Ur Leukocyte Esterase (Negative) Adenovirus (PCR) (NotDetected) B. pertussis DNA (PCR) (NotDetected) B.parapertussis DNA PCR (NotDetected) C. pneumoniae DNA (PCR) (NotDetected) Coronavirus OC43 (PCR) (NotDetected) Coronavirus HKU1 (PCR) (NotDetected) Coronavirus 229E (PCR) (NotDetected) SARS-CoV-2 (PCR) (Negative) Coronavirus NL63 (PCR) (NotDetected) Human Metapneumovir PCR (NotDetected) Influenza Type A (PCR) (Neg) Influenza Type B (PCR) (Neg) M. pneumoniae (PCR) (NotDetected) Parainfluenza 1 (PCR) (NotDetected) Parainfluenza 2 (PCR) (NotDetected) Parainfluenza 3 (PCR) (NotDetected) Parainfluenza 4 (PCR) (NotDetected) RSV (RT-PCR) (Neg) RSV (PCR) (NotDetected) Entero/Rhino (PCR) (NotDetected) Diagnostic Findings Chest X-Ray 06/05/23 20:58 XR chest 1V not portable CLINICAL HISTORY: Right rib pain. COMPARISON STUDY: Chest CT July 16, 2021. Chest radiograph May 05, 2023. FINDINGS: There is no pneumothorax. There is a trace right pleural effusion. Cardiomegaly is unchanged. No evidence for pulmonary edema. Moderate right upper lobe airspace opacity is present. IMPRESSION: 1. Moderate upper lobe airspace opacity suggestive of pneumonia. Asymmetric alveolar pulmonary edema could appear similar although is considered less likely. Radiographic follow-up to ensure resolution is recommended. 2. Trace right pleural effusion. 3. Cardiomegaly. ACT 112: Negative or not required by law. Electronically signed by: Armani Armstrong M.D. 06/06/2023 7:26 AM Chest CTA 06/06/23 00:59 Exam(s): CTA CHEST IV Amt: 109 ML OPTIRAY 320 EXAM: CT Angiography Chest With Intravenous Contrast CLINICAL HISTORY: right chest pain, infiltrate on CXR. TECHNIQUE: Axial computed tomographic angiography images of the chest with intravenous contrast. CTDI is 16.62 mGy and DLP is 464.83 mGy-cm. Automated exposure control was utilized for the study. A dose lowering technique was utilized adhering to the principles of ALARA. MIP reconstructed images were created and reviewed. COMPARISON: No relevant prior studies available. FINDINGS: Pulmonary arteries: There is no evidence for pulmonary embolism. Aorta: The thoracic aorta is normal in caliber with mild atherosclerotic calcification. No thoracic aortic aneurysm. Lungs: Patchy areas of ground-glass opacity noted most prominently in the right upper lobe, but also identified in the posterior medial right lower lobe, posterior right middle lobe and left lower lobe. Pleural space: Small volume right pleural effusion layering posteriorly, measuring approximately 1.5 cm in thickness. No loculation. No pneumothorax. Heart: The cardiac chambers are enlarged. Trace pericardial effusion noted in the superior pericardial recess. There is minimal reflux of contrast into the intrahepatic IVC. Mediastinum: A hiatal hernia is identified containing the stomach in the posterior mediastinum. No evidence for esophageal obstruction. Bones/joints: No acute fracture. No dislocation. Soft tissues: Unremarkable. Lymph nodes: Pericarinal lymph nodes measuring up to 7 mm. Subcarinal lymph node measuring up to 10 mm in short axis diameter. IMPRESSION: 1. There is no evidence for pulmonary embolism. 2. Patchy areas of ground-glass opacity noted most prominently in the right upper lobe, but also identified in the posterior medial right lower lobe, posterior right middle lobe and left lower lobe. Findings are most consistent with multifocal pneumonia, to include atypical bacterial and viral processes. 3. A hiatal hernia is identified containing the stomach in the posterior mediastinum. No evidence for esophageal obstruction. Electronically signed by: Ty Verdin MD 06/06/23 03:15 AM Abdomen/Pelvis CT 06/06/23 01:59 Exam(s): CT ABDOMEN + PELVIS Without Contrast EXAM: CT Abdomen and Pelvis Without Intravenous Contrast CLINICAL HISTORY: epigastric and right flank pain, eff. and infilt. TECHNIQUE: Axial computed tomography images of the abdomen and pelvis without intravenous contrast. CTDI is 22.98 mGy and DLP is 1154.57 mGy-cm. Automated exposure control was utilized for the study. A dose lowering technique was utilized adhering to the principles of ALARA. COMPARISON: CT abdomen and pelvis with contrast dated 12/09/2022 FINDINGS: Lung bases: Scattered nodular subcentimeter opacities at the lung bases, left greater than right, new from the previous examination. Mediastinum: A hiatal hernia is noted containing the majority of the stomach in the posterior mediastinum, stable. No gastric obstruction. ABDOMEN: Liver: Unremarkable. Gallbladder and bile ducts: Cholecystectomy. No biliary dilatation. Pancreas: Unremarkable. No ductal dilation. Spleen: Unremarkable. No splenomegaly. Adrenals: Unremarkable. No mass. Kidneys and ureters: There is excreted contrast in the renal collecting systems and ureters. The unenhanced kidneys demonstrate stable contours with a similar cortical cyst involving the posterior aspect of the right kidney, not appreciably altered in size measuring 2.4 cm. No hydronephrosis or obstructing nephrolithiasis suspected. Stomach and bowel: No evidence for bowel obstruction. Nonspecific fluid and gas distended, but nondilated small bowel loops in the inferior abdomen and pelvis. Scattered diverticulosis without obvious diverticulitis. PELVIS: Appendix: Not clearly delineated. No secondary findings to suggest acute appendicitis. Bladder: Contrast is noted in the bladder. Small diverticula are identified. No bladder wall thickening or obvious bladder stones. Reproductive: Unremarkable as visualized. ABDOMEN and PELVIS: Intraperitoneal space: Unremarkable. No free air. No significant fluid collection. Bones/joints: Posterior fusion from L4-S1 levels. Multilevel degenerative changes of the lumbar spine. No acute osseous abnormality. No dislocation. Soft tissues: Unremarkable. Vasculature: Atherosclerotic calcification of the normal caliber aorta. No abdominal aortic aneurysm. Lymph nodes: Unremarkable. No enlarged lymph nodes. IMPRESSION: 1. Cholecystectomy. No biliary dilatation. 2. No evidence for bowel obstruction. Nonspecific fluid and gas distended, but nondilated small bowel loops in the inferior abdomen and pelvis and represent normal variation or enteritis. Scattered diverticulosis without obvious diverticulitis. No free intraperitoneal fluid or pneumoperitoneum. 3. Scattered nodular subcentimeter opacities at the lung bases, left greater than right, new from the previous examination. Suspect bibasilar infection. 4. Excreted contrast in the renal collecting systems and ureters. No hydronephrosis or acute perinephric abnormality. Contrast in the bladder with incidental diverticula. Electronically signed by: Ty Verdin MD 06/06/23 04:51 AM
[2023-06-06] MEDS: CEFEPIME 2,000 MG in SYRINGE 0 ML IV SCH (16:58)
[2023-06-06] MEDS: ENOXAPARIN INJ 40 MG/0.4 ML SYR SQ SCH (16:59)
[2023-06-06] MEDS: DOXYCYCLINE HYCLATE 100 MG in DEXTROSE 5% MINI-B 100 ML IV SCH (17:00)
--- NOTE | 2023-06-06 19:42 | History & Physical Bridge Note ---
Date of Service June 06, 2023 History & Physical Bridge Note I have examined the patient, reviewed the History & Physical and in the interval since the performance of the History & Physical I have noted the following changes of clinical significance: Pt had issues taking pills with pudding with cough and spitting up. Seen by Speech and recommended GI eval. Discussed care with GI. No EGD for now given PNA and can remain on pureed diet with water and gravity for HH and esophageal tortuosity. Continue current meds and add lisinopril for HTN. Pt's biggest concern is sensation of choking with anything she tries to eat, feels like it gets stuck in her throat or chest. Very anxious about this. Discussed getting Thoracic Surgery eval for gastroplexy. WIll d/w her tomorrow at her request Add lidocaine patch to right flank at site of MSK pain, TTP on exam, no masses or ecchymosis, no fractures on imaging-likely muscular strain
[2023-06-06] MEDS ORDERED: BENZONATATE 100 MG CAPSULE PO PRN (19:43)
[2023-06-06] MEDS ORDERED: LIDOCAINE 5% 1 PATCH TD STA (20:08)
[2023-06-06] MEDS ORDERED: LORazepam 2 MG/1 ML VIAL IV PRN (20:13)
[2023-06-06] MEDS: lisinopril 20 MG TAB PO SCH (20:35)
[2023-06-06] MEDS ORDERED: clonazePAM 0.5 MG TAB PO SCH (21:00)
[2023-06-06] MEDS ORDERED: SERTRALINE HCL 100 MG TABLET PO SCH (21:00)
[2023-06-06] MEDS: MIRTAZAPINE TAB 15 MG TAB PO SCH (21:43)
[2023-06-06] MEDS: MELATONIN 3 MG TAB PO SCH (21:43)
[2023-06-06] MEDS: DONEPEZIL HCL 10 MG TAB PO SCH (21:44)
[2023-06-06] MEDS: SERTRALINE HCL 100 MG TABLET PO SCH (23:11)
[2023-06-07] MEDS: DOXYCYCLINE HYCLATE 100 MG in DEXTROSE 5% MINI-B 100 ML IV SCH ×2 (03:02→15:25)
[2023-06-07] MEDS: CEFEPIME 2,000 MG in SYRINGE 0 ML IV SCH ×2 (03:02→15:25)
[2023-06-07] MEDS: NSS + 20MEQ KCL 20 MEQ/1,000 ML BAG IV SCH ×2 (07:02→22:03)
[2023-06-07 07:05] LABS: Basophils # (auto) 0.05 K/uL (0.00-0.20); Basophils % (auto) 0.7 %; Eosinophils # (auto) 0.23 K/uL (0.00-0.50); Eosinophils % (auto) 3.2 %; Hematocrit (blood only) 35.3 % (37.0-47.0); Hemoglobin 11.4 g/dl (12.0-16.0); Immature Granulocytes # (auto) 0.05 K/uL (0.01-0.20); Immature Granulocytes % (auto) 0.7 %; Lymphocytes # (auto) 1.17 K/uL (1.20-3.40); Mean Corpuscular Hemoglobin 31.4 pg (25.0-34.0); Mean Corpuscular Hgb Conc 32.3 g/dL (32.0-36.0); Mean Corpuscular Volume 97.2 fL (80.0-100.0); Monocytes # (auto) 0.69 K/uL (0.11-0.59); Monocytes % (auto) 9.5 %; Neutrophils % (auto) 69.9 %; Platelet Count 206 K/uL (130-400); RDW Coefficient of Variation 13.1 % (11.5-14.5); RDW Standard Deviation 46.6 fL (36.4-46.3); Red Blood Count 3.63 M/uL (4.20-5.40); White Blood Count 7.29 K/ul (4.8-10.8)
[2023-06-07 07:24] LABS: Albumin Level 3.2 gm/dl (3.4-5.0); BUN Creatinine Ratio 17.8 (10-20); Creatinine Clr Calc Pharmacy 37.5 ml/min; Est GFR (Non-African American) 48.3 ml/min; Magnesium 1.6 mg/dl (1.7-2.4); Phosphorus 3.4 mg/dl (2.5-4.9); Potassium 4.3 mmol/L (3.5-5.1)
[2023-06-07] MEDS: MEMANTINE HCL 10 MG TAB PO SCH ×2 (08:15→20:07)
[2023-06-07] MEDS: amLODIPine BESYLATE 5 MG TAB PO SCH (08:15)
[2023-06-07] MEDS: lisinopril 20 MG TAB PO SCH (08:15)
[2023-06-07] MEDS: EZETIMIBE 10 MG TAB PO SCH (08:16)
[2023-06-07] MEDS: rOPINIRole HCL 2 MG TABLET PO SCH ×2 (08:16→20:07)
[2023-06-07] MEDS: buPROPion XL 150 MG TABCR PO SCH (08:16)
[2023-06-07] MEDS: PANTOprazole 40 MG TAB PO SCH (08:16)
[2023-06-07] MEDS: ASPIRIN 81 MG ECTAB PO SCH (08:16)
[2023-06-07] MEDS: GABAPENTIN 100 MG CAP PO SCH ×3 (08:17→20:07)
[2023-06-07] MEDS: MAGNESIUM SULFATE / D5W 1 GM/100 ML BAG IV SCH ×2 (10:20→10:56)
[2023-06-07] MEDS: ENOXAPARIN INJ 40 MG/0.4 ML SYR SQ SCH (10:57)
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
--- NOTE | 2023-06-07 15:03 | Gastroenterology Progress Note ---
Date of Service June 07, 2023 Assessment & Plan (1) Dysphagia: Plan: I do agree that gastropexy will be the best solution for her. Not much else for me to do. Will sign off but follow with interest Admission and Anticipated Discharge Date Admission Date: June 06, 2023 Subjective Getting therapy. Complains of back pain. Seems short of breath. Had discussion with surgeon about gastropexy Physical Exam Physical Exam: She looks short of breath Constitutional: WD/WN, vitals as above Results & Data Vital Signs (Past 12 Hours) Vital Signs Temp Pulse Pulse Resp BP Pulse Ox O2 Del Method 06/07/23 11:15 36.7 C 69 18 179/78 H 95 Room Air 06/07/23 07:22 36.7 C 63 17 172/82 H 94 Room Air 06/07/23 07:28 66 06/07/23 03:24 36.9 C 60 18 144/73 H 90 Room Air
[2023-06-07] MEDS ORDERED: traMADol HCL 50 MG TABLET PO PRN (17:04)
[2023-06-07] MEDS ORDERED: traMADol HCL 50 MG TABLET PO STA (17:04)
--- NOTE | 2023-06-07 17:08 | Hospitalist Progress Note ---
Date of Service June 07, 2023 Assessment & Plan (1) Aspiration pneumonia: Plan: Multifocal aspiration pneumonia/hiatal hernia- Patient per her own report and had of her frequently chokes when swallowing food-ongoing for 6 months at least Has known large hiatal hernia with majority of stomach in posterior mediastinum on CT here CT Chest with multifocal PNA, mostly right sided. No fevers or leukocytosis, no cough. WIth small pleural effusion right side Continue Cefepime 2 g IV every 12 hours and Doxycycline 100 mg IV every 12 hours Consult speech [id number] primarily an esophageal issue and recommends consult to GI Hiatal hernia/tortuous esophagus- EGD was performed on 12/20/2022 which revealed a esophagus that was moderately tortuous. The stomach itself was normal. There were a few nonbleeding superficial duodenal ulcers found in the second portion of the duodenum with the largest lesion being 8 mm in diameter Recommendation was to continue Nexium [address] patient describes symptoms of abdominal and epigastric and subdiaphragmatic pain, her symptoms may be due to the hiatal hernia itself, or the hiatal hernia causing reflux and dysphagia COnsult Surgery for consideration of gastropexy appreciated-plan to f/u as outpt once discharged and pneumonia resolved Continue pureed diet with thin liquids (2) Hiatal hernia: Plan: as above, large (3) Acute right flank pain: Plan: +TTP and no rib fractures or kidney stones noted on CT Likely muscular strain. COuld be some pleuritic pain from pleural effusion or PNA but would not be TTP Lidocaine patch did not help, APAP does not help -start low dose tramadol 25mg po q4h prn, add Voltaren gel -monitor for improvement (4) Pleural effusion: Plan: as above, likely small parapneumonic effusion follow CXR until resolved in 4 weeks (5) Idiopathic peripheral neuropathy: Plan: sees Neuro continue gabapentin (6) Hypertension: Plan: BPs have been elevated here possibly due to pain or clonazepam withdrawal- actually takes clonazepam bid scheduled at home and only getting once daily here the last 2 days -increase clonazepam to 0.5mg po bid -continue amlodipine, lisinopril (7) GERD (gastroesophageal reflux disease): Plan: with h/u PUD continue PPI (8) MGUS (monoclonal gammopathy of unknown significance): Plan: noted in chart but unclear history on this (9) Dementia: Plan: follows with Neuro-Alzheimer's type vs vascular dementia continue Namenda, Aricept (10) Depression: Plan: follows with Geriatric Psych, Dr. Zelaya continue clonazepam, bupropion, mirtazapine, and sertraline (11) Demand ischemia of myocardium: Plan: trop very minimally elevated at 16 x 3 no chest pain, likely from pneumonia Plan DVT proph-SQ Lovenox Dispo-continued stay, improving. Will need outpt Surgery f/u and Surgery requesting Cardiology clearance prior to gastropexy Admission and Anticipated Discharge Date Admission Date: June 06, 2023 Subjective able to eat some pureed food today but having trouble with pudding. is drinking fluids Still having significant pain in right flank region and makes it difficult to work with PT or walk not coughing is moving bowels discussed her care with Surgery at bedside manages her pills-he reports she has been taking clonazepam twice a day for a long time-changed home med and inpatient orders to reflect this Tele with NSR, PACs, rates 60-70s Physical Exam Constitutional: WD/WN, vitals as above Neck: trachea midline, no thyromegaly Respiratory: normal respiratory effort, lungs clear to auscultation Cardiovascular: RRR, no murmur, no edema Chest (Breasts): Chest: normal inspection of chest Additional Comments: +TTP exquisitely over lateral right lower ribs, no masses or ecchymosis present Gastrointestinal (Abdomen): Inspection/Auscultation: abdomen normal to inspection and normal bowel sounds; abdomen not distended Percussion/Palpation: + abdomen tender (mild in epigastric region without guarding or rebound) and abdomen soft Musculoskeletal: Extremities: extremities normal to inspection; no cyanosis and no clubbing Skin: no rashes, warm and dry Neurologic: moves all extremities and awake; no focal motor deficits Psychiatric: Orientation: alert, oriented to person, oriented to place and cooperative Affect: + anxious affect Lymphatic: no lymphedema Results & Data Results & Data Vital Signs (Past 12 Hours) Vital Signs Temp Pulse Pulse Resp BP Pulse Ox Pulse Ox 06/07/23 15:28 37 C 56 L 17 148/80 H 95 06/07/23 12:00 95 06/07/23 11:15 36.7 C 69 18 179/78 H 95 06/07/23 07:22 36.7 C 63 17 172/82 H 94 06/07/23 07:28 66 O2 Del Method O2 Del Method 06/07/23 15:28 Room Air 06/07/23 12:00 Room Air 06/07/23 11:15 Room Air 06/07/23 07:22 Room Air 06/07/23 07:28 Laboratory Results CBC, BMP, magnesium reviewed PG Care Time/CCT Total # of Minutes Spent Total Time Spent with Patient: Total time spent is greater than 50% in coordination of care (as documented) at patient's floor/unit and/or counseling patient: Coding Level of Care Code 08147 SUB INP/OBS CARE 3/50MIN Diagnoses Aspiration pneumonia J69.0 Hiatal hernia K44.9 Acute right flank pain R10.9 Pleural effusion J90 Idiopathic peripheral neuropathy G60.9 Hypertension I10 GERD (gastroesophageal reflux disease) K21.9 MGUS (monoclonal gammopathy of unknown significance) D47.2 Dementia F03.90 Depression F32.9 Demand ischemia of myocardium I24.89
[2023-06-07] MEDS: clonazePAM 0.5 MG TAB PO SCH (20:06)
[2023-06-07] MEDS: SERTRALINE HCL 100 MG TABLET PO SCH (20:06)
[2023-06-07] MEDS: MELATONIN 3 MG TAB PO SCH (20:06)
[2023-06-07] MEDS: MIRTAZAPINE TAB 15 MG TAB PO SCH (20:07)
[2023-06-07] MEDS: DONEPEZIL HCL 10 MG TAB PO SCH (20:08)
[2023-06-07] MEDS: DICLOFENAC SOD 1% GEL 100 GM TUBE EXT SCH (20:18)
[2023-06-07] MEDS: NEOMYCIN/POLYMYX/BACITR OINT 15 GM TUBE EXT PRN (21:31)
--- NOTE | 2023-06-07 22:42 | Electrocardiogram Report ---
Test Reason : Blood Pressure : / mmHG Vent. Rate : 063 BPM Atrial Rate : 063 BPM P-R Int : 144 ms QRS Dur : 128 ms QT Int : 454 ms P-R-T Axes : 032 031 -18 degrees QTc Int : 464 ms Normal sinus rhythm Possible Left atrial enlargement Right bundle branch block Abnormal ECG When compared with ECG of 05-MAY-2023 14:14, No significant change was found Confirmed by Nathaniel Cannon ([id number]) on 06/07/2023 10:41:51 PM Referred By: REFERRED SELF Confirmed By:Nathaniel Cannon
[2023-06-08] MEDS: CEFEPIME 2,000 MG in SYRINGE 0 ML IV SCH ×2 (03:30→14:13)
[2023-06-08] MEDS: DOXYCYCLINE HYCLATE 100 MG in DEXTROSE 5% MINI-B 100 ML IV SCH ×2 (03:32→16:16)
[2023-06-08 06:12] LABS: Basophils # (auto) 0.06 K/uL (0.00-0.20); Basophils % (auto) 0.6 %; Eosinophils # (auto) 0.51 K/uL (0.00-0.50); Eosinophils % (auto) 5.5 %; Hematocrit (blood only) 35.1 % (37.0-47.0); Hemoglobin 11.2 g/dl (12.0-16.0); Immature Granulocytes # (auto) 0.08 K/uL (0.01-0.20); Immature Granulocytes % (auto) 0.9 %; Lymphocytes # (auto) 1.39 K/uL (1.20-3.40); Mean Corpuscular Hemoglobin 31.5 pg (25.0-34.0); Mean Corpuscular Hgb Conc 31.9 g/dL (32.0-36.0); Mean Corpuscular Volume 98.6 fL (80.0-100.0); Mean Platelet Volume 9.5 fL (9.4-12.4); Monocytes # (auto) 0.76 K/uL (0.11-0.59); Monocytes % (auto) 8.2 %; Neutrophils # (auto) 6.49 K/uL (1.40-6.50); Neutrophils % (auto) 69.8 %; Platelet Count 181 K/uL (130-400); RDW Coefficient of Variation 13.1 % (11.5-14.5); RDW Standard Deviation 47.1 fL (36.4-46.3); Red Blood Count 3.56 M/uL (4.20-5.40); White Blood Count 9.29 K/ul (4.8-10.8)
[2023-06-08 06:21] LABS: Albumin Level 3.3 gm/dl (3.4-5.0); BUN Creatinine Ratio 20.9 (10-20); Calcium 8.7 mg/dl (8.6-10.3); Est GFR (African American) 51.3 ml/min; Est GFR (Non-African American) 44.3 ml/min; Potassium 4.3 mmol/L (3.5-5.1)
[2023-06-08 06:35] LABS: Thyroid Stimulating Hormone 5.339 uIu/ml (0.300-4.500)
[2023-06-08 07:09] LABS: T4 Free Thyroxine 1.1 ng/dl (0.61-1.60)
[2023-06-08] MEDS: PANTOprazole 40 MG TAB PO SCH (09:09)
[2023-06-08] MEDS: lisinopril 20 MG TAB PO SCH (09:09)
[2023-06-08] MEDS: ASPIRIN 81 MG ECTAB PO SCH (09:09)
[2023-06-08] MEDS: MEMANTINE HCL 10 MG TAB PO SCH ×2 (09:10→20:32)
[2023-06-08] MEDS: EZETIMIBE 10 MG TAB PO SCH (09:10)
[2023-06-08] MEDS: amLODIPine BESYLATE 5 MG TAB PO SCH (09:10)
[2023-06-08] MEDS: DICLOFENAC SOD 1% GEL 100 GM TUBE EXT SCH ×4 (09:10→20:30)
[2023-06-08] MEDS: buPROPion XL 150 MG TABCR PO SCH (09:10)
[2023-06-08] MEDS: GABAPENTIN 100 MG CAP PO SCH ×3 (09:10→20:32)
[2023-06-08] MEDS: rOPINIRole HCL 2 MG TABLET PO SCH ×3 (09:10→20:31)
[2023-06-08] MEDS: clonazePAM 0.5 MG TAB PO SCH ×2 (09:20→20:30)
[2023-06-08] MEDS: COUGH DROP (SUGAR FREE) LOZ 24 LOZ/1 BOX BUCCAL PRN (09:21)
[2023-06-08] MEDS: ENOXAPARIN INJ 40 MG/0.4 ML SYR SQ SCH (11:55)
--- NOTE | 2023-06-08 16:13 | Hospitalist Progress Note ---
Date of Service June 08, 2023 Assessment & Plan (1) Aspiration pneumonia: Plan: Multifocal aspiration pneumonia/hiatal hernia- Patient per her own report and of her frequently chokes when swallowing food-ongoing for 6 months at least Has known large hiatal hernia with majority of stomach in posterior mediastinum on CT here and known tortuous esophagus on EGD from 12/2022 CT Chest with multifocal PNA, mostly right sided. No fevers or leukocytosis, no cough. WIth small pleural effusion right side Continue Cefepime 2 g IV every 12 hours and Doxycycline 100 mg IV every 12 hours Consult speech [id number] primarily an esophageal issue and recommends consult to GI The way patient describes symptoms of abdominal and epigastric and subdiaphragmatic pain, her symptoms may be due to the hiatal hernia itself, or the hiatal hernia causing reflux and dysphagia With low-grade temperatures overnight, minimal cough, and continues with right lateral to posterior rib pain likely muscular strain. No leukocytosis. COnsult Surgery for consideration of gastropexy appreciated-plan to f/u as outpt once discharged and pneumonia resolved-appointment made for 07/[address] Williamson Continue pureed diet with thin liquids DC IV fluids Follow CBC, BMP (2) Hiatal hernia: Plan: as above, large Plans for gastropexy evaluation with surgery as an outpatient Cardiology preoperative evaluation scheduled for her for 06/14 with her telesales agent (3) Acute right flank pain: Plan: +TTP and no rib fractures or kidney stones noted on CT Likely muscular strain. COuld be some pleuritic pain from pleural effusion or PNA but would not be TTP Lidocaine patch did not help, APAP does not help Low-dose tramadol 25 mg given 1 hour before getting out of bed to the chair also did not help Increase tramadol to 50 Mg p.o. every 4 hours as needed -Continue Voltaren gel -monitor for improvement (4) Pleural effusion: Plan: as above, likely small parapneumonic effusion follow CXR until resolved in 4 weeks (5) Idiopathic peripheral neuropathy: Plan: sees Neuro continue gabapentin (6) Hypertension: Plan: BPs have been elevated here possibly due to pain or clonazepam withdrawal- actually takes clonazepam bid scheduled at home and only getting once daily here the last 2 days -increased clonazepam to 0.5mg po bid -continue amlodipine, lisinopril (7) GERD (gastroesophageal reflux disease): Plan: with h/u PUD with small ulcers in the duodenum on EGD in 12/2022 continue PPI (8) MGUS (monoclonal gammopathy of unknown significance): Plan: noted in chart but unclear history on this (9) Dementia: Plan: follows with Neuro-Alzheimer's type vs vascular dementia continue Namenda, Aricept (10) Depression: Plan: follows with Geriatric Psych, Dr. Zelaya continue clonazepam, bupropion, mirtazapine, and sertraline (11) Demand ischemia of myocardium: Plan: trop very minimally elevated at 16 x 3 no chest pain, likely from pneumonia Plan DVT proph-SQ Lovenox Dispo-continued stay, improving. Likely discharge tomorrow to home with home health if she is able to walk with pain controlled versus going to rehab. Referral made to [facility] by correctional casework specialist Admission and Anticipated Discharge Date Admission Date: June 06, 2023 Subjective Patient able to eat her meals very slowly today of pured food but still feels like things take a long time to get down her esophagus. Still having pain in the right flank region especially with any movement but did not ask for pain medicine today. She has not been out of bed all day. I discussed with nursing about getting her out of bed to the chair after getting her tramadol. Also complained of a sore throat today relieved with throat lozenges Telemetry with normal sinus rhythm and rates in the 50s to 70s Physical Exam Constitutional: WD/WN, vitals as above Neck: trachea midline, no thyromegaly Respiratory: normal respiratory effort, lungs clear to auscultation Cardiovascular: RRR, no murmur, no edema Chest (Breasts): Chest: normal inspection of chest Gastrointestinal (Abdomen): Inspection/Auscultation: abdomen normal to inspection and normal bowel sounds; abdomen not distended Percussion/Palpation: abdomen soft Musculoskeletal: Extremities: extremities normal to inspection; no cyanosis and no clubbing Positive tenderness to palpation in the right lower lateral rib cage improved from previous Skin: no rashes, warm and dry Neurologic: moves all extremities and awake; no focal motor deficits Psychiatric: Orientation: alert, oriented to person, oriented to place and cooperative Affect: + anxious affect Lymphatic: no lymphedema Results & Data Results & Data Vital Signs (Past 12 Hours) Vital Signs Temp Pulse Pulse Resp BP Pulse Ox O2 Del Method 06/08/23 14:43 36.4 C L 71 16 156/72 H 91 Room Air 06/08/23 11:57 36.8 C 64 18 159/93 H 91 Room Air 06/08/23 09:15 Room Air 06/08/23 07:37 58 L 06/08/23 07:28 36.4 C L 59 L 20 164/80 H 93 Room Air Laboratory Results CBC, BMP, magnesium, TSH, free T4, blood cultures all reviewed PG Care Time/CCT Total # of Minutes Spent Total Time Spent with Patient: Total time spent is greater than 50% in coordination of care (as documented) at patient's floor/unit and/or counseling patient: Coding Level of Care Code 30247 SUB INP/OBS CARE 2/35MIN Diagnoses Aspiration pneumonia J69.0 Hiatal hernia K44.9 Acute right flank pain R10.9 Pleural effusion J90 Idiopathic peripheral neuropathy G60.9 Hypertension I10 GERD (gastroesophageal reflux disease) K21.9 MGUS (monoclonal gammopathy of unknown significance) D47.2 Dementia F03.90 Depression F32.9 Demand ischemia of myocardium I24.89
[2023-06-08] MEDS: MELATONIN 3 MG TAB PO SCH (20:30)
[2023-06-08] MEDS: DONEPEZIL HCL 10 MG TAB PO SCH (20:32)
[2023-06-08] MEDS: MIRTAZAPINE TAB 15 MG TAB PO SCH (20:32)
[2023-06-08] MEDS: SERTRALINE HCL 100 MG TABLET PO SCH (20:33)
[2023-06-09] MEDS: DOXYCYCLINE HYCLATE 100 MG in DEXTROSE 5% MINI-B 100 ML IV SCH ×2 (03:43→15:17)
[2023-06-09] MEDS: CEFEPIME 2,000 MG in SYRINGE 0 ML IV SCH ×2 (03:47→15:17)
[2023-06-09 07:18] LABS: Basophils # (auto) 0.05 K/uL (0.00-0.20); Basophils % (auto) 0.5 %; Eosinophils # (auto) 0.47 K/uL (0.00-0.50); Eosinophils % (auto) 4.3 %; Hematocrit (blood only) 36.2 % (37.0-47.0); Hemoglobin 11.7 g/dl (12.0-16.0); Immature Granulocytes # (auto) 0.09 K/uL (0.01-0.20); Immature Granulocytes % (auto) 0.8 %; Lymphocytes % (auto) 8.3 %; Mean Corpuscular Hemoglobin 31.7 pg (25.0-34.0); Mean Corpuscular Hgb Conc 32.3 g/dL (32.0-36.0); Mean Corpuscular Volume 98.1 fL (80.0-100.0); Monocytes # (auto) 0.76 K/uL (0.11-0.59); Neutrophils # (auto) 8.55 K/uL (1.40-6.50); Neutrophils % (auto) 79.1 %; Platelet Count 192 K/uL (130-400); RDW Coefficient of Variation 12.9 % (11.5-14.5); RDW Standard Deviation 46.2 fL (36.4-46.3); Red Blood Count 3.69 M/uL (4.20-5.40); White Blood Count 10.82 K/ul (4.8-10.8)
[2023-06-09 07:28] LABS: Calcium 9.1 mg/dl (8.6-10.3); Creatinine Clr Calc Pharmacy 39.1 ml/min; Est GFR (African American) 57.9 ml/min; Magnesium 1.8 mg/dl (1.7-2.4); Potassium 4.3 mmol/L (3.5-5.1)
[2023-06-09] MEDS: buPROPion XL 150 MG TABCR PO SCH (07:46)
[2023-06-09] MEDS: lisinopril 20 MG TAB PO SCH (07:46)
[2023-06-09] MEDS: amLODIPine BESYLATE 5 MG TAB PO SCH (07:46)
[2023-06-09] MEDS: clonazePAM 0.5 MG TAB PO SCH ×2 (07:46→21:01)
[2023-06-09] MEDS: ASPIRIN 81 MG ECTAB PO SCH (07:46)
[2023-06-09] MEDS: MEMANTINE HCL 10 MG TAB PO SCH ×2 (07:47→21:02)
[2023-06-09] MEDS: GABAPENTIN 100 MG CAP PO SCH ×3 (07:47→21:03)
[2023-06-09] MEDS: PANTOprazole 40 MG TAB PO SCH (07:47)
[2023-06-09] MEDS: DICLOFENAC SOD 1% GEL 100 GM TUBE EXT SCH ×4 (07:48→21:01)
[2023-06-09] MEDS: traMADol HCL 50 MG TABLET PO PRN ×2 (08:31→21:09)
[2023-06-09] MEDS: ENOXAPARIN INJ 40 MG/0.4 ML SYR SQ SCH (10:58)
[2023-06-09] MEDS: EZETIMIBE 10 MG TAB PO SCH (10:58)
[2023-06-09] MEDS: POLYETHYLENE (MIRALAX) 17 GM PACK PO SCH (15:17)
[2023-06-09] MEDS: rOPINIRole HCL 2 MG TABLET PO SCH ×2 (15:18→21:02)
[2023-06-09] MEDS ORDERED: OPTIRAY 320 100ml IV ONE (16:45)
--- NOTE | 2023-06-09 17:04 | CT Scan Report ---
ABDOMEN AND PELVIS CT WITH IV CONTRAST CT DOSE: 1187.92 mGy.cm HISTORY: Acute right flank pain. right lower flank pain,suspect IM hematoma TECHNIQUE: Multiaxial CT images of the abdomen and pelvis were performed following the IV administrat ion of 91 cc of Optiray, A dose lowering technique was utilized adhering to the principles of ALARA. COMPARISON STUDY: CTA chest with CT abdomen and pelvis 06/06/2023, 12/09/2022. FINDINGS: Cardiomegaly with trace pericardial effusion. Coronary artery calcifications. Trace right p leural effusion. Improved pulmonary edema. Subcentimeter nodular foci of the basal right lower lobe m easure up to 4 mm, likely infectious or inflammatory. Partially imaged dependent consolidation of the left lower lobe is again seen. No free air. Unremarkable spleen, moderately atrophic pancreas and right adrenal gland. There is unchanged mild le ft adrenal gland thickening. Cholecystectomy is likely postsurgical mild biliary ductal dilation. The liver is within normal limits. Patency of the hepatic and portal veins. Cortical thinning of the kid neys with lobulations. 4 mm nonobstructing calculus of the interpolar left kidney. No ureteral calculi or hydronephrosis. 2.4 cm cyst of the interpolar right kidney. A few additional bilateral sub centimeter renal hypodensities are too small to characterize. The urinary bladder wall thickening wit h partial distention. Pelvic floor relaxation. Hysterectomy. Atherosclerosis of the abdominal aorta w ithout aneurysm. There is no lymphadenopathy. Large hiatal hernia with chronic left hemidiaphragmatic defect. Colonic diverticulosis. Trace ascites . No definite CT evidence of acute diverticulitis. There is mild to moderate colonic diverticulosis. The appendix is not definitively seen. Small fat filled umbilical hernia. Atrophy of the gluteal musc ulature. Mild generalized body wall edema. Degenerative postoperative changes of the spine. Superior endplate T11 compression deformity with less than 20% vertebral body height loss and no retropulsion is similar to prior and is new from 12/09/2022. Mild paravertebral edema. IMPRESSION: 1. No acute intra-abdominal or intrapelvic abnormality identified. 2. Cardiomegaly with improving pulmonary edema and persistent left basilar consolidation. 3. Tree-in-bud nodules of the right lung base are likely infectious or inflammatory. 4. Large hiatal hernia with chronic left hemidiaphragmatic defect. 5. Colonic diverticulosis without definite CT evidence of acute diverticulitis. 6. Urinary bladder wall thickening with partial distention and perivesicular stranding. Correlate wit h urinalysis. 7. Subtle superior endplate compression of the T11 vertebral body of less than 20% with no retropulsi on is unchanged from 06/06/2023, likely acute or subacute. ACT 112: Negative or not required by law. The above report was generated using voice recognition software. It may contain grammatical, syntax o r spelling errors. Electronically signed by: Satish Lu M.D. 06/09/2023 5:02 PM
[2023-06-09] MEDS: COUGH DROP (SUGAR FREE) LOZ 24 LOZ/1 BOX BUCCAL PRN (17:30)
[2023-06-09] MEDS: BENZONATATE 100 MG CAPSULE PO PRN (21:00)
[2023-06-09] MEDS: MELATONIN 3 MG TAB PO SCH (21:00)
[2023-06-09] MEDS: SERTRALINE HCL 100 MG TABLET PO SCH (21:01)
[2023-06-09] MEDS: DONEPEZIL HCL 10 MG TAB PO SCH (21:01)
[2023-06-09] MEDS: MIRTAZAPINE TAB 15 MG TAB PO SCH (21:02)
[2023-06-10] MEDS: CEFEPIME 2,000 MG in SYRINGE 0 ML IV SCH ×2 (03:06→15:34)
[2023-06-10] MEDS: DOXYCYCLINE HYCLATE 100 MG in DEXTROSE 5% MINI-B 100 ML IV SCH ×2 (03:07→15:34)
[2023-06-10] MEDS: COUGH DROP (SUGAR FREE) LOZ 24 LOZ/1 BOX BUCCAL PRN (08:40)
[2023-06-10] MEDS: DICLOFENAC SOD 1% GEL 100 GM TUBE EXT SCH ×4 (08:40→21:22)
[2023-06-10] MEDS: GABAPENTIN 100 MG CAP PO SCH ×3 (08:41→21:31)
[2023-06-10] MEDS: MEMANTINE HCL 10 MG TAB PO SCH ×2 (08:42→21:20)
[2023-06-10] MEDS: PANTOprazole 40 MG TAB PO SCH (08:42)
[2023-06-10] MEDS: ASPIRIN 81 MG ECTAB PO SCH (08:42)
[2023-06-10] MEDS: EZETIMIBE 10 MG TAB PO SCH (08:42)
[2023-06-10] MEDS: amLODIPine BESYLATE 5 MG TAB PO SCH (08:42)
[2023-06-10] MEDS: lisinopril 20 MG TAB PO SCH (08:43)
[2023-06-10] MEDS: buPROPion XL 150 MG TABCR PO SCH (08:43)
[2023-06-10] MEDS: POLYETHYLENE (MIRALAX) 17 GM PACK PO SCH (08:43)
[2023-06-10] MEDS: clonazePAM 0.5 MG TAB PO SCH ×2 (08:46→21:20)
--- NOTE | 2023-06-10 09:41 | Hospitalist Progress Note ---
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 No fevers or leukocytosis, no cough. WIth small pleural effusion right side Continue Cefepime 2 g IV every 12 hours and Doxycycline 100 mg IV every 12 hours Consult speech [id number]-[id number] primarily an esophageal issue and recommends consult to GI The way patient describes symptoms of abdominal and epigastric and subdiaphragmatic pain, her symptoms may be due to the hiatal hernia itself, or the hiatal hernia causing reflux and dysphagia With low-grade temperatures now resolved, minimal cough, and continues with right lateral to posterior rib pain likely muscular strain. No leukocytosis. COnsult Surgery for consideration of gastropexy appreciated-plan to f/u as outpt once discharged and pneumonia resolved-appointment made for 07/[address] Williamson Continue pureed diet with thin liquids Follow CBC, BMP COntinue current abx (2) Hiatal hernia: Plan: as above, large Plans for gastropexy evaluation with surgery as an outpatient Cardiology preoperative evaluation scheduled for her for 06/14 with her nurse (3) Acute right flank pain: Plan: +TTP and no rib fractures or kidney stones noted on CT Likely muscular strain. COuld be some pleuritic pain from pleural effusion or PNA but would not be TTP Lidocaine patch did not help, APAP does not help Low-dose tramadol 25 mg given 1 hour before getting out of bed to the chair also did not help Increased tramadol to 50 Mg p.o. every 4 hours as needed and helps somewhat On 06/09 now with ecchymosis in that region and palpable small lump subcutaneously--> ordered CT abd/pel to assess for hematoma and negative Therefore, likely muscular strain from previous fall-may tkae several weeks to fully resolve -Continue Voltaren gel and tramadol -monitor for improvement (4) Pleural effusion: Plan: as above, likely small parapneumonic effusion follow CXR until resolved in 4 weeks (5) Idiopathic peripheral neuropathy: Plan: sees Neuro continue gabapentin (6) Hypertension: Plan: BPs have been elevated here due to pain -continue amlodipine, lisinopril (7) GERD (gastroesophageal reflux disease): Plan: with h/u PUD with small ulcers in the duodenum on EGD in 12/2022 continue PPI (8) MGUS (monoclonal gammopathy of unknown significance): Plan: noted in chart but unclear history on this (9) Dementia: Plan: follows with Neuro-Alzheimer's type vs vascular dementia continue Namenda, Aricept (10) Depression: Plan: follows with Geriatric Psych, Dr. Zelaya continue clonazepam, bupropion, mirtazapine, and sertraline (11) Demand ischemia of myocardium: Plan: trop very minimally elevated at 16 x 3 no chest pain, likely from pneumonia Plan DVT proph-SQ Lovenox Dispo-continued stay, improving. Awaiting rehab placement-referral made to [facility] Admission and Anticipated Discharge Date Admission Date: June 06, 2023 Subjective Pt still having pain in right flank today with any movement. Tramadol 50mg dose helps a little bit but has worn off +cough Physical Exam Constitutional: WD/WN, vitals as above Neck: trachea midline, no thyromegaly Respiratory: normal respiratory effort, lungs clear to auscultation Cardiovascular: RRR, no murmur, no edema Chest (Breasts): Chest: normal inspection of chest Gastrointestinal (Abdomen): Inspection/Auscultation: abdomen normal to inspection and normal bowel sounds; abdomen not distended Percussion/Palpation: + abdomen tender (mild in epigastric region without guarding or rebound) and abdomen soft Musculoskeletal: Extremities: extremities normal to inspection; no cyanosis and no clubbing +TTP over right lower thorax now with small lump palpable and overlying small ecchymosis Skin: no rashes, warm and dry Neurologic: moves all extremities and awake; no focal motor deficits Psychiatric: Orientation: alert, oriented to person, oriented to place and cooperative Affect: + anxious affect Lymphatic: no lymphedema Results & Data Results & Data Vital Signs (Past 12 Hours) Vital Signs Temp Pulse Resp BP BP Pulse Ox O2 Del Method 06/10/23 07:07 36.5 C 60 17 157/69 H 93 Room Air 06/10/23 03:12 170/79 H 06/10/23 02:00 36.9 C 63 18 183/81 H 95 Room Air 06/10/23 00:15 36.6 C 63 16 166/76 H 94 Room Air 06/09/23 23:38 Room Air Laboratory Results CBC, BMP reviewed Diagnostic Findings Abdomen/Pelvis CT 06/09/23 14:[address] WITH IV CONTRAST CT DOSE: 1187.92 mGy.cm HISTORY: Acute right flank pain. right lower flank pain,suspect IM hematoma TECHNIQUE: Multiaxial CT images of the abdomen and pelvis were performed following the IV administration of 91 cc of Optiray, A dose lowering technique was utilized adhering to the principles of ALARA. COMPARISON STUDY: CTA chest with CT abdomen and pelvis 06/06/2023, 12/09/2022. FINDINGS: Cardiomegaly with trace pericardial effusion. Coronary artery calcifications. Trace right pleural effusion. Improved pulmonary edema. Subcentimeter nodular foci of the basal right lower lobe measure up to 4 mm, likely infectious or inflammatory. Partially imaged dependent consolidation of the left lower lobe is again seen. No free air. Unremarkable spleen, moderately atrophic pancreas and right adrenal gland. There is unchanged mild left adrenal gland thickening. Cholecystectomy is likely postsurgical mild biliary ductal dilation. The liver is within normal limits. Patency of the hepatic and portal veins. Cortical thinning of the kidneys with lobulations. 4 mm nonobstructing calculus of the interpolar left kidney. No ureteral calculi or hydronephrosis. 2.4 cm cyst of the interpolar right kidney. A few additional bilateral subcentimeter renal hypodensities are too small to characterize. The urinary bladder wall thickening with partial distention. Pelvic floor relaxation. Hysterectomy. Atherosclerosis of the abdominal aorta without aneurysm. There is no lymphadenopathy. Large hiatal hernia with chronic left hemidiaphragmatic defect. Colonic diverticulosis. Trace ascites. No definite CT evidence of acute diverticulitis. There is mild to moderate colonic diverticulosis. The appendix is not definitively seen. Small fat filled umbilical hernia. Atrophy of the gluteal musculature. Mild generalized body wall edema. Degenerative postoperative changes of the spine. Superior endplate T11 compression deformity with less than 20% vertebral body height loss and no retropulsion is similar to prior and is new from 12/09/2022. Mild paravertebral edema. IMPRESSION: 1. No acute intra-abdominal or intrapelvic abnormality identified. 2. Cardiomegaly with improving pulmonary edema and persistent left basilar consolidation. 3. Tree-in-bud nodules of the right lung base are likely infectious or inflammatory. 4. Large hiatal hernia with chronic left hemidiaphragmatic defect. 5. Colonic diverticulosis without definite CT evidence of acute diverticulitis. 6. Urinary bladder wall thickening with partial distention and perivesicular stranding. Correlate with urinalysis. 7. Subtle superior endplate compression of the T11 vertebral body of less than 20% with no retropulsion is unchanged from 06/06/2023, likely acute or subacute. ACT 112: Negative or not required by law. The above report was generated using voice recognition software. It may contain grammatical, syntax or spelling errors. Electronically signed by: Satish Lu M.D. 06/09/2023 5:02 PM PG Care Time/CCT Total # of Minutes Spent Total Time Spent with Patient: Total time spent is greater than 50% in coordination of care (as documented) at patient's floor/unit and/or counseling patient: Coding Level of Care Code 43051 SUB INP/OBS CARE 2/35MIN Diagnoses Aspiration pneumonia J69.0 Hiatal hernia K44.9 Acute right flank pain R10.9 Pleural effusion J90 Idiopathic peripheral neuropathy G60.9 Hypertension I10 GERD (gastroesophageal reflux disease) K21.9 MGUS (monoclonal gammopathy of unknown significance) D47.2 Dementia F03.90 Depression F32.9 Demand ischemia of myocardium I24.89
[2023-06-10 10:23] LABS: Basophils # (auto) 0.05 K/uL (0.00-0.20); Basophils % (auto) 0.5 %; Eosinophils # (auto) 0.25 K/uL (0.00-0.50); Eosinophils % (auto) 2.5 %; Hematocrit (blood only) 39.5 % (37.0-47.0); Immature Granulocytes # (auto) 0.06 K/uL (0.01-0.20); Immature Granulocytes % (auto) 0.6 %; Lymphocytes # (auto) 0.73 K/uL (1.20-3.40); Lymphocytes % (auto) 7.2 %; Mean Corpuscular Hemoglobin 31.3 pg (25.0-34.0); Mean Corpuscular Hgb Conc 32.9 g/dL (32.0-36.0); Mean Corpuscular Volume 95.2 fL (80.0-100.0); Mean Platelet Volume 9.8 fL (9.4-12.4); Monocytes # (auto) 0.75 K/uL (0.11-0.59); Monocytes % (auto) 7.4 %; Neutrophils # (auto) 8.32 K/uL (1.40-6.50); Neutrophils % (auto) 81.8 %; Platelet Count 195 K/uL (130-400); RDW Standard Deviation 44.6 fL (36.4-46.3); Red Blood Count 4.15 M/uL (4.20-5.40); White Blood Count 10.16 K/ul (4.8-10.8)
[2023-06-10 10:39] LABS: BUN Creatinine Ratio 24.3 (10-20); Calcium 9.5 mg/dl (8.6-10.3); Est GFR (Non-African American) 48.3 ml/min; Potassium 4.3 mmol/L (3.5-5.1)
[2023-06-10] MEDS: ENOXAPARIN INJ 40 MG/0.4 ML SYR SQ SCH (11:30)
[2023-06-10] MEDS: rOPINIRole HCL 2 MG TABLET PO SCH ×2 (16:53→21:20)
[2023-06-10] MEDS: NEOMYCIN/POLYMYX/BACITR OINT 15 GM TUBE EXT PRN (16:56)
--- NOTE | 2023-06-10 18:45 | Hospitalist Progress Note ---
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 No fevers or leukocytosis, no cough. With small pleural effusion right side Consult speech [id number] primarily an esophageal issue and recommends consult to GI Her symptoms of epigastric and subdiaphragmatic pain may be due to the hiatal hernia With low-grade temperatures now resolved, minimal productivecough, and continues with right lateral to posterior rib pain likely muscular strain. No leukocytosis. Consult Surgery for consideration of gastropexy appreciated-plan to f/u as outpt once discharged and pneumonia resolved-appointment made for 07/[address] 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 COuld be some pleuritic pain from pleural effusion or PNA but would not be TTP Lidocaine patch did not help, APAP does not help Low-dose tramadol 25 mg given 1 hour before getting out of bed to the chair also did not help Increased tramadol to 50 Mg p.o. every 4 hours as needed and helps somewhat On 06/09 now with ecchymosis in that region and palpable small lump subcutaneously--> ordered CT abd/pel to assess for hematoma and negative Therefore, likely muscular strain from previous fall-may take several weeks to fully resolve -Continue Voltaren gel and tramadol -monitor for improvement (4) Pleural effusion: Plan: as above, likely small parapneumonic effusion follow CXR until resolved in 4 weeks (5) Idiopathic peripheral neuropathy: Plan: sees Neuro continue gabapentin (6) Hypertension: Plan: BPs have been elevated here due to pain but now are improved -continue amlodipine, lisinopril (7) GERD (gastroesophageal reflux disease): Plan: with h/u PUD with small ulcers in the duodenum on EGD in 12/2022 continue PPI (8) MGUS (monoclonal gammopathy of unknown significance): Plan: noted in chart but unclear history on this (9) Dementia: Plan: follows with Neuro-Alzheimer's type vs vascular dementia continue Namenda, Aricept (10) Depression: Plan: follows with Geriatric Psych, Dr. Zelaya continue clonazepam, bupropion, mirtazapine, and sertraline (11) Demand ischemia of myocardium: Plan: trop very minimally elevated at 16 x 3 no chest pain, likely from pneumonia Plan DVT proph-SQ Lovenox Dispo-cmedically stable for discharge, awaiting rehab placement-referral made to [facility] on Monday Admission and Anticipated Discharge Date Admission Date: June 06, 2023 Anticipated date of discharge: 06/11/23 Subjective Pt reports productive cough of yellow sputum, no SOB. Still has pain in right flank when asked about it but RN reports pt has not complained of pain all day. She has also been sitting in bed all day without much movement. Physical Exam Constitutional: WD/WN, vitals as above Neck: trachea midline, no thyromegaly Respiratory: normal respiratory effort, lungs clear to auscultation Cardiovascular: RRR, no murmur, no edema Chest (Breasts): Chest: normal inspection of chest Gastrointestinal (Abdomen): Inspection/Auscultation: abdomen normal to inspection and normal bowel sounds; abdomen not distended Percussion/Palpation: abdomen soft Musculoskeletal: Extremities: extremities normal to inspection; no cyanosis and no clubbing +TTP over right lower torso Skin: no rashes, warm and dry Neurologic: moves all extremities and awake; no focal motor deficits Psychiatric: Orientation: alert, oriented to person, oriented to place and cooperative Affect: + anxious affect Lymphatic: no lymphedema Results & Data Results & Data Vital Signs (Past 12 Hours) Vital Signs Temp Pulse Resp BP Pulse Ox O2 Del Method 06/10/23 14:11 36.7 C 70 17 128/70 93 Room Air 06/10/23 07:50 Room Air 06/10/23 07:07 36.5 C 60 17 157/69 H 93 Room Air Laboratory Results CBC, BMP, blood cxs reviewed PG Care Time/CCT Total # of Minutes Spent Total Time Spent with Patient: Total time spent is greater than 50% in coordination of care (as documented) at patient's floor/unit and/or counseling patient: Coding Level of Care Code 15373 SUB INP/OBS CARE 2/35MIN Diagnoses Aspiration pneumonia J69.0 Hiatal hernia K44.9 Acute right flank pain R10.9 Pleural effusion J90 Idiopathic peripheral neuropathy G60.9 Hypertension I10 GERD (gastroesophageal reflux disease) K21.9 MGUS (monoclonal gammopathy of unknown significance) D47.2 Dementia F03.90 Depression F32.9 Demand ischemia of myocardium I24.89
[2023-06-10] MEDS: traMADol HCL 50 MG TABLET PO PRN (19:32)
[2023-06-10] MEDS: MIRTAZAPINE TAB 15 MG TAB PO SCH (21:20)
[2023-06-10] MEDS: SERTRALINE HCL 100 MG TABLET PO SCH (21:20)
[2023-06-10] MEDS: DONEPEZIL HCL 10 MG TAB PO SCH (21:21)
[2023-06-10] MEDS: BENZONATATE 100 MG CAPSULE PO PRN (21:21)
[2023-06-10] MEDS: MELATONIN 3 MG TAB PO SCH (21:31)
[2023-06-11] MEDS: CEFEPIME 2,000 MG in SYRINGE 0 ML IV SCH (03:13)
[2023-06-11] MEDS: DOXYCYCLINE HYCLATE 100 MG in DEXTROSE 5% MINI-B 100 ML IV SCH (03:14)
[2023-06-11] MEDS: MEMANTINE HCL 10 MG TAB PO SCH ×2 (07:56→21:07)
[2023-06-11] MEDS: EZETIMIBE 10 MG TAB PO SCH (07:56)
[2023-06-11] MEDS: lisinopril 20 MG TAB PO SCH (07:56)
[2023-06-11] MEDS: amLODIPine BESYLATE 5 MG TAB PO SCH (07:56)
[2023-06-11] MEDS: rOPINIRole HCL 2 MG TABLET PO SCH ×2 (07:57→21:08)
[2023-06-11] MEDS: PANTOprazole 40 MG TAB PO SCH (07:57)
[2023-06-11] MEDS: DICLOFENAC SOD 1% GEL 100 GM TUBE EXT SCH ×4 (07:57→21:09)
[2023-06-11] MEDS: ASPIRIN 81 MG ECTAB PO SCH (08:50)
[2023-06-11] MEDS: clonazePAM 0.5 MG TAB PO SCH ×2 (08:50→21:07)
[2023-06-11] MEDS: buPROPion XL 150 MG TABCR PO SCH (08:51)
[2023-06-11] MEDS: POLYETHYLENE (MIRALAX) 17 GM PACK PO SCH (08:51)
[2023-06-11] MEDS: GABAPENTIN 100 MG CAP PO SCH ×3 (08:51→21:07)
[2023-06-11 09:12] LABS: Basophils # (auto) 0.05 K/uL (0.00-0.20); Basophils % (auto) 0.6 %; Eosinophils # (auto) 0.28 K/uL (0.00-0.50); Eosinophils % (auto) 3.1 %; Hematocrit (blood only) 38.5 % (37.0-47.0); Hemoglobin 12.7 g/dl (12.0-16.0); Immature Granulocytes # (auto) 0.13 K/uL (0.01-0.20); Immature Granulocytes % (auto) 1.4 %; Lymphocytes # (auto) 1.25 K/uL (1.20-3.40); Lymphocytes % (auto) 13.9 %; Mean Corpuscular Hemoglobin 31.8 pg (25.0-34.0); Mean Corpuscular Volume 96.5 fL (80.0-100.0); Mean Platelet Volume 10.3 fL (9.4-12.4); Monocytes # (auto) 0.94 K/uL (0.11-0.59); Monocytes % (auto) 10.5 %; Neutrophils # (auto) 6.33 K/uL (1.40-6.50); Neutrophils % (auto) 70.5 %; Platelet Count 215 K/uL (130-400); RDW Coefficient of Variation 13.1 % (11.5-14.5); RDW Standard Deviation 46.5 fL (36.4-46.3); Red Blood Count 3.99 M/uL (4.20-5.40); White Blood Count 8.98 K/ul (4.8-10.8)
[2023-06-11 09:33] LABS: BUN Creatinine Ratio 30.2 (10-20); Calcium 9.3 mg/dl (8.6-10.3); Est GFR (African American) 50.8 ml/min; Est GFR (Non-African American) 43.8 ml/min; Potassium 4.5 mmol/L (3.5-5.1)
--- NOTE | 2023-06-11 09:59 | XRay Report ---
XR chest 1V portable HISTORY: 82 years-old Female pneumonia acute shortness of breath COMPARISON: 06/06/2023 TECHNIQUE: AP view of the chest FINDINGS: Cardiac silhouette is enlarged. Interstitial coarsening with persistent right upper lobe and left bas ilar airspace opacities. No pneumothorax, large pleural effusion or overt pulmonary edema. Bones appe ar grossly intact. IMPRESSION: 1. Cardiomegaly without pulmonary edema. 2. Persistent right upper and left lower lobe airspace opacities suggestive of pneumonia. Continued f ollow-up recommended. ACT 112: Negative or not required by law. The above report was generated using voice recognition software. It may contain grammatical, syntax o r spelling errors. Electronically signed by: Satish Lu M.D. 06/11/2023 9:58 AM
--- NOTE | 2023-06-11 12:31 | Hospitalist Progress Note ---
Date of Service June 11, 2023 Assessment & Plan (1) Aspiration pneumonia: Plan: Multifocal, bilateral aspiration pneumonia. Currently on cefepime and doxycycline. We will switch to oral Augmentin at discharge. Repeat portable chest x-ray obtained today, June 11 with continued infiltrate seen in the right upper lobe and left lower lobe. Outpatient chest x-rays will need to be obtained until complete resolution of these findings. Known large hiatal hernia was evaluated by general surgery. No intervention at this time. (2) Hiatal hernia: Plan: Appreciate general surgery consultation and recommendations. No intervention at this time. (3) Acute right flank pain: Plan: Superficial and palpable. Appears to be musculoskeletal. Continue tramadol as needed. Parenteral steroid therapy started today, June 11 (4) Pleural effusion: Plan: likely small parapneumonic effusion. Serial outpatient CXR until resolved (5) Hypertension: Plan: Stable. Continue amlodipine, lisinopril (6) GERD (gastroesophageal reflux disease): Plan: with h/u PUD with small ulcers in the duodenum on EGD in 12/2022. Continue PPI (7) Dementia: Plan: Supportive care. Continue Namenda, Aricept (8) Depression: Plan: Stable. Continue clonazepam, bupropion, mirtazapine, and sertraline (9) Demand ischemia of myocardium: Plan: trop minimally elevated. No chest pain. No acute EKG changes Plan Hopeful discharge to [facility] soon on oral antibiotic. She is medically stable for discharge Admission and Anticipated Discharge Date Admission Date: June 06, 2023 Subjective Alert and oriented. No distress. Main complaint is persistent right flank pain that is superficial and appears to be musculoskeletal. She is on tramadol as needed. Parenteral steroid therapy has been added. Repeat portable chest x-ray continues to show right upper lobe and left lower lobe infiltrates. Serial chest x-rays will need to be obtained as an outpatient until complete resolution as documented. Speech therapy has recommended continued. Diet. Surgical consultation noted for large hiatal hernia. She remains on intravenous cefepime and doxycycline while hospitalized. We will switch to Augmentin at discharge Review of Systems Review of Systems: Constitutional-no fever or chills ENT-no blurred vision, no double vision, no epistaxis, no sore throat Respiratory-no cough, no wheezing, no shortness of breath Cardiac-no palpitations, no chest pain, no syncope GI-no nausea, vomiting, diarrhea, melena, hematochezia -no urinary retention, no urinary incontinence, no dysuria, no hematuria Musculoskeletal-superficial right flank pain. No rash or eruption Skin-no bruising, no rashes, no pruritus Neuro-no isolated weakness, no paresthesia, no weakness Psych-no depression, no anxiety Physical Exam Physical Exam: General-alert and oriented x3, no fevers, no chills HEENT-head atraumatic and normocephalic, pupils equal and reactive to light, ex traocular muscles intact Neck-no lymphadenopathy or thyromegaly, trachea midline Chest-clear to auscultation percussion. No rales, wheezing or rhonchi Cardiac-regular rate and rhythm, normal S1 and S2 Abdomen-normal bowel sounds, nontender, no hepatosplenomegaly Extremities-no cyanosis, clubbing, or edema Neuro-cranial nerves II through XII intact, motor and sensory function within normal limits, strength symmetrical , no focal deficits Psych-normal affect, normal mood Results & Data Results & Data Vital Signs (Past 12 Hours) Vital Signs Temp Pulse Resp BP Pulse Ox O2 Del Method 06/11/23 10:10 Room Air 06/11/23 07:36 36.7 C 58 L 17 163/84 H 91 Room Air Laboratory Results 06/11/23 08:03 06/11/23 08:03 PG Care Time/CCT Total # of Minutes Spent Total Time Spent with Patient: Total time spent is greater than 50% in coordination of care (as documented) at patient's floor/unit and/or counseling patient: Coding Level of Care Code 98775 SUB INP/OBS CARE 3/50MIN Diagnoses Aspiration pneumonia J69.0 Hiatal hernia K44.9 Acute right flank pain R10.9 Pleural effusion J90 Hypertension I10 GERD (gastroesophageal reflux disease) K21.9 Dementia F03.90 Depression F32.9 Demand ischemia of myocardium I24.89
[2023-06-11] MEDS: ENOXAPARIN INJ 40 MG/0.4 ML SYR SQ SCH (12:46)
[2023-06-11] MEDS: methylPREDNISolone 40 MG in SYRINGE 0 ML IV SCH ×2 (14:06→21:09)
[2023-06-11] MEDS: AMOXICILLIN/CLAVULANATE 500 MG TAB PO SCH ×2 (14:06→18:01)
[2023-06-11] MEDS: traMADol HCL 50 MG TABLET PO PRN (21:06)
[2023-06-11] MEDS: MELATONIN 3 MG TAB PO SCH (21:07)
[2023-06-11] MEDS: BENZONATATE 100 MG CAPSULE PO PRN (21:07)
[2023-06-11] MEDS: MIRTAZAPINE TAB 15 MG TAB PO SCH (21:07)
[2023-06-11] MEDS: DONEPEZIL HCL 10 MG TAB PO SCH (21:07)
[2023-06-11] MEDS: SERTRALINE HCL 100 MG TABLET PO SCH (21:08)
[2023-06-12] MEDS: methylPREDNISolone 40 MG in SYRINGE 0 ML IV SCH ×3 (05:41→21:09)
[2023-06-12 07:58] LABS: Basophils # (auto) 0.02 K/uL (0.00-0.20); Basophils % (auto) 0.2 %; Hematocrit (blood only) 37.9 % (37.0-47.0); Hemoglobin 12.3 g/dl (12.0-16.0); Immature Granulocytes # (auto) 0.09 K/uL (0.01-0.20); Immature Granulocytes % (auto) 0.9 %; Lymphocytes # (auto) 0.74 K/uL (1.20-3.40); Lymphocytes % (auto) 7.3 %; Mean Corpuscular Hemoglobin 31.4 pg (25.0-34.0); Mean Corpuscular Hgb Conc 32.5 g/dL (32.0-36.0); Mean Corpuscular Volume 96.7 fL (80.0-100.0); Mean Platelet Volume 10.6 fL (9.4-12.4); Monocytes # (auto) 0.35 K/uL (0.11-0.59); Monocytes % (auto) 3.5 %; Neutrophils # (auto) 8.93 K/uL (1.40-6.50); Neutrophils % (auto) 88.1 %; Platelet Count 223 K/uL (130-400); RDW Coefficient of Variation 12.9 % (11.5-14.5); RDW Standard Deviation 45.7 fL (36.4-46.3); Red Blood Count 3.92 M/uL (4.20-5.40); White Blood Count 10.13 K/ul (4.8-10.8)
[2023-06-12 08:18] LABS: BUN Creatinine Ratio 35.1 (10-20); Calcium 9.4 mg/dl (8.6-10.3); Creatinine Clr Calc Pharmacy 36.6 ml/min; Est GFR (African American) 53.6 ml/min; Est GFR (Non-African American) 46.2 ml/min; Potassium 4.9 mmol/L (3.5-5.1)
[2023-06-12] MEDS: AMOXICILLIN/CLAVULANATE 500 MG TAB PO SCH ×3 (09:09→16:56)
[2023-06-12] MEDS: ASPIRIN 81 MG ECTAB PO SCH (09:10)
[2023-06-12] MEDS: GABAPENTIN 100 MG CAP PO SCH ×3 (09:10→20:07)
[2023-06-12] MEDS: EZETIMIBE 10 MG TAB PO SCH (09:10)
[2023-06-12] MEDS: buPROPion XL 150 MG TABCR PO SCH (09:10)
[2023-06-12] MEDS: amLODIPine BESYLATE 5 MG TAB PO SCH (09:10)
[2023-06-12] MEDS: PANTOprazole 40 MG TAB PO SCH (09:11)
[2023-06-12] MEDS: lisinopril 20 MG TAB PO SCH (09:11)
[2023-06-12] MEDS: MEMANTINE HCL 10 MG TAB PO SCH ×2 (09:11→20:06)
[2023-06-12] MEDS: POLYETHYLENE (MIRALAX) 17 GM PACK PO SCH (09:14)
[2023-06-12] MEDS: clonazePAM 0.5 MG TAB PO SCH ×2 (09:14→20:06)
[2023-06-12] MEDS: DICLOFENAC SOD 1% GEL 100 GM TUBE EXT SCH ×4 (09:16→20:07)
--- NOTE | 2023-06-12 11:36 | XRay Report ---
XR ribs RT min 2V w CXR1V CLINICAL HISTORY: right lower rib pain TECHNIQUE: 3 views of the right ribs were obtained. Single frontal view of the chest was obtained. Comparison: Comparison is made to chest radiograph 06/11/2023 FINDINGS: No fractures are seen. The chest wall and soft tissues are normal. Posterior fixation hardware is in the lumbar spine. Degenerative changes are noted in the spinal column. No lines and tubes are seen. The cardiomediastinal silhouette is normal. Airspace opacity is seen in the left lung base, likely representing atelectasis with or without superimposed pneumonia. Ill-defin ed opacity in the right upper lobe is unchanged from prior exam and compatible with history of pneumo cody. No evidence of pleural effusion or pneumothorax. IMPRESSION: 1. No evidence of acute fracture. 2. Airspace opacity in the right upper lobe likely reflects pneumonia. Atelectasis and/or pneumonia in the left lower lobe. ACT 112: Negative or not required by law. Electronically signed by: Walter Guzman M.D. 06/12/2023 11:35 AM
--- NOTE | 2023-06-12 11:46 | Hospitalist Progress Note ---
Date of Service June 12, 2023 Assessment & Plan (1) Aspiration pneumonia: Plan: Multifocal, bilateral aspiration pneumonia. Treated initially with cefepime and doxycycline. Now on oral Augmentin. Repeat portable chest x-ray obtained on June 11 revealed continued infiltrate seen in the right upper lobe and left lower lobe. Outpatient chest x-rays will need to be obtained until complete resolution of these findings. Known large hiatal hernia was evaluated by general surgery. No intervention at this time. (2) Hiatal hernia: Plan: Appreciate general surgery consultation and recommendations. No intervention at this time. (3) Acute right flank pain: Plan: Superficial and palpable. Appears to be musculoskeletal. Continue tramadol as needed along with parenteral steroid therapy. Rib x-rays negative for unde rlying fracture. She may have a lower rib contusion or intercostal muscle tear. (4) Pleural effusion: Plan: likely small parapneumonic effusion. Serial outpatient CXR until resolved (5) Hypertension: Plan: Stable. Continue amlodipine, lisinopril (6) GERD (gastroesophageal reflux disease): Plan: with h/u PUD with small ulcers in the duodenum on EGD in 12/2022. Continue PPI (7) Dementia: Plan: Supportive care. Continue Namenda, Aricept (8) Depression: Plan: Stable. Continue clonazepam, bupropion, mirtazapine, and sertraline (9) Demand ischemia of myocardium: Plan: trop minimally elevated. No chest pain. No acute EKG changes Plan [facility]ful discharge to [facility] soon on oral antibiotic. She is medically stable for discharge Admission and Anticipated Discharge Date Admission Date: June 06, 2023 Subjective She continues to complain of right lower rib discomfort. X-rays negative for fracture. She may have a rib contusion or intercostal muscle tear. Continue parenteral steroid therapy for now. Overall she is stable. Hopefully she can go [facility]. Review of Systems Review of Systems: Constitutional-no fever or chills ENT-no blurred vision, no double vision, no epistaxis, no sore throat Respiratory-no cough, no wheezing, no shortness of breath Cardiac-no palpitations, no chest pain, no syncope GI-no nausea, vomiting, diarrhea, melena, hematochezia -no urinary retention, no urinary incontinence, no dysuria, no hematuria Musculoskeletal-superficial right flank pain. No rash or eruption Skin-no bruising, no rashes, no pruritus Neuro-no isolated weakness, no paresthesia, no weakness Psych-no depression, no anxiety Physical Exam Physical Exam: General-alert and oriented x3, no fevers, no chills HEENT-head atraumatic and normocephalic, pupils equal and reactive to light, extraocular muscles intact Neck-no lymphadenopathy or thyromegaly, trachea midline Chest-clear to auscultation percussion. No rales, wheezing or rhonchi Cardiac-regular rate and rhythm, normal S1 and S2 Abdomen-normal bowel sounds, nontender, no hepatosplenomegaly Extremities-no cyanosis, clubbing, or edema Neuro-cranial nerves II through XII intact, motor and sensory function within n ormal limits, strength symmetrical , no focal deficits Psych-normal affect, normal mood Results & Data Results & Data Vital Signs (Past 12 Hours) Vital Signs Temp Pulse Resp BP Pulse Ox O2 Del Method 06/12/23 07:45 Room Air 06/12/23 06:57 36.6 C 58 L 16 155/75 H 93 Room Air Laboratory Results 06/12/23 06:50 06/12/23 06:50 PG Care Time/CCT Total # of Minutes Spent Total Time Spent with Patient: Total time spent is greater than 50% in coordination of care (as documented) at patient's floor/unit and/or counseling patient: Coding Level of Care Code 50730 SUB INP/OBS CARE 3/50MIN Diagnoses Aspiration pneumonia J69.0 Hiatal hernia K44.9 Acute right flank pain R10.9 Pleural effusion J90 Hypertension I10 GERD (gastroesophageal reflux disease) K21.9 Dementia F03.90 Depression F32.9 Demand ischemia of myocardium I24.89
[2023-06-12] MEDS: ENOXAPARIN INJ 40 MG/0.4 ML SYR SQ SCH (12:15)
[2023-06-12] MEDS: rOPINIRole HCL 2 MG TABLET PO SCH ×2 (16:56→21:08)
[2023-06-12] MEDS: MELATONIN 3 MG TAB PO SCH (20:06)
[2023-06-12] MEDS: MIRTAZAPINE TAB 15 MG TAB PO SCH (20:06)
[2023-06-12] MEDS: DONEPEZIL HCL 10 MG TAB PO SCH (20:07)
[2023-06-12] MEDS: SERTRALINE HCL 100 MG TABLET PO SCH (20:07)
[2023-06-13] MEDS: BENZONATATE 100 MG CAPSULE PO PRN ×2 (04:27→20:19)
[2023-06-13] MEDS: COUGH DROP (SUGAR FREE) LOZ 24 LOZ/1 BOX BUCCAL PRN ×3 (04:28→20:20)
[2023-06-13] MEDS: methylPREDNISolone 40 MG in SYRINGE 0 ML IV SCH (05:15)
[2023-06-13 08:27] LABS: Basophils # (auto) 0.03 K/uL (0.00-0.20); Basophils % (auto) 0.2 %; Hematocrit (blood only) 41.4 % (37.0-47.0); Hemoglobin 13.1 g/dl (12.0-16.0); Immature Granulocytes # (auto) 0.09 K/uL (0.01-0.20); Immature Granulocytes % (auto) 0.7 %; Lymphocytes # (auto) 0.98 K/uL (1.20-3.40); Lymphocytes % (auto) 7.1 %; Mean Corpuscular Hemoglobin 31.3 pg (25.0-34.0); Mean Corpuscular Hgb Conc 31.6 g/dL (32.0-36.0); Mean Platelet Volume 10.3 fL (9.4-12.4); Monocytes # (auto) 0.39 K/uL (0.11-0.59); Monocytes % (auto) 2.8 %; Neutrophils # (auto) 12.24 K/uL (1.40-6.50); Neutrophils % (auto) 89.2 %; Platelet Count 213 K/uL (130-400); RDW Coefficient of Variation 13.1 % (11.5-14.5); RDW Standard Deviation 47.4 fL (36.4-46.3); Red Blood Count 4.18 M/uL (4.20-5.40); White Blood Count 13.73 K/ul (4.8-10.8)
[2023-06-13] MEDS: AMOXICILLIN/CLAVULANATE 500 MG TAB PO SCH ×3 (08:37→16:50)
[2023-06-13] MEDS: amLODIPine BESYLATE 5 MG TAB PO SCH (08:37)
[2023-06-13] MEDS: DICLOFENAC SOD 1% GEL 100 GM TUBE EXT SCH ×4 (08:38→20:20)
[2023-06-13] MEDS: ASPIRIN 81 MG ECTAB PO SCH (08:38)
[2023-06-13] MEDS: buPROPion XL 150 MG TABCR PO SCH (08:38)
[2023-06-13] MEDS: MEMANTINE HCL 10 MG TAB PO SCH ×2 (08:39→20:18)
[2023-06-13] MEDS: EZETIMIBE 10 MG TAB PO SCH (08:39)
[2023-06-13] MEDS: PANTOprazole 40 MG TAB PO SCH (08:39)
[2023-06-13] MEDS: lisinopril 20 MG TAB PO SCH (08:39)
[2023-06-13] MEDS: GABAPENTIN 100 MG CAP PO SCH ×3 (08:39→20:17)
[2023-06-13] MEDS: clonazePAM 0.5 MG TAB PO SCH ×2 (08:41→20:19)
[2023-06-13 08:44] LABS: Calcium 9.7 mg/dl (8.6-10.3); Potassium 5.4 mmol/L (3.5-5.1)
[2023-06-13 08:49] LABS: BUN Creatinine Ratio 39.1 (10-20); Creatinine Clr Calc Pharmacy 36.9 ml/min; Est GFR (African American) 54.1 ml/min; Est GFR (Non-African American) 46.7 ml/min
[2023-06-13] MEDS: POLYETHYLENE (MIRALAX) 17 GM PACK PO SCH (08:49)
[2023-06-13] MEDS: ENOXAPARIN INJ 40 MG/0.4 ML SYR SQ SCH (12:24)
[2023-06-13] MEDS: SODIUM ZIRCONIUM CYCLOSILICATE 10 GM PACKET PO SCH ×2 (14:45→20:16)
[2023-06-13] MEDS: predniSONE 10 MG TABLET PO SCH ×2 (14:46→20:17)
--- NOTE | 2023-06-13 15:25 | Hospitalist Progress Note ---
Date of Service June 13, 2023 Assessment & Plan (1) Aspiration pneumonia: Plan: Multifocal, bilateral aspiration pneumonia. Treated initially with cefepime and doxycycline. Now on oral Augmentin. Repeat portable chest x-ray obtained today, June 13, looks better to my eye. Chest x-ray should be repeated periodically until infiltrates have completely resolved. Known large hiatal hernia was evaluated by general surgery. No intervention at this time. (2) Hiatal hernia: Plan: Appreciate general surgery consultation and recommendations. No intervention at this time. (3) Hyperkalemia: Plan: Lisinopril discontinued. Lokelma ordered. Serial labs (4) Acute right flank pain: Plan: Superficial and palpable. Appears to be musculoskeletal. Continue tramadol as needed along with parenteral steroid therapy. Rib x-rays negative for underlying fracture. She may have a lower rib contusion or intercostal muscle tear. (5) Pleural effusion: Plan: likely small parapneumonic effusion. Serial outpatient CXR until resolved (6) Hypertension: Plan: Stable. Continue amlodipine, lisinopril (7) GERD (gastroesophageal reflux disease): Plan: with h/u PUD with small ulcers in the duodenum on EGD in 12/2022. Continue PPI (8) Dementia: Plan: Supportive care. Continue Namenda, Aricept (9) Depression: Plan: Stable. Continue clonazepam, bupropion, mirtazapine, and sertraline (10) Demand ischemia of myocardium: Plan: trop minimally elevated. No chest pain. No acute EKG changes Plan Hopeful discharge to [facility] tomorrow, June 14 Admission and Anticipated Discharge Date Admission Date: June 06, 2023 Subjective Alert and oriented. No new problems. Alert and oriented. No new problems. She still has intermittent right flank pain that appears to be of lower right rib etiology. She may have an intercostal muscle tear. I suspect the pain will eventually resolve. No significant pathology on CT scan or other imaging. Her chest x-ray today, June 13, looks better to my eye. She remains on oral Augmentin therapy. Hyperkalemia noted. Lisinopril discontinued and Lokelma started. Serial labs ordered. Parenteral steroid therapy switched to oral prednisone. Hopeful discharge to [facility] tomorrow, June 14 Review of Systems Review of Systems: Constitutional-no fever or chills ENT-no blurred vision, no double vision, no epistaxis, no sore throat Respiratory-no cough, no wheezing, no shortness of breath Cardiac-no palpitations, no chest pain, no syncope GI-no nausea, vomiting, diarrhea, melena, hematochezia -no urinary retention, no urinary incontinence, no dysuria, no hematuria Musculoskeletal-superficial right flank pain. No rash or eruption Skin-no bruising, no rashes, no pruritus Neuro-no isolated weakness, no paresthesia, no weakness Psych-no depression, no anxiety Physical Exam Physical Exam: General-alert and oriented x3, no fevers, no chills HEENT-head atraumatic and normocephalic, pupils equal and reactive to light, extraocular muscles intact Neck-no lymphadenopathy or thyromegaly, trachea midline Chest-clear to auscultation percussion. No rales, wheezing or rhonchi Cardiac-regular rate and rhythm, normal S1 and S2 Abdomen-normal bowel sounds, nontender, no hepatosplenomegaly Extremities-no cyanosis, clubbing, or edema Neuro-cranial nerves II through XII intact, motor and sensory function within no rmal limits, strength symmetrical , no focal deficits Psych-normal affect, normal mood Results & Data Results & Data Vital Signs (Past 12 Hours) Vital Signs Temp Pulse Resp BP Pulse Ox O2 Del Method 06/13/23 08:45 Room Air 06/13/23 07:55 36.5 C 73 16 187/100 H 93 Room Air Laboratory Results 06/13/23 07:54 06/13/23 07:54 PG Care Time/CCT Total # of Minutes Spent Total Time Spent with Patient: Total time spent is greater than 50% in coordination of care (as documented) at patient's floor/unit and/or counseling patient: Coding Level of Care Code 58645 SUB INP/OBS CARE 3/50MIN Diagnoses Aspiration pneumonia J69.0 Hiatal hernia K44.9 Hyperkalemia E87.5 Acute right flank pain R10.9 Pleural effusion J90 Hypertension I10 GERD (gastroesophageal reflux disease) K21.9 Dementia F03.90 Depression F32.9 Demand ischemia of myocardium I24.89
--- NOTE | 2023-06-13 16:23 | XRay Report ---
XR chest 1V portable HISTORY: pneumonia COMPARISON: Chest 06/11/2023 and 06/12/2023. FINDINGS: No pneumothorax. The heart remains mildly enlarged. Right upper lobe patchy airspace opacit ies persist. Left basilar densities have slightly improved. No evidence for pulmonary edema. No pleur al effusions. Elevated left hemidiaphragm again noted. IMPRESSION: 1. Patchy right upper lobe airspace opacities persist. 2. Left basilar airspace opacities have slightly improved. ACT 112: Negative or not required by law. Electronically signed by: Aden Pappas M.D. 06/13/2023 4:22 PM
[2023-06-13] MEDS: rOPINIRole HCL 2 MG TABLET PO SCH ×2 (16:50→21:08)
[2023-06-13] MEDS: MIRTAZAPINE TAB 15 MG TAB PO SCH (20:17)
[2023-06-13] MEDS: SERTRALINE HCL 100 MG TABLET PO SCH (20:17)
[2023-06-13] MEDS: DONEPEZIL HCL 10 MG TAB PO SCH (20:18)
[2023-06-13] MEDS: MELATONIN 3 MG TAB PO SCH (20:18)
[2023-06-14] MEDS: COUGH DROP (SUGAR FREE) LOZ 24 LOZ/1 BOX BUCCAL PRN ×2 (04:48→19:37)
[2023-06-14] MEDS: BENZONATATE 100 MG CAPSULE PO PRN ×3 (04:48→17:49)
[2023-06-14 08:01] LABS: Basophils # (auto) 0.02 K/uL (0.00-0.20); Basophils % (auto) 0.2 %; Eosinophils # (auto) 0.01 K/uL (0.00-0.50); Eosinophils % (auto) 0.1 %; Hematocrit (blood only) 43.1 % (37.0-47.0); Hemoglobin 13.4 g/dl (12.0-16.0); Immature Granulocytes # (auto) 0.12 K/uL (0.01-0.20); Lymphocytes % (auto) 9.5 %; Mean Corpuscular Hemoglobin 30.6 pg (25.0-34.0); Mean Corpuscular Hgb Conc 31.1 g/dL (32.0-36.0); Mean Corpuscular Volume 98.4 fL (80.0-100.0); Mean Platelet Volume 10.3 fL (9.4-12.4); Monocytes # (auto) 0.87 K/uL (0.11-0.59); Monocytes % (auto) 6.9 %; Neutrophils # (auto) 10.39 K/uL (1.40-6.50); Neutrophils % (auto) 82.3 %; Platelet Count 244 K/uL (130-400); RDW Standard Deviation 46.9 fL (36.4-46.3); Red Blood Count 4.38 M/uL (4.20-5.40); White Blood Count 12.61 K/ul (4.8-10.8)
[2023-06-14 08:16] LABS: BUN Creatinine Ratio 37.6 (10-20); Calcium 9.5 mg/dl (8.6-10.3); Creatinine Clr Calc Pharmacy 40.2 ml/min; Est GFR (Non-African American) 51.8 ml/min; Potassium 4.8 mmol/L (3.5-5.1)
[2023-06-14] MEDS: EZETIMIBE 10 MG TAB PO SCH (09:06)
[2023-06-14] MEDS: AMOXICILLIN/CLAVULANATE 500 MG TAB PO SCH ×3 (09:06→17:39)
[2023-06-14] MEDS: traMADol HCL 50 MG TABLET PO PRN (09:06)
[2023-06-14] MEDS: PANTOprazole 40 MG TAB PO SCH (09:06)
[2023-06-14] MEDS: predniSONE 10 MG TABLET PO SCH ×3 (09:06→19:37)
[2023-06-14] MEDS: MEMANTINE HCL 10 MG TAB PO SCH ×2 (09:06→19:38)
[2023-06-14] MEDS: buPROPion XL 150 MG TABCR PO SCH (09:06)
[2023-06-14] MEDS: GABAPENTIN 100 MG CAP PO SCH ×3 (09:06→19:38)
[2023-06-14] MEDS: ASPIRIN 81 MG ECTAB PO SCH (09:06)
[2023-06-14] MEDS: amLODIPine BESYLATE 5 MG TAB PO SCH (09:06)
[2023-06-14] MEDS: POLYETHYLENE (MIRALAX) 17 GM PACK PO SCH (09:07)
[2023-06-14] MEDS: DICLOFENAC SOD 1% GEL 100 GM TUBE EXT SCH ×4 (09:07→19:37)
[2023-06-14] MEDS: SODIUM ZIRCONIUM CYCLOSILICATE 10 GM PACKET PO SCH (09:07)
[2023-06-14] MEDS: clonazePAM 0.5 MG TAB PO SCH ×2 (09:07→19:38)
[2023-06-14] MEDS: ENOXAPARIN INJ 40 MG/0.4 ML SYR SQ SCH (12:21)
--- NOTE | 2023-06-14 13:28 | Hospitalist Progress Note ---
Date of Service June 14, 2023 Assessment & Plan (1) Aspiration pneumonia: Plan: Multifocal, bilateral aspiration pneumonia. Treated initially with cefepime and doxycycline. Now on oral Augmentin. Repeat portable chest x-ray obtained on June 13 has improved. Chest x-ray should be repeated periodically until infiltrates have completely resolved. Known large hiatal hernia was evaluated by general surgery. No intervention at this time. (2) Hiatal hernia: Plan: Appreciate general surgery consultation and recommendations. No intervention at this time. (3) Hyperkalemia: Plan: Lisinopril discontinued. Now normalized. Lokelma has been discontinued. Serial labs (4) Acute right flank pain: Plan: Superficial and palpable. Appears to be musculoskeletal. Continue tramadol as needed. Solu-Medrol has been switched to oral prednisone. This will be tapered off within the next week or 2. Rib x-rays negative for underlying fracture. She may have a lower rib contusion or intercostal muscle tear. (5) Pleural effusion: Plan: likely small parapneumonic effusion. Serial outpatient CXR until resolved (6) Hypertension: Plan: Blood pressure running a little high since lisinopril was discontinued. Amlodip ine dosage uptitrated today, June 14 l (7) GERD (gastroesophageal reflux disease): Plan: with h/u PUD with small ulcers in the duodenum on EGD in 12/2022. Continue PPI (8) Dementia: Plan: Supportive care. Continue Namenda, Aricept (9) Depression: Plan: Stable. Continue clonazepam, bupropion, mirtazapine, and sertraline (10) Demand ischemia of myocardium: Plan: trop minimally elevated. No chest pain. No acute EKG changes [facility] are finalized Admission and Anticipated Discharge Date Admission Date: June 06, 2023 Subjective Alert and oriented. She does not complain of any musculoskeletal pain until asked about it. Potassium has improved to 4.8. Lokelma has been discontinued. Blood pressure is running a little high since lisinopril was discontinued. Amlodipine uptitrated to 10 mg daily. She is now on oral Augmentin and the chest x-ray obtained June 13 looks better. We will [facility] a prednisone taper and Augmentin when arrangements are finalized Review of Systems Review of Systems: Constitutional-no fever or chills ENT-no blurred vision, no double vision, no epistaxis, no sore throat Respiratory-no cough, no wheezing, no shortness of breath Cardiac-no palpitations, no chest pain, no syncope GI-no nausea, vomiting, diarrhea, melena, hematochezia -no urinary retention, no urinary incontinence, no dysuria, no hematuria Musculoskeletal-superficial right flank pain. No rash or eruption Skin-no bruising, no rashes, no pruritus Neuro-no isolated weakness, no paresthesia, no weakness Psych-no depression, no anxiety Physical Exam Physical Exam: General-alert and oriented x3, no fevers, no chills HEENT-head atraumatic and normocephalic, pupils equal and reactive to light, extraocular muscles intact Neck-no lymphadenopathy or thyromegaly, trachea midline Chest-clear to auscultation percussion. No rales, wheezing or rhonchi Cardiac-regular rate and rhythm, normal S1 and S2 Abdomen-normal bowel sounds, nontender, no hepatosplenomegaly Extremities-no cyanosis, clubbing, or edema Neuro-cranial nerves II through XII intact, motor and sensory function within normal limits, strength symmetrical , no focal deficits Psych-normal affect, normal mood Results & Data Results & Data Vital Signs (Past 12 Hours) Vital Signs Temp Pulse Resp BP Pulse Ox O2 Del Method 06/14/23 09:17 36.3 C L 74 18 173/77 H 94 Room Air Laboratory Results 06/14/23 07:24 06/14/23 07:24 PG Care Time/CCT Total # of Minutes Spent Total Time Spent with Patient: Total time spent is greater than 50% in coordination of care (as documented) at patient's floor/unit and/or counseling patient: Coding Level of Care Code 85955 SUB INP/OBS CARE 3/50MIN Diagnoses Aspiration pneumonia J69.0 Hiatal hernia K44.9 Hyperkalemia E87.5 Acute right flank pain R10.9 Pleural effusion J90 Hypertension I10 GERD (gastroesophageal reflux disease) K21.9 Dementia F03.90 Depression F32.9 Demand ischemia of myocardium I24.89
[2023-06-14] MEDS: rOPINIRole HCL 2 MG TABLET PO SCH ×2 (17:39→21:21)
[2023-06-14] MEDS: MIRTAZAPINE TAB 15 MG TAB PO SCH (19:37)
[2023-06-14] MEDS: DONEPEZIL HCL 10 MG TAB PO SCH (19:38)
[2023-06-14] MEDS: SERTRALINE HCL 100 MG TABLET PO SCH (19:38)
[2023-06-14] MEDS: MELATONIN 3 MG TAB PO SCH (19:39)
[2023-06-15] MEDS: BENZONATATE 100 MG CAPSULE PO PRN ×2 (05:21→08:28)
[2023-06-15] MEDS: COUGH DROP (SUGAR FREE) LOZ 24 LOZ/1 BOX BUCCAL PRN (05:21)
[2023-06-15] MEDS: AMOXICILLIN/CLAVULANATE 500 MG TAB PO SCH ×2 (08:27→11:23)
[2023-06-15] MEDS: EZETIMIBE 10 MG TAB PO SCH (08:28)
[2023-06-15] MEDS: predniSONE 10 MG TABLET PO SCH (08:28)
[2023-06-15] MEDS: ASPIRIN 81 MG ECTAB PO SCH (08:28)
[2023-06-15] MEDS: GABAPENTIN 100 MG CAP PO SCH (08:28)
[2023-06-15] MEDS: DICLOFENAC SOD 1% GEL 100 GM TUBE EXT SCH ×2 (08:28→11:23)
[2023-06-15] MEDS: traMADol HCL 50 MG TABLET PO PRN (08:28)
[2023-06-15] MEDS: buPROPion XL 150 MG TABCR PO SCH (08:28)
[2023-06-15] MEDS: PANTOprazole 40 MG TAB PO SCH (08:28)
[2023-06-15] MEDS: clonazePAM 0.5 MG TAB PO SCH (08:28)
[2023-06-15] MEDS: MEMANTINE HCL 10 MG TAB PO SCH (08:28)
[2023-06-15] MEDS: POLYETHYLENE (MIRALAX) 17 GM PACK PO SCH (08:29)
[2023-06-15] MEDS ORDERED: amLODIPine BESYLATE 5 MG TAB PO SCH (09:00)
[2023-06-15] MEDS: ENOXAPARIN INJ 40 MG/0.4 ML SYR SQ SCH (11:23)
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
== END 2023-06-15 13:09 | DRG 178 ==
LOC: ED 20:50 → EDINP 06-06 04:01 → SUATTDRO 06-06 04:01 → 2N 06-06 05:42 → 3W 06-10 01:55

== ENCOUNTER 2025-06-28 15:57 | Inpatient (IN) ==
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
[2025-06-28] MEDS: ONDANSETRON INJ 2 MG/ML 2 ML VIAL IV STA (16:20)
[2025-06-28] MEDS: ACETAMINOPHEN 1,000 MG/100 ML VIAL IV STA (16:22)
[2025-06-28 16:37] LABS: Hematocrit (blood only) 38.7 % (37.0-47.0); Hemoglobin 12.8 g/dL (12.0-16.0); Immature Granulocytes # (auto) 0.04 K/uL (0.01-0.20); Immature Granulocytes % (auto) 0.4 %; Mean Corpuscular Hemoglobin 31.7 pg (25.0-34.0); Mean Corpuscular Volume 95.8 fL (80.0-100.0); Platelet Count 201 K/uL (130-400); RDW Standard Deviation 47.4 fL (36.4-46.3); Red Blood Count 4.04 M/uL (4.20-5.40); White Blood Count 9.13 K/ul (4.8-10.8)
[2025-06-28 16:52] LABS: Alanine Aminotransferase 21.0 U/L (7-52); Albumin Globulin Ratio 1.0 (0.9-2); Albumin Level 4.0 gm/dl (3.4-5.0); Alkaline Phosphatase 79.0 U/L (34-104); Anion Gap 8.0 (3-11); Bilirubin,Total 0.5 mg/dl (0.2-1.0); Blood Urea Nitrogen 27.0 mg/dl (6-23); Calcium 10.0 mg/dl (8.6-10.3); Carbon Dioxide 23.0 mmol/L (21-32); Chloride 109.0 mmol/L (98-107); Creatinine Clr Calc Pharmacy 37.5 ml/min; Globulin 3.9 gm/dl (2.5-4.0); Glucose 130.0 mg/dl (70-99(Fasting)); Lipase 17.0 U/L (11-82); Potassium 3.9 mmol/L (3.5-5.1); Sodium 140.0 mmol/L (136-145); Total Protein 7.9 gm/dl (6.0-8.3)
[2025-06-28] MEDS: OPTIRAY 320 100ml IV ONE (16:56)
[2025-06-28] MEDS: SODIUM CHLORIDE 0.9% 500 ML IV STA (16:59)
--- NOTE | 2025-06-28 18:14 | CT Scan Report ---
Exam: CT abdomen/pelvis with IV contrast. Reason for exam: Lower abdominal pain. Previous studies: CT abdomen/pelvis 06/10/2025. FINDINGS: Lower lung zones show some areas of atelectasis/fibrosis. Trace pleural effusion seen bilaterally. Large hiatal hernia projecting to the left is again seen. Clips from cholecystectomy are noted. Small amount of free fluid seen surrounding the liver and upper abdomen. Pancreas is atrophic and fatty infiltrated. Spleen is unremarkable. Kidneys show some small cortical cysts. No solid lesion or hydronephrosis. Diverticulosis is seen throughout the distal descending and sigmoid colon without specific evidence of acute active diverticulitis at this time. No evidence of established bowel obstruction or pneumoperitoneum is seen. No pelvic mass, adenopathy are noted. Again extensive postsurgical changes and severe degenerative disease are seen in the visualized spine. Stable mild compression fracture T11 and T12 are again noted. IMPRESSION: 1. Small amount of ascites in the upper abdomen. 2. Extensive diverticulosis in the descending and sigmoid colon without specific radiographic findings of acute diverticulitis at this time. No evidence of bowel obstruction or free air. 3. Areas of atelectasis with trace bilateral pleural effusions. 4. Large hiatal hernia. Electronically signed by Adriano Dacosta 06-28-2025 6:10 PM
--- NOTE | 2025-06-28 18:30 | XRay Report ---
Exam: Chest one view portable. Reason for exam: Right-sided flank pain. Previous studies: 06/13/2023. CT study 06/02/2025 FINDINGS: Heart is moderately enlarged with pulmonary venous hypertension. Large hiatal hernia underneath the left diaphragm noted. Lungs show some mild atelectasis of the lower lobes but otherwise clear. IMPRESSION: 1. Cardiomegaly. 2. Large hiatal hernia. 3. Mild linear atelectasis bilateral lower lobes. Lungs otherwise clear. Electronically signed by Adriano Dacosta 06-28-2025 6:30 PM
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
[2025-06-28] MEDS ORDERED: DICYCLOMINE HCL 10 MG CAP PO PRN (21:43)
[2025-06-28] MEDS ORDERED: ACETAMINOPHEN 1,000 MG/100 ML VIAL IV PRN (22:02)
[2025-06-28] MEDS ORDERED: ONDANSETRON INJ 2 MG/ML 2 ML VIAL IV PRN (22:02)
[2025-06-28] MEDS: KETOROLAC TROMETHAMINE 15 MG/ML VIAL IV PRN (22:16)
[2025-06-28] MEDS: LACTATED RINGER'S 1,000 ML IV SCH (22:43)
[2025-06-28] MEDS: MEMANTINE HCL 10 MG TAB PO SCH (22:50)
[2025-06-28] MEDS: DONEPEZIL HCL 10 MG TAB PO SCH (22:50)
[2025-06-28] MEDS: GABAPENTIN 100 MG CAP PO SCH (22:50)
[2025-06-28] MEDS: clonazePAM 0.5 MG TAB PO SCH (22:50)
[2025-06-28] MEDS: SERTRALINE HCL 50 MG TABLET PO SCH (22:51)
[2025-06-28] MEDS: MIRTAZAPINE TAB 15 MG TAB PO SCH (22:51)
[2025-06-28] MEDS: SERTRALINE HCL 100 MG TABLET PO SCH (22:52)
[2025-06-28] MEDS: PANTOprazole 40 MG/10 ML SYR IV ONE (22:52)
[2025-06-28] MEDS: LIDOCAINE 5% 1 PATCH TD STA (22:53)
--- NOTE | 2025-06-29 00:43 | XRay Report ---
Exam(s): XR BILATERAL HIP + PELVIS, 1 view EXAM: XR Pelvis, 1 or 2 Views CLINICAL HISTORY: Right SI joint Pain. TECHNIQUE: Frontal view of the pelvis. COMPARISON: CTA abdomen and pelvis 06/28/2025 FINDINGS: Bones/joints: Moderate degenerative changes of both hips. No dislocation. No visualized fracture. Soft tissues: Unremarkable. IMPRESSION: 1. No visualized fracture. 2. Moderate degenerative changes of both hips. Electronically signed by: Martha Ogden MD 06/29/25 00:43 AM
[2025-06-29 00:48] LABS: Appearance Urine Clear (Clear); Glucose Urine UA Negative (Negative)
[2025-06-29 06:00] LABS: Hematocrit (blood only) 34.0 % (37.0-47.0); Hemoglobin 10.8 g/dL (12.0-16.0); Immature Granulocytes # (auto) 0.04 K/uL (0.01-0.20); Immature Granulocytes % (auto) 0.5 %; Mean Corpuscular Hemoglobin 31.0 pg (25.0-34.0); Mean Corpuscular Volume 97.7 fL (80.0-100.0); Platelet Count 158 K/uL (130-400); RDW Standard Deviation 48.0 fL (36.4-46.3); Red Blood Count 3.48 M/uL (4.20-5.40); White Blood Count 7.73 K/ul (4.8-10.8)
[2025-06-29 06:26] LABS: Alanine Aminotransferase 16.0 U/L (7-52); Albumin Globulin Ratio 1.4 (0.9-2); Albumin Level 3.4 gm/dl (3.4-5.0); Alkaline Phosphatase 60.0 U/L (34-104); Anion Gap 6.0 (3-11); Bilirubin,Total 0.4 mg/dl (0.2-1.0); Blood Urea Nitrogen 22.0 mg/dl (6-23); Calcium 8.8 mg/dl (8.6-10.3); Carbon Dioxide 23.0 mmol/L (21-32); Chloride 113.0 mmol/L (98-107); Creatinine Clr Calc Pharmacy 42.4 ml/min; Globulin 2.5 gm/dl (2.5-4.0); Glucose 89.0 mg/dl (70-99(Fasting)); Magnesium 1.9 mg/dl (1.7-2.4); Potassium 3.6 mmol/L (3.5-5.1); Sodium 142.0 mmol/L (136-145); Total Protein 5.9 gm/dl (6.0-8.3)
[2025-06-29 07:59] LABS: Cdiff Toxin B Gene (2yr or >) Negative Cdiff Gene (Neg)
[2025-06-29 08:30] LABS: Adenovirus F 40/41 PCR Not Detected (NotDetected); Campylobacter PCR Not Detected (NotDetected); Enteroaggregative E.coli(EAEC) Not Detected (NotDetected); Shiga-like Toxin E.coli (STEC) Not Detected (NotDetected); Vibrio species PCR Not Detected (NotDetected)
[2025-06-29] MEDS ORDERED: INFLUENZA VACC TS2025-26(65y+)/PF (IIV3) 0.5mL Syr IM ONE (09:00)
[2025-06-29] MEDS: PANTOprazole 40 MG/10 ML SYR IV SCH (09:34)
[2025-06-29] MEDS: REMOVE LIDODERM PATCH SCH (09:44)
--- NOTE | 2025-06-29 11:03 | Hospitalist Progress Note ---
Date of Service June 29, 2025 Assessment & Plan (1) Pain of right sacroiliac joint: (2) Acute right flank pain: (3) Diarrhea: (4) Dehydration, mild: Plan The patient is an 84-year-old female with a past medical history including hiatal hernia, idiopathic peripheral neuropathy, dementia, demand ischemia, aspiration pneumonia, acquired hypogammaglobulinemia, gait disorder, frequent falls, generalized weakness, and history of lumbar surgery. She presents to the emergency department with complaint of right lower quadrant pain and right sacroiliac area pain, worsening over the past several days on 06/28. . #Right lower quadrant/right sacroiliac pain/diarrhea Patient is mildly confused and anxious; She also feels like there is a gurgling in her abdomen; She has not eaten any questionable foods or traveled anywhere with exposures. Stool PCR and C. difficile testing negative. Respiratory biofire negative. No recent antibiotic use. UA neg CTAP w/ small ascites of upper abdomen, diverticulosis, lg HH. CBC w/ no leukocytosis. BMP w/ stable renal function/electrolytes. Dicyclomine 10 mg p.o. every 4 hours as needed abdominal cramping Pantoprazole 40 mg IV daily. LR at 80 mL/h x 1 L Clear liquid diet, advance as tolerated. #Right SI joint pain/history of lumbosacral surgery with hardware R hip XR negative. Apply Lidoderm patch over SI joint area Pain regimen includes: Tylenol, Toradol, & Dilaudid for severe pain. PT/OT consulted, appreciate recommendations. #Dementia/depression/anxiety Continue clonazepam, bupropion, donepezil, gabapentin, memantine, mirtazapine, sertraline. She would likely benefit from a medication review and lighten her medication load somewhat. DVT prophylaxis: Lovenox Code: full Admission and Anticipated Discharge Date Admission Date: June 28, 2025 Supervising Physician Co-Signing Physician Notes The patient was not seen by me. The chart was reviewed. Case discussed with RAS Miller. Agree with assessment and plan Subjective Amie was seen & examined this morning. She reports a sensation in her abdomen but wasn't able to elaborate further. She kept asking for "her bowels to be removed". Explained to patient that she was having diarrhea. Denied any N/V. Physical Exam Physical Exam: General: NAD, VS: BP 128/70; P53; T36.4C Resp: normal respiratory effort abd: soft, lower abdominal tenderness to palpation. normoactive BS. Extremities: Moves all extremities, no edema Neuro: A&O x3, Skin: intact, no lesions noted Results & Data Results & Data Vital Signs (Past 12 Hours) Vital Signs Temp Pulse Resp BP Pulse Ox O2 Del Method O2 Flow Rate 06/29/25 10:07 Nasal Cannula 2 06/29/25 07:42 36.4 C L 53 L 18 128/70 96 Nasal Cannula 2 06/29/25 06:09 36.4 C L 63 16 121/66 97 Room Air, Nasal Cannula 2 PG Care Time/CCT Total # of Minutes Spent Total Time Spent with Patient: Total time spent is greater than 50% in coordination of care (as documented) at patient's floor/unit and/or counseling patient: Coding Level of Care Code 41117 SUB INP/OBS CARE 2/35MIN Diagnoses Pain of right sacroiliac joint M53.3 Acute right flank pain R10.A1 Diarrhea R19.7 Dehydration, mild E86.0
--- NOTE | 2025-06-29 11:45 | Electrocardiogram Report ---
Test Reason : Blood Pressure : */* mmHG Vent. Rate : 62 BPM Atrial Rate : 62 BPM P-R Int : 152 ms QRS Dur : 124 ms QT Int : 448 ms P-R-T Axes : 26 34 -8 degrees QTcB Int : 454 ms Normal sinus rhythm Right bundle branch block T wave abnormality, consider inferior ischemia Abnormal ECG When compared with ECG of 02-Jun-2025 21:09, No significant change was found Confirmed by Eugenio Banks ([id number]) on 06/29/2025 11:45:24 AM Referred By: Confirmed By: Eugenio Banks
[2025-06-29 14:37] LABS: Chlamydia pneumoniae PCR Not Detected (NotDetected); Coronavirus 229E PCR Not Detected (NotDetected); Coronavirus CoV-2 (COVID19)PCR Not Detected (NotDetected); Coronavirus HKU1 PCR Not Detected (NotDetected); Coronavirus NL63 PCR Not Detected (NotDetected); Coronavirus OC43PCR Not Detected (NotDetected); Human Metapneumovirus PCR Not Detected (NotDetected); Parainfluenza Virus 1 PCR Not Detected (NotDetected); Parainfluenza Virus 2 PCR Not Detected (NotDetected); Parainfluenza Virus 3 PCR Not Detected (NotDetected); Parainfluenza Virus 4 PCR Not Detected (NotDetected); Respiratory Syncytial VirusPCR Not Detected (NotDetected); Rhinovirus/Enterovirus PCR Not Detected (NotDetected)
[2025-06-29] MEDS: ENOXAPARIN INJ 40 MG/0.4 ML SYR SQ SCH (20:08)
[2025-06-29] MEDS: clonazePAM 0.5 MG TAB PO SCH (20:08)
[2025-06-29] MEDS: MELATONIN 3 MG TAB PO PRN (20:09)
[2025-06-29] MEDS: LIDOCAINE 5% 1 PATCH TD SCH (20:27)
[2025-06-29] MEDS ORDERED: REMOVE LIDODERM PATCH SCH (21:00)
[2025-06-30 08:10] LABS: Hematocrit (blood only) 34.9 % (37.0-47.0); Hemoglobin 11.3 g/dL (12.0-16.0); Immature Granulocytes # (auto) 0.02 K/uL (0.01-0.20); Immature Granulocytes % (auto) 0.3 %; Mean Corpuscular Hemoglobin 31.4 pg (25.0-34.0); Mean Corpuscular Volume 96.9 fL (80.0-100.0); Platelet Count 166 K/uL (130-400); RDW Standard Deviation 48.1 fL (36.4-46.3); Red Blood Count 3.60 M/uL (4.20-5.40); White Blood Count 7.30 K/ul (4.8-10.8)
[2025-06-30 08:32] LABS: Alanine Aminotransferase 16.0 U/L (7-52); Albumin Globulin Ratio 1.3 (0.9-2); Albumin Level 3.4 gm/dl (3.4-5.0); Alkaline Phosphatase 64.0 U/L (34-104); Anion Gap 6.0 (3-11); Bilirubin,Total 0.3 mg/dl (0.2-1.0); Blood Urea Nitrogen 19.0 mg/dl (6-23); Calcium 9.1 mg/dl (8.6-10.3); Carbon Dioxide 24.0 mmol/L (21-32); Chloride 112.0 mmol/L (98-107); Creatinine Clr Calc Pharmacy 40.6 ml/min; Globulin 2.7 gm/dl (2.5-4.0); Glucose 98.0 mg/dl (70-99(Fasting)); Magnesium 1.9 mg/dl (1.7-2.4); Potassium 3.8 mmol/L (3.5-5.1); Sodium 142.0 mmol/L (136-145); Total Protein 6.1 gm/dl (6.0-8.3)
--- NOTE | 2025-06-30 14:19 | Hospitalist Progress Note ---
Date of Service June 30, 2025 Assessment & Plan (1) Pain of right sacroiliac joint: (2) Acute right flank pain: (3) Diarrhea: (4) Dehydration, mild: Plan This patient is an 84-year-old female with a past medical history including hiatal hernia, idiopathic peripheral neuropathy, dementia, demand ischemia, aspiration pneumonia, acquired hypogammaglobulinemia, gait disorder, frequent falls, generalized weakness, and history of lumbar surgery. She presents to the emergency department with complaint of right lower quadrant pain and right sacroiliac area pain, worsening over the past several days on 06/28. #Right lower quadrant abdominal / flank pain Patient is mildly confused and anxious; She also feels like there is a gurgling in her abdomen; She has not eaten any questionable foods or traveled anywhere with exposures Negative infectious workup: Stool PCR and C. difficile testing negative Respiratory biofire negative No recent antibiotic use. UA neg CTAP w/ small ascites of upper abdomen, diverticulosis; no SBO CBC w/ no leukocytosis BMP w/ stable renal function/electrolytes Pantoprazole 40 mg IV daily Clear liquid diet, advance as tolerated #Right SI joint pain | ?piriformis syndrome | history of lumbosacral surgery with hardware R hip XR negative Patient reports lidocaine patch has not been working Apply Voltaren to right SI joint QID Pain regimen includes: Tylenol, Toradol, & Dilaudid for severe pain Discussed potential SI injection as an OP Magnesium sulfate 1 g IV x 1 Diclofenac gel application TID PT/OT consult appreciated However, unable to take steps with PT on 06/30 due to runny BM #Diarrhea Unclear if this was due to patient taking stool softeners [employer] Negative infectious workup ? IBS; Dicyclomine 10 mg p.o. every 4 hours as needed abdominal cramping IVF with LR at 80 mL/hr x 2 L #Dementia | depression | anxiety Continue clonazepam, bupropion, donepezil, gabapentin, memantine, mirtazapine, sertraline. She would likely benefit from a medication review and lighten her medication load somewhat. Disposition: Continued stay in the setting of pain control and poor ambulatory status DVT prophylaxis: Lovenox Admission and Anticipated Discharge Date Admission Date: June 28, 2025 Subjective Mrs. Vo reports her right flank/lower back pain has been ongoing for the last couple weeks prior to this, she has not had it before. She ambulates with a walker at baseline, and does report difficulty walking due to her ongoing right knee pain. No burning with urination, blood in the urine or stool, or melena reported. No prior history of peptic ulcers or IBS to her knowledge. Prior hi story of cholecystectomy. Patient is still having regular bowel movements; no recent changes to diet. She did have diarrhea a couple days ago after taking medications to help with bowel movements (however this resolved). The only other new symptom is that she had an episode of fecal incontinence while in the hospital. She feels like she had "no control" over her bowel movement. She is had this happen before on a previous night. No saddle anesthesia. She had a prior back surgery around 10 years ago. Patient has tried lidocaine patches for her back/flank pain, but reports these have not helped. No recent falls, or injuries to the abdomen, pelvis, or back. ROS: Patient endorses right flank pain, right lower back pain, right knee pain, and an episode of fecal incontinence in the hospital. Patient denies diarrhea (resolved), chest pain, SOB, cough, abdominal pain, N/V, saddle anesthesia, or numbness or tingling going to the legs. Addendum at 1430: Spoke with patient's at bedside. He tries to avoid giving her stomach medications, but confirms confirms that patient received 2 doses of either MiraLAX or Maalox before coming into the hospital. She received an additional dose due to complaining of abdominal pain. She then developed diarrhea thereafter. Review of Systems Review of Systems: See HPI above Physical Exam Physical Exam: General: no acute distress; non-toxic appearing; cooperative HEENT: normocephalic, atraumatic; PERRLA; vision and hearing intact Neck: supple; trachea midline Skin: warm, dry without signs of tenting; no cyanosis; no rashes, bruising, lesions, or erythema noted CV: chest wall NTP; RRR; S1/S2 normal; no murmurs/rubs/gallops; pulses intact and symmetric at radial, DP, and PT Lungs: no acute respiratory distress; symmetrical chest wall expansion; clear breath sounds across all lung montez w/o adventitious sounds; no wheezing ABD: Soft, NTP; BS present; no rebound/guarding; no distention MSK: no tics or fasciculations; no edema noted in the LEs b/l, nonerythematous Neuro: A&Ox3; normal mood and affect; fluent speech; sensation intact and symmetric in the LEs b/l Results & Data Results & Data Vital Signs (Past 12 Hours) Vital Signs Temp Pulse Resp BP Pulse Ox O2 Del Method 06/30/25 08:52 Room Air 06/30/25 08:03 36.5 C 56 L 20 145/69 H 93 Room Air 06/30/25 02:21 36.8 C 56 L 16 124/64 93 Room Air Laboratory Results Abnormal lab results 06/30/25 Range/Units 07:37 RBC 3.60 L (4.20-5.40) M/uL Hgb 11.3 L (12.0-16.0) g/dL Hct 34.9 L (37.0-47.0) % RDW Std Deviation 48.1 H (36.4-46.3) fL Lymph # (Auto) 1.12 L (1.20-3.40) K/uL Chloride 112 H (98-107) mmol/L PG Care Time/CCT Total # of Minutes Spent Total Time Spent with Patient: Total time spent is greater than 50% in coordination of care (as documented) at patient's floor/unit and/or counseling patient: Coding [place] [address] SUB INP/OBS CARE 3/50MIN Patient Type Established Medical Decision Making High Complexity Diagnoses Pain of right sacroiliac joint M53.3 Acute right flank pain R10.A1 Diarrhea R19.7 Dehydration, mild E86.0
[2025-06-30] MEDS: HYDROmorphone INJ 0.5 MG/0.5 ML SYR IV PRN (15:47)
[2025-06-30] MEDS: MAGNESIUM SULFATE / D5W 1 GM/100 ML BAG IV ONE (15:47)
[2025-06-30] MEDS: LACTATED RINGER'S 1,000 ML IV SCH (15:48)
[2025-06-30] MEDS: DICLOFENAC SOD 1% GEL 100 GM TUBE EXT STA (16:04)
[2025-06-30] MEDS: DICLOFENAC SOD 1% GEL 100 GM TUBE EXT SCH (20:48)
[2025-07-01 07:59] LABS: Hematocrit (blood only) 35.3 % (37.0-47.0); Hemoglobin 11.8 g/dL (12.0-16.0); Immature Granulocytes # (auto) 0.04 K/uL (0.01-0.20); Immature Granulocytes % (auto) 0.5 %; Mean Corpuscular Hemoglobin 32.0 pg (25.0-34.0); Mean Corpuscular Volume 95.7 fL (80.0-100.0); Platelet Count 173 K/uL (130-400); RDW Standard Deviation 46.0 fL (36.4-46.3); Red Blood Count 3.69 M/uL (4.20-5.40); White Blood Count 7.43 K/ul (4.8-10.8)
[2025-07-01 08:14] LABS: Alanine Aminotransferase 16.0 U/L (7-52); Albumin Globulin Ratio 1.3 (0.9-2); Albumin Level 3.5 gm/dl (3.4-5.0); Alkaline Phosphatase 71.0 U/L (34-104); Anion Gap 8.0 (3-11); Bilirubin,Total 0.4 mg/dl (0.2-1.0); Blood Urea Nitrogen 13.0 mg/dl (6-23); Calcium 8.9 mg/dl (8.6-10.3); Carbon Dioxide 22.0 mmol/L (21-32); Chloride 112.0 mmol/L (98-107); Creatinine Clr Calc Pharmacy 47.1 ml/min; Globulin 2.8 gm/dl (2.5-4.0); Glucose 104.0 mg/dl (70-99(Fasting)); Magnesium 1.9 mg/dl (1.7-2.4); Potassium 3.7 mmol/L (3.5-5.1); Sodium 142.0 mmol/L (136-145); Total Protein 6.3 gm/dl (6.0-8.3)
--- NOTE | 2025-07-01 13:24 | Hospitalist Progress Note ---
Date of Service July 01, 2025 Assessment & Plan (1) Pain of right sacroiliac joint: (2) Acute right flank pain: (3) Diarrhea: (4) Dehydration, mild: Plan This patient is an 84-year-old female with a past medical history including hiatal hernia, idiopathic peripheral neuropathy, dementia, demand ischemia, aspiration pneumonia, acquired hypogammaglobulinemia, gait disorder, frequent falls, generalized weakness, and history of lumbar surgery. She presents to the emergency department with complaint of right lower quadrant pain and right sacroiliac area pain, worsening over the past several days on 06/28. #Right lower quadrant abdominal | right flank pain (improving) | adverse reaction to medication Patient is mildly confused and anxious; she also feels like there is a "gurgling" in her abdomen; She has not eaten any questionable foods or traveled anywhere with exposures Negative infectious workup: Stool PCR and C. difficile testing negative Respiratory biofire negative No recent antibiotic use. UA neg CTAP w/ small ascites of upper abdomen, diverticulosis; no SBO CBC w/ no leukocytosis BMP w/ stable renal function/electrolytes Suspect that the original abdominal pain was likely originally due to constipation or IBS, but then patient received a double dose of laxatives (unclear if this was MiraLAX or Maalox) and began having diarrhea thereafter Advanced from a clear liquid to a regular/easy to chew diet Pantoprazole 40 mg IV daily #Diarrhea (improving) Soft/formed bowel noted on 07/01 Negative infectious workup ? IBS; Dicyclomine 10 mg p.o. every 4 hours as needed abdominal cramping #Right SI joint pain | ?piriformis syndrome | history of lumbosacral surgery with hardware R hip XR negative Patient reports lidocaine patch has not been working Apply diclofenac gel to right SI joint TID Pain regimen includes: Tylenol, Toradol, & Dilaudid for severe pain Discussed potential SI injection as an OP Magnesium sulfate 1 g IV x 1 PT/OT consult appreciated Patient was reassessed on 07/01, and PT is recommending acute rehab Wall patient/ initially resistant to rehab, they would be open to [facility] [place] given its proximity to their house Reached out to CM regarding bed availability [facility] will have availability starting tomorrow on 07/02; insurance authorization submitted #Dementia | depression | anxiety Continue clonazepam, bupropion, donepezil, gabapentin, memantine, mirtazapine, sertraline. She would likely benefit from a medication review and lighten her medication load somewhat. Disposition: Medically stable; awaiting SNF placement DVT prophylaxis: Lovenox Admission and Anticipated Discharge Date Admission Date: June 30, 2025 Supervising Physician Co-Signing Physician Notes I did not see or examine the patient. I verified all romano points and agree with Aden House PA-C with the following exceptions and/or additions: None Subjective Mrs. Vo reports she is doing better today compared to yesterday. She was able to get up with PT and ambulate throughout the hallways twice today. However, she still feels like her walking is not back to her baseline. She did have a bowel movement this morning which was small but "soft" and formed. She did not have any diarrhea or liquidy stool, and believes it is resolving. However, she feels that being on a clear liquid diet might be contributing to her soft stools. Overall, patient denies any abdominal pain at rest, but still complains of abdominal "gurgling". Her main complaints are right flank pain and right lower back pain. ROS: Patient endorses right flank pain, right lower back pain, and right knee pain. Patient denies fever, chills, night sweats, chest pain, SOB, cough, abdominal pain, N/V, diarrhea (resolved) burning with urination, or blood in the urine or stool. Review of Systems Review of Systems: See HPI above Physical Exam Physical Exam: General: no acute distress; pleasant affect; patient is sitting upright in her chair about to eat lunch; at bedside; non-toxic appearing; cooperative; SpO2 96% on RA HEENT: normocephalic, atraumatic; PERRLA; vision and hearing appear intact Neck: supple; trachea midline Skin: warm, dry without signs of tenting; no cyanosis; no rashes, bruising, lesions, or erythema noted CV: chest wall NTP; RRR; S1/S2 normal; no murmurs/rubs/gallops; pulses intact and symmetric at radial, DP, and PT Lungs: no acute respiratory distress; symmetrical chest wall expansion; clear breath sounds across all lung montez w/o adventitious sounds; no wheezing ABD: Soft, NTP; BS present; no rebound/guarding; no distention MSK: no tics or fasciculations; no edema noted in the LEs b/l, nonerythematous; 3/5 strength when flexing/extending knees against resistance; 4/5 strength with plantar/dorsiflexion of the lower extremities bilaterally Neuro: A&Ox3; normal mood and affect; fluent speech; patient reports sensation intact and symmetric in the LEs b/l assessed via light touch Results & Data Results & Data Vital Signs (Past 12 Hours) Vital Signs Temp Pulse Resp BP Pulse Ox O2 Del Method 07/01/25 12:55 37 C 60 15 179/78 H 96 Room Air 07/01/25 09:00 Room Air 07/01/25 08:51 36.4 C L 61 16 159/72 H 93 Room Air PG Care Time/CCT Total # of Minutes Spent Total Time Spent with Patient: Total time spent is greater than 50% in coordination of care (as documented) at patient's floor/unit and/or counseling patient: Coding [place] [address] SUB INP/OBS CARE 2/35MIN Patient Type Established Medical Decision Making Moderate Complexity Diagnoses Pain of right sacroiliac joint M53.3 Acute right flank pain R10.A1 Diarrhea R19.7 Dehydration, mild E86.0
[2025-07-02 12:41] LABS: Alanine Aminotransferase 21.0 U/L (7-52); Albumin Globulin Ratio 1.0 (0.9-2); Albumin Level 3.4 gm/dl (3.4-5.0); Alkaline Phosphatase 81.0 U/L (34-104); Anion Gap 6.0 (3-11); Bilirubin,Total 0.4 mg/dl (0.2-1.0); Blood Urea Nitrogen 10.0 mg/dl (6-23); Calcium 9.1 mg/dl (8.6-10.3); Carbon Dioxide 27.0 mmol/L (21-32); Chloride 110.0 mmol/L (98-107); Creatinine Clr Calc Pharmacy 46.5 ml/min; Globulin 3.4 gm/dl (2.5-4.0); Glucose 96.0 mg/dl (70-99(Fasting)); Potassium 3.8 mmol/L (3.5-5.1); Sodium 143.0 mmol/L (136-145); Total Protein 6.8 gm/dl (6.0-8.3)
[2025-07-02] MEDS: OPTIRAY 320 100ml IV ONE (12:57)
--- NOTE | 2025-07-02 13:29 | CT Scan Report ---
ABDOMEN AND PELVIS CT WITH IV CONTRAST CT DOSE: 958.81 mGy.cm HISTORY: Acute right lower quadrant abdominal pain RLQ Abd pain TECHNIQUE: Multiaxial CT images of the abdomen and pelvis were performed following the IV administrat ion of 94 cc of Optiray, A dose lowering technique was utilized adhering to the principles of ALARA. COMPARISON STUDY: 06/28/2025, 07/03/2025. FINDINGS: Cardiomegaly with mitral annular and coronary arterial calcifications. Small pleural effusi ons have increased in size from prior. Dependent right basilar consolidation/atelectasis. No pneumato sis or pneumoperitoneum is seen. Large hiatal hernia with partially intrathoracic stomach is partiall y imaged extending into the left hemithorax. Cholecystectomy. Unremarkable spleen with scattered subc entimeter indeterminate hypodense foci. Unremarkable mildly atrophic pancreas. Adrenal glands and vin er are within normal limits. Patency of the hepatic and portal veins. Cortical thinning of the kidneys. There are a few cysts noted bilaterally measuring up to 1.3 cm on t he right. No urolith or hydronephrosis. Pelvic floor relaxation redemonstrated. Nonspecific gallbladd er wall thickening with small right lateral diverticulum. Atherosclerosis of the aorta. No lymphadeno espinoza. Trace pelvic ascites. Unchanged appearance of the anorectal junction. Extensive colonic divert iculosis without acute diverticulitis. The appendix is not seen. Diverticulosis of the distal ileum. Degenerative and postoperative changes of the spine. Tiny fat filled umbilical hernia. IMPRESSION: 1. Small pleural effusions with trace pelvic ascites, progressed from 06/28/2025. 2. Large hiatal hernia with intrathoracic stomach is partially imaged. 3. Large and small bowel diverticulosis without acute diverticulitis. 4. Cholecystectomy. 5. Incidental findings as above. ACT 112: Negative or not required by law. The above report was generated using voice recognition software. It may contain grammatical, syntax o r spelling errors. Electronically signed by: Satish Lu M.D. 07/02/2025 1:27 PM
--- NOTE | 2025-07-02 14:04 | Hospitalist Progress Note ---
Date of Service July 02, 2025 Assessment & Plan (1) Pain of right sacroiliac joint: (2) Acute right flank pain: (3) Diarrhea: (4) Dehydration, mild: (5) Chronic idiopathic constipation: Plan This patient is an 84-year-old female with a past medical history including hiatal hernia, idiopathic peripheral neuropathy, dementia, demand ischemia, aspiration pneumonia, acquired hypogammaglobulinemia, gait disorder, frequent falls, generalized weakness, and history of lumbar surgery. She presents to the emergency department with complaint of right lower quadrant pain and right sacroiliac area pain, worsening over the past several days on 06/28. #Right lower quadrant abdominal | right flank pain Patient is mildly confused and anxious; she also feels like there is a "gurgling" in her abdomen; She has not eaten any questionable foods or traveled anywhere with exposures Negative infectious workup: Stool PCR and C. difficile testing negative Respiratory biofire negative No recent antibiotic use. UA neg CTAP w/ small ascites of upper abdomen, diverticulosis; no SBO CBC w/ no leukocytosis BMP w/ stable renal function/electrolytes At this time, the etiology of her right lower quadrant abdominal pain remains unclear Touched base with gastroenterology on 07/02, who recommended repeat A/P CT imaging A repeat A/P CT was obtained on 07/02 due to lingering abdominal pain. This again showed trace pelvic ascites, but no evidence of small bowel obstruction, or acute diverticulitis. The appendix was not seen, and patient does have known history of cholecystectomy LFTs are once again WNL While difficult to definitively rule out GI etiology in the setting of diarrhea, it is suspected that most of the patient's abdominal pain is musculoskeletal in nature Diagnosis made more difficult in setting of progressing dementia/memory deficit However, her right lower quadrant abdominal pain may represent an iliopsoas strain, due to walking with pelvic tilt/compensating for her right SI joint pain #Diarrhea (resolved) | adverse reaction to medication Intermittent soft/formed bowel in the hospital, with reported runny stool times Based on A/P CT imaging, do not feel this is overflow diarrhea from constipation Suspect that diarrhea was initially caused by patient receiving a double dose of laxatives (unclear if this was MiraLAX or Maalox) prior to hospitalization Advanced from a clear liquid to a regular/easy to chew diet while in the hospital; no setbacks Negative stool PCR (as above) #Chronic idiopathic constipation Note: runny throughs throughout hospital stay, then patient reported sudden return of constipation on 07/02 ? Patient presenting with a IBSM in the setting of alternating constipation and diarrhea Last followed with gastroenterology in 2022 Per review of GI note 12/09/2022, patient has been tried on Amitiza and MiraLAX, but stopped both these medications in the past as they induced diarrhea Patient regularly concerned that her bowels are "blocked" Recommend increasing fluid intake Gastroenterology consult appreciated #Right SI joint pain | ?piriformis syndrome | history of lumbosacral surgery with hardware R hip XR negative Patient reports lidocaine patch has not been working Apply diclofenac gel to right SI joint TID Pain regimen includes: Tylenol, Toradol, & Dilaudid for severe pain Discussed potential SI injection as an OP Magnesium sulfate 1 g IV x 1 PT/OT consult appreciated Both PT and OT are recommending acute rehab stay Patient/ amenable to [facility] [place], given its proximity to their house Reached out to CM regarding bed availability [facility] will have availability starting tomorrow on 07/02; insurance authorization has been submitted and is still currently pending on 07/02 #Dysphagia Reported by patient However, she reports no recent episodes of aspiration in the past several months H/O esophageal dysfunction; seen by speech therapy most recently in May 2023; recommended elevation of head of bed and aspiration/reflux precautions at that time. Patient did have a video swallow study in January 2023, and was not demonstrating overt oropharyngeal dysphagia or aspiration at that time Easy to chew diet + aspiration precautions for now #Dementia | depression | anxiety Continue clonazepam, bupropion, donepezil, gabapentin, memantine, mirtazapine, sertraline She would likely benefit from a medication review and lighten her medication load somewhat Disposition: Medically stable; awaiting insurance authorization DVT prophylaxis: Lovenox Admission and Anticipated Discharge Date Admission Date: June 30, 2025 Subjective Mrs. Vo is doing okay this morning. She slept well last night. She is still having right lower quadrant abdominal pain that hurts when she presses on it. She has not had any bowel movements yet today, but did have soft/watery stool yesterday. She did not have any setbacks when advancing to a regular diet of mashed potatoes/macaroni; no abdominal pain, bloating, nausea, or vomiting with eating. While she has had difficulty swallowing, she reports this is not new and has been ongoing for the past 2 years. She denies any recent aspiration events. No pain with swallowing. She is still having pain in the right lower back and flank, but does feel like massaging this region helps the pain. Updated patient's (Isrrael) at bedside regarding hospital course and discharge planning has been offered to transport patient to [facility] [place] pending bed availability today. ROS: Patient endorses right lower quadrant abdominal pain, and right lower back pain, and difficulty swallowing (which patient reports is chronic), and ongoing diarrhea. Patient denies fever, chills, night sweats, headache, pain with swallowing, chest pain, SOB, cough, nausea, vomiting, abdominal bloating after eating, burning with urination, or blood in the urine or stool. Review of Systems Review of Systems: See HPI above Physical Exam Physical Exam: General: no acute distress; pleasant affect; patient is sitting upright in her chair about to eat lunch; at bedside; non-toxic appearing; cooperative; SpO2 96% on RA HEENT: normocephalic, atraumatic; PERRLA; vision and hearing appear intact Neck: supple; trachea midline Skin: warm, dry without signs of tenting; no cyanosis; no rashes, bruising, lesions, or erythema noted CV: chest wall NTP; RRR; S1/S2 normal; no murmurs/rubs/gallops; pulses intact and symmetric at radial, DP, and PT Lungs: no acute respiratory distress; symmetrical chest wall expansion; clear breath sounds across all lung montez w/o adventitious sounds; no wheezing ABD: Soft, patient reports mildly TTP in the RLQ, LLQ, and LUQ; no rashes or bruising appreciated in the abdomen or flanks bilaterally BS present; no rebound/guarding; no distention Back: Point tenderness to palpation at the right posterior piriformis, as well as along along the SI joint; no rashes or bruising appreciated MSK: no tics or fasciculations; no edema noted in the LEs b/l, nonerythematous; 3/5 strength when flexing/extending knees against resistance; 4/5 strength with plantar/dorsiflexion of the lower extremities bilaterally Neuro: A&Ox3; normal mood and affect; fluent speech; patient reports sensation intact and symmetric in the LEs b/l assessed via light touch Results & Data Results & Data Vital Signs (Past 12 Hours) Vital Signs Temp Pulse Resp BP Pulse Ox O2 Del Method 07/02/25 08:50 70 168/74 H 07/02/25 07:52 36.8 C 64 14 184/79 H 91 Room Air PG Care Time/CCT Total # of Minutes Spent Total Time Spent with Patient: Total time spent is greater than 50% in coordination of care (as documented) at patient's floor/unit and/or counseling patient: Coding [place] [address] SUB INP/OBS CARE 3/50MIN Patient Type Established History Comprehensive Exam Comprehensive Medical Decision Making High Complexity Diagnoses Pain of right sacroiliac joint M53.3 Acute right flank pain R10.A1 Diarrhea R19.7 Dehydration, mild E86.0 Chronic idiopathic constipation K59.04
[2025-07-02 23:25] VITALS: O2SAT 93
[2025-07-03 08:27] VITALS: BP 180/79; PULSE 59; RESP 18; TEMP 98.1
--- NOTE | 2025-07-03 10:14 | Discharge Summary ---
Discharge Summary Date of Service July 03, 2025 Principal Dx & Hospital Course #1 = Principal Diagnosis (1) Pain of right sacroiliac joint: (2) Acute right flank pain: (3) Diarrhea: (4) Dehydration, mild: (5) Chronic idiopathic constipation: Plan This patient is an 84-year-old female with a past medical history including hiatal hernia, idiopathic peripheral neuropathy, dementia, demand ischemia, aspiration pneumonia, acquired hypogammaglobulinemia, gait disorder, frequent falls, generalized weakness, and history of lumbar surgery. She presents to the emergency department with complaint of right lower quadrant pain and right sacroiliac area pain, worsening over the past several days on 06/28. #Right lower quadrant abdominal | right flank pain | ambulatory dysfunction Patient is mildly confused and anxious; she also feels like there is a "gurgling" in her abdomen; She has not eaten any questionable foods or traveled anywhere with exposures Negative infectious workup: Stool PCR and C. difficile testing negative Respiratory biofire negative No recent antibiotic use. UA neg CTAP w/ small ascites of upper abdomen, diverticulosis; no SBO CBC w/ no leukocytosis BMP w/ stable renal function/electrolytes At this time, the etiology of her right lower quadrant abdominal pain remains unclear Touched base with gastroenterology on 07/02, who recommended repeat A/P CT imaging A repeat A/P CT was obtained on 07/02 due to lingering abdominal pain. This again showed trace pelvic ascites, but no evidence of small bowel obstruction, or acute diverticulitis. The appendix was not seen, and patient does have known history of cholecystectomy LFTs are once again WNL While difficult to definitively rule out GI etiology in the setting of diarrhea, it is suspected that most of the patient's abdominal pain is musculoskeletal in nature Diagnosis made more difficult in setting of progressing dementia/memory deficit However, her right lower quadrant abdominal pain may represent an iliopsoas strain, due to walking with pelvic tilt/compensating for her right SI joint pain Will plan for short-term rehab upon discharge #Diarrhea (resolved) | adverse reaction to medication Intermittent soft/formed bowel in the hospital, with reported runny stool times Based on A/P CT imaging, do not feel this is overflow diarrhea from constipation Suspect that diarrhea was initially caused by patient receiving a double dose of laxatives (unclear if this was MiraLAX or Maalox) prior to hospitalization Advanced from a clear liquid to a regular/easy to chew diet while in the hospital; no setbacks Negative stool PCR (as above) #Chronic idiopathic constipation Note: runny throughs throughout hospital stay, then patient reported sudden return of constipation on 07/02 ? Patient presenting with a IBSM in the setting of alternating constipation and diarrhea Last followed with gastroenterology in 2022 Per review of GI note 12/09/2022, patient has been tried on Amitiza and MiraLAX, but stopped both these medications in the past as they induced diarrhea Patient regularly concerned that her bowels are "blocked" Recommend increasing fluid intake Gastroenterology consult appreciated Recommend starting patient on MiraLAX 17 g powder every other day; patient received education, and informed that she can take an additional packet if no BMs that they Also recommended magnesium sulfate and prune juice #Right SI joint pain | ?piriformis syndrome | history of lumbosacral surgery with hardware R hip XR negative Patient reports lidocaine patch has not been working Apply diclofenac gel to right SI joint TID Inpatient pain regimen included: Tylenol, Toradol, & Dilaudid for severe pain Magnesium sulfate 1 g IV x 2 PT/OT consult appreciated Both PT and OT are recommending acute rehab stay Patient/ amenable to [facility] [place], given its proximity to their house Called for P2P (Dr. Rodriguez), which was approved on 07/03; will plan for d/c to [facility] #Dysphagia Suspected due to hiatal hernia Patient reports no recent episodes of aspiration in the past several months H/O esophageal dysfunction; seen by speech therapy most recently in May 2023; recommended elevation of head of bed and aspiration/reflux precautions at that time. Patient did have a video swallow study in January 2023, and was not demonstrating overt oropharyngeal dysphagia or aspiration at that time Easy to chew diet + aspiration precautions for now Speech therapy consult appreciated Will provide additional information on foods to eat/avoid and resources prior to discharge #Dementia | depression | anxiety Continue clonazepam, bupropion, donepezil, gabapentin, memantine, mirtazapine, sertraline She would likely benefit from a medication review and lighten her medication load somewhat Date of discharge 07/03: Mrs. Esquivel is in good spirits this morning. She reports that she has no stomach pain, nausea, or abdominal bloating after having oatmeal and eggs this morning. However, she does report that she has been coughing since eating her oatmeal. While she feels like nothing went "down the wrong pipe", she does report a sensation that there is still something stuck in her throat. Requesting to see speech therapy prior to discharge. Patient also reports that, last night after drinking prune juice, she had a bowel movement that was mixed "hard and liquid stool". She had to strain significantly to have this bowel movement. She denies any blood in her stool. Overall, she does feel like she would be ready to go to [facility] today, as her abdominal symptoms have largely subsided, but she is still having residual right lower back pain. She has been attempting to exercise her leg in bed, but this still elicits pain in her right lower back, making movements difficult. Disposition: Discharge to [facility] for subacute rehab Notes For Next Care Provider Patient hospitalized 06/28 - 07/03 for abdominal pain, diarrhea, and right lower back pain. It is suspected that most of her pain is due to compensation for pelvic tilt and not bearing much weight on her right knee when ambulating with her walker. Most of the pain is in her SI joint. Her right lower quadrant abdominal pain is likely compensatory iliopsoas strain. Will plan for diclofenac application to the SI joint TID x 5 additional days. Recommend patient follow-up with gastroenterology for her chronic idiopathic constipation. Will discharge patient on MiraLAX every other day. Admission HPI Per Admitting Provider The patient is an 84-year-old female with a past medical history including hiatal hernia, idiopathic peripheral neuropathy, dementia, demand ischemia, aspiration pneumonia, acquired hypogammaglobulinemia, gait disorder, frequent falls, generalized weakness, and history of lumbar surgery. She presents to the emergency department with complaint of right lower quadrant pain and right sacroiliac area pain, worsening over the past several days. She reports that her stools are occasionally loose, and feels days if there is more rumbling in h er stomach than usual and she feels a little bit distended. She denies any recent trauma. She denies any recent travels or sick exposures. Workup in the emergency department included CT scan of abdomen pelvis which shows large hiatal hernia, some mild ascites in the upper abdomen, diverticulosis in the descending and sigmoid colon. CBC and chemistry profile are for the most part normal. From the ED patient received the following: Normal saline 500 mL bolus, Zofran 4 mg IV, Tylenol 1 g IV. She was referred for evaluation of admission to hospitalist service due to persistence of the above symptoms. Admission Exam Per Admitting Provider The patient is awake, alert and oriented 3, well developed and well nourished, normocephalic and atraumatic, lying in bed and in no acute distress. HEENT--PERRL, EOMI, mucous membranes and oropharynx dry. Neck--supple. No JVD. No bruits. Thyroid normal, trachea midline, no adenopathy. Heart--normal S1 and S2. No murmurs, rubs or gallops. Lungs--clear bilaterally, no respiratory distress, no accessory muscle use. Abdomen/pelvis--hyperactive bowel sounds. Nontender nondistended Extremities--no cyanosis or clubbing. No edema. There are good distal pulses b/l. Dermatologic--normal skin turgor, normal color, no abnormal lymph nodes, no rash. Neurologic--cranial nerves II through XII grossly intact. Rheumatologic--reproducible pain over right SI joint area Psychiatric--normal affect. Discharge Exam General: no acute distress; pleasant affect; patient is sitting upright in her chair about to eat lunch; at bedside; non-toxic appearing; cooperative; SpO2 96% on RA HEENT: normocephalic, atraumatic; PERRLA; vision and hearing appear intact Neck: supple; trachea midline Skin: warm, dry without signs of tenting; no cyanosis; no rashes, bruising, lesions, or erythema noted CV: chest wall NTP; RRR; S1/S2 normal; no murmurs/rubs/gallops; pulses intact and symmetric at radial, DP, and PT Lungs: no acute respiratory distress; symmetrical chest wall expansion; clear breath sounds across all lung montez w/o adventitious sounds; no wheezing ABD: Soft, patient reports mildly TTP in the RLQ, LLQ, and LUQ; no rashes or bruising appreciated in the abdomen or flanks bilaterally BS present; no rebound/guarding; no distention Back: Point tenderness to palpation at the right posterior piriformis, as well as along along the SI joint; no rashes or bruising appreciated MSK: no tics or fasciculations; no edema noted in the LEs b/l, nonerythematous; 3/5 strength when flexing/extending knees against resistance; 4/5 strength with plantar/dorsiflexion of the lower extremities bilaterally Neuro: A&Ox3; normal mood and affect; fluent speech; patient reports sensation intact and symmetric in the LEs b/l assessed via light touch Discharge Plan Discharge Items Patient Disposition: Transfer Group Home Fac Reason For Visit: ABDOMINAL PAIN, DIARRHEA Discharge Diagnosis: Diarrhea, constipation, right SI joint pain, ambulatory dysfunction Condition on Discharge: Fair Activity: As commented below Activity Comment: Gradually increase activity per PT/OT Recs Non-emergency contact: Primary Care Provider Call non-emergency contact if: you have any medication questions, your symptoms worsen, your pain is not controlled and you have a fever Follow-up/Referrals: Kari Mendez MD [Primary Care Provider] - Diet: Regular Diet Texture: Easy to Chew Diet Comment: Please follow additional rec's provided by speech therapy on discharge Addtl Attending Provider Instructions: You were hospitalized at [facility] from 06/28 to 07/03 for worsening right lower quadrant, flank, and back pain. You also reported loose stool/diarrhea on arrival. Blood work taken on arrival showed that you had a no rmal white blood cell count, indicating that there were not signs of acute or severe infection. Your stool was also tested for viruses and C. difficile, both of which came back negative. It is suspected that the diarrhea was due to increased laxative use on an outpatient basis. In regard to your flank/lower back pain, and difficulty walking, it is suspected that this might be due to a compensatory injury from not bearing as much weight on your right knee. You were found to have a significant pelvic tilt, which may be contributing to the pain at your SI joint (lower right back). You were assessed by our Physical and Occupational Therapy teams while in the hospital, who both recommended a short rehab stay upon discharge. Given your vitals have remained stable, you reported improvement in your pain, and your advance to regular diet without setbacks, we feel that you are safe to be discharged to [facility] for additional strength training/conditioning. New prescriptions on discharge: Diclofenac 4 g gel to be applied to your right lower back 3 times daily for the next 5 days MiraLAX 17 g powder to be taken every other morning for constipation You were seen by our gastroenterology team while in the hospital, who are in agreement that your pain is largely musculoskeletal. In regard to your alternating constipation and diarrhea, it is recommended that you take MiraLAX on even numbered days; you may take an extra glass if no BM that day. Additional remedies may include magnesium sulfate and prune juice. Please plan to follow-up with your PCP in the next 7 to 10 days for a transitional care appointment. If you develop any new or worsening symptoms, such as fever, chills, lingering diarrhea, blood in the urine or stool, inability to walk, numbness or tingling going down the legs, urinary incontinence, nausea, vomiting, or severe intractable lower back pain, please return to the emergency department immediately. It was a pleasure taking care of you. Please reach out with any questions or concerns. Sincerely, The Hospital medicine team at [facility] Pending Studies at Discharge: No Stand-Alone Forms: My [facility] Skilled Items Patient informed of condition?: Yes DNR: No Discharge Level of Care: Acute rehab Communicable Disease: No Discharge Prognosis: Stable Lines: None Urinary Catheter: No Medications and DC Order Prescriptions: New diclofenac sodium [Voltaren Arthritis Pain] 1 % Gel 4 g EXT TID 5 Days Qty: 50 0RF Rx Instructions: Apply 4 g to the right lower back/SI joint 3 times daily x 5 days polyethylene glycol 3350 [Miralax] 17 gram powder in packet 17 g PO Q2D Qty: 14 0RF Rx Instructions: Dissolve 1 packet of MiraLAX in a glass of water every other day Can take an additional dose as needed (if no BM that day) Continued donepezil [Aricept] 10 mg tablet 10 mg PO HS 90 Days Qty: 90 1RF Patient Comments: Per spouse/caregiver, patient must take all medications w/ yogurt/pudding and takes every pill once at a time. mirtazapine 30 mg tablet 30 mg PO HS Patient Comments: Per spouse/caregiver, patient must take all medications w/ yogurt/pudding and takes every pill once at a time. folic acid 800 mcg tablet 0.8 mg PO QAM Patient Comments: Per spouse/caregiver, patient must take all medications w/ yogurt/pudding and takes every pill once at a time. clonazepam 0.5 mg tablet 0.5 mg PO HS docusate sodium 100 mg capsule 100 mg PO DAILY PRN (Reason: Constipation) sertraline [Zoloft] 100 mg tablet 100 mg PO HS Rx Instructions: TOTAL DOSE 150 MG -- TAKES WITH 50 MG TAB. sertraline [Zoloft] 50 mg tablet 50 mg PO HS Rx Instructions: TOTAL DOSE 150 MG--TAKES WITH 100 MG TAB. gabapentin 100 mg capsule 200 mg PO BID 90 Days Qty: 360 1RF ezetimibe [Zetia] 10 mg tablet 10 mg PO DAILY amlodipine 5 mg tablet 5 mg PO DAILY memantine 10 mg tablet 10 mg PO BID ferrous sulfate [FeroSul] 325 mg (65 mg iron) Tablet 325 mg PO QAM Patient Comments: Per spouse/caregiver, patient must take all medications w/ yogurt/pudding and takes every pill once at a time. bupropion HCl 150 mg Tablet Extended Release 24 Hr 150 mg PO QAM Patient Comments: Per spouse/caregiver, patient must take all medications w/ yogurt/pudding and takes every pill once at a time. ropinirole 2 mg tablet 2 mg PO .BID W/SUPPER & HS Patient Comments: Per spouse/caregiver, patient must take all medications w/ yogurt/pudding and takes every pill once at a time. spironolactone 25 mg tablet 25 mg PO DAILY furosemide 20 mg tablet 20 mg PO 3XWK Rx Instructions: MON, WED, & FRI B-complex with vitamin C Capsule 1 cap PO DAILY melatonin 5 mg Tablet 5 mg PO HS cholecalciferol (vitamin D3) [Vitamin D3] 50 mcg (2,000 unit) Capsule 50 mcg PO DAILY Discharge Orders: Discharge Order (Routine); Ordered 07/03/25 Ordered By: [facility] Admission Data Admit Date/Time: 06/30/25 14:21 Attending Provider: Ruslan Downey Admit Provider: Hill Vega Primary Care Provider: Kari Mendez Other Providers: Hill Vega; Gregg Holland [place]; Berry Castillo Hospital Stay Data Consultations 06/28/25 19:28 ED Decision to Admit Stat 07/02/25 16:49 Consult Gastroenterology Routine Diagnostic Imagining Performed 06/28/25 16:13 CT abd pelvis IV con only Stat 07/02/25 11:44 CT Abd and Pelvis [CT abd pelvis IV con only] Stat Pending Results Patient Have Any Pending Studies at Discharge: No Discharge Instructions Given to Patient (Per Discharging Provider) You were hospitalized at [facility] from 06/28 to 07/03 for worsening right lower quadrant, flank, and back pain. You also reported loose stool/diarrhea on arrival. Blood work taken on arrival showed that you had a normal white blood cell count, indicating that there were not signs of acute or severe infection. Your stool was also tested for viruses and C. difficile, both of which came back negative. It is suspected that the diarrhea was due to increased laxative use on an outpatient basis. In regard to your flank/lower back pain, and difficulty walking, it is suspected that this might be due to a compensatory injury from not bearing as much weight on your right knee. You were found to have a significant pelvic tilt, which may be contributing to the pain at your SI joint (lower right back). You were assessed by our Physical and Occupational Therapy teams while in the hospital, who both recommended a short rehab stay upon discharge. Given your vitals have remained stable, you reported improvement in your pain, and your advance to regular diet without setbacks, we feel that you are safe to be discharged to [facility] for additional strength training/conditioning. New prescriptions on discharge: Diclofenac 4 g gel to be applied to your right lower back 3 times daily for the next 5 days MiraLAX 17 g powder to be taken every other morning for constipation You were seen by our gastroenterology team while in the hospital, who are in agreement that your pain is largely musculoskeletal. In regard to your alternating constipation and diarrhea, it is recommended that you take MiraLAX on even numbered days; you may take an extra glass if no BM that day. Additional remedies may include magnesium sulfate and prune juice. Please plan to follow-up with your PCP in the next 7 to 10 days for a transitional care appointment. If you develop any new or worsening symptoms, such as fever, chills, lingering diarrhea, blood in the urine or stool, inability to walk, numbness or tingling going down the legs, urinary incontinence, nausea, vomiting, or severe intractable lower back pain, please return to the emergency department immediately. It was a pleasure taking care of you. Please reach out with any questions or concerns. Sincerely, The Hospital medicine team at [facility] Total Time Total Time Spent Total Time Spent (In Minutes): 45 Coding Level of Care Code 43368 INP/OBS DISCH >30 MIN Diagnoses Pain of right sacroiliac joint M53.3 Acute right flank pain R10.A1 Diarrhea R19.7 Dehydration, mild E86.0 Chronic idiopathic constipation K59.04
[2025-07-03] MEDS: MAGNESIUM SULFATE / D5W 1 GM/100 ML BAG IV ONE (11:16)
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
== END 2025-07-03 14:25 | DRG 552 ==
LOC: ED 15:57 → 3N 15:57 → SUATTDRO 19:59 → 3N 21:47 → SUATTDRO 06-30 14:21
DX: K44.9 Diaphragmatic hernia without obstruction or gangrene; F03.90 Unspecified dementia, unspecified severity, without behavioral disturbance, psychotic disturbance, mood disturbance, and anxiety; R18.8 Other ascites; F32.A Depression, unspecified; M53.3 Sacrococcygeal disorders, not elsewhere classified; R13.19 Other dysphagia; D47.2 Monoclonal gammopathy; G60.9 Hereditary and idiopathic neuropathy, unspecified; Z83.3 Family history of diabetes mellitus; K59.09 Other constipation; I25.2 Old myocardial infarction; I10 Essential (primary) hypertension; E86.0 Dehydration; F41.9 Anxiety disorder, unspecified; K57.30 Diverticulosis of large intestine without perforation or abscess without bleeding